=== PATIENT | male | born 1950 | race Two or more races ===

== ENCOUNTER 2020-10-18 09:58 | Outpatient (REF) | payer MEDICARE, MEDICAID, SELFPAY ==
--- NOTE | ~2020-10-18 | US_ITS ---
EXAMINATION: US ABDOMINAL AORTA CLINICAL INFORMATION: This is a 70-year-old male with history of abdominal aortic aneurysm. Nicotine dependence. COMPARISON: Comparison is made to a CT scan dated 06/24/2018 and an aorta ultrasound dated 03/04/2018. The maximum diameter on the previous ultrasound was 3.1 cm. The maximum diameter on the previous CT scan was 2.7 cm. TECHNIQUE: Grayscale, color Doppler and spectral Doppler evaluation of the abdominal aorta. FINDINGS: There is scattered atherosclerotic disease with minimal ectasia but without aneurysm. The measurements of the aorta in maximum AP and transverse dimensions respectively are as follows: PROXIMAL: 3.2 x 3.5 cm. MID: 3.2 x 3.7 cm. DISTAL: 2.6 x 2.7 cm. The measurements of the common iliac arteries in maximum AP dimension are as follows: RIGHT COMMON ILIAC ARTERY: 1.6 x 1.6 cm. LEFT COMMON ILIAC ARTERY: 1.8 x 1.8 cm. US/US abdominal aortic aneurysm IMPRESSION: 1. There is scattered atherosclerotic disease with minimal ectasia but without abdominal aortic aneurysm. The aorta may be minimally increased in diameter, now measuring 3.7 cm. Continued follow-up is recommended.
== END 2020-10-18 09:59 | disposition home or self-care (01) ==
LOC: HO.US 09:58
PROVIDERS: Visit Provider Internal Medicine
DX: Z13.6 Encounter for screening for cardiovascular disorders (principal); Z87.891 Personal history of nicotine dependence
CPT/HCPCS: 76706

== ENCOUNTER → 2020-12-25 13:00 | Outpatient (BNVA) | payer MEDICARE, MEDICAID, SELFPAY | PROVIDERS: PCP Internal Medicine; Visit Provider Surgery Vascular Surgery | DX: I71.4 Abdominal aortic aneurysm, without rupture (principal) | CPT/HCPCS: 99202 ==

== ENCOUNTER 2021-04-16 10:20 | Outpatient (REF) | payer MEDICARE, SELFPAY ==
[2021-04-16 10:34] LABS: MANUAL DIFF FLAG NO
[2021-04-16 10:51] LABS: Basophils Percent Auto 0.7 % (0-2); Eosinophils Absolute Auto 0.3 X10*3/uL (0.0-0.4); Eosinophils Percent Auto 4.8 % (0-4); Hematocrit 42.6 % (42-52); Hemoglobin 13.8 g/dl (14.0-18.0); Imm Gran Abs Auto 0.01 X10*3/uL (0.00-0.03); Imm Gran Pct Auto 0.2 % (0.0-0.4); Lymphocytes Absolute Auto 2.5 X10*3/uL (1.2-4.9); Lymphocytes Percent Auto 41.2 % (20-40); Mean Corpuscular HGB Conc 32.4 g/dl (31.0-36.0); Mean Corpuscular Hemoglobin 29.2 pg (27.0-33.0); Mean Corpuscular Volume 90.3 fL (80-98); Mean Platelet Volume 9.6 fL (9.4-12.4); Monocytes Absolute Auto 0.5 X10*3/uL (0.1-1.2); Monocytes Percent Auto 7.8 % (2-11); Neutrophils Absolute Auto 2.7 X10*3/uL (2.0-8.3); Neutrophils Percent Auto 45.3 % (45-73); Platelet Count 235 X10*3/uL (160-400); Red Blood Count 4.72 X10*6/uL (4.60-5.80); Red Cell Distribution Width 12.6 % (11.0-16.0)
[2021-04-16 11:38] LABS: Alanine Aminotransferase 25 U/L (0-40); Albumin Level 4.3 g/dL (3.5-5.0); Alkaline Phosphatase 52 U/L (39-117); Anion Gap 13 (12-20); Aspartate Amino Transferase 23 U/L (5-37); Bilirubin Total 0.5 mg/dL (0.0-1.0); Blood Urea Nitrogen 21 mg/dL (9-16); Calcium 9.6 mg/dL (8.4-10.2); Carbon Dioxide 30 mmol/L (22-29); Chloride 102 mmol/L (96-108); Cholesterol 169 mg/dL; Estimated Glomerular Filt Rate > 60; Glucose Fasting 101 mg/dL (60-99); HDL Cholesterol 36 mg/dL; LDL Cholesterol Calculated 114 mg/dl; Potassium 4.9 mmol/L (3.3-5.1); Sodium 140 mmol/L (135-145); Total Protein 7.4 g/dL (6.5-8.0); Triglycerides 97 mg/dL
[2021-04-16 12:17] LABS: Prostate Specific Antigen 2.09 ng/mL (<0.05-4.0)
== END 2021-04-16 10:21 | disposition home or self-care (01) ==
LOC: HO.LAB 10:20
PROVIDERS: PCP Internal Medicine; Visit Provider Nurse Practitioner Family
DX: Z12.5 Encounter for screening for malignant neoplasm of prostate (principal); Z13.1 Encounter for screening for diabetes mellitus; D64.9 Anemia, unspecified; L50.9 Urticaria, unspecified; E78.5 Hyperlipidemia, unspecified
CPT/HCPCS: 36415; 80053; 80061; 84153; 85025

== ENCOUNTER 2021-05-21 12:17 | Inpatient (IN) | payer MEDICARE, MEDICAID, SELFPAY ==
[2021-05-21] VITALS (7 sets, daily range): BP systolic 95–136; BP diastolic 46–72; PULSE 102–133; RESP 16–20; TEMP 36.8–38.2; O2SAT 89–100; BMI 29.0
--- NOTE | ~2021-05-21 | XR_ITS ---
EXAMINATION: XR ABDOMEN COMPLETE CLINICAL INDICATION: Abdominal pain. COMPARISON: None TECHNIQUE: 2 views of the abdomen. FINDINGS: There is scattered stool and gas seen in colon without significant distention. The small bowel loops are nonspecific. There is no organomegaly. No bony abnormality seen. XR/XR abdomen min 2V IMPRESSION: Moderate constipation. No acute process seen.
--- NOTE | ~2021-05-21 | CT_ITS ---
EXAMINATION: CT ABDOMEN AND PELVIS WITH CONTRAST CLINICAL INFORMATION: Diffuse abdominal pain. Elevated white blood cell count. COMPARISON: Previous CT of the abdomen and pelvis most recent May 2018 TECHNIQUE: Multidetector volumetric images were obtained from the superior aspect of the liver through the pubic symphysis following administration 85 mL of Omnipaque 350 intravenous contrast. Sagittal and coronal reformatted images were obtained on the technologist's workstation. Oral contrast: Yes This CT examination was performed using dose optimization techniques as appropriate, variously including the following: *Automated exposure control *Adjustment of mA and/or kV according to patient size (this includes techniques or standardized protocols for targeted exams where dose is matched to indication/reason for exam; i.e. extremities or head) *Use of iterative reconstruction technique DLP: 583 mGy-cm FINDINGS: LUNG BASES: The visualized lung bases are unremarkable. LIVER, GALLBLADDER, AND BILIARY TREE: The liver is normal in size, shape, and attenuation. No focal hepatic lesion or biliary ductal dilatation is present. The gallbladder is unremarkable with no evidence of radiopaque gallstones, gallbladder wall thickening, or obvious pericholecystic inflammatory changes. PANCREAS: There is fatty infiltration of the pancreas. The pancreas is otherwise unremarkable. SPLEEN: Unremarkable. ADRENAL GLANDS: Unremarkable. KIDNEYS AND URETERS: The kidneys are normal in size, shape, and attenuation. No hydronephrosis, hydroureter, or calculi seen. No perinephric stranding. BLADDER: There is mild diffuse bladder wall thickening and stranding of the perivesicular fat. GASTROINTESTINAL TRACT: There is mild diverticulosis colon. No evidence of diverticulitis is seen. The small and large bowel are unremarkable. The appendix is upper normal in size and fluid-filled measuring 8 mm in diameter. The periappendiceal fat is normal. The stomach is unremarkable. ABDOMINAL WALL: There is a small umbilical hernia containing fat. LYMPH NODES: Normal. VASCULAR: There is atherosclerotic disease. There is mild dilatation of the lower abdominal aorta measuring 6 x 2.8 cm. There is mild dilatation of the right common iliac artery measuring 1.8 cm. This is similar to 2018 exam. PELVIC VISCERA: The prostate gland is enlarged and measures 4.7 x 5.3 cm. OSSEOUS STRUCTURES: Unremarkable. CT/CT abdomen pelvis w con IMPRESSION: Thickened bladder wall and stranding of the perivesicular fat. Differential would include infection, neoplasm and post radiation change. Enlarged prostate gland. Fluid-filled upper normal-size appendix. The periappendiceal fat is normal. It is difficult to exclude early acute appendicitis and clinical correlation is recommended. Mild diverticulosis. Fatty infiltration of the pancreas. Atherosclerotic disease and mild ectasia of the lower abdominal aorta and right common iliac artery is similar to previous exam. Fleischner guidelines were followed.
--- NOTE | ~2021-05-21 | XR_ITS ---
EXAMINATION: XR CHEST CLINICAL INFORMATION: Elevated white blood cell count and hypoxia COMPARISON: Previous chest CT January 2019 TECHNIQUE: 2 views of the chest were obtained. FINDINGS: The cardiac and mediastinal contours are normal. The lungs are clear. There is no pleural effusion or pneumothorax. There are degenerative changes of the spine. XR/XR chest 2V IMPRESSION: No evidence for acute disease in the chest.
--- NOTE | 2021-05-21 12:48 | ED_ITS ---
HPI - Abdominal Pain General Chief Complaint: Abdominal Pain Stated Complaint: abd pain, fever Time Seen by Provider: 05/21/21 12:48 Source: patient Mode of arrival: ambulatory Limitations: no limitations History of Present Illness HPI narrative: abdominal pain since Thursday night. Patient had foul food on Thursday and started with pain. Patient states he is constipated with pain in the rectum and green urine. No prior history of abdominal surgery. 99.5 at home. Patient states that his abdomen is distended and hard. MD elicited complaint: abdominal pain Pertinent past history: constipation Onset (ago): day(s) Pain Consistency: constant Severity: severe Associated symptoms: denies other symptoms and nausea Related Data Home Medications Medication Instructions Recorded Confirmed simvastatin 10 mg tablet 10 mg PO DAILY 05/21/21 05/21/21 Previous Rx's Medication Instructions Recorded losartan 25 mg tablet 25 mg PO DAILY 90 Days #90 tab 07/27/20 Allergies Allergy/AdvReac Type Severity Reaction Status Date / Time No Known Allergies Allergy Verified 04/09/21 12:17 [No Known Allergies*] Review of Systems Constitutional: Reports no additional constitutional complaints Eyes: Reports no additional eye complaints Denies dizziness Cardiovascular: Reports no additional cardiovascular complaints Respiratory: Reports as per HPI Gastrointestinal: Reports no additional gastrointestinal complaints Musculoskeletal: Reports no additional musculoskeletal complaints Skin/Breast: Denies rash Reports system reviewed and no additional complaints, except as documented, Denies dizziness and Denies Sensory deficit (Neuro) Psychiatric: Denies anxiety Physical Exam Vital Signs: Vital Signs: Last Vital Signs Temp 97.4 F 05/22/21 12:00 Pulse 90 05/22/21 12:00 Resp 18 05/22/21 12:00 BP 119/67 05/22/21 12:00 Pulse Ox 95 05/22/21 12:00 Body Mass Index 29.0 Const: Other: patient in a lot of pain Nutritional Appearance: average body habitus Orientation/consciousness: oriented to person and patient oriented x3 Limitations: no limitations HENMT: Head: Yes normal to inspection Ears: external ears normal General nose exam: Normal external nose present Mouth: Normal oral and palatal mucosa present and oropharynx normal Throat: Yes posterior oropharynx normal Eyes: General: appearance normal, both eyes and all related structures Neck: Other: supple Neck: Yes normal visual inspection Chest: Chest palpation & inspection: normal inspection of the chest Resp: Auscultation: clear to auscultation bilaterally Cardio: Jugular venous distension: no JVD Rate: regular rate Rhythm: regular rhythm Heart sounds: S1 normal heart sound present and S2 normal heart sound present GI: Other: distended slow BS diffusely tender Palpation (GI): Tenderness to palpation present (GI) : General: Yes no CVA tenderness Back/Spine/Pelvis: Back: no CVA tenderness Skin: General skin exam: no rashes or lesions noted Neuro: General: oriented to person and patient oriented x3 Cranial nerves: Yes CN's II-XII intact bilaterally Motor exam (neuro): 5/5 motor strength present throughout Sensory Exam: No Sensory deficit (Neuro) Extrem: General: Yes normal to inspection Psych: Appearance: grossly normal Course Reevaluation(s) Reevaluation #1: discussed with Dr. Raman who feels this is acute prostatis and not bowel perforation will continue zosyn and admit to hospitalist. Also discussed appendix findings with Dr. Morocho Time: 16:50 MDM - Abdominal Pain Lab Data Result diagrams: 05/22/21 06:43 05/22/21 06:43 Labs: Lab Results 05/21/21 05/21/21 05/21/21 Range/Units 13:59 13:59 16:09 WBC 26.7 H (4.8-10.8) X10*3/uL RBC 4.34 L (4.60-5.80) X10*6/uL Hgb 13.1 L (14.0-18.0) g/dl Hct 39.1 L (42.0-52.0) % MCV 90.1 (80.0-98.0) fL MCH 30.2 (27.0-33.0) pg MCHC 33.5 (31.0-36.0) g/dl RDW 12.8 (11.0-16.0) % Plt Count 208 (160-400) X10*3/uL MPV 9.5 (9.4-12.4) fL Immature Gran % (Auto) 1.2 H (0.0-0.4) % Neut % (Auto) 84.4 H (45-73) % Lymph % (Auto) 8.0 L (20-40) % [place] % (Auto) 6.2 (2-11) % Eos % (Auto) 0.0 (0-4) % Baso % (Auto) 0.2 (0-2) % Lymph # (Auto) 2.1 (1.2-4.9) X10*3/uL [place] # (Auto) 1.7 H (0.1-1.2) X10*3/uL Eos # (Auto) 0.0 (0.0-0.4) X10*3/uL Baso # (Auto) 0.1 (0.0-0.2) X10*3/uL Abs Immat Gran (auto) 0.31 H (0.00-0.03) X10*3/uL Absolute Neuts (auto) 22.6 H (2.0-8.3) x10*3/uL Absolute Nucleated RBC 0.000 (0.0-0.012) X10*3/uL Nucleated RBC % (auto) 0.0 (0.0-0.2) /100WBC Smear Tech's Comments VERIFIED Sodium 133 L (135-145) mmol/L Potassium 4.3 (3.3-5.1) mmol/L Chloride 100 (96-108) mmol/L Carbon Dioxide 24 (22-29) mmol/L Anion Gap 13 (12-20) BUN 17 H (9-16) mg/dL Creatinine 1.03 (0.5-1.4) mg/dL Estim Creat Clear Calc 66.9 Estimated GFR > 60 Random Glucose 117 H (60-115) mg/dL Lactic Acid 0.8 (0.5-2.0) mmol/L Calcium 8.5 D (8.4-10.2) mg/dL Total Bilirubin 1.5 H (0.0-1.0) mg/dL Direct Bilirubin 0.5 (0.0-0.5) mg/dL AST 24 (5-37) U/L ALT 21 (0-40) U/L Alkaline Phosphatase 47 (39-117) U/L Total Protein 7.0 (6.5-8.0) g/dL Albumin 3.7 (3.5-5.0) g/dL Lipase 7 L (8-78) U/L Urine Color Urine Appearance Urine pH (5.0-8.0) Ur Specific [place] (1.005-1.025) Urine Protein (NEG-TRACE) MG/DL Urine Glucose (UA) (NEG) MG/DL Urine Ketones (NEG) MG/DL Urine Blood (NEG) Urine Nitrite (NEG) Ur Leukocyte Esterase (NEG) Urine RBC (0) /HPF Urine WBC (0-4) /HPF Urine WBC Clumps Ur Squamous Epith Cells /LPF Urine Bacteria /LPF COVID-19 ([facility]) (Negative) COVID-19 Clin Com 05/21/21 05/21/21 Range/Units 16:09 16:15 WBC (4.8-10.8) X10*3/uL RBC (4.60-5.80) X10*6/uL Hgb (14.0-18.0) g/dl Hct (42.0-52.0) % MCV (80.0-98.0) fL MCH (27.0-33.0) pg MCHC (31.0-36.0) g/dl RDW (11.0-16.0) % Plt Count (160-400) X10*3/uL MPV (9.4-12.4) fL Immature Gran % (Auto) (0.0-0.4) % Neut % (Auto) (45-73) % Lymph % (Auto) (20-40) % [place] % (Auto) (2-11) % Eos % (Auto) (0-4) % Baso % (Auto) (0-2) % Lymph # (Auto) (1.2-4.9) X10*3/uL [place] # (Auto) (0.1-1.2) X10*3/uL Eos # (Auto) (0.0-0.4) X10*3/uL Baso # (Auto) (0.0-0.2) X10*3/uL Abs Immat Gran (auto) (0.00-0.03) X10*3/uL Absolute Neuts (auto) (2.0-8.3) x10*3/uL Absolute Nucleated RBC (0.0-0.012) X10*3/uL Nucleated RBC % (auto) (0.0-0.2) /100WBC Smear Tech's Comments Sodium (135-145) mmol/L Potassium (3.3-5.1) mmol/L Chloride (96-108) mmol/L Carbon Dioxide (22-29) mmol/L Anion Gap (12-20) BUN (9-16) mg/dL Creatinine (0.5-1.4) mg/dL Estim Creat Clear Calc Estimated GFR Random Glucose (60-115) mg/dL Lactic Acid (0.5-2.0) mmol/L Calcium (8.4-10.2) mg/dL Total Bilirubin (0.0-1.0) mg/dL Direct Bilirubin (0.0-0.5) mg/dL AST (5-37) U/L ALT (0-40) U/L Alkaline Phosphatase (39-117) U/L Total Protein (6.5-8.0) g/dL Albumin (3.5-5.0) g/dL Lipase (8-78) U/L Urine Color YELLOW Urine Appearance CLOUDY Urine pH 7.0 (5.0-8.0) Ur Specific [place] <= 1.005 (1.005-1.025) Urine Protein 1+ H (NEG-TRACE) MG/DL Urine Glucose (UA) NEG (NEG) MG/DL Urine Ketones NEG (NEG) MG/DL Urine Blood 3+ H (NEG) Urine Nitrite POS H (NEG) Ur Leukocyte Esterase 3+ H (NEG) Urine RBC 30-49 H (0) /HPF Urine WBC TNTC H (0-4) /HPF Urine WBC Clumps NOTED Ur Squamous Epith Cells TRACE /LPF Urine Bacteria 2+ /LPF COVID-19 ([facility]) Negative (Negative) COVID-19 Clin Com See Note Imaging Data Abdominal x-ray: Radiologist's impression: IMPRESSION: Moderate constipation. No acute process seen. ? CT scan - abdomen: Radiologist's impression: IMPRESSION: Thickened bladder wall and stranding of the perivesicular fat. Differential would include infection, neoplasm and post radiation change. Enlarged prostate gland. ? Fluid-filled upper normal-size appendix. The periappendiceal fat is normal. It is difficult to exclude early acute appendicitis and clinical correlation is recommended. Mild diverticulosis. Fatty infiltration of the pancreas. Atherosclerotic disease and mild ectasia of the lower abdominal aorta and right common iliac artery is similar to previous exam. ? Fleischner guidelines were followed. Discharge Plan Discharge Clinical Impression: Cystitis, Abnormal CT scan Abdominal pain Qualifiers: Abdominal location: generalized Qualified Code(s): R10.84 - Generalized abdominal pain Patient Disposition: Admitted As Inpatient Interventions: Admission Worksheet (ED) Last Done: 05/22/21 10:14 Discharge Date/Time: 05/22/21 10:15 ON LICENSE OF [facility] Past Medical History Medical History Dyslipidemia Enlarged aorta Essential hypertension Former smoker [place] Obese Urticaria Surgical History History of colonoscopy Family History Family History Father No problems noted. Mother Emphysema of lung Social History Social History Household Members: Spouse Housing: House Do you presently have visiting nurse or other home services: No Alcohol intake: never Patient Tobacco Use Status: Former Tobacco user Tobacco use type: Cigarette Smoked in Last 30 Days: No Use of substances other than those prescribed or required for medical reasons: No Currently Displaying Signs/Symptoms of Drug Intoxication Withdrawal: No Any prior treatment program specific to substance use: No Have you been hit, kicked, punched, or otherwise hurt by someone within the past year? If so, by whom?: No Do you feel safe in your current relationship?: No Is there a partner from a previous relationship who is making you feel unsafe now?: No Are you made to feel afraid or neglected: No Advance Directives: No Advance Directives Information Provided: No Advance Directives on File: No Do you have thoughts of harming others: None Recently lost weight without trying: No How much weight loss: Not applicable Eating poorly because of decreased appetite: Yes Nutrition screen score: 1 Nutrition Risks: No Nutritional Risk Poor oral hygiene: No service: No Current occupational status: disabled
[2021-05-21] MEDS: Morphine Sulfate 4 MG/ML CARTRIDGE IVPUSH (14:04)
[2021-05-21] MEDS: 0.9 % Sodium Chloride 1,000 ML 999 ML IVCONT ×3 (14:04→18:59)
[2021-05-21 14:05] LABS: Basophils Absolute Auto 0.1 X10*3/uL (0.0-0.2); Basophils Percent Auto 0.2 % (0-2); Hematocrit 39.1 % (42.0-52.0); Hemoglobin 13.1 g/dl (14.0-18.0); Imm Gran Abs Auto 0.31 X10*3/uL (0.00-0.03); Imm Gran Pct Auto 1.2 % (0.0-0.4); Lymphocytes Absolute Auto 2.1 X10*3/uL (1.2-4.9); MANUAL DIFF FLAG SCAN; Mean Corpuscular HGB Conc 33.5 g/dl (31.0-36.0); Mean Corpuscular Hemoglobin 30.2 pg (27.0-33.0); Mean Corpuscular Volume 90.1 fL (80.0-98.0); Mean Platelet Volume 9.5 fL (9.4-12.4); Monocytes Absolute Auto 1.7 X10*3/uL (0.1-1.2); Monocytes Percent Auto 6.2 % (2-11); Neutrophils Absolute Auto 22.6 x10*3/uL (2.0-8.3); Neutrophils Percent Auto 84.4 % (45-73); Platelet Count 208 X10*3/uL (160-400); Red Blood Count 4.34 X10*6/uL (4.60-5.80); Red Cell Distribution Width 12.8 % (11.0-16.0); SCAN SMEAR FLAG 1; White Blood Count 26.7 X10*3/uL (4.8-10.8)
[2021-05-21 14:24] LABS: Alanine Aminotransferase 21 U/L (0-40); Albumin Level 3.7 g/dL (3.5-5.0); Alkaline Phosphatase 47 U/L (39-117); Anion Gap 13 (12-20); Aspartate Amino Transferase 24 U/L (5-37); Bilirubin Direct 0.5 mg/dL (0.0-0.5); Bilirubin Total 1.5 mg/dL (0.0-1.0); Blood Urea Nitrogen 17 mg/dL (9-16); Calcium 8.5 mg/dL (8.4-10.2); Carbon Dioxide 24 mmol/L (22-29); Chloride 100 mmol/L (96-108); Creatinine Clr Calc Pharmacy 66.9; Estimated Glomerular Filt Rate > 60; Glucose Random 117 mg/dL (60-115); Lipase 7 U/L (8-78); Potassium 4.3 mmol/L (3.3-5.1); Sodium 133 mmol/L (135-145)
[2021-05-21] MEDS: Acetaminophen 325 MG TABLET 650 MG PO (14:35)
[2021-05-21 14:55] LABS: SLIDE REVIEW VERIFIED
[2021-05-21] MEDS: iohexoL 350 MG/ML 100 ML INFUS..BTL IV (15:10)
[2021-05-21 16:17] LABS: Appearance Urine CLOUDY; Color Urine YELLOW; Glucose Urine UA NEG (NEG); Leukocyte Esterase Urine 3+ (NEG); Nitrite Urine POS (NEG); Specific Gravity - Urine <= 1.005 (1.005-1.025); UACC Culture Trigger YES; Urine Blood 3+ (NEG); Urine Ketones NEG (NEG); Urine Protein 1+ MG/DL (NEG-TRACE)
[2021-05-21 16:25] LABS: Lactic Acid 0.8 mmol/L (0.5-2.0)
[2021-05-21 16:38] LABS: COVID-19 Test Negative (Negative); IDNOW Serial# 9DD0AD1C
[2021-05-21] MEDS: Piperacillin Sodium/Tazobactam 3.375 GM in 0.9 % Sodium Chloride 50 ML IV (16:40)
[2021-05-21 16:55] LABS: Bacteria Urine 2+ /LPF; RBC Urine 30-49 /HPF (0); Squamous Epithelial Cell Urine TRACE /LPF; WBC Clumps Urine NOTED; WBC Urine TNTC /HPF (0-4)
--- NOTE | 2021-05-21 17:17 | P.CONGS_ITS ---
History of Present Illness Consult details Consult date: 05/21/21 Reason for consult: abdominal pain Requesting physician: Lorenzo Chavarria Narrative: 70-year-old male patient presenting with complaints of abdominal pain of 3 days duration which began after eating what he thinks was bad food on Thursday. He subsequently developed increased abdominal pain and what he calls screening urine. He also complains of constipation, abdominal distension, nausea, or vomiting. The pain seems to increase in severity a therefore presented to the emergency department for further evaluation. Admitting evaluation noted abdominal distension. Laboratories revealed elevated WBC and urinalysis with blood and wbc's too numerous to count. Subsequent evaluation with a CT abdomen and pelvis revealed a markedly thickened bladder with surrounding inflammatory changes and inflamed enlarge prostate. A fluid-filled appendix was also identified with no secondary evidence of acute appendicitis. Patient now reports his abdominal pain is improved and reports passing normal, clear urine. He denies fever or chills. He denies previous abdominal surgery. Review of Systems Constitutional: Constitutional: Denies chills, Denies fever(s), Denies headache(s) and Reports poor appetite ENT: Denies dizziness and Denies headache(s) Cardiovascular: Cardiovascular: Denies chest pain, Denies rapid heart rate, Denies palpitations and Denies slow heart rate Respiratory: Respiratory: Denies chest congestion, Denies cough, Denies pain on inspiration and Denies wheezing Gastrointestinal: Gastrointestinal: Reports abdominal pain, Denies bloating, Denies change in stool character, Reports constipation, Denies diarrhea, Denies nausea, Denies vomiting and Denies hematemesis Genitourinary: Genitourinary: Reports as per HPI Musculoskeletal: Musculoskeletal: Denies back pain, Denies arthralgias, Denies joint swelling and Denies numbness Integumentary/Breasts: Skin/Breast: Denies change in pigmentation, Denies erythema and Denies rash Neurologic: Denies dizziness, Denies headache(s) and Denies numbness Psychiatric: Psychiatric: Denies anxiety and Denies depression Endocrine: Endocrine: Denies palpitations Hematologic/Lymphatic: Hematologic/Lymphatic: Denies easy bleeding, Denies easy bruising and Denies lymphadenopathy Allergic/Immunologic: Allergic/Immunologic: Denies wheezing PMFSH Past Medical History Medical History Dyslipidemia Enlarged aorta Essential hypertension Former smoker Lipoma Obese Urticaria Family History Family History Father No problems noted. Mother Emphysema of lung Surgical History Surgical History History of colonoscopy Social History Social History Housing: Apartment Alcohol intake: never Patient Tobacco Use Status: Former Tobacco user Tobacco use type: Cigarette Use of substances other than those prescribed or required for medical reasons: No Advance Directives: No Advance Directives Information Provided: No service: No Current occupational status: disabled Meds Allergies Allergy/AdvReac Type Severity Reaction Status Date / Time No Known Allergies Allergy Verified 04/09/21 12:17 [No Known Allergies*] Active Medications: Current Medications Sodium Chloride (Ns) 1,000 mls @ 999 mls/hr IVCONT .Q1H1M CAMPOS Stop: 05/21/21 18:45 Physical Exam Vital Signs: Vital Signs: Last Vital Signs Temp 98.4 F 05/21/21 15:42 Pulse 106 H 05/21/21 15:42 Resp 16 05/21/21 15:42 BP 95/46 L 05/21/21 15:42 Pulse Ox 97 05/21/21 15:42 Body Mass Index 29.0 Const: General: cooperative, no acute distress and well developed Nutritional Appearance: overweight Orientation/consciousness: patient oriented x3 Limitations: no limitations HENMT: Head: Yes normocephalic and Yes atraumatic Ears: hearing grossly normal bilaterally Resp: Effort & Inspection: normal respiratory effort, no audible wheezes, no cough and no respiratory distress GI: Inspection: Yes distended Palpation (GI): Soft to palpation, nontender, no guarding and not rigid Percussion: Yes normal to percussion Auscultation: normal bowel sounds Rectal Exam - Male: Yes deferred Skin: General skin exam: no rashes or lesions noted Neuro: General: patient oriented x3 Extrem: General: Yes no clubbing, cyanosis or edema Results Labs Result diagrams: 05/21/21 13:59 05/21/21 13:59 Labs: Abnormal lab results 05/21/21 05/21/21 05/21/21 Range/Units 13:59 13:59 16:09 WBC 26.7 H (4.8-10.8) X10*3/uL RBC 4.34 L (4.60-5.80) X10*6/uL Hgb 13.1 L (14.0-18.0) g/dl Hct 39.1 L (42.0-52.0) % Immature Gran % (Auto) 1.2 H (0.0-0.4) % Neut % (Auto) 84.4 H (45-73) % Lymph % (Auto) 8.0 L (20-40) % [place] # (Auto) 1.7 H (0.1-1.2) X10*3/uL Abs Immat Gran (auto) 0.31 H (0.00-0.03) X10*3/uL Absolute Neuts (auto) 22.6 H (2.0-8.3) x10*3/uL Sodium 133 L (135-145) mmol/L BUN 17 H (9-16) mg/dL Random Glucose 117 H (60-115) mg/dL Total Bilirubin 1.5 H (0.0-1.0) mg/dL Lipase 7 L (8-78) U/L Urine Protein 1+ H (NEG-TRACE) MG/DL Urine Blood 3+ H (NEG) Urine Nitrite POS H (NEG) Ur Leukocyte Esterase 3+ H (NEG) Urine RBC 30-49 H (0) /HPF Urine WBC TNTC H (0-4) /HPF Short CBC 05/21/21 Range/Units 13:59 WBC 26.7 H (4.8-10.8) X10*3/uL Hgb 13.1 L (14.0-18.0) g/dl Hct 39.1 L (42.0-52.0) % Plt Count 208 (160-400) X10*3/uL BMP 05/21/21 13:59 Sodium 133 L Potassium 4.3 Chloride 100 Carbon Dioxide 24 BUN 17 H Creatinine 1.03 Calcium 8.5 D Liver Function 05/21/21 Range/Units 13:59 Total Bilirubin 1.5 H (0.0-1.0) mg/dL Direct Bilirubin 0.5 (0.0-0.5) mg/dL AST 24 (5-37) U/L ALT 21 (0-40) U/L Alkaline Phosphatase 47 (39-117) U/L Albumin 3.7 (3.5-5.0) g/dL Urine 05/21/21 Range/Units 16:09 Urine Color YELLOW Urine Appearance CLOUDY Urine pH 7.0 (5.0-8.0) Ur Specific [place] <= 1.005 (1.005-1.025) Urine Protein 1+ H (NEG-TRACE) MG/DL Urine Glucose (UA) NEG (NEG) MG/DL All other labs normal. Assessment and Plan (1) Cystitis: Status: Acute 70-year-old male patient presenting with complaints of abdominal pain, distension, constipation, and green urine. Evaluation revealed a markedly elevated WBC and CT changes consistent with cystitis. Urinalysis is markedly abnormal with rbc's and wbc's. I reviewed the CT abdomen and pelvis. The bladder wall is thickened with inflammatory changes surrounding the bladder. Appendix is identified and fluid filled but no evidence of inflammatory changes to indicate Acute appendicitis. Examination reveals abdomen to be soft, with no right lower quadrant or left lower quadrant tenderness. No rebound or guarding. Findings are most consistent with a cystitis. Recommend hospitalist and urology evaluation. No surgical intervention recommended at this time. Discussed with Dr. Chavarria. Procedures Date of Service Date of Service: 05/21/21
--- NOTE | 2021-05-21 19:05 | PC.NURSE ---
REPORT TAKEN FROM MARCELLE RN, FIRST CONTACT WITH PT. RESTING IN BED SKIN PWD RESPIRATIONS EVEN UNLABORED. AWAITING BED ASSIGNMENT FOR ADMISSION. AWARE OF PLAN OF CARE.
--- NOTE | 2021-05-21 19:22 | P.HPHOSP_ITS ---
History of Present Illness Date of Service: 05/21/21 Chief Complaint: Abdominal pain 70-year-old male with a past medical history of hypertension, hyperlipidemia, obesity, history of abdominal aortic aneurysm, ex-smoker presented to the hospital today with a chief complaint of abdominal pain. Patient reported that he had old hold on Thursday and since then he has been having abdominal discomfort as well to nausea and vomiting. Denies any diarrhea. Denies any blood in the vomitus. Reports abdominal pain is diffuse, crampy, intermittent in nature,. Denies any chest pain palpitations lightheadedness or dizziness. Denies any fever chills cough. Patient does complains of urinary frequency and dysuria. Denies any numbness tingling or focal weakness. Review of all other systems is negative except mentioned above ER course: Per ER team on presentation patient noted to be tachycardic; lab showed elevated white count, concern for sepsis; urinalysis was abnormal with microscopic hematuria-discussed with Urology Dr. jin who opined-> is likely prostatitis; also discussed with general surgery Dr. Cage was ago who evaluated the patient and mentioned he does not appear to be an acute abdomen and no concerns for acute appendicitis and mentioned no acute surgery needed. Patient was given IV antibiotics. Admitted to the hospital for further management. [facility] Medical History Dyslipidemia Enlarged aorta Essential hypertension Former smoker Lipoma Obese Urticaria Family History Father No problems noted. Mother Emphysema of lung Pertinent family history: As mentioned above Surgical History History of colonoscopy Social History Housing: Apartment Alcohol intake: never Patient Tobacco Use Status: Former Tobacco user Tobacco use type: Cigarette Use of substances other than those prescribed or required for medical reasons: No Advance Directives: No Advance Directives Information Provided: No service: No Current occupational status: disabled Meds Allergies Allergy/AdvReac Type Severity Reaction Status Date / Time No Known Allergies Allergy Verified 04/09/21 12:17 [No Known Allergies*] Physical Exam Vital Signs and Narrative: Vital Signs: Last Vital Signs Temp 98.4 F 05/21/21 15:42 Pulse 106 H 05/21/21 15:42 Resp 16 05/21/21 15:42 BP 95/46 L 05/21/21 15:42 Pulse Ox 97 05/21/21 15:42 Body Mass Index 29.0 Gen: Appears be in no acute distress HEENT: NCAT, Moist mucosa. Pulmonary: Vesicular breath sounds, fair air entry CVS: Normal S1-S2 Abdomen: BS+, Soft, tender diffusely, no guarding no rigidity Extremities: Warm well perfused Neuro: Alert and awake. Results Labs CBC and Chem 7: 05/21/21 13:59 05/21/21 13:59 Labs: Laboratory Results - last 24 hr 05/21/21 05/21/21 05/21/21 13:59 13:59 16:09 MCV 90.1 MCH 30.2 MCHC 33.5 RDW 12.8 Plt Count 208 MPV 9.5 Immature Gran % (Auto) 1.2 H Neut % (Auto) 84.4 H Lymph % (Auto) 8.0 L [place] % (Auto) 6.2 Eos % (Auto) 0.0 Baso % (Auto) 0.2 Lymph # (Auto) 2.1 [place] # (Auto) 1.7 H Eos # (Auto) 0.0 Baso # (Auto) 0.1 Abs Immat Gran (auto) 0.31 H Absolute Neuts (auto) 22.6 H Absolute Nucleated RBC 0.000 Nucleated RBC % (auto) 0.0 Smear Tech's Comments VERIFIED Anion Gap 13 Estim Creat Clear Calc 66.9 Estimated GFR > 60 Random Glucose 117 H Lactic Acid 0.8 Calcium 8.5 D Total Bilirubin 1.5 H Direct Bilirubin 0.5 AST 24 ALT 21 Alkaline Phosphatase 47 Total Protein 7.0 Albumin 3.7 Lipase 7 L Urine Color Urine Appearance Urine pH Ur Specific [place] Urine Protein Urine Glucose (UA) Urine Ketones Urine Blood Urine Nitrite Ur Leukocyte Esterase Urine RBC Urine WBC Urine WBC Clumps Ur Squamous Epith Cells Urine Bacteria COVID-19 ([facility]) COVID-19 Clin Com 05/21/21 05/21/21 16:09 16:15 MCV MCH MCHC RDW Plt Count MPV Immature Gran % (Auto) Neut % (Auto) Lymph % (Auto) [place] % (Auto) Eos % (Auto) Baso % (Auto) Lymph # (Auto) [place] # (Auto) Eos # (Auto) Baso # (Auto) Abs Immat Gran (auto) Absolute Neuts (auto) Absolute Nucleated RBC Nucleated RBC % (auto) Smear Tech's Comments Anion Gap Estim Creat Clear Calc Estimated GFR Random Glucose Lactic Acid Calcium Total Bilirubin Direct Bilirubin AST ALT Alkaline Phosphatase Total Protein Albumin Lipase Urine Color YELLOW Urine Appearance CLOUDY Urine pH 7.0 Ur Specific [place] <= 1.005 Urine Protein 1+ H Urine Glucose (UA) NEG Urine Ketones NEG Urine Blood 3+ H Urine Nitrite POS H Ur Leukocyte Esterase 3+ H Urine RBC 30-49 H Urine WBC TNTC H Urine WBC Clumps NOTED Ur Squamous Epith Cells TRACE Urine Bacteria 2+ COVID-19 ([facility]) Negative COVID-19 Clin Com See Note Imaging Radiologist's Impressions: Impressions Abdomen X-Ray 05/21/21 12:55 IMPRESSION: Moderate constipation. No acute process seen. Abdomen/Pelvis CT 05/21/21 14:36 IMPRESSION: Thickened bladder wall and stranding of the perivesicular fat. Differential would include infection, neoplasm and post radiation change. Enlarged prostate gland. Fluid-filled upper normal-size appendix. The periappendiceal fat is normal. It is difficult to exclude early acute appendicitis and clinical correlation is recommended. Mild diverticulosis. Fatty infiltration of the pancreas. Atherosclerotic disease and mild ectasia of the lower abdominal aorta and right common iliac artery is similar to previous exam. Fleischner guidelines were followed. Chest X-Ray 05/21/21 14:36 IMPRESSION: No evidence for acute disease in the chest. Assessment and Plan (1) Abdominal pain: Qualifiers: Abdominal location: generalized Qualified Code(s): R10.84 - Generalized abdominal pain Status: Acute (2) Cystitis: Status: Acute (3) Microscopic hematuria: Status: Acute 70-year-old male with a past medical history of hypertension, hyperlipidemia, obesity, history of abdominal aortic aneurysm, ex-smoker presented to the hospital today with a chief complaint of abdominal pain. Noted to have a UTI/prostatitis. Admitted for further management. Sepsis/UTI/prostatitis: Continue ceftriaxone. Follow up cultures. Id consult. BP on soft side; c/w IV fluids. Thickened urinary bladder/microscopic hematuria: Neoplasm in the differential. Urology consulted Hx Abd aortic aneurysm: CT shows: mild ectasia of the lower abdominal aorta and right common iliac artery is similar to previous exam. Spoke to radiology -> no concern acute aortic pathology. hx HTN: Hold home losartan for now given soft BP. DVT ppx: [facility] Code status: Full code Quality Stroke Does the patient have a stroke diagnosis?: No VTE Prior VTE?: No VTE Risk Level:: Medical - moderate - high VTE Device Contraindication: Treatment Not Indicated VTE Drug Contraindication: N/A - Med Ordered
[2021-05-21] MEDS: Dextrose 5 % and 0.9 % NaCl 1,000 ML 80 ML IVCONT (20:02)
[2021-05-21] MEDS: Heparin Sodium,Porcine 5,000 UNIT/ML VIAL 5000 UNIT SUBCUT (22:00)
[2021-05-21] MEDS: cefTRIAXone sodium 1 GM in 0.9 % Sodium Chloride 50 ML IV (22:00)
[2021-05-21] MEDS: 0.9 % Sodium Chloride Flush 3 ML SYRINGE IVFLUSH (23:32)
--- NOTE | 2021-05-21 23:37 | PC.NURSE ---
REPORT TAKEN FROM MARCELLE RN, FIRST CONTACT WITH PT. RESTING IN BED SKIN PWD RESPIRATIONS EVEN UNLABORED. OFFERS NO COMPLAINTS AT THIS TIME. AWAITING BED ASSIGNMENT FOR ADMISSION, AWARE OF PLAN OF CARE.
--- NOTE | 2021-05-21 23:42 | PC.NURSE ---
PT RESTING IN BED D5NS INFUSING WITHOUT DIFFICULTY. OFFERS NO COMPLAINTS AT THIS TIME. VSD. CONTINUES TO AWAIT BED ASSIGNMENT FOR ADMISSION. AWRAE OF PLAN OF CARE.
[2021-05-22] VITALS (8 sets, daily range): BP systolic 97–133; BP diastolic 46–68; PULSE 90–106; RESP 16–19; TEMP 35.7–38.1; O2SAT 94–100
[2021-05-22] MEDS: Heparin Sodium,Porcine 5,000 UNIT/ML VIAL 5000 UNIT SUBCUT ×3 (03:20→19:37)
[2021-05-22 07:08] LABS: MANUAL DIFF FLAG NO
[2021-05-22 07:16] LABS: Basophils Percent Auto 0.2 % (0-2); Eosinophils Percent Auto 0.1 % (0-4); Hematocrit 37.2 % (42.0-52.0); Hemoglobin 11.9 g/dl (14.0-18.0); Imm Gran Abs Auto 0.25 X10*3/uL (0.00-0.03); Imm Gran Pct Auto 1.1 % (0.0-0.4); Lymphocytes Absolute Auto 1.5 X10*3/uL (1.2-4.9); Lymphocytes Percent Auto 6.7 % (20-40); Mean Corpuscular Hemoglobin 29.5 pg (27.0-33.0); Mean Corpuscular Volume 92.1 fL (80.0-98.0); Mean Platelet Volume 9.9 fL (9.4-12.4); Monocytes Absolute Auto 1.1 X10*3/uL (0.1-1.2); Monocytes Percent Auto 4.9 % (2-11); Neutrophils Absolute Auto 19.2 x10*3/uL (2.0-8.3); Platelet Count 200 X10*3/uL (160-400); Red Blood Count 4.04 X10*6/uL (4.60-5.80); Red Cell Distribution Width 13.2 % (11.0-16.0); White Blood Count 22.1 X10*3/uL (4.8-10.8)
[2021-05-22 07:39] LABS: Anion Gap 11 (12-20); Blood Urea Nitrogen 12 mg/dL (9-16); Calcium 7.5 mg/dL (8.4-10.2); Carbon Dioxide 25 mmol/L (22-29); Chloride 105 mmol/L (96-108); Creatinine Clr Calc Pharmacy 84.1; Estimated Glomerular Filt Rate > 60; Glucose Random 126 mg/dL (60-115); Potassium 4.3 mmol/L (3.3-5.1); Sodium 137 mmol/L (135-145)
[2021-05-22 07:56] LABS: Urine Cytology See Pathology rpt
[2021-05-22] MEDS: Dextrose 5 % and 0.9 % NaCl 1,000 ML 80 ML IVCONT ×2 (07:59→13:25)
[2021-05-22] MEDS: Acetaminophen 325 MG TABLET 650 MG PO (08:47)
[2021-05-22] MEDS: 0.9 % Sodium Chloride Flush 3 ML SYRINGE IVFLUSH (08:48)
--- NOTE | 2021-05-22 10:03 | MHC.CM.PN ---
CM met with Patient at bedside and addressed IMM with him (he asked that it be left for his ; he preferred not to sign himself); a copy has also been placed on the chart.Home is the goal for dc and CM has initiated and will follow for dc planning. /Karrie is HCP and PCP is Dr. Marilynn Pandey.
--- NOTE | 2021-05-22 14:51 | W.PM.IDCN ---
History of Present Illness Data of Consult Service Date: 05/22/21 Requesting physician: Moises Plascencia Primary Care Provider: Marilynn Pandey MD [facility] Reason for consult: abdominal pain He presents to hospital with abdominal discomfort 7/10 for 3 days He has occasional fever and no chills He has gram negative rods in urine Review of Systems Review of Systems: Yes all other systems are reviewed and are negative PMFSH Past Medical History Medical History Dyslipidemia Enlarged aorta Essential hypertension Former smoker Lipoma Obese Urticaria Family History Family History Father No problems noted. Mother Emphysema of lung Family history: reviewed and not pertinent Surgical History Surgical History History of colonoscopy Social History Social History Household Members: Spouse Housing: House Do you presently have visiting nurse or other home services: No Alcohol intake: never Patient Tobacco Use Status: Former Tobacco user Tobacco use type: Cigarette Smoked in Last 30 Days: No Use of substances other than those prescribed or required for medical reasons: No Currently Displaying Signs/Symptoms of Drug Intoxication Withdrawal: No Any prior treatment program specific to substance use: No Have you been hit, kicked, punched, or otherwise hurt by someone within the past year? If so, by whom?: No Do you feel safe in your current relationship?: No Is there a partner from a previous relationship who is making you feel unsafe now?: No Are you made to feel afraid or neglected: No Advance Directives: No Advance Directives Information Provided: No Advance Directives on File: No Do you have thoughts of harming others: None Recently lost weight without trying: No How much weight loss: Not applicable Eating poorly because of decreased appetite: Yes Nutrition screen score: 1 Nutrition Risks: No Nutritional Risk Poor oral hygiene: No service: No Current occupational status: disabled Meds Allergies Allergy/AdvReac Type Severity Reaction Status Date / Time No Known Allergies Allergy Verified 04/09/21 12:17 [No Known Allergies*] Active Medications: Current Medications Acetaminophen (Acetaminophen 325 Mg Tablet) 650 mg PO Q4H PRN PRN Reason: Headache Last Admin: 05/22/21 08:47 Dose: 650 mg Documented by: Heparin Sodium (Porcine) (Heparin Sodium,Porcine 5,000 Unit/Ml Vial) 5,000 unit SUBCUT Q8H [facility] Last Admin: 05/22/21 13:26 Dose: 5,000 unit Documented by: Ceftriaxone Sodium 1 gm/ (Sodium Chloride) 50 mls @ 100 mls/hr IV Q24H [facility] Last Infusion: 05/21/21 22:35 Dose: Infused Documented by: Dextrose/Sodium Chloride (D5ns) 1,000 mls @ 80 mls/hr IVCONT .[id number] [facility] Last Admin: 05/22/21 13:25 Dose: 80 mls/hr Documented by: Melatonin (Melatonin 3 Mg Tablet) 6 mg PO BEDTIME PRN PRN Reason: Insomnia Senna (Sennosides 8.6 Mg Tablet) 17.2 mg PO BEDTIME PRN PRN Reason: Constipation Sodium Chloride (0.9 % Sodium Chloride Flush 3 Ml Syringe) 3 ml IVFLUSH QSHIFT [facility] Last Admin: 05/22/21 08:48 Dose: 3 ml Documented by: Home Medications Medication Instructions Recorded Confirmed Last Taken Type simvastatin 10 mg tablet 10 mg PO DAILY 05/21/21 05/21/21 05/20/21 History Physical Exam Vital Signs: Vital Signs: Last Vital Signs Temp 97.4 F 05/22/21 12:00 Pulse 90 05/22/21 12:00 Resp 18 05/22/21 12:00 BP 119/67 05/22/21 12:00 Pulse Ox 95 05/22/21 12:00 Body Mass Index 29.0 Const: General: cooperative Orientation/consciousness: patient oriented x3 Eyes: General: appearance normal, both eyes and all related structures Pupils: Equal, round and reactive pupils present Resp: Effort & Inspection: normal respiratory effort Cardio: Rate: regular rate Rhythm: regular rhythm GI: Palpation (GI): Soft to palpation and not firm Skin: General skin exam: no rashes or lesions noted Neuro: General: patient oriented x3 Cranial nerves: Yes Equal, round and reactive pupils present Results Labs CBC & Chem 7: 05/22/21 06:43 05/22/21 06:43 Labs: Short CBC 05/22/21 Range/Units 06:43 WBC 22.1 H (4.8-10.8) X10*3/uL Hgb 11.9 L (14.0-18.0) g/dl Hct 37.2 L (42.0-52.0) % Plt Count 200 (160-400) X10*3/uL BMP 05/22/21 06:43 Sodium 137 Potassium 4.3 Chloride 105 Carbon Dioxide 25 BUN 12 Creatinine 0.82 Calcium 7.5 L D Urine 05/21/21 Range/Units 16:09 Urine Color YELLOW Urine Appearance CLOUDY Urine pH 7.0 (5.0-8.0) Ur Specific [place] <= 1.005 (1.005-1.025) Urine Protein 1+ H (NEG-TRACE) MG/DL Urine Glucose (UA) NEG (NEG) MG/DL Microbiology Microbiology Results: Microbiology 05/21/21 16:25 Urine clean catch - Urine wolfe top Urine Culture - Preliminary Gram negative elan Assessment and Plan (1) Abdominal pain: Qualifiers: Abdominal location: generalized Qualified Code(s): R10.84 - Generalized abdominal pain Status: Acute He has probable UTI He feels better now (2) Cystitis: Status: Acute Would continue Ceftriaxone Await urine culture Probably 10 days outpatient po
--- NOTE | 2021-05-22 15:06 | P.PNIM_ITS ---
Subjective Subjective Date of Service: 05/22/21 Interval History: No acute issues overnight Review of Systems Denies chest pain Denies shortness of breath Denies nausea vomiting diarrhea Physical Exam Vital Signs: Vital Signs: Last Vital Signs Temp 97.4 F 05/22/21 12:00 Pulse 90 05/22/21 12:00 Resp 18 05/22/21 12:00 BP 119/67 05/22/21 12:00 Pulse Ox 95 05/22/21 12:00 Body Mass Index 29.0 Const: Other: No acute issues overnight Resp: Other: Clear to auscultation bilaterally. No rales rhonchi wheezes Cardio: Other: No S4; positive S1-S2; no S3 murmurs rubs gallops GI: Other: Soft mildly tender lower abdomen with positive bowel sounds. No peritoneal signs Extrem: Other: No edema bilaterally Objective Data Active Medications Acetaminophen (Acetaminophen 325 Mg Tablet) 650 mg PO Q4H PRN PRN Reason: Headache Last Admin: 05/22/21 08:47 Dose: 650 mg Documented by: ZAYNAB Heparin Sodium (Porcine) (Heparin Sodium,Porcine 5,000 Unit/Ml Vial) 5,000 unit SUBCUT Q8H [facility] Last Admin: 05/22/21 13:26 Dose: 5,000 unit Documented by: JEFFREY Ceftriaxone Sodium 1 gm/ (Sodium Chloride) 50 mls @ 100 mls/hr IV Q24H [facility] Last Infusion: 05/21/21 22:35 Dose: 0 mls/hr Documented by: MALCOLM Dextrose/Sodium Chloride (D5ns) 1,000 mls @ 80 mls/hr IVCONT .[id number] [facility] Last Admin: 05/22/21 13:25 Dose: 80 mls/hr Documented by: JEFFREY Melatonin (Melatonin 3 Mg Tablet) 6 mg PO BEDTIME PRN PRN Reason: Insomnia Senna (Sennosides 8.6 Mg Tablet) 17.2 mg PO BEDTIME PRN PRN Reason: Constipation Sodium Chloride (0.9 % Sodium Chloride Flush 3 Ml Syringe) 3 ml IVFLUSH QSHIFT [facility] Last Admin: 05/22/21 08:48 Dose: 3 ml Documented by: ZAYNAB Labs CBC & Chem 7: 05/22/21 06:43 05/22/21 06:43 Labs: Laboratory Results - last 24 hr 05/21/21 05/21/21 05/21/21 16:09 16:09 16:15 MCV MCH MCHC RDW Plt Count MPV Immature Gran % (Auto) Neut % (Auto) Lymph % (Auto) [place] % (Auto) Eos % (Auto) Baso % (Auto) Lymph # (Auto) [place] # (Auto) Eos # (Auto) Baso # (Auto) Abs Immat Gran (auto) Absolute Neuts (auto) Absolute Nucleated RBC Nucleated RBC % (auto) Anion Gap Estim Creat Clear Calc Estimated GFR Random Glucose Lactic Acid 0.8 Calcium Urine Color YELLOW Urine Appearance CLOUDY Urine pH 7.0 Ur Specific [place] <= 1.005 Urine Protein 1+ H Urine Glucose (UA) NEG Urine Ketones NEG Urine Blood 3+ H Urine Nitrite POS H Ur Leukocyte Esterase 3+ H Urine RBC 30-49 H Urine WBC TNTC H Urine WBC Clumps NOTED Ur Squamous Epith Cells TRACE Urine Bacteria 2+ COVID-19 ([facility]) Negative COVID-19 Clin Com See Note 05/22/21 05/22/21 06:43 06:43 MCV 92.1 MCH 29.5 MCHC 32.0 RDW 13.2 Plt Count 200 MPV 9.9 Immature Gran % (Auto) 1.1 H Neut % (Auto) 87.0 H Lymph % (Auto) 6.7 L [place] % (Auto) 4.9 Eos % (Auto) 0.1 Baso % (Auto) 0.2 Lymph # (Auto) 1.5 [place] # (Auto) 1.1 Eos # (Auto) 0.0 Baso # (Auto) 0.0 Abs Immat Gran (auto) 0.25 H Absolute Neuts (auto) 19.2 H Absolute Nucleated RBC 0.000 Nucleated RBC % (auto) 0.0 Anion Gap 11 L Estim Creat Clear Calc 84.1 Estimated GFR > 60 Random Glucose 126 H Lactic Acid Calcium 7.5 L D Urine Color Urine Appearance Urine pH Ur Specific [place] Urine Protein Urine Glucose (UA) Urine Ketones Urine Blood Urine Nitrite Ur Leukocyte Esterase Urine RBC Urine WBC Urine WBC Clumps Ur Squamous Epith Cells Urine Bacteria COVID-19 ([facility]) COVID-19 Clin Com Microbiology Microbiology Results: Microbiology 05/21/21 16:25 Urine Culture - Preliminary Urine clean catch - Urine wolfe top Gram negative elan Assessment and Plan (1) Cystitis: Status: Acute (2) Abdominal pain: Status: Acute Assessment and Plan: 70-year-old male with a past medical history of hypertension, hyperlipidemia, obesity, history of abdominal aortic aneurysm, ex-smoker presented to the hospital today with a chief complaint of abdominal pain. Noted to have a UTI/prostatitis. Admitted for further management. 1.UTI/prostatitis: Will continue ceftriaxone as per ID consult. Preliminary urine culture demonstrating Gram-negative rods .... Await sensitivities in 90 2.HTN Acceptable control off therapies Continue to monitor. . . Add ARB if indicated DVT ppx: [facility] Code status: Full code Quality Stroke Does the patient have a stroke diagnosis?: No VTE Prior VTE?: No VTE Risk Level:: Medical - moderate - high VTE Device Contraindication: Treatment Not Indicated VTE Drug Contraindication: N/A - Med Ordered
--- NOTE | 2021-05-22 16:28 | PM.UROCN ---
History of Present Illness Consult details Consult date: 05/22/21 Narrative: 70-year-old male Accompanied by who was translating Seen for Urology previously with [facility] Urology Admitted to hospital with difficulty urinating and urinary tract infection Microbiology showing Gram-negative elan Responding well to antibiotics Also describes pelvic pressure with urgency and frequency prior to admission Consistent with question of prostatitis Should be on prostate medications. Start alpha-antoine and finasteride. Recommend 14 days of antibiotics and outpatient follow-up Review of Systems Constitutional: Constitutional: Denies chills and Denies fever(s) Cardiovascular: Cardiovascular: Reports no additional cardiovascular complaints and Denies syncope Respiratory: Respiratory: Denies cough Gastrointestinal: Gastrointestinal: Denies abdominal pain and Denies heartburn Genitourinary: Genitourinary: Reports as per HPI and Denies change in libido Neurologic: Denies syncope Psychiatric: Psychiatric: Denies change in libido Endocrine: Endocrine: Denies change in libido PMFSH Past Medical History Medical History Dyslipidemia Enlarged aorta Essential hypertension Former smoker Lipoma Obese Urticaria Family History Family History Father No problems noted. Mother Emphysema of lung Family history: reviewed and not pertinent Surgical History Surgical History History of colonoscopy Social History Social History Household Members: Spouse Housing: House Do you presently have visiting nurse or other home services: No Alcohol intake: never Patient Tobacco Use Status: Former Tobacco user Tobacco use type: Cigarette Smoked in Last 30 Days: No Use of substances other than those prescribed or required for medical reasons: No Currently Displaying Signs/Symptoms of Drug Intoxication Withdrawal: No Any prior treatment program specific to substance use: No Have you been hit, kicked, punched, or otherwise hurt by someone within the past year? If so, by whom?: No Do you feel safe in your current relationship?: No Is there a partner from a previous relationship who is making you feel unsafe now?: No Are you made to feel afraid or neglected: No Advance Directives: No Advance Directives Information Provided: No Advance Directives on File: No Do you have thoughts of harming others: None Recently lost weight without trying: No How much weight loss: Not applicable Eating poorly because of decreased appetite: Yes Nutrition screen score: 1 Nutrition Risks: No Nutritional Risk Poor oral hygiene: No service: No Current occupational status: disabled Meds Allergies Allergy/AdvReac Type Severity Reaction Status Date / Time No Known Allergies Allergy Verified 04/09/21 12:17 [No Known Allergies*] Active Medications: Current Medications Acetaminophen (Acetaminophen 325 Mg Tablet) 650 mg PO Q4H PRN PRN Reason: Headache Last Admin: 05/22/21 08:47 Dose: 650 mg Documented by: Heparin Sodium (Porcine) (Heparin Sodium,Porcine 5,000 Unit/Ml Vial) 5,000 unit SUBCUT Q8H COUNTS INCLUDE 234 BEDS AT THE [facility] Last Admin: 05/22/21 13:26 Dose: 5,000 unit Documented by: Ceftriaxone Sodium 1 gm/ (Sodium Chloride) 50 mls @ 100 mls/hr IV Q24H COUNTS INCLUDE 234 BEDS AT THE [facility] Last Infusion: 05/21/21 22:35 Dose: Infused Documented by: Dextrose/Sodium Chloride (D5ns) 1,000 mls @ 80 mls/hr IVCONT .[id number] COUNTS INCLUDE 234 BEDS AT THE [facility] Last Admin: 05/22/21 13:25 Dose: 80 mls/hr Documented by: Melatonin (Melatonin 3 Mg Tablet) 6 mg PO BEDTIME PRN PRN Reason: Insomnia Senna (Sennosides 8.6 Mg Tablet) 17.2 mg PO BEDTIME PRN PRN Reason: Constipation Sodium Chloride (0.9 % Sodium Chloride Flush 3 Ml Syringe) 3 ml IVFLUSH QSHIFT COUNTS INCLUDE 234 BEDS AT THE [facility] Last Admin: 05/22/21 15:40 Dose: Not Given Documented by: Home Medications Medication Instructions Recorded Confirmed Last Taken Type simvastatin 10 mg tablet 10 mg PO DAILY 05/21/21 05/21/21 05/20/21 History Physical Exam Vital Signs: Vital Signs: Last Vital Signs Temp 97.4 F 05/22/21 12:00 Pulse 90 05/22/21 12:00 Resp 18 05/22/21 12:00 BP 119/67 05/22/21 12:00 Pulse Ox 95 05/22/21 12:00 Body Mass Index 29.0 Const: General: cooperative, healthy appearing, comfortable and no acute distress Orientation/consciousness: patient oriented x3 HENMT: Face and sinus: Yes normal facial exam Mouth: moist mucous membranes Neck: Neck: Yes normal visual inspection, Yes full ROM and Yes trachea midline Chest: Chest palpation & inspection: normal inspection of the chest Resp: Effort & Inspection: normal respiratory effort, able to speak in complete sentences and no respiratory distress GI: Inspection: Yes normal to inspection Back/Spine/Pelvis: Cervical Spine: normal cervical lordosis Thoracic/Lumbar Spine: thoracic and lumbar spine normal to inspection Skin: General skin exam: no rashes or lesions noted Neuro: General: patient oriented x3, gait normal, tone normal and moves all extremities Extrem: General: Yes normal to inspection and Yes capillary refill normal Results Labs Result diagrams: 05/22/21 06:43 05/22/21 06:43 Labs: Abnormal lab results 05/21/21 05/22/21 05/22/21 Range/Units 16:09 06:43 06:43 WBC 22.1 H (4.8-10.8) X10*3/uL RBC 4.04 L (4.60-5.80) X10*6/uL Hgb 11.9 L (14.0-18.0) g/dl Hct 37.2 L (42.0-52.0) % Immature Gran % (Auto) 1.1 H (0.0-0.4) % Neut % (Auto) 87.0 H (45-73) % Lymph % (Auto) 6.7 L (20-40) % Abs Immat Gran (auto) 0.25 H (0.00-0.03) X10*3/uL Absolute Neuts (auto) 19.2 H (2.0-8.3) x10*3/uL Anion Gap 11 L (12-20) Random Glucose 126 H (60-115) mg/dL Calcium 7.5 L D (8.4-10.2) mg/dL Urine RBC 30-49 H (0) /HPF Urine WBC TNTC H (0-4) /HPF Short CBC 05/22/21 Range/Units 06:43 WBC 22.1 H (4.8-10.8) X10*3/uL Hgb 11.9 L (14.0-18.0) g/dl Hct 37.2 L (42.0-52.0) % Plt Count 200 (160-400) X10*3/uL BMP 05/22/21 06:43 Sodium 137 Potassium 4.3 Chloride 105 Carbon Dioxide 25 BUN 12 Creatinine 0.82 Calcium 7.5 L D Urine 05/21/21 Range/Units 16:09 Urine Color YELLOW Urine Appearance CLOUDY Urine pH 7.0 (5.0-8.0) Ur Specific [place] <= 1.005 (1.005-1.025) Urine Protein 1+ H (NEG-TRACE) MG/DL Urine Glucose (UA) NEG (NEG) MG/DL All other labs normal. Assessment and Plan (1) Cystitis: Status: Acute (2) Bladder outlet obstruction: Status: Acute (3) Prostatitis: Status: Acute Initiate alpha-antoine hospital Follow-up as outpatient in 6 weeks. Procedures Date of Service Date of Service: 05/22/21
[2021-05-22] MEDS: Finasteride 5 MG TABLET PO (17:27)
[2021-05-22] MEDS: cefTRIAXone sodium 1 GM in 0.9 % Sodium Chloride 50 ML IV (19:36)
[2021-05-22] MEDS: Doxazosin Mesylate 2 MG TABLET 4 MG PO (19:37)
[2021-05-23] VITALS: BP 122/61; PULSE 96; RESP 16; TEMP 37.8; O2SAT 98
[2021-05-23] MEDS: Dextrose 5 % and 0.9 % NaCl 1,000 ML 80 ML IVCONT (01:25)
[2021-05-23] MEDS: Heparin Sodium,Porcine 5,000 UNIT/ML VIAL 5000 UNIT SUBCUT ×2 (03:38→12:45)
[2021-05-23 04:00] VITALS: BP 125/60; PULSE 72; RESP 16; TEMP 38; O2SAT 94
[2021-05-23 07:01] LABS: MANUAL DIFF FLAG NO
[2021-05-23 07:12] LABS: Basophils Percent Auto 0.2 % (0-2); Eosinophils Absolute Auto 0.1 X10*3/uL (0.0-0.4); Eosinophils Percent Auto 1.1 % (0-4); Hematocrit 36.5 % (42.0-52.0); Hemoglobin 11.7 g/dl (14.0-18.0); Imm Gran Abs Auto 0.06 X10*3/uL (0.00-0.03); Imm Gran Pct Auto 0.5 % (0.0-0.4); Lymphocytes Absolute Auto 1.5 X10*3/uL (1.2-4.9); Lymphocytes Percent Auto 13.2 % (20-40); Mean Corpuscular HGB Conc 32.1 g/dl (31.0-36.0); Mean Corpuscular Volume 90.6 fL (80.0-98.0); Mean Platelet Volume 10.1 fL (9.4-12.4); Monocytes Absolute Auto 0.7 X10*3/uL (0.1-1.2); Monocytes Percent Auto 6.4 % (2-11); Neutrophils Absolute Auto 8.9 x10*3/uL (2.0-8.3); Neutrophils Percent Auto 78.6 % (45-73); Platelet Count 184 X10*3/uL (160-400); Red Blood Count 4.03 X10*6/uL (4.60-5.80); Red Cell Distribution Width 12.9 % (11.0-16.0); White Blood Count 11.3 X10*3/uL (4.8-10.8)
[2021-05-23 07:21] VITALS: BP 142/71; PULSE 98; RESP 18; TEMP 37.4; O2SAT 93
[2021-05-23 07:40] LABS: Alanine Aminotransferase 18 U/L (0-40); Albumin Level 3.2 g/dL (3.5-5.0); Alkaline Phosphatase 46 U/L (39-117); Anion Gap 11 (12-20); Aspartate Amino Transferase 19 U/L (5-37); Bilirubin Total 0.3 mg/dL (0.0-1.0); Blood Urea Nitrogen 10 mg/dL (9-16); Calcium 7.5 mg/dL (8.4-10.2); Carbon Dioxide 27 mmol/L (22-29); Chloride 105 mmol/L (96-108); Creatinine Clr Calc Pharmacy 91.9; Estimated Glomerular Filt Rate > 60; Glucose Fasting 119 mg/dL (60-99); Potassium 3.7 mmol/L (3.3-5.1); Sodium 139 mmol/L (135-145); Total Protein 5.8 g/dL (6.5-8.0)
[2021-05-23] MEDS: Acetaminophen 325 MG TABLET 650 MG PO (07:43)
[2021-05-23] MEDS: Finasteride 5 MG TABLET PO (07:44)
--- NOTE | 2021-05-23 11:22 | PM.DS ---
DS: Providers Provider Date of Service: 05/23/21 Date of admission: 05/21/21 19:20 Date of discharge: 05/23/21 Primary care physician: Marilynn Pandey MD Consults: 05/21/21 19:19 Consult to Urology Routine Consulting Provider: Madhu Raman Reason for consultation: UTI; Abd pain; ?prostatitis 05/21/21 19:31 Consult to Infectious Diseases Routine Consulting Provider: Izzy Brito Reason for consultation: UTI/prostatitis DS: Diagnosis Discharge Diagnosis (1) Cystitis: Status: Acute (2) Bladder outlet obstruction: Status: Acute (3) Prostatitis: Status: Acute DS: Summary Hospital Course Hospital Course: 70-year-old male with past medical history of hypertension hyperlipidemia obesity and history of abdominal aortic aneurysm presents with lower abdominal pain approximately [address] scan evaluation consistent with a large prostate; seen by Urology who felt this was prostatitis. Blood cultures x2 were negative after 24 hours. Urine culture growing out E coli. White count down from [phone] on day of discharge. Patient is markedly improved from a pain standpoint and urinating freely. At this point he will be discharged home to complete a 14 day course of Ceftin and follow-up with Urology. Time Spent with Patient Time attestation: Total time spent providing and/or coordinating discharge services: Discharge coordination time: Greater than 30 minutes Quality: Stroke Does the patient have a stroke diagnosis?: No Physical Exam Vital Signs: Vital Signs: Last Vital Signs Temp 99.4 F 05/23/21 07:21 Pulse 98 05/23/21 07:21 Resp 18 05/23/21 07:21 BP 142/71 H 05/23/21 07:21 Pulse Ox 93 05/23/21 07:21 Body Mass Index 29.0 Const: Other: No acute distress Resp: Other: Clear to auscultation bilaterally; no rales rhonchi or wheezes Cardio: Other: No S4; positive S1-S2; no S3 murmur/rubs or gallop GI: Other: Soft nontender nondistended with normoactive bowel sounds S4 quadrants. No peritoneal signs Extrem: Other: No edema bilateral DS: Data Data Completed and Pending Labs on day of discharge: Laboratory Results - last 24 hr 05/23/21 05/23/21 06:34 06:34 WBC 11.3 H RBC 4.03 L Hgb 11.7 L Hct 36.5 L MCV 90.6 MCH 29.0 MCHC 32.1 RDW 12.9 Plt Count 184 MPV 10.1 Immature Gran % (Auto) 0.5 H Neut % (Auto) 78.6 H Lymph % (Auto) 13.2 L [place] % (Auto) 6.4 Eos % (Auto) 1.1 Baso % (Auto) 0.2 Lymph # (Auto) 1.5 [place] # (Auto) 0.7 Eos # (Auto) 0.1 Baso # (Auto) 0.0 Abs Immat Gran (auto) 0.06 H Absolute Neuts (auto) 8.9 H Absolute Nucleated RBC 0.000 Nucleated RBC % (auto) 0.0 Sodium 139 Potassium 3.7 Chloride 105 Carbon Dioxide 27 Anion Gap 11 L BUN 10 Creatinine 0.75 Estim Creat Clear Calc 91.9 Estimated GFR > 60 Fasting Glucose 119 H Calcium 7.5 L Total Bilirubin 0.3 AST 19 ALT 18 Alkaline Phosphatase 46 Total Protein 5.8 L Albumin 3.2 L Preliminary micro results at discharge 05/21/21 16:25 Urine Culture - Preliminary Urine clean catch - Urine wolfe top Escherichia coli 05/21/21 16:09 Blood Culture - Preliminary Blood - Venous No growth after 24 hours. 05/21/21 16:09 Blood Culture - Preliminary Blood - Venous No growth after 24 hours. Discharge Plan Discharge Patient Disposition: Home, Self-Care Discharge Diagnosis: Prostatitis Referrals: aMdhu Raman MD [Physician] - 6 Weeks (PVR) Marilynn Curtis MD [Primary Care Provider] - 1 Week Discharge Medications: New tamsulosin 0.4 mg capsule 0.4 mg PO BEDTIME 30 Days Qty: 30 RF: 1 finasteride 5 mg tablet 5 mg PO DAILY 30 Days Qty: 30 RF: 1 cefuroxime axetil 500 mg tablet 500 mg PO BID 10 Days Qty: 20 RF: 0 Continued losartan 25 mg tablet 25 mg PO DAILY 90 Days Qty: 90 RF: 3 simvastatin 10 mg tablet 10 mg PO DAILY RF: 0 Discharge Orders: Discharge Order (Routine); Ordered 05/23/21 Ordered By: Moises Plascencia Diet: advance to usual diet Activity on Discharge: As tolerated Stand Alone Forms: Patient Portal Discharge page Care Plan Goals: Complete course of Ceftin. Follow up with Urology Health Concerns: Med compliance Plan of Treatment: Plan is ordered Assessment: Overall improved
[2021-05-23 11:55] VITALS: BP 126/78; PULSE 98; RESP 18; TEMP 37.1; O2SAT 93
--- NOTE | 2021-05-23 12:14 | MHC.CM.PN ---
PT CLEARED TO DC HOME TODAY WITH NO SERVICES FAMILY TO TRANSPORT
== END 2021-05-23 14:00 | disposition home or self-care (01) | DRG 690 ==
LOC: HO.ED 16:41 → HO.EDOVER 19:32 → HO.S3 05-22 09:04
PROVIDERS: Admitting Provider Hospitalist; Emergency Provider Emergency Medicine; PCP Internal Medicine; Visit Provider Hospitalist
DX: N30.01 Acute cystitis with hematuria (principal); E78.5 Hyperlipidemia, unspecified; I10 Essential (primary) hypertension; B96.20 Unspecified Escherichia coli [E. coli] as the cause of diseases classified elsewhere; I71.4 Abdominal aortic aneurysm, without rupture; N41.9 Inflammatory disease of prostate, unspecified; N32.0 Bladder-neck obstruction; Z20.822 Contact with and (suspected) exposure to COVID-19; Z87.891 Personal history of nicotine dependence; Z79.899 Other long term (current) drug therapy
CPT/HCPCS: 36415; 71046; 74019; 74177; 80048; 80053; 80076; 81001; 83605; 83690; 85025; 87040; 87086; 87088; 87186; 87635; 88112; 99285; J0696; J2270; J2543; Q9967

== ENCOUNTER 2021-06-07 11:42 | Outpatient (REF) | payer MEDICARE, SELFPAY ==
[2021-06-07 13:02] LABS: Hematocrit 43.1 % (42.0-52.0); Hemoglobin 13.7 g/dl (14.0-18.0); Mean Corpuscular HGB Conc 31.8 g/dl (31.0-36.0); Mean Corpuscular Hemoglobin 29.6 pg (27.0-33.0); Mean Corpuscular Volume 93.1 fL (80.0-98.0); Mean Platelet Volume 9.9 fL (9.4-12.4); Platelet Count 331 X10*3/uL (160-400); Red Blood Count 4.63 X10*6/uL (4.60-5.80); Red Cell Distribution Width 13.2 % (11.0-16.0); White Blood Count 6.4 X10*3/uL (4.8-10.8)
[2021-06-07 13:25] LABS: Alanine Aminotransferase 31 U/L (0-40); Albumin Level 4.1 g/dL (3.5-5.0); Alkaline Phosphatase 55 U/L (39-117); Anion Gap 15 (12-20); Aspartate Amino Transferase 25 U/L (5-37); Bilirubin Total 0.9 mg/dL (0.0-1.0); Blood Urea Nitrogen 15 mg/dL (9-16); Calcium 9.5 mg/dL (8.4-10.2); Carbon Dioxide 30 mmol/L (22-29); Chloride 100 mmol/L (96-108); Cholesterol 167 mg/dL; Estimated Glomerular Filt Rate > 60; Glucose Fasting 135 mg/dL (60-99); HDL Cholesterol 36 mg/dL; LDL Cholesterol Calculated 108 mg/dl; Potassium 4.5 mmol/L (3.3-5.1); Sodium 140 mmol/L (135-145); Total Protein 7.5 g/dL (6.5-8.0); Triglycerides 115 mg/dL
[2021-06-07 13:54] LABS: Appearance Urine CLEAR; Color Urine YELLOW; Glucose Urine UA NEG (NEG); Leukocyte Esterase Urine NEG (NEG); Nitrite Urine NEG (NEG); PH 6.5 (5.0-8.0); Specific Gravity - Urine 1.015 (1.005-1.025); Urine Blood NEG (NEG); Urine Ketones NEG (NEG); Urine Protein NEG (NEG-TRACE)
[2021-06-07 14:33] LABS: Prostate Specific Antigen Scr 4.35 ng/mL (<0.05-4.0)
== END 2021-06-07 11:43 | disposition home or self-care (01) ==
LOC: HO.LAB 11:42
PROVIDERS: PCP Internal Medicine; Visit Provider Nurse Practitioner Family
DX: D72.829 Elevated white blood cell count, unspecified (principal); I10 Essential (primary) hypertension; N41.9 Inflammatory disease of prostate, unspecified; E78.5 Hyperlipidemia, unspecified; Z12.5 Encounter for screening for malignant neoplasm of prostate
CPT/HCPCS: 36415; 80053; 80061; 81003; 84153; 85027

== ENCOUNTER 2021-06-10 15:11 | Outpatient (REF) | payer MEDICARE, SELFPAY ==
--- NOTE | ~2021-06-10 | CT_ITS ---
EXAMINATION: CT CHEST SCREENING CLINICAL INFORMATION: Current smoker COMPARISON: Previous chest CT scans most recent January 2019 TECHNIQUE: Multidetector volumetric CT imaging of the chest is performed without contrast using low dose technique. Additional 2D coronal and sagittal reformatted images and axial 3D maximum intensity projection (MIP) images are generated on the CT workstation. This CT examination was performed using dose optimization techniques as appropriate, variously including the following: *Automated exposure control *Adjustment of mA and/or kV according to patient size (this includes techniques or standardized protocols for targeted exams where dose is matched to indication/reason for exam; i.e. extremities or head) *Use of iterative reconstruction technique DLP: 50 mGy-cm FINDINGS: LUNGS: There is a 4 mm calcified left lower lobe nodule axial image 292 series 5 that is stable. There is a 3 mm right lower lobe nodule axial image 321 series 5 that is stable. MEDIASTINUM: The mediastinum is normal. PLEURA: There is no pleural effusion. No pleural mass or thickening. AXILLA: No lymphadenopathy. UPPER ABDOMEN: Unremarkable OSSEOUS STRUCTURES: There are degenerative changes of the spine. CT/CT lung screening IMPRESSION: Stable small pulmonary nodules. ASSESSMENT: Lung-RADS category 2: Benign RECOMMENDATION: Annual low-dose chest CT follow-up recommended.
== END 2021-06-10 15:12 | disposition home or self-care (01) ==
LOC: HO.CT 15:11
PROVIDERS: PCP Internal Medicine; Visit Provider Physician Assistant Medical
DX: F17.200 Nicotine dependence, unspecified, uncomplicated (principal)
CPT/HCPCS: 71271

== ENCOUNTER → 2021-07-10 10:02 | Outpatient (BNVA) | payer MEDICARE, SELFPAY | PROVIDERS: PCP Internal Medicine; Visit Provider Urology | DX: N41.9 Inflammatory disease of prostate, unspecified (principal); N40.1 Benign prostatic hyperplasia with lower urinary tract symptoms; N13.8 Other obstructive and reflux uropathy; R39.12 Poor urinary stream | CPT/HCPCS: 51798; 99212 ==

== ENCOUNTER 2021-10-31 11:21 | Outpatient (REF) | payer MEDICARE, MEDICAID, SELFPAY ==
[2021-10-31 11:58] LABS: MANUAL DIFF FLAG NO
[2021-10-31 12:25] LABS: Basophils Absolute Auto 0.1 X10*3/uL (0.0-0.2); Eosinophils Absolute Auto 0.2 X10*3/uL (0.0-0.4); Eosinophils Percent Auto 2.9 % (0-4); Hematocrit 44.9 % (42.0-52.0); Hemoglobin 14.5 g/dl (14.0-18.0); Lymphocytes Absolute Auto 2.1 X10*3/uL (1.2-4.9); Lymphocytes Percent Auto 33.7 % (20-40); Mean Corpuscular HGB Conc 32.3 g/dl (31.0-36.0); Mean Corpuscular Hemoglobin 29.5 pg (27.0-33.0); Mean Corpuscular Volume 91.3 fL (80.0-98.0); Monocytes Absolute Auto 0.5 X10*3/uL (0.1-1.2); Monocytes Percent Auto 7.3 % (2-11); Neutrophils Absolute Auto 3.4 x10*3/uL (2.0-8.3); Neutrophils Percent Auto 55.1 % (45-73); Platelet Count 253 X10*3/uL (160-400); Red Blood Count 4.92 X10*6/uL (4.60-5.80); Red Cell Distribution Width 12.6 % (11.0-16.0); White Blood Count 6.1 X10*3/uL (4.8-10.8)
[2021-10-31 12:53] LABS: Alanine Aminotransferase 16 U/L (0-40); Albumin Level 4.2 g/dL (3.5-5.0); Alkaline Phosphatase 51 U/L (39-117); Anion Gap 12 (12-20); Aspartate Amino Transferase 20 U/L (5-37); Bilirubin Total 0.8 mg/dL (0.0-1.0); Blood Urea Nitrogen 17 mg/dL (9-16); Calcium 9.3 mg/dL (8.4-10.2); Carbon Dioxide 30 mmol/L (22-29); Chloride 102 mmol/L (96-108); Cholesterol 162 mg/dL; Estimated Glomerular Filt Rate > 60; Glucose Fasting 108 mg/dL (60-99); HDL Cholesterol 36 mg/dL; LDL Cholesterol Calculated 111 mg/dl; Potassium 4.1 mmol/L (3.3-5.1); Sodium 140 mmol/L (135-145); Total Protein 7.4 g/dL (6.5-8.0); Triglycerides 79 mg/dL
== END 2021-10-31 11:22 | disposition home or self-care (01) ==
LOC: HO.LAB 11:21
PROVIDERS: PCP Internal Medicine; Visit Provider Internal Medicine
DX: I10 Essential (primary) hypertension (principal); E78.5 Hyperlipidemia, unspecified; D64.9 Anemia, unspecified
CPT/HCPCS: 36415; 80053; 80061; 85025

== ENCOUNTER 2021-11-11 08:49 | Outpatient (REF) | payer MEDICARE, MEDICAID, SELFPAY ==
--- NOTE | ~2021-11-11 | US_ITS ---
EXAMINATION: US RETROPERITONEAL LIMITED (AORTA) CLINICAL INFORMATION: Abdominal aortic aneurysm without rupture. COMPARISON: None TECHNIQUE: Hernandez-scale, color Doppler and spectral Doppler evaluation of the abdominal aorta. FINDINGS: The aorta is normal. The measurements of the aorta in maximum AP and transverse dimensions respectively are as follows: Proximal: 2.9 x 2.5 cm. Mid: 2.6 x 3.2 cm. Distal: 2.2 x 1.8 cm. PSV: 47.5 cm/s. The measurements of the common iliac arteries in maximum AP and TRV dimensions are as follows: Right Common Iliac Artery: 1.7 x 2.2 cm. Left Common Iliac Artery: 2.1 x 2.2 cm. US/US abdominal aortic aneurysm IMPRESSION: Mild aneurysmal dilatation of the mid abdominal aorta measuring 2.6 x 3.2 cm. Normal common iliac arteries.
== END 2021-11-11 08:50 | disposition home or self-care (01) ==
LOC: HO.US 08:49
PROVIDERS: Visit Provider Surgery Vascular Surgery
DX: I71.4 Abdominal aortic aneurysm, without rupture (principal)
CPT/HCPCS: 76706

== ENCOUNTER 2021-12-24 11:21 | Outpatient (REF) | payer MEDICARE, MEDICAID, SELFPAY ==
[2021-12-24 13:24] LABS: Prostate Specific Antigen 2.27 ng/mL (<0.05-4.0)
== END 2021-12-24 11:22 | disposition home or self-care (01) ==
LOC: HO.LAB 11:21
PROVIDERS: PCP Internal Medicine; Visit Provider Urology
DX: Z12.5 Encounter for screening for malignant neoplasm of prostate (principal); N41.9 Inflammatory disease of prostate, unspecified; I71.4 Abdominal aortic aneurysm, without rupture
CPT/HCPCS: 36415; 84153; 99212

== ENCOUNTER → 2022-01-08 12:54 | Outpatient (BNVA) | payer MEDICARE, MEDICAID, SELFPAY | PROVIDERS: PCP Internal Medicine; Visit Provider Urology | DX: N40.1 Benign prostatic hyperplasia with lower urinary tract symptoms (principal); N13.8 Other obstructive and reflux uropathy; N41.9 Inflammatory disease of prostate, unspecified | CPT/HCPCS: 99212 ==

== ENCOUNTER → 2022-10-01 09:45 | Outpatient (REF) | payer MEDICARE, MEDICAID, SELFPAY ==
--- NOTE | ~2022-10-01 | XR_ITS ---
EXAMINATION: XR CHEST 2 VIEWS CLINICAL INFORMATION: Chest pain. COMPARISON: CT chest dated 06/10/2021; chest radiographs dated 05/21/2021. TECHNIQUE: Frontal and lateral views of the chest were obtained. FINDINGS: The heart, great vessels, pulmonary vasculature and mediastinum are normal. A prominent right pericardial fat pad is redemonstrated. The lungs show no focal infiltrate, effusion or pneumothorax. There is no acute osseous abnormality. XR/XR chest 2V IMPRESSION: No active cardiopulmonary disease.
--- NOTE | 2022-10-01 09:57 | ECG_ITS ---
Test Reason : RC7.9 Blood Pressure : / mmHG Vent. Rate : 091 BPM Atrial Rate : 091 BPM P-R Int : 144 ms QRS Dur : 068 ms QT Int : 318 ms P-R-T Axes : 075 032 048 degrees QTc Int : 391 ms Normal sinus rhythm Nonspecific T wave abnormality Abnormal ECG When compared with ECG of 11-OCT-2014 20:31, Nonspecific T wave abnormality now evident in Anterior leads Referred By: Marilynn Pandey Electronically Signed By:Seymour Delacruz
[2022-10-01 10:59] LABS: Alanine Aminotransferase 16 U/L (0-40); Albumin Level 3.7 g/dL (3.5-5.0); Alkaline Phosphatase 54 U/L (39-117); Anion Gap 10 (12-20); Aspartate Amino Transferase 18 U/L (5-37); Bilirubin Total 0.7 mg/dL (0.0-1.0); Blood Urea Nitrogen 22 mg/dL (9-16); Calcium 9.1 mg/dL (8.4-10.2); Carbon Dioxide 34 mmol/L (22-29); Chloride 102 mmol/L (96-108); Cholesterol 163 mg/dL; Estimated Glomerular Filt Rate > 60; Glucose Fasting 127 mg/dL (60-99); HDL Cholesterol 35 mg/dL; LDL Cholesterol Calculated 111 mg/dl; Potassium 4.1 mmol/L (3.3-5.1); Sodium 142 mmol/L (135-145); Total Protein 6.5 g/dL (6.5-8.0); Triglycerides 89 mg/dL
== END ==
LOC: HO.CARD 09:45
PROVIDERS: PCP Internal Medicine; Visit Provider Internal Medicine
DX: Z00.00 Encounter for general adult medical examination without abnormal findings (principal); R07.9 Chest pain, unspecified; E78.5 Hyperlipidemia, unspecified
CPT/HCPCS: 36415; 71046; 80053; 80061; 93005

== ENCOUNTER 2022-11-25 08:38 | Outpatient (REF) | payer MEDICARE, MEDICAID, SELFPAY ==
--- NOTE | ~2022-11-25 | US_ITS ---
EXAMINATION: US RETROPERITONEAL LIMITED (AORTA) CLINICAL INFORMATION: Abdominal aortic aneurysm, without rupture. COMPARISON: Ultrasound aorta 11/11/2021. TECHNIQUE: Hernandez-scale, color Doppler and spectral Doppler evaluation of the abdominal aorta. FINDINGS: Moderate aortic atherosclerosis. The measurements of the aorta in maximum AP and transverse dimensions respectively are as follows: Proximal: 3.0 x 2.7 cm. Mid: 2.8 x 3.0 cm. Previously this measured 3.2 cm. Distal: 2.4 x 2.3 cm. PSV: 55 cm/s. The measurements of the common iliac arteries in maximum AP and TRV dimensions are as follows: Right Common Iliac Artery: 2.2 x 2.5 cm. Previously this measured 1.7 x 2.2 cm. Left Common Iliac Artery: 1.7 x 1.2 cm. US/US abdominal aortic aneurysm IMPRESSION: Stable mid abdominal aortic aneurysm measuring 3.0 cm. Recommend follow-up ultrasound in 3 years. 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 Recommend follow-up ultrasound in 3 years.
== END 2022-11-25 08:39 | disposition home or self-care (01) ==
LOC: HO.HMGCX 08:38
PROVIDERS: PCP Internal Medicine; Visit Provider Surgery Vascular Surgery
DX: I71.40 Abdominal aortic aneurysm, without rupture, unspecified (principal)
CPT/HCPCS: 76706

== ENCOUNTER 2022-12-17 15:00 | Outpatient (REF) | payer MEDICARE, MEDICAID, SELFPAY ==
[2022-12-17 16:27] LABS: Prostate Specific Antigen 1.16 ng/mL (<0.05-4.0)
== END 2022-12-17 15:01 | disposition home or self-care (01) ==
LOC: HO.LAB 15:00
PROVIDERS: PCP Internal Medicine; Visit Provider Urology
DX: N40.1 Benign prostatic hyperplasia with lower urinary tract symptoms (principal); N13.8 Other obstructive and reflux uropathy; Z12.5 Encounter for screening for malignant neoplasm of prostate
CPT/HCPCS: 36415; 84153

== ENCOUNTER 2023-01-06 14:33 | Outpatient (AMB) | payer MEDICARE, MEDICAID, SELFPAY ==
--- NOTE | 2023-01-06 14:36 | A.OFFVIS_ITS ---
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 Recent EKG as reported nonspecific ST-T changes and he has been referred for the same. Patient himself does not have any clear-cut cardiac symptoms. No angina or shortness of breath or in fact anything cardiac sounding symptoms. No known coronary disease myocardial infarction. He carries a diagnosis of hypertension, dyslipidemia, as well as abdominal aortic aneurysm. [facility] Medical History Anemia Bladder outlet obstruction BPH w urinary obs/LUTS Dyslipidemia Enlarged aorta Essential hypertension Former smoker Gross hematuria Lipoma Obese Urticaria Weak urinary stream Surgical History History of colonoscopy History of surgery Family History Father No problems noted. Mother Emphysema of lung Social History Household Members: Spouse Housing: House Do you presently have visiting nurse or other home services: No Alcohol intake: never Patient Tobacco Use Status: Former Tobacco user Quit Date: 2008 Tobacco use type: Cigarette Years Smoked: 52 +/- e-Cigarette/Vaping Use: Never Used Second Hand Smoke Exposure: No service: No Current occupational status: disabled Cognitive needs: No Hearing needs: No Vision needs: Yes (Glasses) Review of Systems Const Denies weakness Eyes Denies loss of vision ENT Denies dizziness Card Denies chest pain, Denies chest pain with activity, Denies syncope, Denies rapid heart rate, Denies pedal edema, Denies edema, Denies leg edema, Denies lightheadedness, Denies palpitations, Denies dyspnea, Denies dyspnea on exertion and Denies orthopnea Resp Denies cough, Denies dyspnea, Denies dyspnea on exertion and Denies wheezing GI Denies hematochezia and Denies change in stool character Denies hematuria, Denies dysuria and Denies urinary frequency Musc Denies abnormal gait, Denies muscle cramps, Denies muscle weakness, Denies numbness, Denies radiating pain into limb and Denies tingling Skin/Breast Denies nail changes and Denies rash Neuro Denies Abnormal speech present, Denies abnormal gait, Denies dizziness, Denies syncope, Denies loss of vision, Denies memory loss, Denies numbness, Denies tingling and Denies weakness Psych Denies depression and Denies memory loss Endo Denies palpitations Aller/Immun Denies wheezing Physical Exam Vital Signs: Last Vital Signs Pulse 91 01/06/23 14:37 BP 120/70 01/06/23 14:37 BMI result Body Mass Index 29.5 Const General: comfortable and no acute distress Orientation/consciousness: patient oriented x3 HEENT Other: Unremarkable Head: Yes normal to inspection Neck Neck: Yes normal visual inspection Chest Chest palpation & inspection: normal inspection of the chest Resp Auscultation: clear to auscultation bilaterally Cardio Palpation: normal PMI Heart sounds: S1 normal heart sound present, S2 normal heart sound present, no gallops, no murmurs and no rubs GI Palpation (GI): Soft to palpation Back/Spine/Pelvis Other: unremarkable Skin General skin exam: no rashes or lesions noted Neuro General: patient oriented x3 Speech: No Abnormal speech present Extrem General: Yes normal to inspection Psych Mental Status: mental status grossly normal Assessment & Plan Assessment & Plan (1) Abnormal EKG: Code(s): R94.31 - Abnormal electrocardiogram [ECG] [EKG] (2) Essential hypertension: Code(s): I10 - Essential (primary) hypertension (3) Dyslipidemia: Code(s): E78.5 - Hyperlipidemia, unspecified Plan Recent EKG shows sinus rhythm. Mild nonspecific changes but nothing profound. Normal NV and corrected QT. Overall he has some risk factors as well as evidence of vascular disease but EKG itself is benign. We can do a baseline echocardiogram due to history of hypertension/abdominal aortic aneurysm. Will also do an exercise stress test. If any abnormalities, then assess further. Orders: Orders CA stress test Today I10 - Essential (primary) hypertension, R94.31 - Abnormal electrocardiogram [ECG] [EKG] CA echo transthoracic complete Today R94.31 - Abnormal electrocardiogram [ECG] [EKG] Coding Level of Care Code New Pt Level 3 (75709) Diagnoses Abnormal EKG R94.31 Essential hypertension I10 Dyslipidemia E78.5
[2023-01-06 14:37] VITALS: BP 120/70; PULSE 91; BMI 29.5
== END 2023-01-06 14:54 | disposition home or self-care (01) ==
PROVIDERS: Visit Provider Internal Medicine
DX: R94.31 Abnormal electrocardiogram [ECG] [EKG] (principal); I10 Essential (primary) hypertension; E78.5 Hyperlipidemia, unspecified
CPT/HCPCS: 99203

== ENCOUNTER → 2023-01-06 14:33 | Outpatient (BNVA) | payer MEDICARE, MEDICAID, SELFPAY | PROVIDERS: Visit Provider Internal Medicine | DX: R94.31 Abnormal electrocardiogram [ECG] [EKG] (principal); I10 Essential (primary) hypertension; E78.5 Hyperlipidemia, unspecified | CPT/HCPCS: 99202 ==

== ENCOUNTER → 2023-01-12 10:19 | Outpatient (REF) | payer MEDICARE, MEDICAID, SELFPAY ==
--- NOTE | 2023-01-12 10:22 | CA_ITS ---
Acquisition Time: 2023-01-12 10:36:15 Total Exercise Time: 00:05:24 Test Indications: Abnormal ECG Medications: FINASTERIDE LOSARTAN SIMXVASTATIN Protocol: KATHY Max HR: 153 BPM 103% of Pred: 148 BPM Max BP: 130/080 mmHG Max Work Load: 7.0 METS Exercise stress test exercise 5 min 24 sec of Kathy protocol achieivng 103% MPHR, with moderate to severe SOB, no chest discomfort, heart rate melly to 116 by 1 min of exercise, without arrhythmias, with normotensive response to exericse, without EKG changes. Breathing returned to normal in recovery. Test reviewed with Dr. Delacruz. Referred By: Shane Davila Overread By:
[2023-01-12 13:27] LABS: Alanine Aminotransferase 16 U/L (0-40); Albumin Level 3.9 g/dL (3.5-5.0); Alkaline Phosphatase 56 U/L (39-117); Anion Gap 15 (12-20); Aspartate Amino Transferase 17 U/L (5-37); Bilirubin Total 0.7 mg/dL (0.0-1.0); Blood Urea Nitrogen 18 mg/dL (9-16); Calcium 9.3 mg/dL (8.4-10.2); Carbon Dioxide 29 mmol/L (22-29); Chloride 100 mmol/L (96-108); Cholesterol 169 mg/dL; Estimated Glomerular Filt Rate > 60; Glucose Fasting 99 mg/dL (60-99); HDL Cholesterol 40 mg/dL; LDL Cholesterol Calculated 104 mg/dl; Sodium 140 mmol/L (135-145); Total Protein 7.4 g/dL (6.5-8.0); Triglycerides 128 mg/dL
== END ==
LOC: HO.CARD 10:19
PROVIDERS: Absent Provider Internal Medicine; PCP Internal Medicine; Visit Provider Internal Medicine
DX: I10 Essential (primary) hypertension (principal); R94.31 Abnormal electrocardiogram [ECG] [EKG]; R73.02 Impaired glucose tolerance (oral); E78.5 Hyperlipidemia, unspecified
CPT/HCPCS: 36415; 80053; 80061; 93017

== ENCOUNTER 2023-01-28 13:34 | Outpatient (AMB) | payer MEDICARE, MEDICAID, SELFPAY ==
--- NOTE | 2023-01-28 13:42 | MHC.OFFVIS ---
Intake Intake Visit Reasons: 1Y PSA/PVR(set) Intake Note: Patient is present for Follow Up PSA/PVR Urology Med: Finasteride, Antibiotic Allergy: None Blood Thinner: None [facility]: [facility] PVR: 0ml Allergies tamsulosin Adverse Reaction (Verified 01/28/23 13:44) headaches, slow movements HPI HPI Comments History of Present Illness Details Octavio is a pleasant male. He is a patient of Dr. Pandey. He is seen for the following urologic conditions - prostatitis - lower urinary tract symptoms Kazakh translation provided in office by qualified medical office specialist Finasteride continue with drop in PSA to 1.2 He brings up secondary conditions including balanitis and erectile dysfunction Will trial daily tadalafil and topical therapy for balanitis Prostatitis Recent admission to hospital with urgency and frequency and weakness of stream Found to have prostatitis which responded to antibiotic therapy Combination therapy started for prostate PSA - 04/18 2.1, 06/18 4.4, 12/18 2.3, 12/19 1.2 PFSH Medical History Anemia Bladder outlet obstruction BPH w urinary obs/LUTS Dyslipidemia Enlarged aorta Essential hypertension Former smoker Gross hematuria Lipoma Obese Urticaria Weak urinary stream Surgical History History of colonoscopy History of surgery Family History Father No problems noted. Mother Emphysema of lung Social History Household Members: Spouse Housing: House Do you presently have visiting nurse or other home services: No Alcohol intake: never Patient Tobacco Use Status: Former Tobacco user Quit Date: 2008 Tobacco use type: Cigarette Years Smoked: 52 +/- e-Cigarette/Vaping Use: Never Used Second Hand Smoke Exposure: No service: No Current occupational status: disabled Cognitive needs: No Hearing needs: No Vision needs: Yes (Glasses) Review of Systems Const Denies chills and Denies fever(s) Card Reports no additional complaints and Denies syncope Resp Denies cough GI Denies abdominal pain and Denies heartburn Reports as per HPI and Denies change in libido Neuro Denies syncope Psych Denies change in libido Endo Denies change in libido Physical Exam Const General: cooperative, healthy appearing, comfortable and no acute distress Orientation/consciousness: patient oriented x3 HEENT Face and sinus: Yes normal facial exam Mouth: moist mucous membranes Neck Neck: Yes normal visual inspection, Yes full ROM and Yes trachea midline Chest Chest palpation & inspection: normal inspection of the chest Resp Effort & Inspection: normal respiratory effort, able to speak in complete sentences and no respiratory distress GI Inspection: Yes normal to inspection Back/Spine/Pelvis Cervical Spine: normal cervical lordosis Thoracic/Lumbar Spine: thoracic and lumbar spine normal to inspection Skin General skin exam: no rashes or lesions noted Neuro General: patient oriented x3, gait normal, tone normal and moves all extremities Extrem General: Yes normal to inspection and Yes capillary refill normal Office Procedures Post Void Residual Post Residual Void Post Void Residual (PVR): 0 [id number] Void Residual by ultrasound Results AMB Urinalysis, Automated UA Leukoctes 0 Bertha/uL Last Edit by Ena Will Indira on 01/28/23 13:52 UA Nitrite Negative Last Edit by Ena Will [facility] on 01/28/23 13:52 UA Urobilinogen 2 mg/dL Last Edit by Ena Will A on 01/28/23 13:52 UA Protein 15 mg/dL Last Edit by Ena Will [facility] on 01/28/23 13:52 UA pH 7.0 Last Edit by Ena Will [facility] on 01/28/23 13:52 UA Blood 0 Adin/uL Last Edit by Ena Will [facility] on 01/28/23 13:52 UA Specific [place] 1.015 Last Edit by Ena Will [facility] on 01/28/23 13:52 UA Ketone Negative Last Edit by Ena Will [facility] on 01/28/23 13:52 UA Bilirubin 0 mg/dL Last Edit by Ena Will [facility] on 01/28/23 13:52 UA Glucose 0 mg/dL Last Edit by Ena Will [facility] on 01/28/23 13:52 Results Reviewed Results Reviewed: Laboratory Last Values Urine pH (Auto) 7.0 01/28/23 13:45 Specific [place] (Auto) 1.015 01/28/23 13:45 Urine Protein (Auto) 15 mg/dL 01/28/23 13:45 Glucose (UA)(Auto) 0 mg/dL 01/28/23 13:45 Urine Ketones (Auto) Negative 01/28/23 13:45 Urine Blood (Auto) 0 Adin/uL 01/28/23 13:45 Urine Nitrite (Auto) Negative 01/28/23 13:45 Urine Bilirubin (Auto) 0 mg/dL 01/28/23 13:45 Urine Urobilinogen (Auto) 2 mg/dL 01/28/23 13:45 Leukocyte Esterase (Auto) 0 Bertha/uL 01/28/23 13:45 Assessment & Plan Assessment & Plan (1) Prostatitis: Code(s): N41.9 - Inflammatory disease of prostate, unspecified (2) BPH w urinary obs/LUTS: Code(s): N40.1 - Benign prostatic hyperplasia with lower urinary tract symptoms; N13.8 - Other obstructive and reflux uropathy (3) Erectile dysfunction: Code(s): N52.9 - Male erectile dysfunction, unspecified (4) Balanitis: Code(s): N48.1 - Balanitis Plan Three month follow-up Orders: Orders AMB Urinalysis Automated Today Z13.9 - Encounter for screening, unspecified AMB Post Void Residual by ultrasound Today N13.8 - Other obstructive and reflux uropathy, N40.1 - Benign prostatic hyperplasia with lower urinary tract symptoms Medications: New betamethasone dipropionate 0.05% Thin coat 2 times per day 1 appl topical BID 15 grams 0RF N48.1 - Balanitis, Q55.69 - Other congenital malformation of penis tadalafil 5 mg PO DAILY 90 days 90 tabs 1RF sexual activity N52.9 - Male erectile dysfunction, unspecified Patient Instructions: Imaging studies, laboratory and physical exam results were discussed and reviewed in detail. No major barriers to patient understanding were identified. An opportunity to ask questions regarding the treatment plan was provided. All questions were answered. The patient expressed understanding and agreement with the above treatment plan. The patient is aware they should contact our office by phone for worsening of their current condition or the appearance of new urologic symptoms. Compliance is encouraged with any medications and followup testing that is ordered. It is a privilege to participate in the urologic care of your patient. If you have any questions or concerns regarding treatment for the above conditions, or other urologic issues, please do not hesitate to contact me. The office telephone contact is [phone]. This note is constructed using voice recognition software. While every effort has been made to ensure accuracy local delivery truck driver errors may have been included. Yours sincerely, Dr Madhu Raman MD, [facility] - Urology Providers of Expert, Compassionate Care for the Genitourinary System Coding Level of Care Code Est Pt Level 4 (22113) Diagnoses Prostatitis N41.9 BPH w urinary obs/LUTS N40.1; N13.8 Erectile dysfunction N52.9 Balanitis N48.1 CPT Codes Post Residual Void - PVR CPT Code: 70034-Qzuz Void Residual by ultrasound ([id number])
== END 2023-01-28 14:29 | disposition home or self-care (01) ==
PROVIDERS: Visit Provider Urology
DX: N41.9 Inflammatory disease of prostate, unspecified (principal); N40.1 Benign prostatic hyperplasia with lower urinary tract symptoms; N13.8 Other obstructive and reflux uropathy; N52.9 Male erectile dysfunction, unspecified; N48.1 Balanitis
CPT/HCPCS: 99214

== ENCOUNTER → 2023-01-28 13:34 | Outpatient (BNVA) | payer MEDICARE, MEDICAID, SELFPAY | PROVIDERS: Visit Provider Urology | DX: N40.1 Benign prostatic hyperplasia with lower urinary tract symptoms (principal); N41.9 Inflammatory disease of prostate, unspecified; N13.8 Other obstructive and reflux uropathy; N48.1 Balanitis; N52.9 Male erectile dysfunction, unspecified | CPT/HCPCS: 51798; 99212 ==

== ENCOUNTER → 2023-02-03 12:06 | Outpatient (REF) | payer MEDICARE, MEDICAID, SELFPAY ==
--- NOTE | 2023-02-03 12:09 | CA_ITS ---
Transthoracic Echocardiogram Patient (Last, First, Middle): Octavio Dyson, Gender: Male Date of : 1950 Age: 72 Procedure Date: 02/03/2023 Procedure Type: Transthoracic Echocardiogram Location: OP Height: 167.64 cm Weight: 77.11 kg BSA: 1.87 m2 Heart Rate: bpm BP: 138 / 80 mmHg Insurance Customer Service Specialist: TO Referring MD: Shane Davila MD Symptoms: R94.31 - Abnormal electrocardiogram [ECG] [EKG] Study Quality: Technically Difficult/contrast ECG Rhythm: Sinus Conclusions: - The left ventricular systolic function is low normal. The visually estimated ejection fraction is between 50-55%. - No obvious valvular pathology seen on this study. Findings Procedure Information Contrast agent, definity, is being given per protocol without apparent complications. Left Ventricle Normal left ventricular cavity size. There is normal left ventricular wall thickness. The left ventricular systolic function is low normal. The visually estimated ejection fraction is between 50-55%. There is no evidence of regional wall motion abnormalities. Diastolic function is normal for age. Right Ventricle Normal right ventricular cavity size and systolic function. Atria Both atria are normal in size. Aortic Valve There is a normal trileaflet aortic valve. There is no aortic valve stenosis. There is no aortic valve regurgitation. Mitral Valve The mitral valve appears normal. There is no mitral valve regurgitation. There is no mitral valve stenosis. Pulmonic Valve The pulmonic valve is likely normal. Tricuspid Valve There is no tricuspid valve regurgitation. Tricuspid regurgitation envelope is inadequate for calculation of right ventricular systolic pressure. Great Vessels The asc aorta is normal in size. Venous The inferior vena cava is normal in size and collapses greater than 50% with inspiration. Pericardium/Pleural There is no evidence of pericardial effusion. Prior Study Comparison No prior study available for comparison. Recommendations, Care & Conclusions No obvious valvular pathology seen on this study. Measurements 2D Linear Measurements IVSd: 0.99 0.6-0.9/0.6-1.0 cm LVIDd: 4.08 3.9-5.3/4.2-5.9 cm LVIDd Index: 2.18 2.4-3.2/2.2-3.1 cm/m2 LVIDs: 2.92 2.0-3.6 cm LVPWd: 0.62 0.7-1.1 cm LA Diam: 2.90 2.7-3.8/3.0-4.0 cm LAIDs Index: 1.55 1.5-2.3 cm/m2 LV Mass: 121.66 67-162/88-224 g LV Mass Index: 65.06 43-95/49-115 g/m2 LVOT Diam: 2.10 3.0+(-)1.3 cm 2D Systolic Function EF 4C: 55.50 >55% EF 2C: 54.80 >55% EF BiP: 56.40 >55% Mitral Valve MV Pk E: 0.72 MV PK A: 0.70 MV Decel Time: 231.00 E/A: 1.00 E'Lateral: 8.81 E'Medial: 7.18 E/E' Med: 10.10 E/E' Lat: 8.20 PHT: 68.00 MVA PHT: 3.24 Decel [place]: 3.14 Aortic Valve AoV Pk Brian: 0.99 AoV Mn Brian: 0.65 AoV VTI: 0.19 AoV Pk Grad: 4.00 Aov Mn Grad: 2.00 KIMMY Cont.VTI: 3.00 LVOT LVOT Pk Brian: 0.86 LVOT Mn Brian: 0.54 LVOT VTI: 0.17 LVOT Pk Grad: 3.00 LVOT Mn Grad: 1.00 LVOT Diam: 2.10 LVOT Area: 3.46 Diastolic Function MV Pk E: 0.72 MV Pk A: 0.70 E/A: 1.00 E'Medial: 7.18 E/E' Med: 10.10 E' Laterial: 8.81 E/E' Lat: 8.20 Right Ventricle TAPSE (mm): 23.50 TVS' Brian: 13.40 Tricuspid Valve RA Press: 8.00 Great Vessels Aorta Sinus of Valsalva: 3.34 2.0-3.5 cm Ao Asc: 2.90 2.1-3.4 cm Updated in Other Vendor System with Status of Final Shane Davila MD electronically signed on 02/04/2023 11:49:50 AM with status of Final
== END ==
LOC: HO.CARD 12:06
PROVIDERS: PCP Internal Medicine; Visit Provider Internal Medicine
DX: R94.31 Abnormal electrocardiogram [ECG] [EKG] (principal)
CPT/HCPCS: 93306; Q9957

== ENCOUNTER → 2023-02-03 12:09 | Outpatient (BNV) | payer MEDICARE, MEDICAID, SELFPAY | PROVIDERS: PCP Internal Medicine; Visit Provider Internal Medicine | DX: R94.31 Abnormal electrocardiogram [ECG] [EKG] (principal) | CPT/HCPCS: 93306 ==

== ENCOUNTER 2023-04-28 14:08 | Outpatient (AMB) | payer MEDICARE, MEDICAID, SELFPAY ==
--- NOTE | 2023-04-28 14:11 | MHC.OFFVIS ---
Intake Intake Visit Reasons: 3m follow up Intake Note: Patient is Present for Follow Up Urology Medication: Finasteride, Tadalafil Antibiotic Allergies: None Blood Thinners: None [facility]: [facility] PVR: 23 Patient states that Finasteride is not working to well, states that with Finasteride it causes him to wake up alot during the night Allergies tamsulosin Adverse Reaction (Verified 04/28/23 14:24) headaches, slow movements Medication List - Last Reconciled 04/28/23 by Madhu Raman MD betamethasone dipropionate 0.05% 1 appl topical BID dorzolamide-timolol 22.3-6.8 mg/mL mL ophthalmic (eye) finasteride 5 mg PO DAILY 90 days ibuprofen 800 mg PO Q8H PRN 30 days latanoprost 0.005% 0 drps ophthalmic (eye) losartan 25 mg PO DAILY 90 days simvastatin 10 mg PO BEDTIME 90 days tadalafil 5 mg PO DAILY 90 days HPI HPI Comments History of Present Illness Details Octavio is a pleasant male. He is a patient of Dr. Pandey. He is seen for the following urologic conditions - prostatitis - lower urinary tract symptoms - erectile dysfunction Estonian translation provided in office by qualified neuropsychology medical consultant PSA 1.2, 12/19 1.2 Improvement in erections with daily tadalafil Two month follow-up PVR Prostatitis Recent admission to hospital with urgency and frequency and weakness of stream Found to have prostatitis which responded to antibiotic therapy Combination therapy started for prostate PSA - 04/18 2.1, 06/18 4.4, 12/18 2.3, 12/19 1.2 PFSH Medical History Anemia BPH w urinary obs/LUTS Bladder outlet obstruction Weak urinary stream Gross hematuria Enlarged aorta Former smoker Lipoma Urticaria Obese Dyslipidemia Essential hypertension Surgical History History of surgery History of colonoscopy Family History Father No problems noted. Mother Emphysema of lung Social History Household Members: Spouse Housing: House Do you presently have visiting nurse or other home services: No Alcohol intake: never Patient Tobacco Use Status: Former Tobacco user Quit Date: 2008 Tobacco use type: Cigarette Years Smoked: 52 +/- e-Cigarette/Vaping Use: Never Used Second Hand Smoke Exposure: No service: No Current occupational status: disabled Cognitive needs: No Hearing needs: No Vision needs: Yes (Glasses) Review of Systems Const Denies chills and Denies fever(s) Card Reports no additional complaints and Denies syncope Resp Denies cough GI Denies abdominal pain and Denies heartburn Reports as per HPI and Denies change in libido Neuro Denies syncope Psych Denies change in libido Endo Denies change in libido Physical Exam Const General: cooperative, healthy appearing, comfortable and no acute distress Orientation/consciousness: patient oriented x3 HEENT Face and sinus: Yes normal facial exam Mouth: moist mucous membranes Neck Neck: Yes normal visual inspection, Yes full ROM and Yes trachea midline Chest Chest palpation & inspection: normal inspection of the chest Resp Effort & Inspection: normal respiratory effort, able to speak in complete sentences and no respiratory distress GI Inspection: Yes normal to inspection Back/Spine/Pelvis Cervical Spine: normal cervical lordosis Thoracic/Lumbar Spine: thoracic and lumbar spine normal to inspection Skin General skin exam: no rashes or lesions noted Neuro General: patient oriented x3, gait normal, tone normal and moves all extremities Extrem General: Yes normal to inspection and Yes capillary refill normal Office Procedures Post Void Residual Post Residual Void Post Void Residual (PVR): 23 [id number] Void Residual by ultrasound Assessment & Plan Assessment & Plan (1) Erectile dysfunction: Code(s): N52.9 - Male erectile dysfunction, unspecified (2) BPH w urinary obs/LUTS: Code(s): N40.1 - Benign prostatic hyperplasia with lower urinary tract symptoms; N13.8 - Other obstructive and reflux uropathy Plan Two month follow-up Orders: Orders AMB Urinalysis Automated 04/28/23 Z13.9 - Encounter for screening, unspecified AMB Post Void Residual by ultrasound 04/28/23 N40.1 - Benign prostatic hyperplasia with lower urinary tract symptoms, N13.8 - Other obstructive and reflux uropathy Medications: New tadalafil On demand medication take 60 minutes before intended activity 20 mg PO ONCE PRN 30 tabs 0RF sexual activity 30 days N52.9 - Male erectile dysfunction, unspecified, E11.69 - Type 2 diabetes mellitus with other specified complication, N52.1 - Erectile dysfunction due to diseases classified elsewhere Patient Instructions: Imaging studies, laboratory and physical exam results were discussed and reviewed in detail. No major barriers to patient understanding were identified. An opportunity to ask questions regarding the treatment plan was provided. All questions were answered. The patient expressed understanding and agreement with the above treatment plan. The patient is aware they should contact our office by phone for worsening of their current condition or the appearance of new urologic symptoms. Compliance is encouraged with any medications and followup testing that is ordered. It is a privilege to participate in the urologic care of your patient. If you have any questions or concerns regarding treatment for the above conditions, or other urologic issues, please do not hesitate to contact me. The office telephone contact is [phone]. This note is constructed using voice recognition software. While every effort has been made to ensure accuracy handy man errors may have been included. Yours sincerely, Dr Madhu Raman MD, [facility] - Urology Providers of Expert, Compassionate Care for the Genitourinary System Coding Level of Care Code Est Pt Level 3 (66668) Diagnoses Erectile dysfunction N52.9 BPH w urinary obs/LUTS N40.1; N13.8 CPT Codes Post Residual Void - PVR CPT Code: 09680-Wixr Void Residual by ultrasound ([id number])
== END 2023-04-28 14:46 | disposition home or self-care (01) ==
PROVIDERS: PCP Internal Medicine; Visit Provider Urology
DX: N52.9 Male erectile dysfunction, unspecified (principal); N40.1 Benign prostatic hyperplasia with lower urinary tract symptoms; N13.8 Other obstructive and reflux uropathy
CPT/HCPCS: 99213

== ENCOUNTER → 2023-04-28 14:08 | Outpatient (BNVA) | payer MEDICARE, MEDICAID, SELFPAY | PROVIDERS: PCP Internal Medicine; Visit Provider Urology | DX: N40.1 Benign prostatic hyperplasia with lower urinary tract symptoms (principal); N13.8 Other obstructive and reflux uropathy; N52.9 Male erectile dysfunction, unspecified | CPT/HCPCS: 51798; 99212 ==

== ENCOUNTER 2023-06-25 11:42 | Outpatient (REF) | payer MEDICARE, MEDICAID, SELFPAY ==
[2023-06-25 14:19] LABS: Prostate Specific Antigen 1.24 ng/mL (<0.05-4.0)
== END 2023-06-25 11:43 | disposition home or self-care (01) ==
LOC: HO.10HDL 11:42
PROVIDERS: Visit Provider Urology
DX: N40.1 Benign prostatic hyperplasia with lower urinary tract symptoms (principal); Z12.5 Encounter for screening for malignant neoplasm of prostate
CPT/HCPCS: 36415; 84153

== ENCOUNTER 2023-07-10 13:54 | Outpatient (AMB) | payer MEDICARE, MEDICAID, SELFPAY ==
--- NOTE | 2023-07-10 14:39 | A.OFFVIS_ITS ---
Intake Intake Visit Reasons: follow up/PSA/PVR(set) Intake Note: Patient is Present for Telephone Follow Up For Urology Med: Tadalafil, Finasteride Antibiotic Allergy: none Blood Thinner: none Allergies tamsulosin Adverse Reaction (Verified 07/29/23 08:05) headaches, slow movements Medication List - Last Reconciled 07/10/23 by Madhu Raman MD amlodipine 2.5 mg PO DAILY 90 days betamethasone dipropionate 0.05% 1 appl topical BID dorzolamide-timolol 22.3-6.8 mg/mL mL ophthalmic (eye) ibuprofen 800 mg PO Q8H PRN 30 days latanoprost 0.005% 0 drps ophthalmic (eye) simvastatin 10 mg PO BEDTIME 90 days tadalafil 5 mg PO DAILY 90 days HPI HPI Comments History of Present Illness Details Octavio is a pleasant male. He is a patient of Dr. Pandey. He is seen for the following urologic conditions - prostatitis - lower urinary tract symptoms - erectile dysfunction Telemedicine Evaluation 15 min Consultation [employer] Benedict Video attempted Turkmen translation provided by qualified center medical and lab director BUN: 07/21--16, 06/20--17, 06/20--19 Creatinine: 07/21--0.75, 06/20--0.77, 06/20--0.68 PSA 1.2, 12/19 1.2, 06/20 1.2 Improvement in erections with daily tadalafil Lowered PVR Six-month follow-up Prostatitis Recent admission to hospital with urgency and frequency and weakness of stream Found to have prostatitis which responded to antibiotic therapy Combination therapy started for prostate PSA - 04/18 2.1, 06/18 4.4, 12/18 2.3, 12/19 1.2 [facility] Medical History Anemia BPH w urinary obs/LUTS Bladder outlet obstruction Weak urinary stream Gross hematuria Enlarged aorta Former smoker Lipoma Urticaria Obese Dyslipidemia Essential hypertension Surgical History History of surgery History of colonoscopy Family History Father No problems noted. Mother Emphysema of lung Social History Household Members: Spouse Housing: House Do you presently have visiting nurse or other home services: No Alcohol intake: never Patient Tobacco Use Status: Former Tobacco user Quit Date: 2008 Tobacco use type: Cigarette Years Smoked: 52 +/- e-Cigarette/Vaping Use: Never Used Second Hand Smoke Exposure: No service: No Current occupational status: disabled Cognitive needs: No Hearing needs: No Vision needs: Yes (Glasses) Review of Systems Const All systems reviewed & are unremarkable except as noted in HPI and below Reports no additional complaints Resp Reports no additional complaints GI Reports no additional complaints Reports as per HPI Musc Reports no additional complaints Physical Exam Telemedicine evaluation Appropriate responses Regular breathing rate and rhythm HEENT Head: Yes normal to inspection Ears: hearing grossly normal bilaterally Eyes General: appearance normal, both eyes and all related structures Neck Neck: Yes normal visual inspection Chest Chest palpation & inspection: normal inspection of the chest Resp Effort & Inspection: normal respiratory effort and able to speak in complete sentences Assessment & Plan Assessment & Plan (1) Erectile dysfunction: Code(s): N52.9 - Male erectile dysfunction, unspecified (2) Balanitis: Code(s): N48.1 - Balanitis (3) BPH w urinary obs/LUTS: Code(s): N40.1 - Benign prostatic hyperplasia with lower urinary tract symptoms; N13.8 - Other obstructive and reflux uropathy Plan Six-month follow-up Medications: Discontinued finasteride Daily tablet Discontinued Reason: Doctor's Order 5 mg PO DAILY 90 days 90 tabs 3RF BPH N41.9 - Inflammatory disease of prostate, unspecified Patient Instructions: Imaging studies, laboratory and physical exam results were discussed and reviewed in detail. No major barriers to patient understanding were identified. An opportunity to ask questions regarding the treatment plan was provided. All questions were answered. The patient expressed understanding and agreement with the above treatment plan. The patient is aware they should contact our office by phone for worsening of their current condition or the appearance of new urologic symptoms. Compliance is encouraged with any medications and followup testing that is ordered. It is a privilege to participate in the urologic care of your patient. If you have any questions or concerns regarding treatment for the above conditions, or other urologic issues, please do not hesitate to contact me. The office telephone contact is [phone]. This note is constructed using voice recognition software. While every effort has been made to ensure accuracy hearth feeder errors may have been included. Yours sincerely, Dr Madhu Raman MD, [facility] - Urology Providers of Expert, Compassionate Care for the Genitourinary System Telehealth Telehealth Location of provider rendering services: practice address Location of patient: address on file Patient Identification confirmed using: Name, : Yes Telehealth method: video Patient verbally consented to treatment: Yes Patient verbally consented to billing insurance company: Yes Patient informed of any privacy concerns related to visit: Yes Coding Level of Care Code Tele Est Pt Level 3 (32881) Diagnoses Erectile dysfunction N52.9 Balanitis N48.1 BPH w urinary obs/LUTS N40.1; N13.8
== END 2023-07-10 15:24 | disposition home or self-care (01) ==
PROVIDERS: PCP Internal Medicine; Visit Provider Urology
DX: N52.9 Male erectile dysfunction, unspecified (principal); N48.1 Balanitis; N40.1 Benign prostatic hyperplasia with lower urinary tract symptoms; N13.8 Other obstructive and reflux uropathy
CPT/HCPCS: 99213

== ENCOUNTER → 2023-07-10 13:54 | Outpatient (BNVA) | payer MEDICARE, MEDICAID, SELFPAY | PROVIDERS: PCP Internal Medicine; Visit Provider Urology ==

== ENCOUNTER 2023-07-29 07:43 | Outpatient (AMB) | payer MEDICARE, MEDICAID, SELFPAY ==
--- NOTE | 2023-07-29 07:50 | A.OFFPC_ITS ---
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 Accompanied by: Spouse Allergies tamsulosin Adverse Reaction (Verified 07/29/23 08:05) headaches, slow movements Medication List - Last Reconciled 07/29/23 by Marilynn Pandey MD amlodipine 2.5 mg PO DAILY 90 days dorzolamide-timolol 22.3-6.8 mg/mL mL ophthalmic (eye) ibuprofen 800 mg PO Q8H PRN 30 days latanoprost 0.005% 0 drps ophthalmic (eye) simvastatin 10 mg PO BEDTIME 90 days tadalafil 5 mg PO DAILY 90 days Tobacco use date assessed: 07/29/23 Fall risk assessment: No Falls in past year Last assessed Fall Risk: 07/29/23 Dental Screening Dental Screen Date: 07/29/23 Did you have a dental visit in the last 12 months?: No Did you have a dental problem in the last 6 months where you did not have access to dental care?: No Was dental information given to patient?: Patient declined HPI HPI Comments History of Present Illness Details This is a 73-year-old male with hypertension and dyslipidemia that complains of moderate major depression and is willing to start medication for it. I will start him on sertraline. He also complains of diffuse abdominal pain associated with foods and I will start him on PPIs as needed. He does have a right leg pain that has been present for about a year aggravated by walking. Right leg pain is also associated with numbness. Has never had a venous duplex and I will order it to rule out DVT. Has positive Homans test. Accompanied by . Blood pressure stable. Compliant with statins. [facility] Medical History (Updated 07/29/23 @ 08:19 by Marilynn Pandey MD) Anemia BPH w urinary obs/LUTS Bladder outlet obstruction Weak urinary stream Gross hematuria Enlarged aorta Former smoker Lipoma Urticaria Obese Dyslipidemia Essential hypertension Surgical History History of surgery History of colonoscopy Family History Father No problems noted. Mother Emphysema of lung Social History Household Members: Spouse Housing: House Do you presently have visiting nurse or other home services: No Alcohol intake: never Patient Tobacco Use Status: Former Tobacco user Quit Date: 2008 Tobacco use type: Cigarette Years Smoked: 52 +/- e-Cigarette/Vaping Use: Never Used Second Hand Smoke Exposure: No service: No Current occupational status: disabled Cognitive needs: No Hearing needs: No Vision needs: Yes (Glasses) Questionnaire PHQ-9 Over the last 2 weeks, how often have you been bothered by any of the following problems? 1. Little interest or pleasure in doing things: nearly every day 2. Feeling down, depressed, or hopeless: nearly every day 3. Trouble falling or staying asleep, or sleeping too much: nearly every day 4. Feeling tired or having little energy: nearly every day 5. Poor appetite or overeating: nearly every day 6. Feeling bad about yourself - or that you are a failure or have let yourself or your family down: more than half the days 7. Trouble concentrating on things, such as reading the newspaper or watching television: not at all 8. Moving or speaking so slowly that other people could have noticed. Or the opposite - being so fidgety or restless that you have been moving around a lot more than usual: not at all 9. Thoughts that you would be better off or of hurting yourself in some way: not at all Total score: 17 Depression Screening Interpretation: Positive (no suicidal thoughts) Depression Screening Follow-up: Existing condition and New Medication prescribed Depression Screening Done: Yes 21084 - PHQ-9 Billing: Yes Source: Developed by Drs. Perry Frazier, Julia Jalloh, Memo Kwan and colleagues, with an educational jose from [email or web address]. Thrive Questionnaire Date Thrive assessed: 07/29/23 I am a: Patient What is your living situation today?: I have a steady place to live Within the past 12 months, did the food you bought not last and you didn't have the money to get more?: Never true Within the past 12 months, did you worry whether your food would run out before you got money to buy more?: Never true Do you have trouble paying for medicines?: No Do you have trouble getting transportation to medical appointments?: No Do you have trouble paying your heating and electricity bill?: No Do you have trouble taking care of your child, family member or friend?: No Do you have trouble with day-to-day activities such as bathing, preparing meals, shopping, managing finances, etc.?: No Are you currently unemployed and looking for a job?: No Are you interested in more education?: No Please select the resources that you would like help with: None Currently or been in a relationship where the following occur: no concerns reported THRIVE Score: 0 AUDIT C Alcohol Use Questionnaire (AUDIT-C) 1. How often do you have a drink containing alcohol?: Never Total Score: 0 Score Reviewed/Action Taken: No ELADIO-7 AMB Questionnaire ELADIO-7 Date ELADIO - 7 assessed: 07/29/23 Feeling nervous, anxious, or on edge: 0 = Not at all Not being able to stop or control worryin = Not at all Worrying too much about different things: 0 = Not at all Trouble relaxin = Not at all Being so restless that it is hard to sit still: 0 = Not at all Becoming easily annoyed or irritable: 0 = Not at all Feeling afraid as if something awful might happen: 0 = Not at all Total ELADIO-7 score (0-4 normal; 5-9 mild; 10-14 moderate; 15-21 severe): 0 Source: Developed by Drs. Perry Frazier, Julia Jalloh, Memo Kwan and colleagues, with an educational jose from [email or web address]. ELADIO-7 Assessment Billing ELADIO-7 Assessment Tool: ELADIO-7 Assessment 86121 Review of Systems Const All systems reviewed & are unremarkable except as noted in HPI and below Eyes Reports no additional complaints, Denies change in vision and Denies other visual disturbances Card Denies chest pain at rest, Denies chest pain with activity, Denies edema, Denies irregular heart rhythm, Denies claudication, Denies dyspnea, Denies dyspnea on exertion, Denies orthopnea, Denies paroxysmal nocturnal dyspnea and Denies slow heart rate Resp Denies cough, Denies dyspnea and Denies dyspnea on exertion GI Denies abdominal pain, Denies change in bowel habits, Denies excessive flatus, Denies nausea and Denies vomiting Denies urinary hesitancy, Denies urinary incontinence and Denies urinary urgency Musc Denies abnormal gait, Denies atrophy, Denies deformity and Denies limited range of motion Skin/Breast Denies bleeding lesions, Denies changing lesions and Denies rash Neuro Denies abnormal gait, Denies behavioral changes and Denies lack of coordination Psych Denies behavioral changes Physical exam (Primary Care) Vital Signs: Last Vital Signs BP 124/78 07/29/23 07:52 BMI result Body Mass Index 29.2 Tobacco/Smoking Status: Tobacco use Status Tobacco use date assessed 07/29/23 07/29/23 07:59 Patient Tobacco Use Status Former Tobacco user 07/29/23 07:59 Tobacco use type Cigarette 07/29/23 07:59 e-Cigarette/Vaping Use Never Used 07/29/23 07:59 PHQ-9: PHQ-9 Score PHQ-9: Total score 17 07/29/23 08:12 Depression Screening Interpretation: Positive (no suicidal thoughts) Depression Screening Follow-up: Existing condition and New Medication prescribed Thrive Assessment: Date of Thrive Assessment Date Thrive assessed 07/29/23 07/29/23 07:59 Currently or been in a relationship where the following occur: no concerns reported Eyes General: appearance normal, both eyes and all related structures Eyelids: Yes eyelids normal Conjunctivae: conjunctivae normal Neck Neck: Yes normal visual inspection and Yes supple Resp Effort & Inspection: normal respiratory effort Auscultation: clear to auscultation bilaterally Cardio Jugular venous distension: no JVD Rate: regular rate Rhythm: regular rhythm Heart sounds: S1 normal heart sound present and S2 normal heart sound present Extrem Other: Positive Homans test General: Yes full ROM Psych Appearance: grossly normal Office Procedures Flu Questionnaire Does the patient have a severe egg allergy?: No Immunizations flu vacc in5224-68 6mos up(PF) 60 mcg(15 mcgx4)/0.5 mL IM syringe Performing Provider: Marilynn Pandey MD [facility] Documented (not given) by: ROSARIO Newell on 07/29/23 08:00 Reason Not Given: Patient Refused Assessment and Plan Assessment & Plan (1) Moderate major depression: Code(s): F32.1 - Major depressive disorder, single episode, moderate Plan: Start sertraline. (2) GERD (gastroesophageal reflux disease): Code(s): K21.9 - Gastro-esophageal reflux disease without esophagitis Plan: Upper GI series ordered. Start PPIs as needed. (3) Essential hypertension: Code(s): I10 - Essential (primary) hypertension Plan: Continue amlodipine. Blood pressure goal is equal or less than 130/80. (4) Dyslipidemia: Code(s): E78.5 - Hyperlipidemia, unspecified Plan: Continue statins. (5) Right leg pain: Code(s): M79.604 - Pain in right leg Plan: Ultrasound venous duplex order to rule out DVT. Orders: Orders Influenza [id number] Immunization Today Z23 - Encounter for immunization FL upper GI series Today K21.9 - Gastro-esophageal reflux disease without esophagitis US venous duplex LE RT Today M79.604 - Pain in right leg Referrals Ear/Nose/Throat Referral H92.09 - Otalgia, unspecified ear Medications: New omeprazole 20 mg PO DAILY 90 days PRN 90 caps 0RF heartburn K21.9 - Gastro- esophageal reflux disease without esophagitis sertraline 25 mg PO DAILY 90 days 90 tabs 1RF F32.1 - Major depressive disorder, single episode, moderate Coding Level of Care Code Est Pt Level 4 (84304) Diagnoses Moderate major depression F32.1 GERD (gastroesophageal reflux disease) K21.9 Essential hypertension I10 Dyslipidemia E78.5 Right leg pain M79.604 Additional Codes ELADIO-7 Assessment Billing - ELADIO-7 Assessment Tool: ELADIO-7 Assessment 13738 ([id number]) Time Spent (min) 23
[2023-07-29 07:52] VITALS: BP 124/78; BMI 29.2
== END 2023-07-29 08:17 | disposition home or self-care (01) ==
PROVIDERS: PCP Internal Medicine; Visit Provider Internal Medicine
DX: F32.1 Major depressive disorder, single episode, moderate (principal); K21.9 Gastro-esophageal reflux disease without esophagitis; I10 Essential (primary) hypertension; E78.5 Hyperlipidemia, unspecified; M79.604 Pain in right leg
CPT/HCPCS: 96127; 99214

== ENCOUNTER 2023-08-04 14:32 | Outpatient (REF) | payer MEDICARE, MEDICAID, SELFPAY ==
--- NOTE | ~2023-08-04 | US_ITS ---
EXAMINATION: US VENOUS ULTRASOUND WITH DOPPLER LOWER EXTREMITY, RIGHT CLINICAL INFORMATION: Pain in right leg COMPARISON: None available. TECHNIQUE: Ultrasound of the deep veins is performed from the hip to the calf with compression sonography and color and pulse Doppler assessment. Spectral analysis with color-flow imaging is performed. FINDINGS: There is normal venous compression and respiratory variation. The visualized common femoral vein, superficial femoral vein, profunda femoral vein, popliteal vein, and the posterior tibial and peroneal veins shows no evidence of deep venous thrombosis. US/US venous duplex LE RT IMPRESSION: No DVT demonstrated in the right lower extremity.
== END 2023-08-04 14:33 | disposition home or self-care (01) ==
LOC: HO.US 14:32
PROVIDERS: PCP Internal Medicine; Visit Provider Internal Medicine
DX: M79.604 Pain in right leg (principal)
CPT/HCPCS: 93971

== ENCOUNTER 2023-09-01 08:55 | Outpatient (REF) | payer MEDICARE, MEDICAID, SELFPAY ==
--- NOTE | ~2023-09-01 | FL_ITS ---
EXAMINATION: XR FLUOROSCOPY UPPER GI WITH AIR CLINICAL INFORMATION: Reflux COMPARISON: None TECHNIQUE: Fluoroscopic air contrast upper GI examination was performed utilizing standard techniques with thin and thick barium and effervescent granules. Numerous spot images were obtained. FINDINGS: No evidence of laryngeal penetration or subglottic aspiration. Dual and single contrast images of the esophagus demonstrate normal caliber, contour, and mucosal pattern. No evidence of stricture, mass, or ulcerations identified. There is to and fro motion of the barium column with nonpropulsive tertiary contractions noted in the mid and distal esophagus. A small type I hiatal hernia is present. No significant gastroesophageal reflux was seen during the course of the examination and on reflux views. Dual contrast and single contrast images of the stomach demonstrated normal contour and mucosal pattern without evidence of mass, ulceration, or other abnormality. Contrast freely passed into the gastric antrum and duodenal bulb without delay. Single and air-contrast images of the duodenal bulb demonstrate no abnormality. The duodenal sweep has a normal appearance, course, and mucosal fold appearance. No malrotation. The imaged proximal jejunum has a normal fold pattern and caliber. FLUOROSCOPY TIME: 3 minutes 41 seconds Number of Spot Images: 16 Number of Cine: 9 DOSE AREA PRODUCT: 2453 uGy-m2 (microgray-meter squared) FL/FL upper GI series IMPRESSION: 1. To and fro motion of the barium column with nonpropulsive tertiary contractions in the mid distal esophagus consistent with esophageal dysmotility. 2. Small type I hiatal hernia. This procedure was performed by Didier Sy PA-C, and supervised by Dr. Maya
== END 2023-09-01 08:56 | disposition home or self-care (01) ==
LOC: HO.XRAY 08:55
PROVIDERS: PCP Internal Medicine; Visit Provider Internal Medicine
DX: K21.9 Gastro-esophageal reflux disease without esophagitis (principal)
CPT/HCPCS: 74240

== ENCOUNTER → 2023-09-01 08:56 | Outpatient (BNV) | payer MEDICARE, MEDICAID, SELFPAY | PROVIDERS: PCP Internal Medicine; Visit Provider Physician Assistant Surgical | DX: K21.9 Gastro-esophageal reflux disease without esophagitis (principal) | CPT/HCPCS: 74246 ==

== ENCOUNTER 2023-10-06 14:59 | Outpatient (AMB) | payer MEDICARE, MEDICAID, SELFPAY ==
[2023-10-06 15:01] VITALS: BP 120/70; BMI 28.1
--- NOTE | 2023-10-06 15:01 | MHC.PC.OV ---
Vital Signs 10/06/23 15:01 Height 5 ft 6 in Weight 174 lb BMI 28.1 BP 120/70 Blood Pressure Location Lt brachial Position Sitting Intake Visit Reasons: 4 mth follow up Intake Note: Patient here for a 4 month follow up, requesting inhaler Search Specialist Required: No Accompanied by: Spouse Allergies tamsulosin Adverse Reaction (Verified 10/06/23 15:16) headaches, slow movements Medication List - Last Reconciled 10/06/23 by Marilynn Pandey MD amlodipine 2.5 mg PO DAILY 90 days dorzolamide-timolol 22.3-6.8 mg/mL mL ophthalmic (eye) ibuprofen 800 mg PO Q8H PRN 30 days latanoprost 0.005% 0 drps ophthalmic (eye) omeprazole 20 mg PO DAILY PRN 90 days sertraline 25 mg PO DAILY 90 days simvastatin 10 mg PO BEDTIME 90 days Tobacco use date assessed: 07/29/23 Fall risk assessment: No Falls in past year Last assessed Fall Risk: 10/06/23 Dental Screening Dental Screen Date: 07/29/23 HPI HPI Comments History of Present Illness Details This is a 73-year-old male with hypertension, dyslipidemia, asthma and esophageal dysmotility that comes today accompanied by for follow-up on his conditions. Blood pressure stable. Lipid panel will be order. He use rescue inhaler less than once a month. Upper GI series showed esophageal dysmotility and hiatal hernia and will be referred to Gastroenterology. Depression has improved and he discontinue sertraline. Also discontinue omeprazole. Denies any chest pain or shortness of breath. [facility] Medical History (Updated 10/06/23 @ 15:28 by Marilynn Pandey MD) Moderate major depression Anemia BPH w urinary obs/LUTS Bladder outlet obstruction Weak urinary stream Gross hematuria Enlarged aorta Former smoker Lipoma Urticaria Obese Dyslipidemia Essential hypertension Surgical History History of surgery History of colonoscopy Family History Father No problems noted. Mother Emphysema of lung Social History Household Members: Spouse Housing: House Do you presently have visiting nurse or other home services: No Alcohol intake: never Patient Tobacco Use Status: Former Tobacco user Quit Date: 2008 Tobacco use type: Cigarette Years Smoked: 52 +/- e-Cigarette/Vaping Use: Never Used Second Hand Smoke Exposure: No service: No Current occupational status: disabled Cognitive needs: No Hearing needs: No Vision needs: Yes (Glasses) Questionnaire Thrive Questionnaire Date Thrive assessed: 07/29/23 ELADIO-7 AMB Questionnaire ELADIO-7 Date ELADIO - 7 assessed: 07/29/23 Source: Developed by Drs. Perry Frazier, Julia Jalloh, Memo Kwan and colleagues, with an educational jose from [employer]. Review of Systems Const All systems reviewed & are unremarkable except as noted in HPI and below Eyes Reports no additional complaints, Denies change in vision and Denies other visual disturbances Card Denies chest pain at rest, Denies chest pain with activity, Denies edema, Denies irregular heart rhythm, Denies claudication, Denies dyspnea, Denies dyspnea on exertion, Denies orthopnea, Denies paroxysmal nocturnal dyspnea and Denies slow heart rate Resp Denies cough, Denies dyspnea and Denies dyspnea on exertion GI Denies abdominal pain, Denies change in bowel habits, Denies excessive flatus, Denies nausea and Denies vomiting Denies urinary hesitancy, Denies urinary incontinence and Denies urinary urgency Musc Denies abnormal gait, Denies atrophy, Denies deformity and Denies limited range of motion Skin/Breast Denies bleeding lesions, Denies changing lesions and Denies rash Neuro Denies abnormal gait and Denies lack of coordination Physical exam (Primary Care) Vital Signs: Last Vital Signs BP 120/70 10/06/23 15:01 BMI result Body Mass Index 28.1 Tobacco/Smoking Status: Tobacco use Status Tobacco use date assessed 07/29/23 10/06/23 15:11 Patient Tobacco Use Status Former Tobacco user 10/06/23 15:11 Tobacco use type Cigarette 10/06/23 15:11 e-Cigarette/Vaping Use Never Used 10/06/23 15:11 Thrive Assessment: Date of Thrive Assessment Date Thrive assessed 07/29/23 10/06/23 15:11 Resp Effort & Inspection: normal respiratory effort Auscultation: clear to auscultation bilaterally Cardio Jugular venous distension: no JVD Rate: regular rate Rhythm: regular rhythm Heart sounds: S1 normal heart sound present and S2 normal heart sound present Extrem General: Yes full ROM Psych Appearance: grossly normal Assessment and Plan Assessment & Plan (1) Essential hypertension: Code(s): I10 - Essential (primary) hypertension Plan: Continue amlodipine. Blood pressure goal is equal or less than 130/80. (2) Dyslipidemia: Code(s): E78.5 - Hyperlipidemia, unspecified Plan: Continue statins. Repeat lipid panel. (3) Asthma: Code(s): J45.909 - Unspecified asthma, uncomplicated Plan: Use rescue inhaler as needed. (4) Esophageal dysmotility: Code(s): K22.4 - Dyskinesia of esophagus Plan: Referred to Gastroenterology. Orders: Referrals Gastroenterology Referral K22.4 - Dyskinesia of esophagus Medications: New Ventolin HFA 90 mcg/actuation (albuterol sulfate) 2 puffs inhalation Q6H 30 days PRN 8 grams 1RF shortness of breath or wheezing NS Refilled amlodipine 2.5 mg PO DAILY 90 days 90 tabs 1RF Discontinued omeprazole Discontinued Reason: Patient Completed Course 20 mg PO DAILY 90 days PRN 90 caps 0RF heartburn K21.9 - Gastro-esophageal reflux disease without esophagitis sertraline Discontinued Reason: Patient Refused 25 mg PO DAILY 90 days 90 tabs 1RF F32.1 - Major depressive disorder, single episode, moderate Coding Level of Care Code Est Pt Level 4 (53575) Diagnoses Essential hypertension I10 Dyslipidemia E78.5 Asthma J45.909 Esophageal dysmotility K22.4 Time Spent (min) 22
== END 2023-10-06 15:35 | disposition home or self-care (01) ==
PROVIDERS: PCP Internal Medicine; Visit Provider Internal Medicine
DX: I10 Essential (primary) hypertension (principal); E78.5 Hyperlipidemia, unspecified; J45.909 Unspecified asthma, uncomplicated; K22.4 Dyskinesia of esophagus
CPT/HCPCS: 99214

== ENCOUNTER 2023-11-16 13:51 | Outpatient (AMB) | payer MEDICARE, MEDICAID, SELFPAY ==
[2023-11-16 13:58] VITALS: BP 130/60; PULSE 91; TEMP 36.8; O2SAT 91; BMI 28.2
--- NOTE | 2023-11-16 13:58 | MHC.OFFWIV ---
Intake Vital Signs 11/16/23 13:58 Height 5 ft 6 in Weight 175 lb BMI 28.2 BP 130/60 Blood Pressure Location Lt brachial Position Sitting Pulse 91 Pulse Source Pulse Oximeter Temp 98.3 F Temp Source Temporal Artery Scan Pulse Oximetry (%) 91 L Oxygen Delivery Method Room Air Intake Visit Reasons: pe/ coughing/ hard time breathing and nausea Intake Note: pt is here today for coughing hard time breathing and nausea started 3 days ago Patient Tobacco Use Status: Former Tobacco user Quit Date: 2008 Allergies tamsulosin Adverse Reaction (Verified 11/16/23 14:03) headaches, slow movements Do you need a note to return to daycare/school/sports/work: No HPI HPI Comments History of Present Illness Details Patient presents to the walk-in today for sick visit Complaining of cough, congestion, fevers, shortness of breath, chills for last 3 days Returns from [place] on Thursday, he was therefore 9 days History of asthma, has albuterol MDI at home but has not been using Endorses cough, productive of brown sputum. Cough induces vomiting Denies history of PE, DVT. Denies edema. [facility] Medical History (Updated 11/16/23 @ 15:03 by Dian Grewal APRN, SOCIAL SERVICES MANAGER) Moderate major depression Anemia BPH w urinary obs/LUTS Bladder outlet obstruction Weak urinary stream Gross hematuria Enlarged aorta Former smoker Lipoma Urticaria Obese Dyslipidemia Essential hypertension Surgical History History of surgery History of colonoscopy Family History Father No problems noted. Mother Emphysema of lung Social History Household Members: Spouse Housing: House Do you presently have visiting nurse or other home services: No Alcohol intake: never Patient Tobacco Use Status: Former Tobacco user Quit Date: 2008 Tobacco use type: Cigarette Years Smoked: 52 +/- e-Cigarette/Vaping Use: Never Used Second Hand Smoke Exposure: No service: No Current occupational status: disabled Cognitive needs: No Hearing needs: No Vision needs: Yes (Glasses) Review of Systems Const All systems reviewed & are unremarkable except as noted in HPI and below Physical Exam Vital Signs: Last Vital Signs Temp 98.3 F 11/16/23 13:58 Pulse 91 11/16/23 13:58 BP 130/60 11/16/23 13:58 Pulse Ox 91 L 11/16/23 13:58 Oxygen Delivery Method Room Air 11/16/23 13:58 BMI result Body Mass Index 28.2 General: awake, alert, oriented. Answers questions appropriately. Fully engaged in examination. Skin: warm, dry, intact HEENT: Normocephalic. Hearing intact. Cardiac: External chest normal in appearance. No peripheral edema noted. Respiratory: Lung sounds diminished throughout, fine crackles at the bases. 02 90% room air at rest. Ambulation trial: 85% room air with ambulating short distance. On return to room-pursed lipped breathing and able to speak very short sentences, oxygen returned to 90% room air. Abdomen: without gross distension. MS: No obvious swelling or deformities. Neurological: Oriented to person, place, time and situation. Thought process intact. Psychiatric: Appropriate mood and affect. Good judgment and insight. Assessment & Plan Assessment & Plan (1) Shortness of breath: Code(s): R06.02 - Shortness of breath Plan Concern for PE versus pneumonia given patient's recent travel to [facility]. Lengthy discussion with patient , recommend evaluation in the emergency room. Patient's oxygen 90%, 85% with ambulating very short distance. Not stable for discharge home. They decline EMS transport to the emergency room, will drive the patient. Expect was called to [facility] emergency room. They were advised to go straight to the ER, do not stop at home or elsewhere. Patient and verbalized understanding and agree with the plan. Coding Level of Care Code Est Pt Level 3 (67488) Diagnoses Shortness of breath R06.02
== END 2023-11-16 16:07 | disposition home or self-care (01) ==
PROVIDERS: PCP Internal Medicine; Visit Provider Registered Nurse Emergency
DX: R06.02 Shortness of breath (principal)
CPT/HCPCS: 99213

== ENCOUNTER 2023-11-16 15:16 | Inpatient (IN) | payer MEDICARE, MEDICAID, SELFPAY ==
[2023-11-16] VITALS (7 sets, daily range): BP systolic 114–157; BP diastolic 60–77; PULSE 85–105; RESP 14–20; TEMP 36.2–37.1; O2SAT 90–97; BMI 28.3
--- NOTE | ~2023-11-16 | CT_ITS ---
EXAMINATION: CT ANGIOGRAM OF THE CHEST WITH AND WITHOUT CONTRAST (CT PULMONARY ANGIOGRAM FOR PE) CLINICAL INFORMATION: Reason for Exam dyspnea, chest pain COMPARISON: CT dated 06/10/2021 and 02/05/2018 TECHNIQUE: Prior to contrast administration, noncontrast localization images were obtained. Subsequently, multidetector volumetric imaging was performed from the thoracic inlet to below the diaphragms following the administration of 65 mL Omnipaque 350 intravenous contrast. No contrast reaction reported Sagittal, coronal, and MIP oblique sagittal reformatted images were obtained on the CT workstation, uploaded to PACS, and reviewed. This CT examination was performed using dose optimization techniques as appropriate, variously including the following: *Automated exposure control *Adjustment of mA and/or kV according to patient size (this includes techniques or standardized protocols for targeted exams where dose is matched to indication/reason for exam; i.e. extremities or head) *Use of iterative reconstruction technique Total exam dose-length product 313 mGy-cm FINDINGS: QUALITY OF STUDY/CONTRAST BOLUS: Satisfactory. PULMONARY ARTERIES: No pulmonary emboli. THORACIC AORTA: Atherosclerotic calcifications are present in the thoracic aorta. No aneurysmal dilatation. LUNG: A calcified granuloma is present in the left lower lobe. There is a 3 mm pulmonary nodule in the right lower lobe posteriorly on image 334 of series 6 which is unchanged since the comparison from 02/05/2018. No consolidation. Central airways are clear. PLEURA: No pleural effusion or pneumothorax. MEDIASTINUM: Normal heart size. No pericardial effusion. No hilar or mediastinal lymphadenopathy. No evidence of septal bowing or right heart strain. CORONARY ARTERY CALCIFICATION: Present CHEST WALL/AXILLA: No axillary or internal mammary lymphadenopathy. OSSEOUS STRUCTURES: Diffuse idiopathic skeletal hyperostosis is noted with osseous bridging across multiple vertebral bodies. No fractures. 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 UPPER ABDOMEN: Mild atrophy of the pancreatic parenchyma. No reflux of contrast into the hepatic veins to suggest elevated right heart pressures. CT/CT angio chest PE protocol IMPRESSION: 1. No acute pulmonary findings. No evidence of pulmonary emboli. 2. Stable 3 mm pulmonary nodule in the right lower lobe greater than 2 years, benign by time criteria. VTE: negative.
--- NOTE | ~2023-11-16 | XR_ITS ---
EXAMINATION: XR CHEST CLINICAL INFORMATION: Chest pain and shortness of breath COMPARISON: 10/01/2022 TECHNIQUE: 2 views of the chest were obtained. FINDINGS: No significant abnormality is noted involving the heart, lungs, mediastinum, bony thorax or soft tissues. XR/XR chest 2V IMPRESSION: Unremarkable examination.
--- NOTE | 2023-11-16 15:37 | ED_ITS ---
HPI - SOB/Dyspnea General Chief Complaint: Dyspnea Stated Complaint: coughing,sob o2 sat low Time Seen by Provider: 11/16/23 16:50 Source: patient Mode of arrival: ambulatory Limitations: no limitations History of Present Illness ED Provider: iLana KEENE HPI Narrative: 73-year-old male history of GERD, asthma, hypertension, hyperlipidemia, dyslipidemia, former smoker, recent travel to [place] on plain presents to the emergency department chest pain, shortness of breath, cough x3 days. Patient reports he has been coughing so much that his back is hurting, he is also reporting some associated nausea. He does report that he recently traveled to [place]. No recent sick contacts around him. Reports shortness of breath and chest pain are worse with ambulation and better at rest. Denies fevers, chills, vomiting, abdominal pain, diarrhea, headache, vision changes, dizziness and weakness. Related Data Home Medications ?Medication ?Instructions ?Recorded ?Confirmed dorzolamide 22.3 mg-timolol 6.8 ml ophthalmic (eye) 01/06/23 10/06/23 mg/mL eye drops latanoprost 0.005 % eye drops 0 drp ophthalmic (eye) 01/06/23 10/06/23 Previous Rx's ?Medication ?Instructions ?Recorded simvastatin 10 mg tablet 10 mg PO BEDTIME 90 days #90 tabs 10/04/23 Ventolin HFA 90 mcg/actuation 2 puff inhalation Q6H PRN 10/06/23 aerosol inhaler (albuterol sulfate) shortness of breath or wheezing 30 days #8 grams amlodipine 2.5 mg tablet 2.5 mg PO DAILY 90 days #90 tabs 10/06/23 ibuprofen 800 mg tablet 800 mg PO Q8H PRN pain 30 days #90 10/22/23 tabs Allergies Allergy/AdvReac Type Severity Reaction Status Date / Time tamsulosin AdvReac headaches, Verified 11/16/23 15:40 slow movements Review of Systems 2 Review of Systems: Yes all other systems are reviewed and are negative PMFSH Past Medical History Attestation statement: The following information was validated with the patient. Source: old records reviewed and nursing notes reviewed Medical History (Updated 11/16/23 @ 18:43 by CHAR Arreola) Moderate major depression Anemia BPH w urinary obs/LUTS Bladder outlet obstruction Weak urinary stream Gross hematuria Enlarged aorta Former smoker Lipoma Urticaria Obese Dyslipidemia Essential hypertension Surgical History History of surgery History of colonoscopy Family History Family History Father No problems noted. Mother Emphysema of lung Social History Social History Household Members: Spouse Housing: House Do you presently have visiting nurse or other home services: No Alcohol intake: never Patient Tobacco Use Status: Former Tobacco user Quit Date: 2008 Tobacco use type: Cigarette Years Smoked: 52 +/- e-Cigarette/Vaping Use: Never Used Second Hand Smoke Exposure: No Advance Directives: Yes Advance Directives on File: Yes Advance Directives Date on File: 08/14/21 service: No Current occupational status: disabled Cognitive needs: No Hearing needs: No Vision needs: Yes (Glasses) Physical Exam 2 Vital Signs: Vital Signs: Last Vital Signs Temp 97.2 F 11/16/23 17:48 Pulse 100 11/16/23 17:48 Resp 20 11/16/23 17:48 BP 128/67 11/16/23 17:48 Pulse Ox 93 11/16/23 17:48 O2 Del Method Nasal Cannula 11/16/23 17:48 O2 Flow Rate 2 11/16/23 17:48 FiO2 28 11/16/23 17:07 BMI result Body Mass Index 28.3 vss 90% placed on 2L Appearance: Alert.? Oriented X3.? Moderate acute cardiopulmonary distress. Head: Normocephalic, atraumatic, no step-offs or deformities Eyes: Pupils equal, round and reactive to light.? ENT: Pharynx normal.? Neck: Normal inspection.? Neck supple.? CVS: Normal heart rate and rhythm.? Pulses normal.? Respiratory: + respiratory distress.? Breath sounds diminished with wheezing bilaterally. Increased work of breathing with labored breathing and intercostal retractions..? Abdomen: Soft and nontender.? Skin: Skin warm and dry.? Normal skin color.? Normal skin turgor.? Extremities: No lower extremity edema.? No calf ttp. 5/5 strength to bilateral upper and lower extremities Neuro: Oriented X 3.? No motor deficit.? No sensory deficit. CN 2-12 intact Course Course Course Narrative: This is an RME: Additional HPI, ROS, PE not included below will be deferred to primary provider. RME assessment and note performed by: Kiya Sultana PA-C This is a 22-qbsb-gep-male, with a hx of MDD, anemia, BPH, HLD, HTN who presents to the ER with a complaint of shortness of breath x 4 days. Patient reports that he has been having chest pain, back pain, and shortness of breath. Patient recently returned back from [place] which was a 5 hour flight. Endorsing sore throat as well as difficulty swallowing for the last 3 days. He is managing saliva however frequent neck contraction, states that this is due to his shortness of breath as well as sore throat. Airway widely patent, lungs are diminished. Oxygen saturation 90 percent on room air. Discussed with charge nurse to bring patient back to a room. Plan: Labs, EKG, chest x-ray Reevaluation(s) Reevaluation #1: CBC with no acute findings requiring intervention patient has a normocytic anemia at baseline. Chemistry with no acute findings requiring intervention. Negative troponin. Flu, COVID, RSV negative. Strep negative. Coags normal. D-dimer pending. Chest x-ray pending Respiratory at bedside for breathing treatment. Time: 16:57 Reevaluation #2: Patient 78% with ambulatory trial. Labored breathing feels like hes going to stop breathing and had to be brought back into room with wheel chair. Plan admission bronchitis and hypoxia. Time: 18:42 Medications Administered Discontinued Medications Generic Name Dose Route Start Last Admin Trade Name Sriramq PRN Reason Stop Dose Admin Albuterol Sulfate 2.5 mg/ 0 mg 11/16/23 16:57 11/16/23 17:01 Albuterol/Ipratropium 3 ml INHALE 11/16/23 16:58 5 dose ONCE ONE Administration Magnesium Sulfate 2 gm in 50 mls @ 25 mls/hr 11/16/23 16:52 11/16/23 17:18 Magnesium Sulfate/H2o IV 11/16/23 18:51 25 mls/hr ONCE ONE Administration Methylprednisolone Sodium Succinate 125 mg 11/16/23 16:52 11/16/23 17:18 Methylprednisolone Sod Succ 125 Mg/2 Ml Vial IVPUSH 11/16/23 16:53 125 mg ONCE ONE Administration Medical Decision Making Medical Decision Making [facility] Narrative: 1653 73 year old male presents w/ sob, cp, back pain, sore throat X 3 days. + recent travel PE dimiished bs and breathing labored w/ wheezing hx and pe concerning for pe vs pna vs viral ilness w/ moderate ARDS. Unlikely dissection, acs. No signs of acute retropharyngeal peritonsillar abscess. No signs of acute threat to airway. Will rule out metabolic derangements and UTI. I do not suspect cauda equina, epidural abscess, cord compression. Back pain maybe secondary to pneumonia and/or pulmonary embolism. No trauma. Or MSK back pain Plan- labs, urine, imaging Differential Diagnosis Differential Diagnoses: The differential diagnosis associated with the presentation includes hx and pe concerning for pe vs pna vs viral ilness w/ moderate ARDS. Unlikely dissection, acs. No signs of acute retropharyngeal peritonsillar abscess. No signs of acute threat to airway. Will rule out metabolic derangements and UTI. I do not suspect cauda equina, epidural abscess, cord compression. Back pain maybe secondary to pneumonia and/or pulmonary embolism. No trauma. Or MSK back pain Admission/Observation Consideration of admission/observation: Escalation of care including admission/observation considered likely Lab Data [facility] Lab Attestation statement: I reviewed the patient's lab results. 11/16/23 15:55 11/16/23 15:55 Labs: Lab Results 11/16/23 11/16/23 11/16/23 Range/Units 15:54 15:55 17:15 WBC 8.5 (4.8-10.8) X10*3/uL RBC 4.48 L (4.60-5.80) X10*6/uL Hgb 13.5 L (14.0-18.0) g/dl Hct 40.8 L (42.0-52.0) % MCV 91.1 (80.0-98.0) fL MCH 30.1 (27.0-33.0) pg MCHC 33.1 (31.0-36.0) g/dl RDW 12.7 (11.0-16.0) % Plt Count 220 (160-400) X10*3/uL MPV 9.9 (9.4-12.4) fL Immature Gran % (Auto) 0.2 (0.0-0.4) % Neut % (Auto) 62.3 (45-73) % Lymph % (Auto) 26.0 (20-40) % Lea % (Auto) 8.0 (2-11) % Eos % (Auto) 3.0 (0-4) % Baso % (Auto) 0.5 (0-2) % Lymph # (Auto) 2.2 (1.2-4.9) X10*3/uL Lea # (Auto) 0.7 (0.1-1.2) X10*3/uL Eos # (Auto) 0.3 (0.0-0.4) X10*3/uL Baso # (Auto) 0.0 (0.0-0.2) X10*3/uL Abs Immat Gran (auto) 0.02 (0.00-0.03) X10*3/uL Absolute Neuts (auto) 5.3 (2.0-8.3) x10*3/uL Absolute Nucleated RBC 0.000 (0.0-0.012) X10*3/uL Nucleated RBC % (auto) 0.0 (0.0-0.2) /100WBC PT 11.7 (11.1-13.3) SEC INR 1.0 (0.9-1.1) APTT 27.7 (26.0-36.8) SEC D-Dimer High Sensitivty 159 NG/ML VBG pH 7.33 (7.32-7.43) VBG pCO2 65 mmHg VBG pO2 59 mmHg VBG HCO3 35 H (22-26) mmol/L VBG O2 Saturation 88.0 % VBG Base Excess 6.8 mmol/L Sodium 140 (135-145) mmol/L Potassium 3.8 (3.3-5.1) mmol/L Chloride 102 (96-108) mmol/L Carbon Dioxide 30 H (22-29) mmol/L Anion Gap 12 (12-20) BUN 11 (9-16) mg/dL Creatinine 0.82 (0.5-1.4) mg/dL Estim Creat Clear Calc 79.5 Estimated GFR > 60 Random Glucose 85 (60-115) mg/dL Calcium 9.1 (8.4-10.2) mg/dL Total Bilirubin 0.6 (0.0-1.0) mg/dL Direct Bilirubin 0.2 (0.0-0.5) mg/dL AST 16 (5-37) U/L ALT 11 (0-40) U/L Alkaline Phosphatase 47 (39-117) U/L Troponin I High Sens < 2.7 (<3.5-35.0) ng/L B-Natriuretic Peptide < 10 (<100) pg/mL Total Protein 7.3 (6.5-8.0) g/dL Albumin 3.8 (3.5-5.0) g/dL Influenza Type A (PCR) NEGATIVE (Negative) Influenza Type B (PCR) NEGATIVE (Negative) RSV RNA Qual (PCR) NEGATIVE (Negative) SARS-CoV-2 RNA (RT-PCR) NEGATIVE (Negative) S. pyogenes GrpA VAZQUZE Negative (Negative) Independent Interpretation I performed an independent interpretation of an: EKG (Vent. Rate : 080 BPM Atrial Rate : 080 BPM P-R Int : 140 ms QRS Dur : 070 ms QT Int : 352 ms P-R-T Axes : 068 034 044 degrees QTc Int : 405 ms Normal sinus rhythm Normal ECG When compared with ECG of 01-OCT-2022 10:00, No significant change was found ) and Plain X-Ray Radiology Impression Discussion of test interpretation with radiology: I have reviewed the radiologist's reading. External Record Review External record reviewed: Inpatient record, Office record, Outpatient record, Prior outpatient labs, Prior outpatient radiology, Primary care record and Outside ED record Chronic Conditions Patient?s care impacted by: Other (Hypertension, hyperlipidemia, dyslipidemia, former smoker, lipoma, obesity, enlarged aorta, BPH) Critical Care Time Critical Care Time Critical Care Time: Yes Total Critical Care Time: 45 Attestation: I attest to this time spent taking care of the patient, obtaining history, physical, reviewing labs, imaging, speaking to my attending, specialist or hospitalist. Discharge Plan Discharge Clinical Impression: Bronchitis, Hypoxia Patient Disposition: Still a Patient Prescriptions: No Action simvastatin 10 mg tablet 10 mg PO BEDTIME 90 Days Qty: 90 3RF ibuprofen 800 mg tablet 800 mg PO Q8H PRN (Reason: pain) 30 Days Qty: 90 1RF amlodipine 2.5 mg tablet 2.5 mg PO DAILY 90 Days Qty: 90 1RF albuterol sulfate [Ventolin HFA] 90 mcg/actuation HFA aerosol inhaler 2 puff inhalation Q6H PRN (Reason: shortness of breath or wheezing) 30 Days Qty: 8 1RF dorzolamide-timolol 22.3-6.8 mg/mL drops ophthalmic (eye) latanoprost 0.005 % drops 0 drp ophthalmic (eye) Print Language: Australian
--- NOTE | 2023-11-16 15:43 | ECG_ITS ---
Test Reason : CHEST PAIN Blood Pressure : / mmHG Vent. Rate : 080 BPM Atrial Rate : 080 BPM P-R Int : 140 ms QRS Dur : 070 ms QT Int : 352 ms P-R-T Axes : 068 034 044 degrees QTc Int : 405 ms Normal sinus rhythm Normal ECG When compared with ECG of 01-OCT-2022 10:00, No significant change was found Referred By: Kiya Sultana Electronically Signed By:Seymour Delacruz
[2023-11-16 16:03] LABS: MANUAL DIFF FLAG NO
[2023-11-16 16:05] LABS: Basophils Percent Auto 0.5 % (0-2); Eosinophils Absolute Auto 0.3 X10*3/uL (0.0-0.4); Hematocrit 40.8 % (42.0-52.0); Hemoglobin 13.5 g/dl (14.0-18.0); Imm Gran Abs Auto 0.02 X10*3/uL (0.00-0.03); Imm Gran Pct Auto 0.2 % (0.0-0.4); Lymphocytes Absolute Auto 2.2 X10*3/uL (1.2-4.9); Mean Corpuscular HGB Conc 33.1 g/dl (31.0-36.0); Mean Corpuscular Hemoglobin 30.1 pg (27.0-33.0); Mean Corpuscular Volume 91.1 fL (80.0-98.0); Mean Platelet Volume 9.9 fL (9.4-12.4); Monocytes Absolute Auto 0.7 X10*3/uL (0.1-1.2); Neutrophils Absolute Auto 5.3 x10*3/uL (2.0-8.3); Neutrophils Percent Auto 62.3 % (45-73); Platelet Count 220 X10*3/uL (160-400); Red Blood Count 4.48 X10*6/uL (4.60-5.80); Red Cell Distribution Width 12.7 % (11.0-16.0); White Blood Count 8.5 X10*3/uL (4.8-10.8)
[2023-11-16 16:10] LABS: Prothrombin Time 11.7 SEC (11.1-13.3)
[2023-11-16 16:13] LABS: Partial Thromboplastin Time 27.7 SEC (26.0-36.8)
[2023-11-16 16:17] LABS: IDNOW Serial# 58CA691E; Strep A Nucleic Acid Negative (Negative)
[2023-11-16 16:22] LABS: Alanine Aminotransferase 11 U/L (0-40); Albumin Level 3.8 g/dL (3.5-5.0); Alkaline Phosphatase 47 U/L (39-117); Anion Gap 12 (12-20); Aspartate Amino Transferase 16 U/L (5-37); Bilirubin Direct 0.2 mg/dL (0.0-0.5); Bilirubin Total 0.6 mg/dL (0.0-1.0); Blood Urea Nitrogen 11 mg/dL (9-16); Calcium 9.1 mg/dL (8.4-10.2); Carbon Dioxide 30 mmol/L (22-29); Chloride 102 mmol/L (96-108); Creatinine Clr Calc Pharmacy 79.5; Estimated Glomerular Filt Rate > 60; Glucose Random 85 mg/dL (60-115); Potassium 3.8 mmol/L (3.3-5.1); Sodium 140 mmol/L (135-145); Total Protein 7.3 g/dL (6.5-8.0)
[2023-11-16 16:35] LABS: Troponin-I High Sensitivity < 2.7 ng/L (<3.5-35.0)
[2023-11-16 16:53] LABS: Influenza A PCR NEGATIVE (Negative); Influenza B PCR NEGATIVE (Negative); Resp Syncy Virus RNA Qual PCR NEGATIVE (Negative); SARS COV2 PCR INHOUSE NEGATIVE (Negative)
[2023-11-16] MEDS: Albuterol Sulfate 2.5 MG, Albuterol/Iprat 2.5/0.5MG 3 ML 3 ML INHALE (17:01)
[2023-11-16 17:18] LABS: B Type Natriuretic Peptide < 10 pg/mL (<100)
[2023-11-16] MEDS: methylPREDNISolone Sod Succ 125 MG/2 ML VIAL IVPUSH (17:18)
[2023-11-16] MEDS: Magnesium Sulfate/H2O 2 GM/50 ML PIGGYBACK IV (17:18)
[2023-11-16 17:22] LABS: Venous Blood Gas Refer to POC result
[2023-11-16 17:22] LABS: VBG Base Excess 6.8 mmol/L; VBG HCO3 35 mmol/L (22-26); VBG pCO2 65 mmHg; VBG pH 7.33 (7.32-7.43); VBG pO2 59 mmHg
[2023-11-16 17:33] LABS: D Dimer High Sensitivity 159 NG/ML
--- NOTE | 2023-11-16 18:56 | MHC.EDTECH ---
Patient went for ambulatory 02 sat check ,while on room air ,Patient 02 sat drop to 78 % ,while taking a few steps ,Provider aware .
[2023-11-16 19:07] LABS: Appearance Urine Clear; Color Urine Yellow; Glucose Urine UA Negative (Negative); Leukocyte Esterase Urine Negative (Negative); Nitrite Urine Negative (Negative); Specific Gravity - Urine <= 1.005 (1.005-1.025); Urine Blood Negative (Negative); Urine Ketones Negative (Negative); Urine Protein Negative (Neg-Trace)
[2023-11-16] MEDS: cefTRIAXone sodium 1 GM in 0.9 % Sodium Chloride 50 ML IV (19:23)
[2023-11-16] MEDS: Azithromycin 500 MG TABLET PO (19:24)
--- NOTE | 2023-11-16 19:39 | PM.IMHP ---
History of Present Illness Date of Service: 11/16/23 Chief Complaint: Dyspnea This is a 73-year-old male with pertinent history of mood disorder, hypertension, former tobacco use disorder, gastroesophageal reflux disease, mixed hyperlipidemia, BPH who presents to the emergency department for evaluation of dyspnea. Patient states that he started having dyspnea, worse with exertion 3 days prior to presentation. Also has been having intermittent productive cough. Has associated wheezing and pleuritic chest discomfort. Admits nausea. Patient states he recently traveled to [place]. Denies history of asthma or COPD and does not use home inhaler. No fever, chills, palpitations, abdominal pain, changes in urinary or bowel habits. In the emergency department, patient found to be hypoxemic and placed on supplemental oxygen. Review of Systems Constitutional: Constitutional: Reports lethargy, Reports poor appetite and Reports weakness Cardiovascular: Cardiovascular: Reports dyspnea on exertion Respiratory: Respiratory: Reports cough, Reports dyspnea on exertion and Reports wheezing Gastrointestinal: Gastrointestinal: Reports no additional gastrointestinal complaints Genitourinary: Genitourinary: Reports no additional male genitourinary complaints Neurologic: Reports weakness Allergic/Immunologic: Allergic/Immunologic: Reports wheezing REPLACED BY [facility] Medical History Moderate major depression Anemia BPH w urinary obs/LUTS Bladder outlet obstruction Weak urinary stream Gross hematuria Enlarged aorta Former smoker Lipoma Urticaria Obese Dyslipidemia Essential hypertension Family History Father No problems noted. Mother Emphysema of lung Surgical History History of surgery History of colonoscopy Social History Household Members: Spouse Housing: House Do you presently have visiting nurse or other home services: No Alcohol intake: never Patient Tobacco Use Status: Former Tobacco user Quit Date: 2008 Tobacco use type: Cigarette Years Smoked: 52 +/- e-Cigarette/Vaping Use: Never Used Second Hand Smoke Exposure: No Advance Directives: Yes Advance Directives on File: Yes Advance Directives Date on File: 08/14/21 service: No Current occupational status: disabled Cognitive needs: No Hearing needs: No Vision needs: Yes (Glasses) Meds Allergies Allergy/AdvReac Type Severity Reaction Status Date / Time tamsulosin AdvReac headaches, Verified 11/16/23 15:40 slow movements Home Medications ?Medication ?Instructions ?Recorded ?Confirmed ?Last Taken ?Type dorzolamide 22.3 mg-timolol 6.8 ml ophthalmic (eye) 01/06/23 10/06/23 Unknown History mg/mL eye drops latanoprost 0.005 % eye drops 0 drp ophthalmic (eye) 01/06/23 10/06/23 Unknown History finasteride 5 mg tablet 5 mg PO DAILY 11/16/23 Unknown History omeprazole 20 mg capsule,delayed 20 mg PO DAILY 11/16/23 Unknown History release sertraline 25 mg tablet 25 mg PO DAILY 11/16/23 Unknown History Physical Exam Vital Signs and Narrative: Vital Signs: Last Vital Signs Temp 97.2 F 11/16/23 17:48 Pulse 100 11/16/23 17:48 Resp 20 11/16/23 17:48 BP 128/67 11/16/23 17:48 Pulse Ox 93 11/16/23 17:48 O2 Del Method Nasal Cannula 11/16/23 17:48 O2 Flow Rate 2 11/16/23 17:48 FiO2 28 11/16/23 17:07 BMI result Body Mass Index 28.3 Middle-aged male lying in bed in mild distress on supplemental oxygen Neck supple, no JVD Regular rate and rhythm, S1-S2 heard Tachypnea with bilateral wheezing Abdomen soft nontender, no guarding, no rigidity Patient is awake, alert and oriented to self, place, time and person ; no focal motor deficit Psych: Normal mood No pedal edema Results Labs 11/16/23 15:55 11/16/23 15:55 Labs: Laboratory Results - last 24 hr 11/16/23 11/16/23 11/16/23 15:54 15:55 17:15 MCV 91.1 MCH 30.1 MCHC 33.1 RDW 12.7 Plt Count 220 MPV 9.9 Immature Gran % (Auto) 0.2 Neut % (Auto) 62.3 Lymph % (Auto) 26.0 Hart % (Auto) 8.0 Eos % (Auto) 3.0 Baso % (Auto) 0.5 Lymph # (Auto) 2.2 Hart # (Auto) 0.7 Eos # (Auto) 0.3 Baso # (Auto) 0.0 Abs Immat Gran (auto) 0.02 Absolute Neuts (auto) 5.3 Absolute Nucleated RBC 0.000 Nucleated RBC % (auto) 0.0 PT 11.7 INR 1.0 APTT 27.7 D-Dimer High Sensitivty 159 VBG pH 7.33 VBG pCO2 65 VBG pO2 59 VBG HCO3 35 H VBG O2 Saturation 88.0 VBG Base Excess 6.8 Anion Gap 12 Estim Creat Clear Calc 79.5 Estimated GFR > 60 Random Glucose 85 Calcium 9.1 Total Bilirubin 0.6 Direct Bilirubin 0.2 AST 16 ALT 11 Alkaline Phosphatase 47 Troponin I High Sens < 2.7 B-Natriuretic Peptide < 10 Total Protein 7.3 Albumin 3.8 Urine Color Urine Appearance Urine pH Ur Specific [place] Urine Protein Urine Glucose (UA) Urine Ketones Urine Blood Urine Nitrite Ur Leukocyte Esterase Influenza Type A (PCR) NEGATIVE Influenza Type B (PCR) NEGATIVE RSV RNA Qual (PCR) NEGATIVE SARS-CoV-2 RNA (RT-PCR) NEGATIVE S. pyogenes GrpA VAZQUEZ Negative 11/16/23 19:01 MCV MCH MCHC RDW Plt Count MPV Immature Gran % (Auto) Neut % (Auto) Lymph % (Auto) Hart % (Auto) Eos % (Auto) Baso % (Auto) Lymph # (Auto) Hart # (Auto) Eos # (Auto) Baso # (Auto) Abs Immat Gran (auto) Absolute Neuts (auto) Absolute Nucleated RBC Nucleated RBC % (auto) PT INR APTT D-Dimer High Sensitivty VBG pH VBG pCO2 VBG pO2 VBG HCO3 VBG O2 Saturation VBG Base Excess Anion Gap Estim Creat Clear Calc Estimated GFR Random Glucose Calcium Total Bilirubin Direct Bilirubin AST ALT Alkaline Phosphatase Troponin I High Sens B-Natriuretic Peptide Total Protein Albumin Urine Color Yellow Urine Appearance Clear Urine pH 6.0 Ur Specific [place] <= 1.005 Urine Protein Negative Urine Glucose (UA) Negative Urine Ketones Negative Urine Blood Negative Urine Nitrite Negative Ur Leukocyte Esterase Negative Influenza Type A (PCR) Influenza Type B (PCR) RSV RNA Qual (PCR) SARS-CoV-2 RNA (RT-PCR) S. pyogenes GrpA VAZQUEZ Imaging Radiologist's Impressions: Impressions Chest X-Ray 11/16/23 16:47 IMPRESSION: Unremarkable examination. Assessment and Plan (1) Hypoxia: Status: Acute Plan This is a 73-year-old male with pertinent history of mood disorder, hypertension, former tobacco use disorder, gastroesophageal reflux disease, mixed hyperlipidemia who presents to the emergency department for evaluation of dyspnea. #. Acute hypoxemic respiratory failure due to acute bronchitis: Will admit patient with supplemental oxygen. May have underlying COPD due to history of tobacco use. Will need outpatient follow-up with pulmonology. Initiating IV steroids, scheduled and p.r.n. DuoNebs. Patient with hypoxemia, dyspnea, tachycardia and pleuritic chest discomfort. Will obtain CTA. Respiratory viral panel pending. No concern for bacterial superinfection, defer antibiotics #. Hypertension: On amlodipine #. Mood disorder: Continue home mood stabilizers #. BPH: On finasteride #. Gastroesophageal reflux disease: On PPI #. Mixed hyperlipidemia: On statin Med rec pending DVT prophylaxis: Lovenox Full code Admit as inpatient and will require two night minimum hospital stay for supplemental oxygen, IV steroids (as above), which is not possible in a lesser acute setting. Quality Stroke Does the patient have a stroke diagnosis?: No VTE Prior VTE?: No VTE Risk Level:: Medical - moderate - high VTE Device Contraindication: Treatment Not Indicated VTE Drug Contraindication: N/A - Med Ordered
[2023-11-16] MEDS: Albuterol/Iprat 2.5/0.5MG 3 ML AMPUL.NEB INHALE (19:53)
[2023-11-16] MEDS: Enoxaparin Sodium 40 MG/0.4 ML SYRINGE SUBCUT (20:07)
--- NOTE | 2023-11-16 21:28 | PC.NURSE ---
Neither nor patient are sure what patient takes for medications. states that she will bring a list of patient's medications tomorrow.
[2023-11-16] MEDS: iohexoL 350 MG/ML 100 ML INFUS..BTL IV (22:11)
--- NOTE | 2023-11-16 23:15 | PC.NURSE ---
Patient given a turkey sandwich with rose and cranberry juice.
[2023-11-17] VITALS (7 sets, daily range): BP systolic 116–136; BP diastolic 56–70; PULSE 85–106; RESP 17–22; TEMP 36.2–37.2; O2SAT 92–98
[2023-11-17] MEDS: 0.9 % Sodium Chloride Flush 3 ML SYRINGE IVFLUSH ×4 (00:25→20:17)
[2023-11-17] MEDS: methylPREDNISolone Sod Succ 40 MG/ML VIAL IVPUSH ×2 (05:45→17:24)
[2023-11-17] MEDS: Acetaminophen 325 MG TABLET 650 MG PO (06:13)
[2023-11-17 06:26] LABS: Basophils Percent Auto 0.2 % (0-2); Hemoglobin 13.7 g/dl (14.0-18.0); Imm Gran Abs Auto 0.04 X10*3/uL (0.00-0.03); Imm Gran Pct Auto 0.4 % (0.0-0.4); Lymphocytes Absolute Auto 0.6 X10*3/uL (1.2-4.9); MANUAL DIFF FLAG SCAN; Mean Corpuscular HGB Conc 32.6 g/dl (31.0-36.0); Mean Corpuscular Hemoglobin 29.8 pg (27.0-33.0); Mean Corpuscular Volume 91.5 fL (80.0-98.0); Mean Platelet Volume 10.3 fL (9.4-12.4); Monocytes Absolute Auto 0.1 X10*3/uL (0.1-1.2); Monocytes Percent Auto 1.1 % (2-11); Neutrophils Absolute Auto 8.9 x10*3/uL (2.0-8.3); Neutrophils Percent Auto 92.3 % (45-73); Platelet Count 248 X10*3/uL (160-400); Red Blood Count 4.59 X10*6/uL (4.60-5.80); Red Cell Distribution Width 12.8 % (11.0-16.0); SCAN SMEAR FLAG 1; White Blood Count 9.7 X10*3/uL (4.8-10.8)
[2023-11-17 06:46] LABS: Anion Gap 13 (12-20); Blood Urea Nitrogen 10 mg/dL (9-16); Calcium 9.2 mg/dL (8.4-10.2); Carbon Dioxide 30 mmol/L (22-29); Chloride 103 mmol/L (96-108); Creatinine Clr Calc Pharmacy 75.8; Estimated Glomerular Filt Rate > 60; Glucose Random 169 mg/dL (60-115); Potassium 3.8 mmol/L (3.3-5.1); Sodium 142 mmol/L (135-145)
[2023-11-17 07:36] LABS: SLIDE REVIEW VERIFIED
[2023-11-17] MEDS: Albuterol/Iprat 2.5/0.5MG 3 ML AMPUL.NEB INHALE ×3 (07:58→19:38)
--- NOTE | 2023-11-17 10:58 | PHA.MEDREC ---
Pharmacy Consult ? Medication Reconciliation Pharmacy has completed the medication reconciliation. Utilized unemployment insurance director services. Patient no longer taking sertraline, omeprazole, latanoprost. Patient attests to taking brominidine and dorzolamide/timolol eye drops (2 gtt OU BID).
--- NOTE | 2023-11-17 11:05 | P.PNIM_ITS ---
Subjective Subjective Date of Service: 11/17/23 Interval History: Feeling better this morning continued to have persistent shortness of breath and cough, chest pain with deep breathing and coughing, denies fever, no chills, no headache no dizziness, no nausea no vomiting no abdominal pain no other acute issues overnight. Review of Systems All other system reviewed and negative Physical Exam 2 Vital Signs: Vital Signs: Last Vital Signs Temp 97.6 F 11/17/23 07:32 Pulse 88 11/17/23 07:59 Resp 20 11/17/23 07:59 BP 124/61 11/17/23 07:32 Pulse Ox 93 11/17/23 07:32 O2 Del Method Nasal Cannula 11/17/23 07:32 O2 Flow Rate 3 11/17/23 07:32 FiO2 28 11/16/23 17:07 BMI result Body Mass Index 28.3 Const: Other: General awake alert x3, resting comfortably in no acute distress. Neck supple no JVD. CVS regular rate rhythm, Respiratory coarse breath sounds with few scattered wheeze Gastrointestinal abdomen soft, non tender, bowel sounds audible, no guarding , no rigidity. Extremities no edema. Neuro non focal Skin no rash Objective Data Active Medications Acetaminophen (Acetaminophen 325 Mg Tablet) 650 mg PO Q6H PRN PRN Reason: Pain, Mild (Pain Scale 1-3) Last Admin: 11/17/23 06:13 Dose: 650 mg Documented By: LUCILA Albuterol/Ipratropium (Albuterol/Iprat 2.5/0.5mg 3 Ml Ampul.Neb) 3 ml INHALE RQ4H WHILE AWAKE [facility] Last Admin: 11/17/23 07:58 Dose: 3 ml Documented By: JANEL Albuterol/Ipratropium (Albuterol/Iprat 2.5/0.5mg 3 Ml Ampul.Neb) 3 ml INHALE Q4H PRN PRN Reason: Wheezing Enoxaparin Sodium (Enoxaparin Sodium 40 Mg/0.4 Ml Syringe) 40 mg SUBCUT Q24H [facility] Last Admin: 11/16/23 20:07 Dose: 40 mg Documented By: FIORDALIZA Melatonin (Melatonin 3 Mg Tablet) 6 mg PO BEDTIME PRN PRN Reason: Insomnia Methylprednisolone Sodium Succinate (Methylprednisolone Sod Succ 40 Mg/Ml Vial) 40 mg IVPUSH Q12H [facility] Last Admin: 11/17/23 05:45 Dose: 40 mg Documented By: NATI Ondansetron HCl (Ondansetron Hcl 4 Mg/2 Ml Vial) 4 mg IVPUSH Q8H PRN PRN Reason: Nausea and Vomiting Sodium Chloride (0.9 % Sodium Chloride Flush 3 Ml Syringe) 3 ml IVFLUSH QSHIFT [facility] Last Admin: 11/17/23 09:09 Dose: 3 ml Documented By: BHANU Labs 11/17/23 05:43 11/17/23 05:43 Labs: Laboratory Results - last 24 hr 11/16/23 11/16/23 11/16/23 15:54 15:55 17:15 MCV 91.1 MCH 30.1 MCHC 33.1 RDW 12.7 Plt Count 220 MPV 9.9 Immature Gran % (Auto) 0.2 Neut % (Auto) 62.3 Lymph % (Auto) 26.0 Clarke % (Auto) 8.0 Eos % (Auto) 3.0 Baso % (Auto) 0.5 Lymph # (Auto) 2.2 Clarke # (Auto) 0.7 Eos # (Auto) 0.3 Baso # (Auto) 0.0 Abs Immat Gran (auto) 0.02 Absolute Neuts (auto) 5.3 Absolute Nucleated RBC 0.000 Nucleated RBC % (auto) 0.0 Smear Tech's Comments PT 11.7 INR 1.0 APTT 27.7 D-Dimer High Sensitivty 159 VBG pH 7.33 VBG pCO2 65 VBG pO2 59 VBG HCO3 35 H VBG O2 Saturation 88.0 VBG Base Excess 6.8 Anion Gap 12 Estim Creat Clear Calc 79.5 Estimated GFR > 60 Random Glucose 85 Calcium 9.1 Total Bilirubin 0.6 Direct Bilirubin 0.2 AST 16 ALT 11 Alkaline Phosphatase 47 Troponin I High Sens < 2.7 B-Natriuretic Peptide < 10 Total Protein 7.3 Albumin 3.8 Urine Color Urine Appearance Urine pH Ur Specific [place] Urine Protein Urine Glucose (UA) Urine Ketones Urine Blood Urine Nitrite Ur Leukocyte Esterase Influenza Type A (PCR) NEGATIVE Influenza Type B (PCR) NEGATIVE RSV RNA Qual (PCR) NEGATIVE SARS-CoV-2 RNA (RT-PCR) NEGATIVE S. pyogenes GrpA VAZQUEZ Negative 11/16/23 11/17/23 19:01 05:43 MCV 91.5 MCH 29.8 MCHC 32.6 RDW 12.8 Plt Count 248 MPV 10.3 Immature Gran % (Auto) 0.4 Neut % (Auto) 92.3 H Lymph % (Auto) 6.0 L Clarke % (Auto) 1.1 L Eos % (Auto) 0.0 Baso % (Auto) 0.2 Lymph # (Auto) 0.6 L Clarke # (Auto) 0.1 Eos # (Auto) 0.0 Baso # (Auto) 0.0 Abs Immat Gran (auto) 0.04 H Absolute Neuts (auto) 8.9 H Absolute Nucleated RBC 0.000 Nucleated RBC % (auto) 0.0 Smear Tech's Comments VERIFIED PT INR APTT D-Dimer High Sensitivty VBG pH VBG pCO2 VBG pO2 VBG HCO3 VBG O2 Saturation VBG Base Excess Anion Gap 13 Estim Creat Clear Calc 75.8 Estimated GFR > 60 Random Glucose 169 H Calcium 9.2 Total Bilirubin Direct Bilirubin AST ALT Alkaline Phosphatase Troponin I High Sens B-Natriuretic Peptide Total Protein Albumin Urine Color Yellow Urine Appearance Clear Urine pH 6.0 Ur Specific [place] <= 1.005 Urine Protein Negative Urine Glucose (UA) Negative Urine Ketones Negative Urine Blood Negative Urine Nitrite Negative Ur Leukocyte Esterase Negative Influenza Type A (PCR) Influenza Type B (PCR) RSV RNA Qual (PCR) SARS-CoV-2 RNA (RT-PCR) S. pyogenes GrpA VAZQUEZ Assessment and Plan (1) Hypoxia: Status: Acute Plan 73-year-old male with pertinent history of mood disorder, hypertension, former tobacco use disorder, gastroesophageal reflux disease, mixed hyperlipidemia who presents to the emergency department for evaluation of dyspnea. #. Acute hypoxemic respiratory failure due to acute bronchitis: Being followed for dyspnea, feeling better, afebrile normal WBC May have underlying COPD due to history of tobacco use. CT angio chest showed no acute pulmonary findings, no PE, stable 3 mm pulmonary nodule in the right lower lobe benign by Triam criteria Continue IV steroids, scheduled and p.r.n. DuoNebs, supportive care. Respiratory viral panel pending. Wean oxygen as tolerated #. Hypertension: Stable BP continue amlodipine 2.5 mg daily. #. BPH: Resume finasteride #. Gastroesophageal reflux disease: On PPI #. Mixed hyperlipidemia: Continue statins DVT prophylaxis: Lovenox Full code Patient will require continued inpatient hospital stay for supplemental oxygen, IV steroids (as above), which is not possible in a lesser acute setting. Quality Stroke Does the patient have a stroke diagnosis?: No VTE Prior VTE?: No VTE Risk Level:: Medical - moderate - high VTE Device Contraindication: Treatment Not Indicated VTE Drug Contraindication: N/A - Med Ordered
[2023-11-17 12:08] LABS: Adenovirus PCR Not Detected (Not Detect.); Bordetella parapertussis PCR Not Detected (Not Detect.); Bordetella pertussis PCR Not Detected (Not Detect.); Chlamydia pneumoniae PCR Not Detected (Not Detect.); Coronavirus 229E PCR Not Detected (Not Detect.); Coronavirus HKU1 PCR Not Detected (Not Detect.); Coronavirus NL63 PCR Not Detected (Not Detect.); Coronavirus OC43 PCR Not Detected (Not Detect.); Human metapneumovirus PCR Not Detected (Not Detect.); Influenza A PCR Not Detected (Not Detect.); Influenza B PCR Not Detected (Not Detect.); Mycoplasma pneumoniae PCR Not Detected (Not Detect.); Parainfluenza 1 PCR Not Detected (Not Detect.); Parainfluenza 2 PCR Not Detected (Not Detect.); Parainfluenza 3 PCR Not Detected (Not Detect.); Parainfluenza 4 PCR Not Detected (Not Detect.); RSV PCR Not Detected (Not Detect.); Rhino/Enterovirus PCR Not Detected (Not Detect.)
[2023-11-17 12:13] LABS: SARS-CoV-2 PCR Not Detected (Not Detect.)
--- NOTE | 2023-11-17 14:23 | MHC.CM.PN ---
POSTIE COMPLETED W/ ASSISTANCE OF PHYSICAL DIRECTOR. PATIENT LIVES AT HOME W/ . FUNCTIONALLY INDEPENDENT. PCP ANETA CHANDLER MD HCP ON FILE AND VERIFIED DP: GOAL IS HOME SELF CARE, TO TRANSPORT. CM WILL CONTINUE TO FOLLOW.
[2023-11-17] MEDS: Atorvastatin Calcium 10 MG TABLET PO (16:00)
[2023-11-17] MEDS: guaiFENesin DM 100/10/5 ML 5 ML SYRUP 10 ML PO ×2 (16:01→20:16)
[2023-11-17] MEDS: Docusate Sodium 100 MG CAPSULE 200 MG PO (17:24)
[2023-11-17] MEDS: Enoxaparin Sodium 40 MG/0.4 ML SYRINGE SUBCUT (20:16)
[2023-11-17] MEDS: Brimonidine Tartrate 0.2% Oph 5 ML BOTTLE 2 DROP EYE-BOTH (20:17)
[2023-11-17] MEDS: Dorzolamide/Timolo 2.23%/0.68% 10 ML DRBTL 2 DROP EYE-BOTH (20:17)
[2023-11-18 03:43] VITALS: BP 134/76; PULSE 89; RESP 16; TEMP 36.1; O2SAT 96
[2023-11-18] MEDS: methylPREDNISolone Sod Succ 40 MG/ML VIAL IVPUSH (06:23)
[2023-11-18] MEDS: Acetaminophen 325 MG TABLET 650 MG PO (06:25)
[2023-11-18 07:10] VITALS: BP 134/64; PULSE 91; RESP 20; TEMP 37; O2SAT 97
[2023-11-18 08:52] VITALS: BP 138/67
[2023-11-18] MEDS: amLODIPine Besylate 2.5 MG TABLET PO (08:52)
[2023-11-18] MEDS: Finasteride 5 MG TABLET PO (08:53)
[2023-11-18] MEDS: Atorvastatin Calcium 10 MG TABLET PO (08:53)
[2023-11-18] MEDS: guaiFENesin DM 100/10/5 ML 5 ML SYRUP 10 ML PO (08:53)
[2023-11-18] MEDS: 0.9 % Sodium Chloride Flush 3 ML SYRINGE IVFLUSH (08:53)
[2023-11-18] MEDS: Dorzolamide/Timolo 2.23%/0.68% 10 ML DRBTL 2 DROP EYE-BOTH (08:54)
[2023-11-18] MEDS: Brimonidine Tartrate 0.2% Oph 5 ML BOTTLE 2 DROP EYE-BOTH (08:54)
[2023-11-18] MEDS: Albuterol/Iprat 2.5/0.5MG 3 ML AMPUL.NEB INHALE ×2 (09:03→11:21)
[2023-11-18 09:05] VITALS: PULSE 89; RESP 16; O2SAT 93
[2023-11-18] MEDS: Lactulose 20 GM/30 ML SOLUTION PO (09:51)
[2023-11-18] MEDS: Throat Lozenge, Medicated LOZENGE 1 LOZENGE MUCOUS MEM (09:52)
--- NOTE | 2023-11-18 10:41 | MHC.CM.PN ---
Addendum entered by Zayra Whelan RN 11/18/23 10:48: Correction - patient on contact precautions, will not go to dc lounge. Original Note: EMR reviewed. Per MD rounds patient is medically cleared for dc home self care. IMM was delivered 11/16. Patient's will provide transportation, he is unsure of time. Patient is appropriate for dc lounge. RN aware.
[2023-11-18 11:23] VITALS: PULSE 71; RESP 18; O2SAT 98
--- NOTE | 2023-11-18 12:59 | PM.DS ---
DS: Providers Provider Date of Service: 11/18/23 Date of admission: 11/16/23 19:38 Primary care physician: Marilynn Pandey MD DS: Diagnosis Discharge Diagnosis (1) Hypoxia: Status: Acute DS: Summary Hospital Course Hospital Course: History of presenting illness: Date of Service: 11/16/23 Chief Complaint: Dyspnea This is a 73-year-old male with pertinent history of mood disorder, hypertension, former tobacco use disorder, gastroesophageal reflux disease, mixed hyperlipidemia, BPH who presents to the emergency department for evaluation of dyspnea. Patient states that he started having dyspnea, worse with exertion 3 days prior to presentation. Also has been having intermittent productive cough. Has associated wheezing and pleuritic chest discomfort. Admits nausea. Patient states he recently traveled to [place]. Denies history of asthma or COPD and does not use home inhaler. No fever, chills, palpitations, abdominal pain, changes in urinary or bowel habits. In the emergency department, patient found to be hypoxemic and placed on supplemental oxygen. Hospital course: Acute hypoxic respiratory failure due to acute bronchitis. 73-year-old male with pertinent history of mood disorder, hypertension, former tobacco use disorder, gastroesophageal reflux disease, mixed hyperlipidemia who presents to the emergency department for evaluation of dyspnea. And noted to be hypoxic therefore admitted to [facility] with a diagnosis of Acute hypoxemic respiratory failure due to acute bronchitis, and possible undiagnosed underlying COPD with history of former tobacco use, CT angio chest showed no acute pulmonary findings, no PE, stable 3 mm pulmonary nodule in the right lower lobe benign by time criteria, patient treated with IV steroids and updraft treatment respiratory viral panel she was negative patient responded well to above treatment, hypoxia resolved, therefore being discharged home to continue cough medication as needed and throat lozenges. The patient also complained of constipation therefore placed on MiraLax recommend high-fiber diet. In regard to hypertension recommend to continue amlodipine 2.5 mg daily since noted to have stable blood pressures, recommend to continue all home medications including finasteride and statins. Time Attestation Discharge Coordination Time (in mins): 36 Quality: Safe Use of Opioids Does Pt have an Active Cancer Diagnosis on the Problem List?: No Quality: Stroke Does the patient have a stroke diagnosis?: No Physical Exam Vital Signs: Vital Signs: Last Vital Signs Temp 98.6 F 11/18/23 07:10 Pulse 71 11/18/23 11:23 Resp 18 11/18/23 11:23 BP 138/67 11/18/23 08:52 Pulse Ox 97 11/18/23 07:10 O2 Del Method Room Air 11/18/23 07:10 O2 Flow Rate 2 11/18/23 03:43 FiO2 28 11/16/23 17:07 BMI result Body Mass Index 28.3 Const: Other: General awake alert x3, resting comfortably in no acute distress. Neck supple no JVD. CVS regular rate rhythm, Respiratory clear to auscultation Gastrointestinal abdomen soft, non tender, bowel sounds audible, no guarding , no rigidity. Extremities no edema. Neuro non focal Skin no rash Discharge Plan Discharge Anticipated Discharge Date/Time: 11/18/23 12:53 Patient Disposition: Home, Self-Care Discharge Diagnosis: Acute hypoxic respiratory failure/bronchitis Referrals: Marilynn Curtis MD [Primary Care Provider] - 1 Week Discharge Medications: New dextromethorphan-guaifenesin 10-100 mg/5 mL Syrup 10 ml PO TID PRN (Reason: cough) Qty: 237 0RF polyethylene glycol 3350 [Miralax] 17 gram powder in packet 17 g PO DAILY Qty: 30 0RF Continued simvastatin 10 mg tablet 10 mg PO BEDTIME 90 Days Qty: 90 3RF ibuprofen 800 mg tablet 800 mg PO Q8H PRN (Reason: pain) 30 Days Qty: 90 1RF finasteride 5 mg tablet 5 mg PO DAILY brimonidine 0.2 % drops 2 drp ophthalmic (eye) BID amlodipine 2.5 mg tablet 2.5 mg PO DAILY 90 Days Qty: 90 1RF albuterol sulfate [Ventolin HFA] 90 mcg/actuation HFA aerosol inhaler 2 puff inhalation Q6H PRN (Reason: shortness of breath or wheezing) 30 Days Qty: 8 1RF dorzolamide-timolol 22.3-6.8 mg/mL drops 2 drp ophthalmic (eye) BID Discharge Orders: Discharge Order (Routine); Ordered 11/18/23 Ordered By: Joseluis Vazquez Diet: Advance to usual diet Activity on Discharge: As tolerated Stand Alone Forms: Patient Portal Discharge page Print Language: Polish Care Plan Goals: Oxygenation improved, in regard to upper respiratory infection take cough medication as needed, throat lozenges for sore throat Take high-fiber diet to avoid constipation, take MiraLax 17 g daily, hold for diarrhea. Minimize use of ibuprofen take only with severe pain. Health Concerns: Hypertension Hyperlipidemia Plan of Treatment: Follow-up with primary care physician call for appointment in 1-2 week Assessment: As above
== END 2023-11-18 14:56 | disposition home or self-care (01) | DRG 202 ==
LOC: HO.ED 18:43 → HO.EDOVER 19:42 → HO.S3 22:15
PROVIDERS: Physician Assistant; Physician Assistant Medical; Admitting Provider Student in an Organized Health Care Education/Training Program; Emergency Provider Internal Medicine; PCP Internal Medicine; Visit Provider Hospitalist
DX: J20.9 Acute bronchitis, unspecified (principal); J96.01 Acute respiratory failure with hypoxia; J44.0 Chronic obstructive pulmonary disease with (acute) lower respiratory infection; F39 Unspecified mood [affective] disorder; I10 Essential (primary) hypertension; K59.00 Constipation, unspecified; K21.9 Gastro-esophageal reflux disease without esophagitis; E78.2 Mixed hyperlipidemia; N40.0 Benign prostatic hyperplasia without lower urinary tract symptoms; Z20.822 Contact with and (suspected) exposure to COVID-19; Z87.891 Personal history of nicotine dependence; Z79.899 Other long term (current) drug therapy
CPT/HCPCS: 0241U; 36415; 71046; 71275; 80048; 80076; 81003; 82803; 83880; 84484; 85025; 85379; 85610; 85730; 87633; 87651; 93005; 94640; 99285; J0696; J1650; J2919; J3475; Q9967

== ENCOUNTER → 2023-11-16 15:43 | Outpatient (BNV) | payer MEDICARE, MEDICAID, SELFPAY | PROVIDERS: Admitting Provider Student in an Organized Health Care Education/Training Program; Emergency Provider Internal Medicine; PCP Internal Medicine; Visit Provider Internal Medicine Cardiovascular Disease | DX: R07.9 Chest pain, unspecified (principal) | CPT/HCPCS: 93010 ==

== ENCOUNTER → 2023-11-16 19:38 | Outpatient (BNV) | payer MEDICARE, MEDICAID, SELFPAY | PROVIDERS: Admitting Provider Student in an Organized Health Care Education/Training Program; Emergency Provider Internal Medicine; PCP Internal Medicine; Visit Provider Student in an Organized Health Care Education/Training Program | DX: J96.01 Acute respiratory failure with hypoxia (principal); J20.9 Acute bronchitis, unspecified | CPT/HCPCS: 99222; 99233; 99239 ==

== ENCOUNTER 2024-01-13 14:26 | Outpatient (AMB) | payer MEDICARE, MEDICAID, SELFPAY ==
--- NOTE | 2024-01-13 14:36 | A.OFFVIS_ITS ---
Intake Visit Reasons: 6m/PVR Intake Note: Patient is Present for PVR/ Urology Med: Finasteride Antibiotic Allergy:None Blood Thinner:None Last PVR: 23 Todays PVR:44 Funeral Home Location Manager Required: Yes Funeral Home Location Manager Language: Azerbaijani Allergies tamsulosin Adverse Reaction (Verified 02/18/24 14:10) headaches, slow movements HPI Comments Details: Octavio is a pleasant male. He is a patient of Dr. Pandey. He is seen for the following urologic conditions - prostatitis - lower urinary tract symptoms - erectile dysfunction Six-month prostatitis follow-up Azerbaijani translation provided by qualified medical dir Stable symptoms Refill medications 12 month follow-up BUN: 07/21--16, 06/20--17, 06/20--19 Creatinine: 07/21--0.75, 06/20--0.77, 06/20--0.68 PSA 1.2, 12/19 1.2, 06/20 1.2 Continues off finasteride plus low-dose tadalafil Erectile dysfunction Improvement in erections with daily tadalafil Lowered PVR Prostatitis Recent admission to hospital with urgency and frequency and weakness of stream Found to have prostatitis which responded to antibiotic therapy Combination therapy started for prostate PSA - 04/18 2.1, 06/18 4.4, 12/18 2.3, 12/19 1.2 PFSH Medical History Urticaria Former smoker Enlarged aorta Screening for prostate cancer Screening for diabetes mellitus Eye exam, routine Otitis media Adult general medical exam Cystitis Prostatitis Physical exam Chest pain Balanitis Right leg pain Ear discomfort Shortness of breath Bronchitis Moderate major depression Anemia BPH w urinary obs/LUTS Bladder outlet obstruction Weak urinary stream Gross hematuria Lipoma Obese Dyslipidemia Essential hypertension Surgical History History of surgery History of colonoscopy Family History Father No problems noted. Mother Emphysema of lung Social History Household Members: Spouse Housing: Apartment Do you presently have visiting nurse or other home services: No Alcohol intake: never Patient Tobacco Use Status: Former Tobacco user Tobacco use type: Cigarette Years Smoked: 52 +/- e-Cigarette/Vaping Use: Never Used Second Hand Smoke Exposure: No Advance Directives Date on File: 08/14/21 service: No Current occupational status: disabled Cognitive needs: No Hearing needs: No Vision needs: Yes (Glasses) Office Procedures Post Void Residual Post Residual Void Post Void Residual (PVR): 44 [id number] Void Residual by ultrasound Assessment & Plan Assessment & Plan (1) Erectile dysfunction: Code(s): N52.9 - Male erectile dysfunction, unspecified Category: Medical (2) BPH w urinary obs/LUTS: Code(s): N40.1 - Benign prostatic hyperplasia with lower urinary tract symptoms; N13.8 - Other obstructive and reflux uropathy Category: Medical Plan Twelve month follow-up Orders: Orders AMB Post Void Residual by ultrasound 01/13/24 N40.1 - Benign prostatic hyperplasia with lower urinary tract symptoms, N13.8 - Other obstructive and reflux uropathy Prostate Specific Antigen 364 Days N40.1 - Benign prostatic hyperplasia with lower urinary tract symptoms, N13.8 - Other obstructive and reflux uropathy Patient Instructions: Imaging studies, laboratory and physical exam results were discussed and re viewed in detail. No major barriers to patient understanding were identified. An opportunity to ask questions regarding the treatment plan was provided. All questions were answered. The patient expressed understanding and agreement with the above treatment plan. The patient is aware they should contact our office by phone for worsening of their current condition or the appearance of new urologic symptoms. Compliance is encouraged with any medications and followup testing that is ordered. It is a privilege to participate in the urologic care of your patient. If you have any questions or concerns regarding treatment for the above conditions, or other urologic issues, please do not hesitate to contact me. The office telephone contact is [phone]. This note is constructed using voice recognition software. While every effort has been made to ensure accuracy fender mechanic apprentice errors may have been included. Yours sincerely, Dr Madhu Raman MD, [facility] - Urology Providers of Expert, Compassionate Care for the Genitourinary System Coding Level of Care Code Est Pt Level 3 (96574) Diagnoses Erectile dysfunction N52.9 BPH w urinary obs/LUTS N40.1; N13.8 CPT Codes Post Residual Void - PVR CPT Code: 66680-[id number] Void Residual by ultrasound ([id number])
== END 2024-01-13 16:04 | disposition home or self-care (01) ==
PROVIDERS: PCP Internal Medicine; Visit Provider Urology
DX: N52.9 Male erectile dysfunction, unspecified (principal); N40.1 Benign prostatic hyperplasia with lower urinary tract symptoms; N13.8 Other obstructive and reflux uropathy
CPT/HCPCS: 99213

== ENCOUNTER → 2024-01-13 14:26 | Outpatient (BNVA) | payer MEDICARE, MEDICAID, SELFPAY | PROVIDERS: PCP Internal Medicine; Visit Provider Urology | DX: N40.1 Benign prostatic hyperplasia with lower urinary tract symptoms (principal); N52.9 Male erectile dysfunction, unspecified; N13.8 Other obstructive and reflux uropathy; Z79.899 Other long term (current) drug therapy | CPT/HCPCS: 51798; 99212 ==

== ENCOUNTER 2024-02-18 13:35 | Outpatient (AMB) | payer MEDICARE, MEDICAID, SELFPAY ==
--- NOTE | 2024-02-18 13:37 | A.OFFVIS_ITS ---
Vital Signs 02/18/24 14:02 Height 5 ft 6 in Weight 170 lb 10.205 oz BMI 27.5 BP 136/69 Blood Pressure Location Lt brachial Position Sitting Pulse 78 Intake Visit Reasons: Dyskinesia of esophagus Intake Note: Octavio presents to in office visit today for dyskinesia of esophagus. CC: Patient c/o constipation, itching from hemorrhoids, nausea sometimes, heartburn, and inflammation of the submandibular gland. He also reports dryness from his nose. Last colonoscopy in [place] in 2008 and another one in 2011 in [place]. 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 He is referred by Marilynn Curtis PMX Obesity Hypertension High cholesterol Aortic aneurysm Glaucoma Prostatitis BPH Erectile dysfunction GERD * SURGICAL HISTORY Neck lumpectomy Colonoscopy * ALLERGIES Flomax * eduplanet [facility] LABS: Laboratory Tests 11/16/23 11/17/23 15:55 05:43 WBC 9.7 RBC 4.59 L Hgb 13.7 L Hct 42.0 MCV 91.5 Plt Count 248 Estimated GFR > 60 Total Bilirubin 0.6 Direct Bilirubin 0.2 AST 16 ALT 11 Alkaline Phosphatase 47 UGI study 09/01/23 FINDINGS: No evidence of laryngeal penetration or subglottic aspiration. Dual and single contrast images of the esophagus demonstrate normal caliber, contour, and mucosal pattern. No evidence of stricture, mass, or ulcerations identified. There is to and fro motion of the barium column with nonpropulsive tertiary contractions noted in the mid and distal esophagus. A small type I hiatal hernia is present. No significant gastroesophageal reflux was seen during the course of the examination and on reflux views. Dual contrast and single contrast images of the stomach demonstrated normal contour and mucosal pattern without evidence of mass, ulceration, or other abnormality. Contrast freely passed into the gastric antrum and duodenal bulb without delay. Single and air-contrast images of the duodenal bulb demonstrate no abnormality. The duodenal sweep has a normal appearance, course, and mucosal fold appearance. No malrotation. The imaged proximal jejunum has a normal fold pattern and caliber. FLUOROSCOPY TIME: 3 minutes 41 seconds Number of Spot Images: 16 Number of Cine: 9 DOSE AREA PRODUCT: 2453 uGy-m2 (microgray-meter squared) FL/FL upper GI series IMPRESSION: 1. To and fro motion of the barium column with nonpropulsive tertiary contractions in the mid distal esophagus consistent with esophageal dysmotility. 2. Small type I hiatal hernia. TODAY'S VISIT Faroese #Mira Waters He is here today with his who is supportive. He denies being here for trouble swallowing. He says I'm here because I'm not going very well. He reports life long CIC. He will go 2-4 days w/o a BM. His stools are very hard. He has used fiber in the past, but had trouble swallowing the capsule so he opens it and puts it in water and then he will move his bowels. BUT he is having pain when he eats that manifests to the right of the umbilicus. This has been for about a year. The pain is mild and will slowly resolve after about 10 seconds. BUT he says that he and his started a salad diet about a year ago to promote wt loss and since they started this he has not had the pain. The only other problem he has is roids, but his has had several negative colonoscopies in the past. I rx hemorrhoid cream, and if this does not resolve he can had Dr. Garcia send him to surgery for consideration. He really is not in need of any GI services at this time. [facility] Medical History (Updated 03/17/24 @ 08:18 by Marilynn Pandey MD) Physical exam Urticaria Former smoker Enlarged aorta Screening for prostate cancer Screening for diabetes mellitus Eye exam, routine Otitis media Adult general medical exam Cystitis Prostatitis Chest pain Balanitis Right leg pain Ear discomfort Shortness of breath Bronchitis Moderate major depression Anemia BPH w urinary obs/LUTS Bladder outlet obstruction Weak urinary stream Gross hematuria Lipoma Obese Dyslipidemia Essential hypertension Surgical History History of surgery History of colonoscopy Family History Father No problems noted. Mother Emphysema of lung Social History Household Members: Spouse Housing: Apartment Do you presently have visiting nurse or other home services: No Alcohol intake: never Patient Tobacco Use Status: Former Tobacco user Tobacco use type: Cigarette Years Smoked: 52 +/- e-Cigarette/Vaping Use: Never Used Second Hand Smoke Exposure: No Advance Directives Date on File: 08/14/21 service: No Current occupational status: disabled Cognitive needs: No Hearing needs: No Vision needs: Yes (Glasses) Review of Systems Const Denies fatigue, Denies fever(s), Denies night sweats, Denies poor appetite and Reports weight loss (intentional dieting) Eyes Details: glasses Reports requires corrective lenses ENT Reports Normal hearing present, Denies dental pain, Denies dysphagia, Denies hearing loss, Denies mouth pain, Denies odynophagia, Denies throat swelling, Denies tongue swelling and Reports other (Dentition adequate) Card Reports no additional complaints Resp Reports no additional complaints GI Details: Denies abdominal pain, Denies melena, Denies bloating, Denies hematochezia, Reports constipation, Denies GI cramping, Denies dysphagia, Denies excessive flatus, Denies early satiety, Denies heartburn, Denies diarrhea, Denies nausea, Denies odynophagia, Denies vomiting and Denies hematemesis Skin/Breast Denies pruritus, Denies lesions, Denies rash and Denies jaundice Neuro Reports Normal hearing present and Denies Abnormal speech present Endo Denies fatigue Aller/Immun Denies throat swelling and Denies tongue swelling Physical Exam Vital Signs: Last Vital Signs Pulse 78 02/18/24 14:02 BP 136/69 02/18/24 14:02 BMI result Body Mass Index 27.5 Const General: cooperative, no acute distress, well developed and well groomed Nutritional Appearance: well nourished and obese morbidly obese Orientation/consciousness: oriented to person, oriented to place and oriented to time Limitations: language barrier HEENT Head: Yes normocephalic and Yes atraumatic Eyes General: appearance normal, both eyes and all related structures Pupils: Equal, round and reactive pupils present Neck Neck: Yes normal visual inspection and Yes no lymphadenopathy Thyroid: Thyroid normal Resp Effort & Inspection: normal respiratory effort and able to speak in complete sentences Auscultation: clear to auscultation bilaterally Cardio Rate: regular rate Rhythm: regular rhythm Heart sounds: Normal, physiologic split S2 sound present Peripheral pulses: radial pulses present and posterior tibial pulses present GI Inspection: No distended, Yes Abdominal panniculus present and Yes obesity Palpation (GI): Soft to palpation, nontender, no guarding, not rigid, No hepatosplenomegaly present and Hernia present umbilical Percussion: Yes normal to percussion Auscultation: normal bowel sounds Rectal Exam - Male: Yes deferred Skin General skin exam: no rashes or lesions noted, turgor normal, skin not dry, no jaundice, No spider nevi and no striae Rashes: no rashes Nails: normal Neuro General: oriented to person, oriented to place and oriented to time Cranial nerves: Yes Equal, round and reactive pupils present and Yes Normal hearing present Speech: No Abnormal speech present Extrem General: Yes normal to inspection, No clubbing, No cyanosis and No edema Psych Appearance: grossly normal and well kempt Mental Status: mental status grossly normal Speech and movement: Normal speech and movement present Affect: normal affect Attitude: cooperative Thought process: Normal thought process present and not confabulating Thought content: Normal thought content present Insight: Limited insight present (Psych) Judgement: Limited judgement present (Psych) Results Reviewed Results Reviewed: Laboratory Tests 11/16/23 11/17/23 15:55 05:43 WBC 9.7 RBC 4.59 L Hgb 13.7 L Hct 42.0 MCV 91.5 Plt Count 248 Estimated GFR > 60 Total Bilirubin 0.6 Direct Bilirubin 0.2 AST 16 ALT 11 Alkaline Phosphatase 47 UGI study 09/01/23 FINDINGS: No evidence of laryngeal penetration or subglottic aspiration. Dual and single contrast images of the esophagus demonstrate normal caliber, contour, and mucosal pattern. No evidence of stricture, mass, or ulcerations identified. There is to and fro motion of the barium column with nonpropulsive tertiary contractions noted in the mid and distal esophagus. A small type I hiatal hernia is present. No significant gastroesophageal reflux was seen during the course of the examination and on reflux views. Dual contrast and single contrast images of the stomach demonstrated normal contour and mucosal pattern without evidence of mass, ulceration, or other abnormality. Contrast freely passed into the gastric antrum and duodenal bulb without delay. Single and air-contrast images of the duodenal bulb demonstrate no abnormality. The duodenal sweep has a normal appearance, course, and mucosal fold appearance. No malrotation. The imaged proximal jejunum has a normal fold pattern and caliber. FLUOROSCOPY TIME: 3 minutes 41 seconds Number of Spot Images: 16 Number of Cine: 9 DOSE AREA PRODUCT: 2453 uGy-m2 (microgray-meter squared) FL/FL upper GI series IMPRESSION: 1. To and fro motion of the barium column with nonpropulsive tertiary contractions in the mid distal esophagus consistent with esophageal dysmotility. 2. Small type I hiatal hernia. Assessment & Plan Assessment & Plan (1) Presbyesophagus: Comment: 08/2023 UGI IMPRESSION: 1. To and fro motion of the barium column with nonpropulsive tertiary contractions in the mid distal esophagus consistent with esophageal dysmotility. 2. Small type I hiatal hernia. Code(s): K22.89 - Other specified disease of esophagus Category: Medical (2) GERD (gastroesophageal reflux disease): Code(s): K21.9 - Gastro-esophageal reflux disease without esophagitis Category: Medical Plan Faroese #Mira Waters He is here today with his who is supportive. He denies being here for trouble swallowing. He says I'm here because I'm not going very well. He reports life long CIC. He will go 2-4 days w/o a BM. His stools are very hard. He has used fiber in the past, but had trouble swallowing the capsule so he opens it and puts it in water and then he will move his bowels. BUT he is having pain when he eats that manifests to the right of the umbilicus. This has been for about a year. The pain is mild and will slowly resolve after about 10 seconds. BUT he says that he and his started a salad diet about a year ago to promote wt loss and since they started this he has not had the pain. The only other problem he has is roids, but his has had several negative colonoscopies in the past. I rx hemorrhoid cream, and if this does not resolve he can had Dr. Garcia send him to surgery for consideration. He really is not in need of any GI services at this time. Orders: Orders EGD - GI Use Only 02/18/24 K22.89 - Other specified disease of esophagus Medications: New hydrocortisone 2.5% (Proctosol HC) BE SURE TO INCLUDE RECTAL APPICATOR!! 1 appl [place] BID 30 grams 6RF hemorrhoids K64.9 - Unspecified hemorrhoids Coding Level of Care Code New Pt Level 3 (01957) Diagnoses Presbyesophagus K22.89 GERD (gastroesophageal reflux disease) K21.9
[2024-02-18 14:02] VITALS: BP 136/69; PULSE 78; BMI 27.5
== END 2024-02-18 14:48 | disposition home or self-care (01) ==
PROVIDERS: PCP Internal Medicine; Visit Provider Nurse Practitioner
DX: K22.89 Other specified disease of esophagus (principal); K21.9 Gastro-esophageal reflux disease without esophagitis
CPT/HCPCS: 99203

== ENCOUNTER → 2024-02-18 13:35 | Outpatient (BNVA) | payer MEDICARE, MEDICAID, SELFPAY | PROVIDERS: PCP Internal Medicine; Visit Provider Nurse Practitioner | DX: K22.4 Dyskinesia of esophagus (principal); K64.9 Unspecified hemorrhoids; K21.9 Gastro-esophageal reflux disease without esophagitis; K59.00 Constipation, unspecified | CPT/HCPCS: 99202 ==

== ENCOUNTER 2024-03-01 09:39 | Outpatient (REF) | payer MEDICARE, SELFPAY ==
[2024-03-01 09:51] LABS: MANUAL DIFF FLAG NO
[2024-03-01 10:27] LABS: Basophils Absolute Auto 0.1 X10*3/uL (0.0-0.2); Basophils Percent Auto 0.9 % (0-2); Eosinophils Absolute Auto 0.2 X10*3/uL (0.0-0.4); Eosinophils Percent Auto 2.8 % (0-4); Hematocrit 44.2 % (42.0-52.0); Hemoglobin 14.5 g/dl (14.0-18.0); Imm Gran Abs Auto 0.01 X10*3/uL (0.00-0.03); Imm Gran Pct Auto 0.1 % (0.0-0.4); Lymphocytes Absolute Auto 2.1 X10*3/uL (1.2-4.9); Lymphocytes Percent Auto 31.5 % (20-40); Mean Corpuscular HGB Conc 32.8 g/dl (31.0-36.0); Mean Corpuscular Hemoglobin 30.3 pg (27.0-33.0); Mean Corpuscular Volume 92.3 fL (80.0-98.0); Mean Platelet Volume 10.3 fL (9.4-12.4); Monocytes Absolute Auto 0.6 X10*3/uL (0.1-1.2); Monocytes Percent Auto 8.2 % (2-11); Neutrophils Absolute Auto 3.8 x10*3/uL (2.0-8.3); Neutrophils Percent Auto 56.5 % (45-73); Platelet Count 228 X10*3/uL (160-400); Red Blood Count 4.79 X10*6/uL (4.60-5.80); Red Cell Distribution Width 13.2 % (11.0-16.0); White Blood Count 6.7 X10*3/uL (4.8-10.8)
[2024-03-01 11:03] LABS: Alanine Aminotransferase 15 U/L (0-40); Albumin Level 3.9 g/dL (3.5-5.0); Alkaline Phosphatase 52 U/L (39-117); Anion Gap 13 (12-20); Aspartate Amino Transferase 19 U/L (5-37); Bilirubin Total 0.6 mg/dL (0.0-1.0); Blood Urea Nitrogen 14 mg/dL (9-16); Carbon Dioxide 29 mmol/L (22-29); Chloride 104 mmol/L (96-108); Cholesterol 153 mg/dL (<200); Estimated Glomerular Filt Rate > 60; Glucose Fasting 107 mg/dL (60-99); HDL Cholesterol 42 mg/dL (>40); Iron 97 mcg/dL (45-160); LDL Cholesterol Calculated 95 mg/dL (<100); Percent Iron Saturation 40 % (15-50); Potassium 3.9 mmol/L (3.3-5.1); Sodium 142 mmol/L (135-145); Total Iron Binding Capacity 241 mcg/dL (228-428); Total Protein 7.1 g/dL (6.5-8.0); Triglycerides 81 mg/dL (<150); Unsaturated Iron Binding 144 ug/dL
[2024-03-01 11:24] LABS: Folate 10.8 ng/mL (> or = 4.0); Vitamin B12 678 pg/mL (200-900)
== END 2024-03-01 09:40 | disposition home or self-care (01) ==
LOC: HO.LAB 09:39
PROVIDERS: PCP Internal Medicine; Visit Provider Internal Medicine
DX: R73.02 Impaired glucose tolerance (oral) (principal); E53.8 Deficiency of other specified B group vitamins; D64.9 Anemia, unspecified; E78.5 Hyperlipidemia, unspecified
CPT/HCPCS: 36415; 80053; 80061; 82607; 82746; 83540; 85025

== ENCOUNTER 2024-03-15 15:39 | Outpatient (AMB) | payer MEDICARE, SELFPAY ==
--- NOTE | 2024-03-15 15:41 | MHC.PC.OV ---
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 Accompanied by: Spouse Allergies tamsulosin Adverse Reaction (Verified 03/15/24 15:57) headaches, slow movements Medication List - Last Reconciled 03/15/24 by Marilynn Pandey MD amlodipine 2.5 mg PO DAILY 90 days brimonidine 0.2% 2 drps ophthalmic (eye) BID dorzolamide-timolol 22.3-6.8 mg/mL 2 drps ophthalmic (eye) BID finasteride 5 mg PO DAILY hydrocortisone 2.5% (Proctosol HC) 1 appl [place] BID ibuprofen 800 mg PO Q8H PRN 30 days simvastatin 10 mg PO BEDTIME 90 days Ventolin HFA 90 mcg/actuation (albuterol sulfate) 2 puffs inhalation Q6H PRN 30 days NS Tobacco use date assessed: 07/29/23 Fall risk assessment: 1 Fall in past year Last assessed Fall Risk: 03/15/24 Dental Screening Dental Screen Date: 03/15/24 Did you have a dental visit in the last 12 months?: Yes Did you have a dental problem in the last 6 months where you did not have access to dental care?: No Was dental information given to patient?: Patient has dentist HPI HPI Comments History of Present Illness Details This is a 73-year-old male that comes for his physical exam. Last colonoscopy was done 2011 and he declines another colonoscopy due to rectal bleeding after procedure. Willing to do Cologuard. Complains of daytime somnolence and severely dozed off while watching TV, lying down in the afternoon, as a passenger in a car for over an hour and sitting and reading with an Franklin score Scale of 12 and sleep study will be ordered. [facility] Medical History (Updated 03/15/24 @ 19:55 by Marilynn Pandey MD) Physical exam Urticaria Former smoker Enlarged aorta Screening for prostate cancer Screening for diabetes mellitus Eye exam, routine Otitis media Adult general medical exam Cystitis Prostatitis Chest pain Balanitis Right leg pain Ear discomfort Shortness of breath Bronchitis Moderate major depression Anemia BPH w urinary obs/LUTS Bladder outlet obstruction Weak urinary stream Gross hematuria Lipoma Obese Dyslipidemia Essential hypertension Surgical History History of surgery History of colonoscopy Family History Father No problems noted. Mother Emphysema of lung Social History Household Members: Spouse Housing: Apartment Do you presently have visiting nurse or other home services: No Alcohol intake: never Patient Tobacco Use Status: Former Tobacco user Tobacco use type: Cigarette Years Smoked: 52 +/- e-Cigarette/Vaping Use: Never Used Second Hand Smoke Exposure: No Advance Directives Date on File: 08/14/21 service: No Current occupational status: disabled Cognitive needs: No Hearing needs: No Vision needs: Yes (Glasses) Questionnaire PHQ-9 Over the last 2 weeks, how often have you been bothered by any of the following problems? 1. Little interest or pleasure in doing things: not at all 2. Feeling down, depressed, or hopeless: not at all 3. Trouble falling or staying asleep, or sleeping too much: several days 4. Feeling tired or having little energy: several days 5. Poor appetite or overeating: not at all 6. Feeling bad about yourself - or that you are a failure or have let yourself or your family down: not at all 7. Trouble concentrating on things, such as reading the newspaper or watching television: not at all 8. Moving or speaking so slowly that other people could have noticed. Or the opposite - being so fidgety or restless that you have been moving around a lot more than usual: not at all 9. Thoughts that you would be better off or of hurting yourself in some way: not at all Total score: 2 Depression Screening Interpretation: Negative Depression Screening Done: Yes 52481 - PHQ-9 Billing: Yes Source: Developed by Drs. Perry Frazier, Julia Jalloh, Memo Kwan and colleagues, with an educational jose from [employer]. Thrive Questionnaire Date Thrive assessed: 03/15/24 I am a: Patient What is your living situation today?: I have a steady place to live Within the past 12 months, did the food you bought not last and you didn't have the money to get more?: I choose not to answer this question Within the past 12 months, did you worry whether your food would run out before you got money to buy more?: I choose not to answer this question Do you have trouble paying for medicines?: No Do you have trouble getting transportation to medical appointments?: No Do you have trouble paying your heating and electricity bill?: No Do you have trouble taking care of your child, family member or friend?: No Do you have trouble with day-to-day activities such as bathing, preparing meals, shopping, managing finances, etc.?: No Are you currently unemployed and looking for a job?: No Are you interested in more education?: No Please select the resources that you would like help with: None Currently or been in a relationship where the following occur: No concerns reported THRIVE Score: 0 AUDIT C Alcohol Use Questionnaire (AUDIT-C) 1. How often do you have a drink containing alcohol?: Never Total Score: 0 Score Reviewed/Action Taken: No ELADIO-7 AMB Questionnaire ELADIO-7 Date ELADIO - 7 assessed: 03/15/24 Feeling nervous, anxious, or on edge: 0 = Not at all Not being able to stop or control worryin = Not at all Worrying too much about different things: 0 = Not at all Trouble relaxin = Not at all Being so restless that it is hard to sit still: 0 = Not at all Becoming easily annoyed or irritable: 0 = Not at all Feeling afraid as if something awful might happen: 0 = Not at all Total ELADIO-7 score (0-4 normal; 5-9 mild; 10-14 moderate; 15-21 severe): 0 Source: Developed by Drs. Perry Frazier, Julia Jalloh, Memo Kwan and colleagues, with an educational jose from [employer]. ELADIO-7 Assessment Billing ELADIO-7 Assessment Tool: ELADIO-7 Assessment 07474 Review of Systems Const All systems reviewed & are unremarkable except as noted in HPI and below Card Denies chest pain at rest, Denies chest pain with activity, Denies edema, Denies irregular heart rhythm, Denies claudication, Denies dyspnea, Denies dyspnea on exertion, Denies orthopnea, Denies paroxysmal nocturnal dyspnea and Denies slow heart rate Resp Denies cough, Denies dyspnea and Denies dyspnea on exertion GI Denies abdominal pain, Denies change in bowel habits, Denies excessive flatus, Denies nausea and Denies vomiting Denies urinary hesitancy, Denies urinary incontinence and Denies urinary urgency Musc Denies abnormal gait, Denies atrophy, Denies deformity and Denies limited range of motion Skin/Breast Denies bleeding lesions, Denies changing lesions and Denies rash Neuro Denies abnormal gait, Denies behavioral changes and Denies lack of coordination Psych Denies behavioral changes Physical exam (Primary Care) Vital Signs: Last Vital Signs BP 132/80 03/15/24 15:42 BMI result Body Mass Index 27.8 Tobacco/Smoking Status: Tobacco use Status Tobacco use date assessed 07/29/23 03/15/24 15:49 Patient Tobacco Use Status Former Tobacco user 03/15/24 15:49 Tobacco use type Cigarette 03/15/24 15:49 e-Cigarette/Vaping Use Never Used 03/15/24 15:49 PHQ-9: PHQ-9 Score PHQ-9: Total score 9 03/15/24 16:01 Depression Screening Interpretation: Negative Thrive Assessment: Date of Thrive Assessment Date Thrive assessed 03/15/24 03/15/24 15:49 Currently or been in a relationship where the following occur: No concerns reported [facility] Head: Yes normal to inspection, Yes normocephalic and Yes atraumatic Ears: external ears normal Eyes General: appearance normal, both eyes and all related structures Eyelids: Yes eyelids normal Conjunctivae: conjunctivae normal Neck Neck: Yes normal visual inspection and Yes supple Resp Effort & Inspection: normal respiratory effort Auscultation: clear to auscultation bilaterally Cardio Jugular venous distension: no JVD Rate: regular rate Rhythm: regular rhythm Heart sounds: S1 normal heart sound present and S2 normal heart sound present GI Inspection: Yes normal to inspection Palpation (GI): Soft to palpation and nontender Auscultation: normal bowel sounds Skin General skin exam: no rashes or lesions noted Neuro General: no focal motor deficits Extrem General: Yes full ROM Psych Appearance: grossly normal Assessment and Plan Assessment & Plan (1) Physical exam: Code(s): Z00.00 - Encounter for general adult medical examination without abnormal findings Plan: Repeat in a year (2) Daytime somnolence: Code(s): R40.0 - Somnolence Plan: Franklin score Scale of 12 and sleep study was ordered. Orders: Orders RT home sleep study Today R40.0 - Somnolence Review Patient declined Colonoscopy: 03/15/24 Coding Level of Care Code Est Pt Level 3 (91452) Est Pt Prev Care >65y(99430) Diagnoses Physical exam Z00.00 Daytime somnolence R40.0 Additional Codes ELADIO-7 Assessment Billing - ELADIO-7 Assessment Tool: ELADIO-7 Assessment 76579 ([id number]) Time Spent (min) 32
[2024-03-15 15:42] VITALS: BP 132/80; BMI 27.8
== END 2024-03-15 16:12 | disposition home or self-care (01) ==
PROVIDERS: PCP Internal Medicine; Visit Provider Internal Medicine
DX: Z00.00 Encounter for general adult medical examination without abnormal findings (principal); R40.0 Somnolence

== ENCOUNTER → 2024-03-15 15:39 | Outpatient (BNVA) | payer MEDICARE, SELFPAY | PROVIDERS: PCP Internal Medicine; Visit Provider Internal Medicine | DX: Z00.01 Encounter for general adult medical examination with abnormal findings (principal); R40.0 Somnolence | CPT/HCPCS: 96127; 99212 ==

== ENCOUNTER 2024-04-18 14:42 | Outpatient (REF) | payer MEDICARE, SELFPAY ==
--- NOTE | ~2024-04-18 | XR_ITS ---
EXAMINATION: XR SINUS 5 VIEWS CLINICAL INFORMATION: Other specified disorders of nose and nasal sinuses J34.89. COMPARISON: XR Mandible complete 10/22/2015 TECHNIQUE: 5 views of the sinuses were obtained. FINDINGS: No acute visible fracture or dislocation. Obliteration versus opacification of the facial sinuses. Remaining facial sinuses are patent. Joint space alignment otherwise maintained. Soft tissues are unremarkable. XR/XR sinus min 3V IMPRESSION: 1. No acute visible fracture or dislocation. 2. Obliteration versus opacification of the facial sinuses. Electronically signed by: Joceline Dyer MD 06/24/2024 03:20 PM JOCE
== END 2024-04-18 14:43 | disposition home or self-care (01) ==
LOC: HO.XRAY 14:42
PROVIDERS: PCP Internal Medicine; Visit Provider Internal Medicine
DX: I10 Essential (primary) hypertension (principal); E78.5 Hyperlipidemia, unspecified; J34.89 Other specified disorders of nose and nasal sinuses; I71.40 Abdominal aortic aneurysm, without rupture, unspecified; Z79.899 Other long term (current) drug therapy; Z23 Encounter for immunization
CPT/HCPCS: 70220; 90471; 90656; 99212

== ENCOUNTER 2024-04-18 14:42 | Outpatient (AMB) | payer MEDICARE, SELFPAY ==
--- NOTE | 2024-04-18 15:03 | MHC.PC.OV ---
Vital Signs 04/18/24 15:04 Height 5 ft 6 in Weight 173 lb BMI 27.9 BP 126/70 Blood Pressure Location Lt brachial Position Sitting Intake Visit Reasons: follow up Crocheter Hand Required: No Accompanied by: Spouse Allergies tamsulosin Adverse Reaction (Verified 04/18/24 15:25) headaches, slow movements Medication List - Last Reconciled 04/18/24 by Marilynn Pandey MD amlodipine 2.5 mg PO DAILY 90 days brimonidine 0.2% 2 drps ophthalmic (eye) BID dorzolamide-timolol 22.3-6.8 mg/mL 2 drps ophthalmic (eye) BID finasteride 5 mg PO DAILY hydrocortisone 2.5% (Proctosol HC) 1 appl AR BID ibuprofen 800 mg PO Q8H PRN 30 days simvastatin 10 mg PO BEDTIME 90 days Ventolin HFA 90 mcg/actuation (albuterol sulfate) 2 puffs inhalation Q6H PRN 30 days NS Tobacco use date assessed: 07/29/23 Fall risk assessment: 1 Fall in past year Last assessed Fall Risk: 04/18/24 Dental Screening Dental Screen Date: 03/15/24 HPI HPI Comments History of Present Illness Details This is a 73-year-old male with hypertension, dyslipidemia and abdominal aortic aneurysm that comes today complaining of nasal obstruction. When he goes to bed he feels that he can not breathe through the nose. He will like an x-ray. Blood pressure stable. On statins for elevated cholesterol. Abdominal aortic aneurysm and ultrasound of the abdomen done 2022 shows a stable aneurysm and an ultrasound will be order in 2025. No chest pain or shortness on breath. [facility] Medical History (Updated 04/18/24 @ 15:29 by Marilynn Pandey MD) Physical exam Urticaria Former smoker Enlarged aorta Screening for prostate cancer Screening for diabetes mellitus Eye exam, routine Otitis media Adult general medical exam Cystitis Prostatitis Chest pain Balanitis Right leg pain Ear discomfort Shortness of breath Bronchitis Moderate major depression Anemia BPH w urinary obs/LUTS Bladder outlet obstruction Weak urinary stream Gross hematuria Lipoma Obese Dyslipidemia Essential hypertension Surgical History History of surgery History of colonoscopy Family History Father No problems noted. Mother Emphysema of lung Social History Household Members: Spouse Housing: Apartment Do you presently have visiting nurse or other home services: No Alcohol intake: never Patient Tobacco Use Status: Former Tobacco user Tobacco use type: Cigarette Years Smoked: 52 +/- e-Cigarette/Vaping Use: Never Used Second Hand Smoke Exposure: No Advance Directives Date on File: 08/14/21 service: No Current occupational status: disabled Cognitive needs: No Hearing needs: No Vision needs: Yes (Glasses) Questionnaire Thrive Questionnaire Date Thrive assessed: 03/15/24 I am a: Patient What is your living situation today?: I have a steady place to live Within the past 12 months, did the food you bought not last and you didn't have the money to get more?: I choose not to answer this question Within the past 12 months, did you worry whether your food would run out before you got money to buy more?: I choose not to answer this question Do you have trouble paying for medicines?: No Do you have trouble getting transportation to medical appointments?: No Do you have trouble paying your heating and electricity bill?: No Do you have trouble taking care of your child, family member or friend?: I choose not to answer this question Do you have trouble with day-to-day activities such as bathing, preparing meals, shopping, managing finances, etc.?: No Are you currently unemployed and looking for a job?: No Are you interested in more education?: I choose not to answer this question Please select the resources that you would like help with: None Currently or been in a relationship where the following occur: No concerns reported THRIVE Score: 0 ELADIO-7 AMB Questionnaire ELADIO-7 Date ELADIO - 7 assessed: 03/15/24 Source: Developed by Drs. Perry Frazier, Julia Jalloh, Memo Kwan and colleagues, with an educational jose from [employer]. Review of Systems Const All systems reviewed & are unremarkable except as noted in HPI and below Card Denies chest pain at rest, Denies chest pain with activity, Denies edema, Denies irregular heart rhythm, Denies claudication, Denies dyspnea, Denies dyspnea on exertion, Denies orthopnea, Denies paroxysmal nocturnal dyspnea and Denies slow heart rate Resp Denies cough, Denies dyspnea and Denies dyspnea on exertion GI Denies abdominal pain, Denies change in bowel habits, Denies excessive flatus, Denies nausea and Denies vomiting Denies urinary hesitancy, Denies urinary incontinence and Denies urinary urgency Musc Denies atrophy, Denies deformity and Denies limited range of motion Skin/Breast Denies bleeding lesions, Denies changing lesions and Denies rash Physical exam (Primary Care) Vital Signs: Last Vital Signs BP 126/70 04/18/24 15:04 BMI result Body Mass Index 27.9 Tobacco/Smoking Status: Tobacco use Status Tobacco use date assessed 07/29/23 04/18/24 15:09 Patient Tobacco Use Status Former Tobacco user 04/18/24 15:09 Tobacco use type Cigarette 04/18/24 15:09 e-Cigarette/Vaping Use Never Used 04/18/24 15:09 Thrive Assessment: Date of Thrive Assessment Date Thrive assessed 03/15/24 04/18/24 15:09 Currently or been in a relationship where the following occur: No concerns reported Resp Effort & Inspection: normal respiratory effort Auscultation: clear to auscultation bilaterally Cardio Jugular venous distension: no JVD Rate: regular rate Rhythm: regular rhythm Heart sounds: S1 normal heart sound present and S2 normal heart sound present Extrem General: Yes full ROM Office Procedures Flu Questionnaire Does the patient have a severe egg allergy?: No Does the patient have severe life threatening allergies?: No Does the patient have a fever or illness today?: No Has the patient ever had Guillain-[place] Syndrome?: No Has the patient ever had any past reaction to a flu shot?: No Immunizations Fluarix Triv [id number] (PF) 45 mcg (15 mcg x 3)/0.5 mL IM syringe Performing Provider: Marilynn Pandey MD [place] [facility] Administered by: ROSARIO Newell on 04/18/24 15:31 Dose Route Admin Location Dispensed Lot Number Expiration Date [facility] Transport Technician 0.5 mL IM Left Deltoid 0.5 mL [id number] 12/26/24 [id number] [employer] VIS Given Date VIS Provided VIS Publication Date 04/18/24 Single Vaccine 21 Eligibility Eligibility Date Funding Source Not [facility] Eligible 04/18/24 Private Coding Level of Care Code Est Pt Level 4 (64358) Complex EM visit Add On G2211 Diagnoses Essential hypertension I10 Dyslipidemia E78.5 Nasal obstruction J34.89 Abdominal aortic aneurysm (AAA) without rupture I71.4 Presence of rupture: without rupture Time Spent (min) 21 Assessment & Plan Assessment & Plan (1) Essential hypertension: Code(s): I10 - Essential (primary) hypertension Category: Medical Plan: Continue amlodipine. Blood pressure goal is equal or less than 130/80. (2) Dyslipidemia: Code(s): E78.5 - Hyperlipidemia, unspecified Category: Medical Plan: Continue statins. (3) Nasal obstruction: Code(s): J34.89 - Other specified disorders of nose and nasal sinuses Category: Medical Plan: X-ray sinus ordered. (4) Abdominal aortic aneurysm: Code(s): I71.4 - Abdominal aortic aneurysm, without rupture Category: Medical Qualifiers: Presence of rupture: without rupture Qualified Code(s): I71.4 - Abdominal aortic aneurysm, without rupture Plan: Repeat ultrasound in 2025. Orders: Orders Influenza [id number] Immunization Today Z23 - Encounter for immunization XR sinus wilhelm view Today J34.89 - Other specified disorders of nose and nasal sinuses
[2024-04-18 15:04] VITALS: BP 126/70; BMI 27.9
== END 2024-04-18 15:35 | disposition home or self-care (01) ==
PROVIDERS: PCP Internal Medicine; Visit Provider Internal Medicine
DX: I10 Essential (primary) hypertension (principal); E78.5 Hyperlipidemia, unspecified; J34.89 Other specified disorders of nose and nasal sinuses; I71.40 Abdominal aortic aneurysm, without rupture, unspecified; Z23 Encounter for immunization

== ENCOUNTER → 2024-04-25 14:50 | Outpatient (REF) | payer MEDICARE, SELFPAY | LOC: HO.SL 14:50 | PROVIDERS: PCP Internal Medicine; Visit Provider Internal Medicine | DX: Z13.89 Encounter for screening for other disorder (principal) ==

== ENCOUNTER → 2024-06-06 13:47 | Outpatient (REF) | payer MEDICARE, SELFPAY | LOC: HO.SL 13:47 | PROVIDERS: PCP Internal Medicine; Visit Provider Internal Medicine | DX: R40.0 Somnolence (principal); G47.33 Obstructive sleep apnea (adult) (pediatric) | CPT/HCPCS: 95806 ==

== ENCOUNTER → 2024-06-06 14:00 | Outpatient (BNV) | payer MEDICARE, SELFPAY | PROVIDERS: PCP Internal Medicine; Visit Provider Psychiatry & Neurology Neurology | DX: G47.33 Obstructive sleep apnea (adult) (pediatric) (principal) | CPT/HCPCS: 95806 ==

== ENCOUNTER 2024-07-12 13:50 | Outpatient (AMB) | payer MEDICARE, MEDICAID, SELFPAY ==
[2024-07-12 13:56] VITALS: BP 122/70; PULSE 85; O2SAT 90; BMI 28.6
--- NOTE | 2024-07-12 13:56 | MHC.OFFVIS ---
Vital Signs 07/12/24 13:56 Height 5 ft 6 in Weight 177 lb 7.554 oz BMI 28.6 BP 122/70 Blood Pressure Location Lt brachial Position Sitting Pulse 85 Pulse Source Pulse Oximeter Pulse Oximetry (%) 90 L Oxygen Delivery Method Room Air Intake Visit Reasons: Hypoxemia Intake Note: pt is here as a new patient to go over sleep study, he does get short of breath with walking and stairs, and night time is very bad, and he states he feels something in his throat. Dr. Garcia ordered cpap. Graduate Student Instructor Required: Yes Graduate Student Instructor Services: Graduate Student Instructor Present Graduate Student Instructor Name: Lynn Allergies tamsulosin Adverse Reaction (Verified 07/12/24 14:38) headaches, slow movements Medication List - Last Reconciled 07/12/24 by Cruzito Echavarria MD amlodipine 2.5 mg PO DAILY 90 days brimonidine 0.2% 2 drps ophthalmic (eye) BID CPAP autoPAP 5-20 cmH2O dorzolamide-timolol 22.3-6.8 mg/mL 2 drps ophthalmic (eye) BID finasteride 5 mg PO DAILY hydrocortisone 2.5% (Proctosol HC) 1 appl DE BID ibuprofen 800 mg PO Q8H PRN 30 days simvastatin 10 mg PO BEDTIME 90 days Ventolin HFA 90 mcg/actuation (albuterol sulfate) 2 puffs inhalation Q6H PRN 30 days NS Do you need a note to return to daycare/school/sports/work: No HPI HPI Hypoxemia: Details: THIS 74 YEARS OLD GENTLEMAN IS LAO SPEAKING, REFERRED FOR PULMONARY AND SLEEP EVALUATION, CAME WITH HIS WHO IS ALSO LAO SPEAKING BUT SPEAKS LITTLE BUT TAMAZIGHT. CONVERSATION WAS DONE THROUGH A VERY GOOD STATION INSTALLER THIS GENTLEMAN IS ORIGINALLY FROM [facility] . HE SMOKED FOR 50 YEARS, 1 PACK A DAY, BUT QUIT IN 2008. HE HAS HAD MILD INTERMITTENT COUGH, AND COMPLAINS OF GETTING SHORT OF BREATH WHEN HE WALKS. HE CLAIMS THAT HE HAD A BREATHING TEST ABOUT 5 YEARS AGO HERE IN THE HOSPITAL BUT I CAN NOT GET. THAT REPORT ANYWAY THE TREATMENT PRESCRIBED WAS ONLY ALBUTEROL TO BE USE P.R.N.. BECAUSE OF HIS HISTORY OF SMOKING HE DID GET LOW-DOSE CT SCAN OF THE CHEST, A FEW YEARS AGO, WITH FINDING OF A 3 MM NODULE CALCIFIED IN LEFT LOWER LOBE ( GRANULOMA) IN 2023 AFTER HE RETURNED FROM [facility] , HE WAS HOSPITALIZED HERE AT [facility] WITH INCREASED SHORTNESS OF BREATH AND COUGH. HE HAD CTA OF THE CHEST WHICH AGAIN SHOWED A SMALL NODULE IN THE RIGHT LOWER LOBE AND THE SAME OLD NODULE IN THE LEFT LOWER LOBE. ON ADMISSION HIS O2 SAT WAS LOW BUT BY THE TIME HE WAS DISCHARGED HE DID NOT HAVE ENOUGH HYPOXEMIA TO WE QUALIFIED FOR O2 AT HOME. PATIENT DESCRIBED HAVING SLEEP PROBLEM FOR A FEW YEARS, HE CAN NOT SLEEP IN SUPINE POSITION, AND EVEN WENT SLEEPING IN THE LATERAL POSITION HE KEEPS ON WAKING UP FREQUENTLY. HE HAD A HOME-BASED SLEEP STUDY ON 06/06/2024. IT DID SHOW SLEEP APNEA BUT MILD, HOWEVER HE HAD HYPOXEMIA THROUGHOUT THE NIGHT WITH AVERAGE O2 SAT 84%. HIS PRIMARY CARE PHYSICIAN HAS ORDERED A CPAP , WHICH HE HAS NOT GOTTEN YET. HE CLAIMS THAT FOR MANY YEARS HE HAS NOT BEEN ABLE TO SLEEP GOOD AND SOMETIME HAS TO USE SLEEP MEDICINE SLEEP. HIS WEIGHT HAS REMAINED RELATIVELY NORMAL AND STABLE. HE DOES HAVE HISTORY OF MILD HYPERTENSION, AND BPH. [facility] Medical History (Updated 07/12/24 @ 14:57 by Cruzito Echavarria MD) History of smoking 30 or more pack years COPD (chronic obstructive pulmonary disease) Physical exam Urticaria Former smoker Enlarged aorta Screening for prostate cancer Screening for diabetes mellitus Eye exam, routine Otitis media Adult general medical exam Cystitis Prostatitis Chest pain Balanitis Right leg pain Ear discomfort Shortness of breath Bronchitis Moderate major depression Anemia BPH w urinary obs/LUTS Bladder outlet obstruction Weak urinary stream Gross hematuria Lipoma Obese Dyslipidemia Essential hypertension Surgical History History of surgery History of colonoscopy Family History Father No problems noted. Mother Emphysema of lung Social History Household Members: Spouse Housing: Apartment Do you presently have visiting nurse or other home services: No Alcohol intake: never Patient Tobacco Use Status: Former Tobacco user Tobacco use type: Cigarette Years Smoked: 52 +/- e-Cigarette/Vaping Use: Never Used Second Hand Smoke Exposure: No Advance Directives Date on File: 08/14/21 service: No Current occupational status: disabled Cognitive needs: No Hearing needs: No Vision needs: Yes (Glasses) Review of Systems Const All systems reviewed & are unremarkable except as noted in HPI and below Eyes Reports blurry vision and Reports dry eyes ENT Reports no additional complaints Card Denies chest pain, Denies irregular heart rhythm and Denies leg edema Resp Reports as per HPI Reports nocturia Musc Reports back pain and Reports numbness (RIGHT FOOT) Skin/Breast Reports dry skin Neuro Reports no additional complaints and Reports numbness (RIGHT FOOT) Psych Reports anxiety Physical Exam Vital Signs: Last Vital Signs Pulse 85 07/12/24 13:56 BP 122/70 07/12/24 13:56 Pulse Ox 90 L 07/12/24 13:56 Oxygen Delivery Method Room Air 07/12/24 13:56 BMI result Body Mass Index 28.6 Const General: healthy appearing, comfortable, no acute distress, alert, awake and anxious Orientation/consciousness: patient oriented x3 HEENT Head: Yes normal to inspection General nose exam: No nasal polyps present and No nasal discharge present Face and sinus: Yes sinuses nontender Mouth: oropharynx normal Teeth and gingiva: other (MISSING LOWER TEETH, DOES HAVE REGRESSION OF THE CHIN ( RETROGNATHIA )) Throat: Yes posterior oropharynx normal Eyes General: appearance normal, both eyes and all related structures Neck Neck: Yes normal visual inspection, Yes no lymphadenopathy, Yes trachea midline and Yes no JVD Thyroid: Thyroid normal Chest Chest palpation & inspection: normal inspection of the chest, normal palpation of entire chest wall and no tenderness Resp Other: PERCUSSION NOTE IS RESONANT, BREATH SOUNDS ARE SOMEWHAT DISTANT WITH PROLONGED EXPIRATORY PHASE. BUT NO WHEEZES OR RHONCHI ARE HEARD. Cardio Palpation: normal PMI Rate: regular rate Rhythm: regular rhythm Heart sounds: no gallops and no murmurs GI Palpation (GI): Soft to palpation, nontender, No hepatosplenomegaly present and no masses Auscultation: normal bowel sounds Back/Spine/Pelvis Thoracic/Lumbar Spine: thoracic and lumbar spine normal to inspection Skin General skin exam: no rashes or lesions noted and dry skin Neuro General: patient oriented x3 and no focal motor deficits Cranial nerves: Yes CN's II-XII intact bilaterally Extrem General: Yes normal to inspection, Yes no clubbing, cyanosis or edema and Yes no calf tenderness Psych Appearance: grossly normal and well kempt Speech and movement: Normal speech and movement present Results Reviewed Results Reviewed: RESULTS OF HOME SLEEP STUDY OF 06/06/2024 REVIEWED AND EXPLAINED TO THE PATIENT AND HIS , THROUGH THE STATION INSTALLER. HE HAS OBSTRUCTIVE SLEEP APNEA WHICH IS MILD WITH TOTAL SLEEP TIME AHI OF 8.1 , AND ALSO THERE WAS PERSISTENT HYPOXEMIA THROUGHOUT THE NIGHT WITH AVERAGE O2 SAT 84%. Assessment & Plan Assessment & Plan (1) Obesity (BMI 30.0-34.9): Comment: HE IS ONLY SLIGHTLY OVERWEIGHT BMI 28.6, THIS AMOUNT OF OBESITY WOULD NOT EXPLAIN HIS SLEEP APNEA. Code(s): E66.9 - Obesity, unspecified Category: Medical Plan: TALKED ABOUT, THE WEIGHT THROUGH THE STATION INSTALLER, ADVISED TO LOSE A FEW LB OF WEIGHT. (2) MARIS (obstructive sleep apnea): Comment: PATIENT DOES HAVE OBSTRUCTIVE SLEEP APNEA WHICH IS ONLY MILD AND MOSTLY IN SUPINE POSITION. HOWEVER IT IS ASSOCIATED WITH NOCTURNAL HYPOXEMIA, THROUGHOUT THE NIGHT. Code(s): G47.33 - Obstructive sleep apnea (adult) (pediatric) Category: Medical Plan: I THINK IT IS BETTER FOR HIM TO HAVE CPAP TITRATION IN THE SLEEP LAB, TO SEE IF THE CPAP CAN ALSO ELIMINATE HIS HYPOXEMIA. IF NOT THEN HE WOULD NEED O2 SUPPLEMENTATION, ALONG WITH THE CPAP. PATIENT IS BEING SCHEDULED FOR CPAP TITRATION STUDY IN THE SLEEP LAB. THIS HAS BEEN EXPLAINED VERY THOROUGHLY THROUGH THE STATION INSTALLER. (3) COPD (chronic obstructive pulmonary disease): Comment: WITH HISTORY OF SMOKING FOR ALMOST 50 YEARS, I THINK HE DOES HAVE SIGNIFICANT OBSTRUCTIVE AIRWAY DISORDER. Code(s): J44.9 - Chronic obstructive pulmonary disease, unspecified Category: Medical Plan: COMPLETE PULMONARY FUNCTION TEST IS ORDERED . (4) Hypoxemia: Comment: PATIENT FOUND TO HAVE NOCTURNAL HYPOXEMIA. WHETHER THIS IS DUE TO SLEEP APNEA ARE DUE TO ASSOCIATED CHRONIC OBSTRUCTIVE PULMONARY DISEASE NEEDS TO BE DETERMINED. Code(s): R09.02 - Hypoxemia Category: Medical Plan: PATIENT TO HAVE CPAP TITRATION STUDY IN THE SLEEP LAB. ALSO PATIENT IS GOING TO HAVE PULMONARY FUNCTION TEST. (5) History of smoking 30 or more pack years: Comment: NOTED ABOVE HE HAS HISTORY OF SMOKING ABOUT 1 PACK A DAY FOR [address] SCAN OF THE CHEST HAS SHOWN A SMALL CALCIFIED GRANULOMA IN LEFT LOWER LOBE AND A SMALL PULMONARY NODULE IN THE RIGHT LOWER LOBE. Code(s): Z87.891 - Personal history of nicotine dependence Category: Social Hx Plan: PATIENT SHOULD HAVE LOW-DOSE CT SCAN ON A YEARLY BASIS AT LEAST FOR A FEW YEARS Orders: Orders RT PSG in-lab sleep titration Today G47.33 - Obstructive sleep apnea (adult) (pediatric), R09.02 - Hypoxemia Coding Level of Care Code New Pt Level 4 (35167) Diagnoses Obesity (BMI 30.0-34.9) E66.9 MARIS (obstructive sleep apnea) G47.33 COPD (chronic obstructive pulmonary disease) J44.9 Hypoxemia R09.02 History of smoking 30 or more pack years Z87.891
== END 2024-07-12 14:37 | disposition home or self-care (01) ==
PROVIDERS: PCP Internal Medicine; Visit Provider Internal Medicine
DX: E66.9 Obesity, unspecified (principal); G47.33 Obstructive sleep apnea (adult) (pediatric); J44.9 Chronic obstructive pulmonary disease, unspecified; R09.02 Hypoxemia; Z87.891 Personal history of nicotine dependence
CPT/HCPCS: 99204

== ENCOUNTER → 2024-07-12 13:50 | Outpatient (BNVA) | payer MEDICARE, SELFPAY | PROVIDERS: PCP Internal Medicine; Visit Provider Internal Medicine | DX: R09.02 Hypoxemia (principal); E66.9 Obesity, unspecified; G47.33 Obstructive sleep apnea (adult) (pediatric); J44.9 Chronic obstructive pulmonary disease, unspecified; Z87.891 Personal history of nicotine dependence; Z68.28 Body mass index [BMI] 28.0-28.9, adult | CPT/HCPCS: 99202 ==

== ENCOUNTER 2024-07-13 12:27 | Outpatient (REF) | payer MEDICARE, MEDICAID, SELFPAY ==
--- NOTE | 2024-07-13 13:00 | PFT_ITS ---
Flows: FEV1: 36 % of predicted at 0.98 L FVC: 50 % of predicted at 1.79 L FEV1/FVC: 55 % Bronchodilator response: Present Volumes: Total lung capacity: 56 % of predicted at 3.50 L Residual volume: 79 % of predicted at 1.84 L Slow vital capacity: 44 % of predicted at 1.66 L Expiratory reserve volume: 35 % of predicted at 0.35 L Diffusion capacity: Mildly decreased, corrects to normal after adjustment for alveolar ventilation. Impression: Combined severe obstructive and restrictive ventilatory defects with positive bronchodilator response. Decreased expiratory reserve volume suggests extrathoracic restriction likely secondary to abdominal obesity. Decreased diffusion capacity suggests emphysema. MTDD
== END 2024-07-13 12:28 | disposition home or self-care (01) ==
LOC: HO.RESP 12:27
PROVIDERS: PCP Internal Medicine; Visit Provider Internal Medicine
DX: J44.9 Chronic obstructive pulmonary disease, unspecified (principal)
CPT/HCPCS: 94010; 94640; 94727; 94729

== ENCOUNTER → 2024-07-13 13:00 | Outpatient (BNV) | payer MEDICARE, MEDICAID, SELFPAY | PROVIDERS: PCP Internal Medicine; Visit Provider Internal Medicine Pulmonary Disease | DX: J44.9 Chronic obstructive pulmonary disease, unspecified (principal) | CPT/HCPCS: 94060; 94727; 94729 ==

== ENCOUNTER → 2024-08-05 19:30 | Outpatient (REF) | payer MEDICARE, SELFPAY | LOC: HO.SL 19:30 | PROVIDERS: PCP Internal Medicine; Visit Provider Internal Medicine | DX: Z13.89 Encounter for screening for other disorder (principal) ==

== ENCOUNTER 2024-08-17 14:24 | Outpatient (AMB) | payer MEDICARE, MEDICAID, SELFPAY ==
[2024-08-17 14:43] VITALS: BP 110/64; PULSE 87; O2SAT 90; BMI 28.6
--- NOTE | 2024-08-17 14:43 | MHC.OFFVIS ---
Vital Signs 08/17/24 14:43 Height 5 ft 6 in Weight 177 lb BMI 28.6 BP 110/64 Blood Pressure Location Rt brachial Position Sitting Pulse 87 Pulse Source Pulse Oximeter Pulse Oximetry (%) 90 L Oxygen Delivery Method Room Air Intake Visit Reasons: COPD Intake Note: pt is here to go over sleep study. Professor Of Social Work Required: Yes Professor Of Social Work Services: Professor Of Social Work Present Professor Of Social Work Name: Mira (OA) Allergies tamsulosin Adverse Reaction (Verified 08/17/24 14:55) headaches, slow movements Medication List - Last Reconciled 08/17/24 by Cruzito Echavarria MD amlodipine 2.5 mg PO DAILY 90 days brimonidine 0.2% 2 drps ophthalmic (eye) BID CPAP autoPAP 5-20 cmH2O dorzolamide-timolol 22.3-6.8 mg/mL 2 drps ophthalmic (eye) BID finasteride 5 mg PO DAILY hydrocortisone 2.5% (Proctosol HC) 1 appl ID BID ibuprofen 800 mg PO Q8H PRN 30 days simvastatin 10 mg PO BEDTIME 90 days Ventolin HFA 90 mcg/actuation (albuterol sulfate) 2 puffs inhalation Q6H PRN 30 days NS Do you need a note to return to daycare/school/sports/work: No HPI HPI COPD: Details: THIS GENTLEMAN WHO IS MALDIVIAN-SPEAKING, COMES FOR FOLLOW-UP AFTER HAVING PULMONARY FUNCTION TEST AND ALSO CPAP TITRATION IN THE SLEEP LAB. HE WAS ABLE TO HAVE PULMONARY FUNCTION TEST WITH GOOD EFFORTS AND IT SHOWS SEVERE OBSTRUCTIVE AIRWAY DISORDER WITH MINIMAL IMPROVEMENT AFTER BRONCHODILATOR THERAPY. HE DOES NOT SMOKE ANYMORE. FOR HIS SLEEP APNEA HE UNDERWENT CPAP TITRATION IN THE SLEEP LAB AND NEEDED BILEVEL PRESSURE OF 12/7 CM, ALONG WITH O2 2 L/MINUTE. HIS WAS WITH HIM IN THE LAB. SHE DESCRIBES, THAT HE SLEPT VERY GOOD ON THAT NIGHT. HE IS ACTUALLY WELL MOTIVATED TO BE STARTED ON CPAP THERAPY. [facility] Medical History History of smoking 30 or more pack years COPD (chronic obstructive pulmonary disease) Physical exam Urticaria Former smoker Enlarged aorta Screening for prostate cancer Screening for diabetes mellitus Eye exam, routine Otitis media Adult general medical exam Cystitis Prostatitis Chest pain Balanitis Right leg pain Ear discomfort Shortness of breath Bronchitis Moderate major depression Anemia BPH w urinary obs/LUTS Bladder outlet obstruction Weak urinary stream Gross hematuria Lipoma Obese Dyslipidemia Essential hypertension Surgical History History of surgery History of colonoscopy Family History Father No problems noted. Mother Emphysema of lung Social History Household Members: Spouse Housing: Apartment Do you presently have visiting nurse or other home services: No Alcohol intake: never Patient Tobacco Use Status: Former Tobacco user Tobacco use type: Cigarette Years Smoked: 52 +/- e-Cigarette/Vaping Use: Never Used Second Hand Smoke Exposure: No Advance Directives Date on File: 08/14/21 service: No Current occupational status: disabled Cognitive needs: No Hearing needs: No Vision needs: Yes (Glasses) Review of Systems Const All systems reviewed & are unremarkable except as noted in HPI and below Eyes Reports blurry vision and Reports dry eyes ENT Reports no additional complaints Card Denies chest pain, Denies irregular heart rhythm and Denies leg edema Resp Reports as per HPI Reports nocturia Musc Reports back pain and Reports numbness (RIGHT FOOT) Skin/Breast Reports dry skin Neuro Reports no additional complaints and Reports numbness (RIGHT FOOT) Psych Reports anxiety Physical Exam Vital Signs: Last Vital Signs Pulse 87 08/17/24 14:43 BP 110/64 08/17/24 14:43 Pulse Ox 90 L 08/17/24 14:43 Oxygen Delivery Method Room Air 08/17/24 14:43 BMI result Body Mass Index 28.6 Const General: healthy appearing, comfortable, no acute distress, alert, awake and anxious Orientation/consciousness: patient oriented x3 HEENT Head: Yes normal to inspection General nose exam: No nasal polyps present and No nasal discharge present Face and sinus: Yes sinuses nontender Mouth: oropharynx normal Teeth and gingiva: other (MISSING LOWER TEETH, DOES HAVE REGRESSION OF THE CHIN ( RETROGNATHIA )) Throat: Yes posterior oropharynx normal Eyes General: appearance normal, both eyes and all related structures Neck Neck: Yes normal visual inspection, Yes no lymphadenopathy, Yes trachea midline and Yes no JVD Thyroid: Thyroid normal Chest Chest palpation & inspection: normal inspection of the chest, normal palpation of entire chest wall and no tenderness Resp Other: PERCUSSION NOTE IS RESONANT, BREATH SOUNDS ARE SOMEWHAT DISTANT WITH PROLONGED EXPIRATORY PHASE. BUT NO WHEEZES OR RHONCHI ARE HEARD. Cardio Palpation: normal PMI Rate: regular rate Rhythm: regular rhythm Heart sounds: no gallops and no murmurs GI Palpation (GI): Soft to palpation, nontender, No hepatosplenomegaly present and no masses Auscultation: normal bowel sounds Back/Spine/Pelvis Thoracic/Lumbar Spine: thoracic and lumbar spine normal to inspection Skin General skin exam: no rashes or lesions noted and dry skin Neuro General: patient oriented x3 and no focal motor deficits Cranial nerves: Yes CN's II-XII intact bilaterally Extrem General: Yes normal to inspection, Yes no clubbing, cyanosis or edema and Yes no calf tenderness Psych Appearance: grossly normal and well kempt Speech and movement: Normal speech and movement present Results Reviewed Results Reviewed: PULMONARY FUNCTION TEST SHOWS SEVERE OBSTRUCTIVE AIRWAY DISORDER WITH SOME IMPROVEMENT AFTER BRONCHODILATOR THERAPY CPAP TITRATION STUDY IN THE SLEEP LAB PERFORMED ON 08/05/2024, SHOWS THAT HE DID VERY WELL WITH THE CPAP ON. HE NEEDED BILEVEL PRESSURE OF 12/7 CM ALONG WITH O2 2 L/MINUTE Assessment & Plan Assessment & Plan (1) COPD (chronic obstructive pulmonary disease): Comment: HE HAS HISTORY OF SMOKING 1 PACK A DAY FOR ALMOST 50 YEARS. PER PULMONARY FUNCTION TEST HE DOES HAVE SEVERE OBSTRUCTIVE AIRWAY DISORDER WITH MINIMAL IMPROVEMENT AFTER BRONCHODILATOR THERAPY. Code(s): J44.9 - Chronic obstructive pulmonary disease, unspecified Category: Medical Plan: I THINK HE WILL DO BETTER ON A LONG-ACTING BRONCHODILATOR WITH INHALED STEROID. WILL START HIM ON ADVAIR 500-51 INHALATION B.I.D. TO START WITH AND THE DOSE WILL BE TAPERED DOWN LATER ON. ALBUTEROL HFA 2 PUFFS Q 6 HOURS P.R.N.. FOR ACUTE COUGH FOR WHEEZING (2) MARIS (obstructive sleep apnea): Comment: PATIENT DOES HAVE OBSTRUCTIVE SLEEP APNEA WHICH IS ONLY MILD AND MOSTLY IN SUPINE POSITION. HOWEVER IT IS ASSOCIATED WITH NOCTURNAL HYPOXEMIA, . HAD CPAP TITRATION IN THE SLEEP LAB AND REQUIRED BILEVEL BILEVEL PRESSURE OF 12/7 CM, WITH O2 2 L/MINUTE TO OVERCOME HYPOXEMIA. Code(s): G47.33 - Obstructive sleep apnea (adult) (pediatric) Category: Medical Plan: EXPLAINED THE RESULTS TO THE PATIENT VIA SENIOR APPLICATION SOFTWARE ENGINEER AND ALSO TO THE WHO UNDERSTANDS [place]VI[place] WELL. PATIENT IS ANXIOUS TO GET THE CPAP AND OXYGEN. ALL POSSIBLE INSTRUCTIONS ARE GIVEN AND EXPLAINED IN MALDIVIAN WITH THE HELP OF AN SENIOR APPLICATION SOFTWARE ENGINEER. (3) Hypoxemia: Comment: PATIENT FOUND TO HAVE NOCTURNAL HYPOXEMIA. I THINK NOCTURNAL HYPOXEMIA IS MORE DUE TO HIS SEVERE COPD, AND ALSO CONTRIBUTED BY SLEEP APNEA. Code(s): R09.02 - Hypoxemia Category: Medical Plan: WE HAVE ORDERED O2 2 L/MINUTE TO BE USED ALONG WITH THE BIPAP AT NIGHTTIME. Coding Level of Care Code Est Pt Level 4 (96719) Diagnoses COPD (chronic obstructive pulmonary disease) J44.9 MARIS (obstructive sleep apnea) G47.33 Hypoxemia R09.02
== END 2024-08-17 15:07 | disposition home or self-care (01) ==
PROVIDERS: PCP Internal Medicine; Visit Provider Internal Medicine
DX: J44.9 Chronic obstructive pulmonary disease, unspecified (principal); G47.33 Obstructive sleep apnea (adult) (pediatric); R09.02 Hypoxemia
CPT/HCPCS: 99214

== ENCOUNTER → 2024-08-17 14:24 | Outpatient (BNVA) | payer MEDICARE, SELFPAY | PROVIDERS: PCP Internal Medicine; Visit Provider Internal Medicine | DX: G47.33 Obstructive sleep apnea (adult) (pediatric) (principal); J44.9 Chronic obstructive pulmonary disease, unspecified; R09.02 Hypoxemia; Z99.89 Dependence on other enabling machines and devices | CPT/HCPCS: 99212 ==

== ENCOUNTER 2024-09-12 14:17 | Outpatient (AMB) | payer MEDICARE, SELFPAY ==
--- NOTE | 2024-09-12 15:04 | MHC.PC.OV ---
Vital Signs 09/12/24 15:07 Height 5 ft 6 in Weight 175 lb BMI 28.2 BP 110/72 Blood Pressure Location Lt brachial Position Sitting Intake Visit Reasons: depression,lipids Intake Note: Patient here for a follow up Depression, Lipids, requesting xray Explosive Ordnance Disposal Specialist Required: Yes Explosive Ordnance Disposal Specialist Language: Electromedical Equipment Repairer Name: Marilynn Pandey MD Information Interpreted: non-clinical & clinical Accompanied by: Spouse Allergies tamsulosin Adverse Reaction (Verified 09/12/24 15:28) headaches, slow movements Medication List - Last Reconciled 09/12/24 by Marilynn Pandey MD amlodipine 2.5 mg PO DAILY 90 days brimonidine 0.2% 2 drps ophthalmic (eye) BID CPAP autoPAP 5-20 cmH2O dorzolamide-timolol 22.3-6.8 mg/mL 2 drps ophthalmic (eye) BID finasteride 5 mg PO DAILY fluticasone propion-salmeterol 500-50 mcg/dose (Advair Diskus) 1 inh inhalation BID 30 days hydrocortisone 2.5% (Proctosol HC) [address] BID ibuprofen 800 mg PO Q8H PRN 30 days simvastatin 10 mg PO BEDTIME 90 days Ventolin HFA 90 mcg/actuation (albuterol sulfate) 2 puffs inhalation Q6H PRN 30 days NS Tobacco use date assessed: 09/12/24 Fall risk assessment: 1 Fall in past year Last assessed Fall Risk: 09/12/24 Dental Screening Dental Screen Date: 09/12/24 Did you have a dental visit in the last 12 months?: No Did you have a dental problem in the last 6 months where you did not have access to dental care?: No Was dental information given to patient?: Patient has dentist HPI HPI Comments History of Present Illness Details The patient is a 74-year-old male presenting with issues concerning chronic sinusitis and COPD. Chronic sinusitis has been diagnosed due to persistent nasal obstruction and opacification seen on imaging. A previous otolaryngologic referral was done but the patient did not answer the phone. COPD is being managed currently, with additional complications due to a pinched nerve affecting back and leg integrity. Hypertension is controlled through current medication, and an allergy to tamsulosin is recorded, causing adverse reactions in the past. Also has dyslipidemia on statins. Complains of low back pain radiating to the right leg and associated with right leg numbness and will be referred to pain management. [facility] Medical History (Updated 09/12/24 @ 19:25 by Marilynn Pandey MD) Abdominal aortic aneurysm History of smoking 30 or more pack years COPD (chronic obstructive pulmonary disease) Physical exam Urticaria Former smoker Enlarged aorta Screening for prostate cancer Screening for diabetes mellitus Eye exam, routine Otitis media Adult general medical exam Cystitis Prostatitis Chest pain Balanitis Right leg pain Ear discomfort Shortness of breath Bronchitis Moderate major depression Anemia BPH w urinary obs/LUTS Bladder outlet obstruction Weak urinary stream Gross hematuria Lipoma Obese Dyslipidemia Essential hypertension Surgical History History of surgery History of colonoscopy Family History Father No problems noted. Mother Emphysema of lung Social History Household Members: Spouse Housing: Apartment Do you presently have visiting nurse or other home services: No Alcohol intake: never Patient Tobacco Use Status: Former Tobacco user Tobacco use type: Cigarette Years Smoked: 52 +/- e-Cigarette/Vaping Use: Never Used Second Hand Smoke Exposure: No Advance Directives Date on File: 08/14/21 service: No Current occupational status: disabled Cognitive needs: No Hearing needs: No Vision needs: Yes (Glasses) Questionnaire PHQ-9 Over the last 2 weeks, how often have you been bothered by any of the following problems? 1. Little interest or pleasure in doing things: not at all 2. Feeling down, depressed, or hopeless: not at all 3. Trouble falling or staying asleep, or sleeping too much: not at all 4. Feeling tired or having little energy: not at all 5. Poor appetite or overeating: not at all 6. Feeling bad about yourself - or that you are a failure or have let yourself or your family down: not at all 7. Trouble concentrating on things, such as reading the newspaper or watching television: not at all 8. Moving or speaking so slowly that other people could have noticed. Or the opposite - being so fidgety or restless that you have been moving around a lot more than usual: not at all 9. Thoughts that you would be better off or of hurting yourself in some way: not at all Total score: 0 Depression Screening Interpretation: Negative Depression Screening Done: Yes 94478 - PHQ-9 Billing: Yes Source: Developed by Drs. Perry Frazier, Julia Jalloh, Memo Kwan and colleagues, with an educational jose from [employer]. Thrive Questionnaire Date Thrive assessed: 09/12/24 I am a: Patient What is your living situation today?: I have a steady place to live Within the past 12 months, did the food you bought not last and you didn't have the money to get more?: Never true Within the past 12 months, did you worry whether your food would run out before you got money to buy more?: Never true Do you have trouble paying for medicines?: No Do you have trouble getting transportation to medical appointments?: No Do you have trouble paying your heating and electricity bill?: No Do you have trouble taking care of your child, family member or friend?: No Do you have trouble with day-to-day activities such as bathing, preparing meals, shopping, managing finances, etc.?: No Are you currently unemployed and looking for a job?: No Are you interested in more education?: No Please select the resources that you would like help with: None Currently or been in a relationship where the following occur: No concerns reported THRIVE Score: 0 AUDIT C Alcohol Use Questionnaire (AUDIT-C) 1. How often do you have a drink containing alcohol?: Never Total Score: 0 Score Reviewed/Action Taken: No ELADIO-7 AMB Questionnaire ELADIO-7 Date ELADIO - 7 assessed: 09/12/24 Feeling nervous, anxious, or on edge: 0 = Not at all Not being able to stop or control worryin = Not at all Worrying too much about different things: 0 = Not at all Trouble relaxin = Not at all Being so restless that it is hard to sit still: 0 = Not at all Becoming easily annoyed or irritable: 0 = Not at all Feeling afraid as if something awful might happen: 0 = Not at all Total ELADIO-7 score (0-4 normal; 5-9 mild; 10-14 moderate; 15-21 severe): 0 Source: Developed by Drs. Perry Frazier, Julia Jalloh, Memo Kwan and colleagues, with an educational jose from [employer]. ELADIO-7 Assessment Billing ELADIO-7 Assessment Tool: ELADIO-7 Assessment 94832 Review of Systems Const All systems reviewed & are unremarkable except as noted in HPI and below Card Denies chest pain at rest, Denies chest pain with activity, Denies edema, Denies irregular heart rhythm, Denies claudication, Denies dyspnea, Denies dyspnea on exertion, Denies orthopnea, Denies paroxysmal nocturnal dyspnea and Denies slow heart rate Resp Denies cough, Denies dyspnea and Denies dyspnea on exertion GI Denies abdominal pain, Denies change in bowel habits, Denies excessive flatus, Denies nausea and Denies vomiting Physical exam (Primary Care) Vital Signs: Last Vital Signs BP 110/72 09/12/24 15:07 BMI result Body Mass Index 28.2 Tobacco/Smoking Status: Tobacco use Status Tobacco use date assessed 09/12/24 09/12/24 15:10 Patient Tobacco Use Status Former Tobacco user 09/12/24 15:10 Tobacco use type Cigarette 09/12/24 15:10 e-Cigarette/Vaping Use Never Used 09/12/24 15:10 PHQ-9: PHQ-9 Score PHQ-9: Total score 0 09/12/24 15:32 Depression Screening Interpretation: Negative Thrive Assessment: Date of Thrive Assessment Date Thrive assessed 09/12/24 09/12/24 15:10 Currently or been in a relationship where the following occur: No concerns reported Resp Effort & Inspection: normal respiratory effort Auscultation: clear to auscultation bilaterally Cardio Jugular venous distension: no JVD Rate: regular rate Rhythm: regular rhythm Heart sounds: S1 normal heart sound present and S2 normal heart sound present Extrem General: Yes full ROM Coding Level of Care Code Est Pt Level 4 (19880) Complex EM visit Add On G2211 Diagnoses Right sciatic nerve pain M54.31 Chronic sinusitis J32.9 COPD (chronic obstructive pulmonary disease) J44.9 Essential hypertension I10 Dyslipidemia E78.5 Additional Codes ELADIO-7 Assessment Billing - ELDAIO-7 Assessment Tool: ELADIO-7 Assessment 39556 ([id number]) PHQ-9 - 15615 - PHQ-9 Billing: Yes ([id number]) Time Spent (min) 22 Assessment & Plan Assessment & Plan (1) Right sciatic nerve pain: Code(s): M54.31 - Sciatica, right side Category: Medical (2) Chronic sinusitis: Code(s): J32.9 - Chronic sinusitis, unspecified Category: Medical (3) COPD (chronic obstructive pulmonary disease): Comment: HE HAS HISTORY OF SMOKING 1 PACK A DAY FOR ALMOST 50 YEARS. PER PULMONARY FUNCTION TEST HE DOES HAVE SEVERE OBSTRUCTIVE AIRWAY DISORDER WITH MINIMAL IMPROVEMENT AFTER BRONCHODILATOR THERAPY. Code(s): J44.9 - Chronic obstructive pulmonary disease, unspecified Category: Medical (4) Essential hypertension: Code(s): I10 - Essential (primary) hypertension Category: Medical (5) Dyslipidemia: Code(s): E78.5 - Hyperlipidemia, unspecified Category: Medical Plan Management of chronic sinusitis includes considering advancing imaging or specialist referral to determine functional airway obstruction causes. Chronic obstructive pulmonary disease will continue to be managed with attention to oxygenation needs, ensuring devices like CPAP are used effectively. Discussion of any pinched nerve involvement should involve potential specialist evaluations to address neuropathic discomfort adequately. Adjusting pharmacotherapy relative to past allergies such as to tamsulosin will help avoid adverse reactions. Patient was informed and verbally consented to the use of an ambient scribe for clinic note documentation during this visit. I informed the patient about the ongoing management of sinusitis, COPD, and hypertension. We discussed the importance of a possible reevaluation for sinus and potential procedures with an second ride fare collector. Coordination with pulmonary specialists for COPD is necessary, emphasizing using breathing apparatus efficiently. Additionally, we talked about getting a suitable management plan for a pinched nerve, potentially involving targeted neurology assessment. The continuation of amlodipine therapy was agreed upon for hypertension control. I stressed the importance of avoiding tamsulosin due to past allergic reactions, opting for alternative management approaches as needed. Orders: Orders Comprehensive [place]. Panel Fast Today J32.9 - Chronic sinusitis, unspecified Lipid Panel Today E78.5 - Hyperlipidemia, unspecified Referrals Ear/Nose/Throat Referral J32.9 - Chronic sinusitis, unspecified Pain Management Referral M54.31 - Sciatica, right side Patient Instructions: - Continue amlodipine 2.5 mg for hypertension, monitoring blood pressure regularly. - Avoid tamsulosin due to allergy. - Use CPAP device as instructed for COPD. - Follow up with neurologist or sales product specialist regarding nerve compression symptoms. - Stay aware of any changes in symptoms and report them immediately.
[2024-09-12 15:07] VITALS: BP 110/72; BMI 28.2
== END 2024-09-12 15:43 | disposition home or self-care (01) ==
LOC: HO.HMCH 14:18
PROVIDERS: PCP Internal Medicine; Visit Provider Internal Medicine
DX: M54.31 Sciatica, right side (principal); J32.9 Chronic sinusitis, unspecified; J44.9 Chronic obstructive pulmonary disease, unspecified; I10 Essential (primary) hypertension; E78.5 Hyperlipidemia, unspecified

== ENCOUNTER → 2024-09-12 14:17 | Outpatient (BNVA) | payer MEDICARE, SELFPAY | PROVIDERS: PCP Internal Medicine; Visit Provider Internal Medicine | DX: M54.31 Sciatica, right side (principal); J32.9 Chronic sinusitis, unspecified; J44.9 Chronic obstructive pulmonary disease, unspecified; E78.5 Hyperlipidemia, unspecified; I10 Essential (primary) hypertension | CPT/HCPCS: 96127; 99212 ==

== ENCOUNTER 2024-09-29 13:52 | Inpatient (IN) | payer MEDICARE, SELFPAY ==
[2024-09-29] VITALS (7 sets, daily range): BP systolic 112–152; BP diastolic 68–81; PULSE 79–94; RESP 18–21; TEMP 36.7–36.9; O2SAT 86–98; BMI 28.1; BMI 28.6
--- NOTE | ~2024-09-29 | XR_ITS ---
EXAMINATION: XR CHEST 2 VIEWS HISTORY: productive cough COMPARISON: Comparison is made with the prior examination dated 11/16/2023. FINDINGS: PA and lateral views of the chest are submitted. The lungs are expanded and clear. There is no pleural effusion, pneumothorax, or pulmonary vascular congestion. The heart is normal in size. There is mild degenerative disc disease of the spine. XR/XR chest 2V IMPRESSION: No acute cardiopulmonary abnormality. Electronically signed by: Perry White MD 09/29/2024 02:22 PM EDT
--- NOTE | 2024-09-29 14:03 | ED.GENADULT ---
HPI - General Adult General Chief complaint: Upper Respiratory Symptoms Stated complaint: cough sore throat Time Seen by Provider: 09/29/24 14:31 Source: patient Mode of arrival: ambulatory Limitations: no limitations History of Present Illness ED Provider: PJ POP PA-C HPI narrative: 74-year-old male with past medical history significant for COPD not dependent on home O2, 30+ pack-year smoking history, MARIS not on CPAP, asthma, GERD, anemia, BPH, hypertension presents to the ED today for evaluation of cough productive of yellow sputum x1 week. Reports associated subjective fevers and nasal congestion. No known sick contacts. He has not been using his CPAP at home due to his congestion. Using his rescue inhaler more often. He was not dependent on oxygen at home. Denies headache, chest pain, palpitations, N/V/D. Related Data Home Medications ?Medication ?Instructions ?Recorded ?Confirmed dorzolamide 22.3 mg-timolol 6.8 2 drp ophthalmic (eye) BID 01/06/23 09/12/24 mg/mL eye drops finasteride 5 mg tablet 5 mg PO DAILY 11/16/23 09/12/24 brimonidine 0.2 % eye drops 2 drp ophthalmic (eye) BID 11/17/23 09/12/24 Previous Rx's ?Medication ?Instructions ?Recorded simvastatin 10 mg tablet 10 mg PO BEDTIME 90 days #90 tabs 10/04/23 Ventolin HFA 90 mcg/actuation 2 puff inhalation Q6H PRN 10/06/23 aerosol inhaler (albuterol sulfate) shortness of breath or wheezing 30 days #8 grams ibuprofen 800 mg tablet 800 mg PO Q8H PRN pain 30 days #90 12/14/23 tabs hydrocortisone 2.5 % topical cream 1 appl [place] BID hemorrhoids #30 grams 02/18/24 with perineal applicator (Proctosol HC) amlodipine 2.5 mg tablet 2.5 mg PO DAILY 90 days #90 tabs 06/16/24 CPAP #1 ea 06/29/24 fluticasone 500 mcg-salmeterol 50 1 inh inhalation BID 30 days #60 ea 08/17/24 mcg/dose blistr powdr for inhalation (Advair Diskus) Allergies Allergy/AdvReac Type Severity Reaction Status Date / Time tamsulosin AdvReac headaches, Verified 09/29/24 14:33 slow movements Review of Systems Review of Systems: Yes all other systems are reviewed and are negative [facility] Past Medical History Attestation statement: The following information was validated with the patient. Source: old records reviewed, obtained from family and nursing notes reviewed Medical History Abdominal aortic aneurysm History of smoking 30 or more pack years COPD (chronic obstructive pulmonary disease) Physical exam Urticaria Former smoker Enlarged aorta Screening for prostate cancer Screening for diabetes mellitus Eye exam, routine Otitis media Adult general medical exam Cystitis Prostatitis Chest pain Balanitis Right leg pain Ear discomfort Shortness of breath Bronchitis Moderate major depression Anemia BPH w urinary obs/LUTS Bladder outlet obstruction Weak urinary stream Gross hematuria Lipoma Obese Dyslipidemia Essential hypertension Surgical History History of surgery History of colonoscopy Family History Family History Father No problems noted. Mother Emphysema of lung Social History Social History Household Members: Spouse Housing: Apartment Do you presently have visiting nurse or other home services: No Alcohol intake: never Patient Tobacco Use Status: Former Tobacco user Tobacco use type: Cigarette Years Smoked: 52 +/- Smoked in Last 30 Days: No e-Cigarette/Vaping Use: Never Used Second Hand Smoke Exposure: No Advance Directives: Yes Advance Directives on File: Yes Advance Directives Date on File: 08/14/21 service: No Current occupational status: disabled Cognitive needs: No Hearing needs: No Vision needs: Yes (Glasses) Physical Exam ED Vital Signs: Vital Signs - 24 hr 09/29/24 14:03 09/29/24 14:30 09/29/24 15:16 Temperature 98.1 F 98.4 F Pulse Rate 94 79 86 Respiratory Rate 18 20 21 H Blood Pressure 152/81 H 125/68 Pulse Oximetry 86 L 97 Oxygen Delivery Method Room Air Room Air Oxygen Flow Rate 09/29/24 16:32 Temperature Pulse Rate 86 Respiratory Rate 20 Blood Pressure 123/68 Pulse Oximetry 98 Oxygen Delivery Method Nasal Cannula Oxygen Flow Rate 2 BMI result Body Mass Index 28.6 Hypoxic to 86% on room air on arrival. Satting 97 on 2 L nasal cannula General: Well appearing, in no acute distress. Skin: Warm, dry, intact. No rashes or lesions. Head: Normocephalic, atraumatic. EENT: Hearing is intact b/l. Conjunctiva clear. PERRLA. EOM intact. Moist mucous membranes.? Neck: Supple without LAD Cardiac: Chest wall symmetric. RRR. No JVD. Lungs: congested cough. Normal respiratory effort without accessory muscle use. no tripoding. Diminished breath sounds, slight wheeze to right lung base. Abdomen: Soft, non-tender, non-distended. No rebound tenderness or guarding. Positive BS x4. Back: No midline spinous or paraspinal tenderness. No step off deformity. Ext: Upper and lower extremities atraumatic, without tenderness, deformity, swelling or erythema. No pitting edema or calf tenderness. Neuro: AOx3. Normal speech. Ambulating with steady gait. Course Course Course Narrative: This is a rapid medical exam performed by Roge Armenta NP: Additional HPI, ROS, PE not included below will be deferred to primary provider. 09/29/24 14:04 Patient is a 74-year-old male with history of COPD, 30+ pack year smoking, MARIS, has not been using CPAP due to congestion, asthma, GERD, anemia, BPH, HTN presenting with cough x 1 week, congestion, yellow sputum. Subjective fevers. Hypoxic in triage, O2 applied. Plan: viral panel, EKG, labs, cxr Reevaluation(s) Reevaluation #1: 3509 -- CBC without leukocytosis or left shift. Normocytic anemia, H&H stable. Chemistry without acute electrolyte abnormality requiring intervention. CO2 elevated to 33 consistent with COPD. No BALTA. Liver function at baseline. Lactic WNL at 1. BNP WNL at 19. Negative COVID, flu, RSV. Chest x-ray does not demonstrate pulmonary congestion or infiltrate/ consolidation to suggest pneumonia. EKG showing normal sinus rhythm, rate of 75 beats per minute, QT 356, QTC 397, no acute ischemic changes or ST elevations. > treated with magnesium, Solu-Medrol and albuterol > ceftriaxone and azithromycin given for suspected COPD exacerbation. no concern for sepsis at this time. > noted to be hypoxic on arrival. Placed on 2 L nasal cannula with improvement to 97% at rest. patient dropped to 80% on room air during ambulatory O2 trial. Given continued hypoxia, plan to admit to Medicine. patient/ agreeable. Medications Administered Discontinued Medications Generic Name Dose Route Start Last Admin Trade Name Vianca PRN Reason Stop Dose Admin Ceftriaxone Sodium 1 gm 09/29/24 14:51 09/29/24 15:25 Ceftriaxone Sodium 1 Gm Vial IVPUSH 09/29/24 14:52 1 gm ONCE ONE Administration Albuterol Sulfate 2.5 mg/ 0 mg 09/29/24 15:15 09/29/24 15:23 Albuterol/Ipratropium 3 ml INHALE 09/29/24 15:16 5 dose ONCE ONE Administration Azithromycin 500 mg/ Sodium 250 mls @ 125 mls/hr 09/29/24 14:51 09/29/24 15:25 Chloride IV 09/29/24 16:50 125 mls/hr ONCE ONE Administration Methylprednisolone Sodium Succinate 125 mg 09/29/24 14:50 09/29/24 15:25 Methylprednisolone Sod Succ 125 Mg/2 Ml Vial IVPUSH 09/29/24 14:51 125 mg ONCE ONE Administration Medical Decision Making Medical Decision Making MDM Narrative: 74-year-old male with past medical history significant for COPD not dependent on home O2, 30+ pack-year smoking history, MARIS not on CPAP, asthma, GERD, anemia, BPH, hypertension presents to the ED today for evaluation of cough productive of yellow sputum x1 week. Patient hypoxic to 86% on room air on arrival. Placed on 2 L nasal cannula with improvement to 97%. He is nontoxic appearing in no acute distress. congested cough. No noted respiratory distress or tripoding. no accessory muscle use. no tripoding. Diminished breath sounds, slight wheeze to right lung base. no pitting edema, no JVD. no calf tenderness. Differential diagnosis includes anemia, electrolyte abnormality, asthma, COPD, COPD exacerbation, viral syndrome, bronchitis, CHF. Unlikely ACS, arrhythmia, pulmonary embolism, pleural effusion. Plan for labs, ekg, cxr, viral swabs, breathing tx, solumedrol/ mag, and re-evaluation. Differential Diagnosis Differential Diagnoses: The differential diagnosis associated with the presentation includes as above. Admission/Observation Consideration of admission/observation: Escalation of care including admission/observation considered Patient will be admitted to medicine for hypoxic respiratory failure secondary to COPD exacerbation Consult Healthcare Provider Management of the patient was discussed with: Hospitalist Hospitalist dr. frazier Lab Data MDM Lab Attestation statement: I reviewed the patient's lab results. As above 09/29/24 14:57 09/29/24 14:57 Labs: Lab Results 09/29/24 09/29/24 09/29/24 Range/Units 14:57 15:04 15:14 WBC 9.4 (4.8-10.8) X10*3/uL RBC 4.61 (4.60-5.80) X10*6/uL Hgb 13.9 L (14.0-18.0) g/dl Hct 41.6 L (42.0-52.0) % MCV 90.2 (80.0-98.0) fL MCH 30.2 (27.0-33.0) pg MCHC 33.4 (31.0-36.0) g/dl RDW 12.4 (11.0-16.0) % Plt Count 218 (160-400) X10*3/uL MPV 9.9 (9.4-12.4) fL Immature Gran % (Auto) 0.2 (0.0-0.4) % Neut % (Auto) 68.0 (45-73) % Lymph % (Auto) 22.6 (20-40) % Garfield % (Auto) 7.1 (2-11) % Eos % (Auto) 1.7 (0-4) % Baso % (Auto) 0.4 (0-2) % Lymph # (Auto) 2.1 (1.2-4.9) X10*3/uL Garfield # (Auto) 0.7 (0.1-1.2) X10*3/uL Eos # (Auto) 0.2 (0.0-0.4) X10*3/uL Baso # (Auto) 0.0 (0.0-0.2) X10*3/uL Abs Immat Gran (auto) 0.02 (0.00-0.03) X10*3/uL Absolute Neuts (auto) 6.4 (2.0-8.3) x10*3/uL Absolute Nucleated RBC 0.000 (0.0-0.012) X10*3/uL Nucleated RBC % (auto) 0.0 (0.0-0.2) /100WBC VBG pH 7.38 (7.32-7.43) VBG pCO2 57 mmHg VBG pO2 63 mmHg VBG HCO3 34 H (22-26) mmol/L VBG O2 Saturation 93.0 % VBG Base Excess 7.3 mmol/L Sodium 141 (135-145) mmol/L Potassium 4.0 (3.3-5.1) mmol/L Chloride 102 (96-108) mmol/L Carbon Dioxide 33 H (22-29) mmol/L Anion Gap 10 L (12-20) BUN 14 (9-16) mg/dL Creatinine 0.75 (0.5-1.4) mg/dL Estim Creat Clear Calc 86.0 Estimated GFR > 60 Random Glucose 107 (60-115) mg/dL Lactic Acid 1.0 (0.5-2.0) mmol/L Calcium 9.2 (8.4-10.2) mg/dL Total Bilirubin 0.4 (0.0-1.0) mg/dL AST 30 (5-37) U/L ALT 17 (0-40) U/L Alkaline Phosphatase 55 (39-117) U/L B-Natriuretic Peptide (<100) pg/mL Total Protein 7.5 (6.5-8.0) g/dL Albumin 3.9 (3.5-5.0) g/dL Influenza Type A (PCR) NEGATIVE (Negative) Influenza Type B (PCR) NEGATIVE (Negative) RSV RNA Qual (PCR) NEGATIVE (Negative) SARS-CoV-2 RNA (RT-PCR) NEGATIVE (Negative) 09/29/24 Range/Units 15:15 WBC (4.8-10.8) X10*3/uL RBC (4.60-5.80) X10*6/uL Hgb (14.0-18.0) g/dl Hct (42.0-52.0) % MCV (80.0-98.0) fL MCH (27.0-33.0) pg MCHC (31.0-36.0) g/dl RDW (11.0-16.0) % Plt Count (160-400) X10*3/uL MPV (9.4-12.4) fL Immature Gran % (Auto) (0.0-0.4) % Neut % (Auto) (45-73) % Lymph % (Auto) (20-40) % Garfield % (Auto) (2-11) % Eos % (Auto) (0-4) % Baso % (Auto) (0-2) % Lymph # (Auto) (1.2-4.9) X10*3/uL Garfield # (Auto) (0.1-1.2) X10*3/uL Eos # (Auto) (0.0-0.4) X10*3/uL Baso # (Auto) (0.0-0.2) X10*3/uL Abs Immat Gran (auto) (0.00-0.03) X10*3/uL Absolute Neuts (auto) (2.0-8.3) x10*3/uL Absolute Nucleated RBC (0.0-0.012) X10*3/uL Nucleated RBC % (auto) (0.0-0.2) /100WBC VBG pH (7.32-7.43) VBG pCO2 mmHg VBG pO2 mmHg VBG HCO3 (22-26) mmol/L VBG O2 Saturation % VBG Base Excess mmol/L Sodium (135-145) mmol/L Potassium (3.3-5.1) mmol/L Chloride (96-108) mmol/L Carbon Dioxide (22-29) mmol/L Anion Gap (12-20) BUN (9-16) mg/dL Creatinine (0.5-1.4) mg/dL Estim Creat Clear Calc Estimated GFR Random Glucose (60-115) mg/dL Lactic Acid (0.5-2.0) mmol/L Calcium (8.4-10.2) mg/dL Total Bilirubin (0.0-1.0) mg/dL AST (5-37) U/L ALT (0-40) U/L Alkaline Phosphatase (39-117) U/L B-Natriuretic Peptide 19 (<100) pg/mL Total Protein (6.5-8.0) g/dL Albumin (3.5-5.0) g/dL Influenza Type A (PCR) (Negative) Influenza Type B (PCR) (Negative) RSV RNA Qual (PCR) (Negative) SARS-CoV-2 RNA (RT-PCR) (Negative) Independent Interpretation I performed an independent interpretation of an: EKG and Plain X-Ray Interpretation: EKG showing normal sinus rhythm, rate of 75 beats per minute, QT of 346, QTC 397, no acute ischemic changes or ST elevations. CXR without infiltrate or consolidation Radiology Impression Discussion of test interpretation with radiology: I have reviewed the radiologist's reading. Radiologist Impression: Procedure(s): XR chest 2V Accession Number(s): [id number] cc: Marilynn Curtis MD; Zayra Armenta NP~ EXAMINATION: XR CHEST 2 VIEWS HISTORY: productive cough COMPARISON: Comparison is made with the prior examination dated 11/16/2023. FINDINGS: PA and lateral views of the chest are submitted. The lungs are expanded and clear. There is no pleural effusion, pneumothorax, or pulmonary vascular congestion. The heart is normal in size. There is mild degenerative disc disease of the spine. XR/XR chest 2V IMPRESSION: No acute cardiopulmonary abnormality. Electronically signed by: Perry White MD 09/29/2024 02:22 PM EDT Independent Historian Clinical information obtained from an independent historian. History obtained from or confirmed by: Spouse () External Record Review External record reviewed: Inpatient record, Office record, Outpatient record, Prior outpatient labs, Prior outpatient radiology, Primary care record and Outside ED record Prescription Management I considered prescription management with: Pain Medication and Antibiotic Chronic Conditions Patient?s care impacted by: Other (COPD) Social Determinants Patient?s care significantly limited by Social Determinants of Health including: Other Social Determinant of Health Critical Care Time Critical Care Time Critical Care Time: Yes Total Critical Care Time: 31 Attestation: Critical care time in the amount of 31 minutes has been provided to the patient in terms of direct patient care, frequent reevaluation on IV mag, consultation with hospitalist, review and interpretation of medical data and results, and management of potentially life-threatening conditions. This is all outside of any medical procedures. Discharge Plan Discharge Clinical Impression: Asthma exacerbation in COPD, Acute hypoxic respiratory failure Patient Disposition: Admitted As Inpatient Print Language: Nepali
--- NOTE | 2024-09-29 14:07 | ECG_ITS ---
Test Reason : SOB Blood Pressure : */* mmHG Vent. Rate : 75 BPM Atrial Rate : 75 BPM P-R Int : 134 ms QRS Dur : 68 ms QT Int : 356 ms P-R-T Axes : 52 34 21 degrees QTcB Int : 397 ms Normal sinus rhythm Normal ECG When compared with ECG of 16-Nov-2023 15:44, No significant change was found Referred By: Zayra Armenta Electronically Signed By: FERCHO PRESLEY
[2024-09-29 15:05] LABS: MANUAL DIFF FLAG NO
[2024-09-29 15:10] LABS: VBG Base Excess 7.3 mmol/L; VBG HCO3 34 mmol/L (22-26); VBG pCO2 57 mmHg; VBG pH 7.38 (7.32-7.43); VBG pO2 63 mmHg
[2024-09-29 15:11] LABS: Basophils Percent Auto 0.4 % (0-2); Eosinophils Absolute Auto 0.2 X10*3/uL (0.0-0.4); Eosinophils Percent Auto 1.7 % (0-4); Hematocrit 41.6 % (42.0-52.0); Hemoglobin 13.9 g/dl (14.0-18.0); Imm Gran Abs Auto 0.02 X10*3/uL (0.00-0.03); Imm Gran Pct Auto 0.2 % (0.0-0.4); Lymphocytes Absolute Auto 2.1 X10*3/uL (1.2-4.9); Lymphocytes Percent Auto 22.6 % (20-40); Mean Corpuscular HGB Conc 33.4 g/dl (31.0-36.0); Mean Corpuscular Hemoglobin 30.2 pg (27.0-33.0); Mean Corpuscular Volume 90.2 fL (80.0-98.0); Mean Platelet Volume 9.9 fL (9.4-12.4); Monocytes Absolute Auto 0.7 X10*3/uL (0.1-1.2); Monocytes Percent Auto 7.1 % (2-11); Neutrophils Absolute Auto 6.4 x10*3/uL (2.0-8.3); Platelet Count 218 X10*3/uL (160-400); Red Blood Count 4.61 X10*6/uL (4.60-5.80); Red Cell Distribution Width 12.4 % (11.0-16.0); White Blood Count 9.4 X10*3/uL (4.8-10.8)
[2024-09-29] MEDS: Albuterol Sulfate 2.5 MG, Albuterol/Iprat 2.5/0.5MG 3 ML 3 ML INHALE (15:23)
[2024-09-29] MEDS: methylPREDNISolone Sod Succ 125 MG/2 ML VIAL IVPUSH (15:25)
[2024-09-29] MEDS: cefTRIAXone sodium 1 GM VIAL IVPUSH (15:25)
[2024-09-29] MEDS: Azithromycin 500 MG in 0.9 % Sodium Chloride 250 ML 125 MG IV (15:25)
[2024-09-29 15:30] LABS: Alanine Aminotransferase 17 U/L (0-40); Albumin Level 3.9 g/dL (3.5-5.0); Anion Gap 10 (12-20); Aspartate Amino Transferase 30 U/L (5-37); Bilirubin Total 0.4 mg/dL (0.0-1.0); Blood Urea Nitrogen 14 mg/dL (9-16); Calcium 9.2 mg/dL (8.4-10.2); Carbon Dioxide 33 mmol/L (22-29); Chloride 102 mmol/L (96-108); Estimated Glomerular Filt Rate > 60; Glucose Random 107 mg/dL (60-115); Sodium 141 mmol/L (135-145); Total Protein 7.5 g/dL (6.5-8.0)
[2024-09-29 15:31] LABS: Alkaline Phosphatase 55 U/L (39-117)
[2024-09-29 15:46] LABS: Influenza A PCR NEGATIVE (Negative); Influenza B PCR NEGATIVE (Negative); Resp Syncy Virus RNA Qual PCR NEGATIVE (Negative); SARS COV2 PCR INHOUSE NEGATIVE (Negative)
[2024-09-29 16:00] LABS: Venous Blood Gas Refer to POC result
[2024-09-29 16:01] LABS: B Type Natriuretic Peptide 19 pg/mL (<100)
[2024-09-29] MEDS: Magnesium Sulfate/H2O 2 GM/50 ML PIGGYBACK IV (18:17)
--- NOTE | 2024-09-29 19:07 | P.HPHOSP_ITS ---
History of Present Illness Date of Service: 09/29/24 Chief Complaint: Shortness of breath 74-year-old gentleman with past medical history significant for hypertension, mood disorder, former tobacco use disorder, GERD, mixed hyperlipidemia, BPH , recently diagnosed to have mild obstructive sleep apnea nocturnal hypoxia was seen by enrollment counselor and BiPAP and 2 L of oxygen was recommended in June however patient not using it at home, presented to emergency room due to shortness of breath associated with dry cough, fever and dizziness of 1 week duration, patient vomited 2 days ago denies abdominal pain, no diarrhea, no active tobacco use, denies history of travel, no sick contacts due to persistent symptoms came to emergency room and noted to be hypoxic with finger oximetry of 86% on room air chest x-ray showed no acute infiltrate, COVID, RSV and influenza negative. Treated in the emergency room with IV ceftriaxone, azithromycin, updraft treatment, magnesium and IV steroid since hypoxia persisted patient will be admitted to [facility] for acute hypoxic respiratory failure. Review of Systems 2 Review of Systems: General no headache, no dizziness ,no fever chills. CVS no chest pain, no palpitation. Respiratory shortness of breaths/cough Gastrointestinal no nausea no vomiting, no abdominal pain no urgency, no frequency Musculoskeletal no pain All other system reviewed and are negative [facility] Medical History Abdominal aortic aneurysm History of smoking 30 or more pack years COPD (chronic obstructive pulmonary disease) Physical exam Urticaria Former smoker Enlarged aorta Screening for prostate cancer Screening for diabetes mellitus Eye exam, routine Otitis media Adult general medical exam Cystitis Prostatitis Chest pain Balanitis Right leg pain Ear discomfort Shortness of breath Bronchitis Moderate major depression Anemia BPH w urinary obs/LUTS Bladder outlet obstruction Weak urinary stream Gross hematuria Lipoma Obese Dyslipidemia Essential hypertension Family History Father No problems noted. Mother Emphysema of lung Surgical History History of surgery History of colonoscopy Social History Household Members: Spouse Housing: Apartment Do you presently have visiting nurse or other home services: No Alcohol intake: never Patient Tobacco Use Status: Former Tobacco user Tobacco use type: Cigarette Years Smoked: 52 +/- e-Cigarette/Vaping Use: Never Used Second Hand Smoke Exposure: No Advance Directives Date on File: 08/14/21 service: No Current occupational status: disabled Cognitive needs: No Hearing needs: No Vision needs: Yes (Glasses) Meds Allergies Allergy/AdvReac Type Severity Reaction Status Date / Time tamsulosin AdvReac headaches, Verified 09/29/24 14:33 slow movements Active Medications: Current Medications Acetaminophen (Acetaminophen 325 Mg Tablet) 650 mg PO Q6H PRN PRN Reason: Pain, Mild 1-3,fever,headache Albuterol/Ipratropium (Albuterol/Iprat 2.5/0.5mg 3 Ml Ampul.Neb) 3 ml INHALE RQ4H WHILE AWAKE CAMPOS Calcium Carbonate (Calcium Carbonate 750 Mg Tab.Chew) 750 mg PO Q4H PRN PRN Reason: Heartburn Enoxaparin Sodium (Enoxaparin Sodium 40 Mg/0.4 Ml Syringe) 40 mg SUBCUT Q24H CAMOPS Magnesium Hydroxide (Milk Of Magnesia 30 Ml Oral.Susp) 30 ml PO DAILY PRN PRN Reason: Constipation Melatonin (Melatonin 3 Mg Tablet) 6 mg PO BEDTIME PRN PRN Reason: Insomnia Methylprednisolone Sodium Succinate (Methylprednisolone Sod Succ 40 Mg/Ml Vial) 40 mg IVPUSH Q12H CAMPOS Ondansetron HCl (Ondansetron Hcl 4 Mg/2 Ml Vial) 4 mg IVPUSH Q8H PRN PRN Reason: Nausea and Vomiting Sodium Chloride (0.9 % Sodium Chloride Flush 3 Ml Syringe) 3 [facility] Home Medications ?Medication ?Instructions ?Recorded ?Confirmed ?Last Taken ?Type dorzolamide 22.3 mg-timolol 6.8 2 drp ophthalmic (eye) BID 01/06/23 09/29/24 09/29/24 History mg/mL eye drops brimonidine 0.2 % eye drops 2 drp ophthalmic (eye) BID 11/17/23 09/29/24 09/29/24 History netarsudil 0.02 %-latanoprost 1 drp ophthalmic (eye) BEDTIME 09/29/24 09/29/24 09/28/24 History 0.005 % eye drops (Rocklatan) netarsudil 0.02 %-latanoprost 2 drp ophthalmic (eye) DAILY 09/29/24 09/29/24 09/29/24 History 0.005 % eye drops (Rocklatan) Physical Exam 2 Vital Signs and Narrative: Vital Signs: Last Vital Signs Temp 98.4 F 09/29/24 14:30 Pulse 86 09/29/24 16:32 Resp 20 09/29/24 16:32 BP 123/68 09/29/24 16:32 Pulse Ox 98 09/29/24 16:32 O2 Del Method Nasal Cannula 09/29/24 16:32 O2 Flow Rate 2 09/29/24 16:32 BMI result Body Mass Index 28.6 Const: Other: General awake alert x3, resting comfortably in no acute distress. Neck supple no JVD. CVS regular rate rhythm, Respiratory coarse breath sounds with few scattered wheeze Gastrointestinal abdomen soft, non tender, bowel sounds audible, no guarding , no rigidity. Extremities no edema. Neuro non focal Skin no rash Appropriate affect Results Labs 09/29/24 14:57 09/29/24 14:57 Labs: Laboratory Results - last 24 hr 09/29/24 09/29/24 09/29/24 14:57 15:04 15:14 MCV 90.2 MCH 30.2 MCHC 33.4 RDW 12.4 Plt Count 218 MPV 9.9 Immature Gran % (Auto) 0.2 Neut % (Auto) 68.0 Lymph % (Auto) 22.6 Wheeler % (Auto) 7.1 Eos % (Auto) 1.7 Baso % (Auto) 0.4 Lymph # (Auto) 2.1 Wheeler # (Auto) 0.7 Eos # (Auto) 0.2 Baso # (Auto) 0.0 Abs Immat Gran (auto) 0.02 Absolute Neuts (auto) 6.4 Absolute Nucleated RBC 0.000 Nucleated RBC % (auto) 0.0 VBG pH 7.38 VBG pCO2 57 VBG pO2 63 VBG HCO3 34 H VBG O2 Saturation 93.0 VBG Base Excess 7.3 Anion Gap 10 L Estim Creat Clear Calc 86.0 Estimated GFR > 60 Random Glucose 107 Lactic Acid 1.0 Calcium 9.2 Total Bilirubin 0.4 AST 30 ALT 17 Alkaline Phosphatase 55 B-Natriuretic Peptide Total Protein 7.5 Albumin 3.9 Influenza Type A (PCR) NEGATIVE Influenza Type B (PCR) NEGATIVE RSV RNA Qual (PCR) NEGATIVE SARS-CoV-2 RNA (RT-PCR) NEGATIVE 09/29/24 15:15 MCV MCH MCHC RDW Plt Count MPV Immature Gran % (Auto) Neut % (Auto) Lymph % (Auto) Wheeler % (Auto) Eos % (Auto) Baso % (Auto) Lymph # (Auto) Wheeler # (Auto) Eos # (Auto) Baso # (Auto) Abs Immat Gran (auto) Absolute Neuts (auto) Absolute Nucleated RBC Nucleated RBC % (auto) VBG pH VBG pCO2 VBG pO2 VBG HCO3 VBG O2 Saturation VBG Base Excess Anion Gap Estim Creat Clear Calc Estimated GFR Random Glucose Lactic Acid Calcium Total Bilirubin AST ALT Alkaline Phosphatase B-Natriuretic Peptide 19 Total Protein Albumin Influenza Type A (PCR) Influenza Type B (PCR) RSV RNA Qual (PCR) SARS-CoV-2 RNA (RT-PCR) Imaging Radiologist's Impressions: Impressions Chest X-Ray 09/29/24 14:07 IMPRESSION: No acute cardiopulmonary abnormality. Electronically signed by: Perry White MD 09/29/2024 02:22 PM EDT RP Assessment and Plan (1) Acute hypoxic respiratory failure: Status: Acute (2) Asthma exacerbation in COPD: Status: Acute Plan 73-year-old male with pertinent history of mood disorder, hypertension, former tobacco use disorder, gastroesophageal reflux disease, mixed hyperlipidemia who presents to the emergency department for evaluation of dyspnea. #. Acute hypoxemic respiratory failure due to acute COPD exacerbation likely due to acute bronchitis: Chest x-ray unremarkable, RSV COVID and influenza negative IV steroids, scheduled and p.r.n. DuoNebs, IV azithromycin Supportive care with cough medication/analgesics home o2 eval prior to dc # obstructive sleep apnea with nocturnal hypoxia was recently evaluated by pulmonology and was placed on 2 L of oxygen with BiPAP at nighttime, but as per he is not using it at home she is requesting for 2 L of oxygen at night without bipap. #. Hypertension: Stable BP continue amlodipine 2.5 mg daily. #. Mixed hyperlipidemia: Continue statins DVT prophylaxis: Lovenox Full code Patient will require 2 night inpatient hospitalization for management of acute hypoxic respiratory failure due to COPD exacerbation requiring IV antibiotics IV steroids and updraft treatment Quality Stroke Does the patient have a stroke diagnosis?: No VTE Prior VTE?: No VTE Risk Level:: Medical - moderate - high VTE Device Contraindication: Treatment Not Indicated VTE Drug Contraindication: N/A - Med Ordered
--- NOTE | 2024-09-29 19:10 | MHC.EDTECH ---
PATIENT WAS AMBULATED FOR O2 TRIAL.PATIENTS O2 PRIOR TO AMBULATION WAS 92 ON ROOM AIR AND OR 81.PATIENTS O2 DROPPED TO 80 WITH A PULSE RATE OF 93.
[2024-09-29] MEDS: Albuterol/Iprat 2.5/0.5MG 3 ML AMPUL.NEB INHALE (19:37)
[2024-09-29] MEDS: Enoxaparin Sodium 40 MG/0.4 ML SYRINGE SUBCUT (19:37)
[2024-09-29] MEDS: methylPREDNISolone Sod Succ 40 MG/ML VIAL IVPUSH (19:37)
[2024-09-29] MEDS: ondansetron HCL 4 MG/2 ML VIAL IVPUSH (19:37)
--- NOTE | 2024-09-29 20:57 | PHA.MEDREC ---
Addendum entered by Marion Meza RPh 09/29/24 21:10: Reviewed by [facility] Original Note: Pharmacy Consult ? Medication Reconciliation Pharmacy has completed the medication reconciliation. Spoke with patients at bedside who was able to confirm patients medications. The confirmed all the eye drops (Brimonidine 0.2%, dorzolamide 22.3 mg-timolol 6.8 mg/mL and Rocklatan 0.02-0.005 %) and confirmed the patient instills the Brimonidine and Dorzolamide 2 drps in each eye twice a day and the Rocklatan the patient instills 2 drops in each eye in the morning and 1 drop at bedtime. She confirmed the patient took his morning medications today and nothing else.
[2024-09-30] VITALS (14 sets, daily range): BP systolic 101–119; BP diastolic 53–69; PULSE 80–110; RESP 14–18; TEMP 36.4–36.8; O2SAT 75–98; BMI 28.6
--- NOTE | 2024-09-30 00:20 | PC.NURSE ---
Took over care from Aisha Parikh, pt reposition for comfort, urinal emptied. call donald at the bedside. no sign of distress at this time.
--- NOTE | 2024-09-30 03:51 | PC.NURSE ---
Pt sleeping at this time.
[2024-09-30] MEDS: 0.9 % Sodium Chloride Flush 3 ML SYRINGE IVFLUSH ×4 (04:19→22:08)
--- NOTE | 2024-09-30 04:24 | PC.NURSE ---
Assisted pt in bed, provided pt with ice water per request.
[2024-09-30] MEDS: methylPREDNISolone Sod Succ 40 MG/ML VIAL IVPUSH ×2 (07:05→19:32)
[2024-09-30] MEDS: Albuterol/Iprat 2.5/0.5MG 3 ML AMPUL.NEB INHALE ×4 (07:48→19:31)
[2024-09-30] MEDS: amLODIPine Besylate 2.5 MG TABLET PO (09:02)
--- NOTE | 2024-09-30 09:02 | MHC.EDTECH ---
pt arrived to overflow, clean linens provided, oriented to room and controls, resting comfortably at this time
[2024-09-30] MEDS: Brimonidine Tartrate 0.2% Oph 5 ML BOTTLE 2 DROP EYE-BOTH (09:03)
[2024-09-30] MEDS: Dorzolamide/Timolo 2.23%/0.68% 10 ML DRBTL 2 DROP EYE-BOTH (09:05)
--- NOTE | 2024-09-30 11:19 | PC.NURSE ---
Called and left voicemail requesting that she bring in Rocklatan eye drops to [facility]. This medication is not available at [facility].
[2024-09-30] MEDS: Acetaminophen 325 MG TABLET 650 MG PO (11:30)
--- NOTE | 2024-09-30 13:22 | PC.NURSE ---
Contacted Dr. Vazquez regarding medication reconciliation. Patient asking if he can take his own medications from home. Patient is aware that his medications are being given from [facility] stock, and not from his own supply. However, Simvastatin has not been ordered. Patient takes this Simvastatin 10mg daily at bedtime. Awaiting response.
--- NOTE | 2024-09-30 13:28 | MHC.CM.PN ---
pt lives alone has no servicesand has own ride home dc plan home n/s
--- NOTE | 2024-09-30 14:01 | HO.PM.IMPN ---
Subjective Subjective Date of Service: 09/30/24 Interval History: History obtained through patient is Zimbabwean-speaking only Complaining of persistent shortness of breath, and back pain Denies fever, no chills, no other acute issues overnight remains on 2 L of oxygen by nasal cannula Review of Systems All other system reviewed and are negative. Physical Exam Vital Signs: Vital Signs: Last Vital Signs Temp 97.8 F 09/30/24 12:00 Pulse 89 09/30/24 12:00 Resp 18 09/30/24 12:00 BP 101/53 L 09/30/24 12:00 Pulse Ox 96 09/30/24 12:00 O2 Del Method Nasal Cannula 09/30/24 12:00 O2 Flow Rate 3 09/30/24 12:00 Oxygen Flow Rate 2 09/30/24 03:55 BMI result Body Mass Index 28.6 Const: Other: General awake aler t x3, resting comf ortably in no acut e distress. Neck supple no JVD. CV S regular rate rh ythm, Respiratory b/l coarse breath sounds with few sc attered wheeze Gas trointestinal abdo men soft, non tend er, bowel sounds a udible, no guardin g , no rigidity. E xtremities no hi a. Neuro non focal Skin no rash Benedict ropriate affect Objective Data Active Medications Acetaminophen (Acetaminophen 325 Mg Tablet) 650 mg PO Q6H PRN PRN Reason: Pain, Mild 1-3,fever,headache Last Admin: 09/30/24 11:30 Dose: 650 mg Documented By: TIO Albuterol Sulfate (Albuterol Sulfate 90 Mcg 8 Gm Inhaler) 2 puff INHALE Q6H PRN PRN Reason: shortness of breath or wheezing Albuterol/Ipratropium (Albuterol/Iprat 2.5/0.5mg 3 Ml Ampul.Neb) 3 ml INHALE RQ4H WHILE AWAKE [facility] Last Admin: 09/30/24 11:11 Dose: 3 ml Documented By: SELINA Amlodipine Besylate (Amlodipine Besylate 2.5 Mg Tablet) 2.5 mg PO DAILY [facility]; Protocol Last Admin: 09/30/24 09:02 Dose: 2.5 mg Documented By: GILLES Brimonidine Tartrate (Brimonidine Tartrate 0.2% Oph 5 Ml Bottle) 2 drop EYE-BOTH BID [facility] Last Admin: 09/30/24 09:03 Dose: 2 drop Documented By: GILLES Calcium Carbonate (Calcium Carbonate 750 Mg Tab.Chew) 750 mg PO Q4H PRN PRN Reason: Heartburn Dorzolamide/Timolol (Dorzolamide/Timolo 2.23%/0.68% 10 Ml Drbtl) 2 drop EYE-BOTH BID [facility] Last Admin: 09/30/24 09:05 Dose: 2 drop Documented By: GILLES Enoxaparin Sodium (Enoxaparin Sodium 40 Mg/0.4 Ml Syringe) 40 mg SUBCUT Q24H [facility] Last Admin: 09/29/24 19:37 Dose: 40 mg Documented By: MADDY Guaifenesin/Dextromethorphan (Guaifenesin Dm 200/20/10 Ml 10 Ml Syrup) 10 ml PO Q6H PRN PRN Reason: Cough Azithromycin 500 mg/ Sodium (Chloride) 250 mls @ 125 mls/hr IV Q24H [facility] Magnesium Hydroxide (Milk Of Magnesia 30 Ml Oral.Susp) 30 ml PO DAILY PRN PRN Reason: Constipation Melatonin (Melatonin 3 Mg Tablet) 6 mg PO BEDTIME PRN PRN Reason: Insomnia Methylprednisolone Sodium Succinate (Methylprednisolone Sod Succ 40 Mg/Ml Vial) 40 mg IVPUSH Q12H [facility] Last Admin: 09/30/24 07:05 Dose: 40 mg Documented By: ZAYNAB Non-Formulary Medication (Netarsudil-Latanoprost [Rocklatan]) 1 drop EYE-BOTH BEDTIME [facility] Non-Formulary Medication (Netarsudil-Latanoprost [Rocklatan]) 2 drop EYE-BOTH DAILY [facility] Ondansetron HCl (Ondansetron Hcl 4 Mg/2 Ml Vial) 4 mg IVPUSH Q8H PRN PRN Reason: Nausea and Vomiting Last Admin: 09/29/24 19:37 Dose: 4 mg Documented By: MADDY Sodium Chloride (0.9 % Sodium Chloride Flush 3 Ml Syringe) 3 ml IVFLUSH QSHIFT [facility] Last Admin: 09/30/24 07:06 Dose: 3 ml Documented By: ZAYNAB Labs 09/29/24 14:57 09/29/24 14:57 Labs: Laboratory Results - last 24 hr 09/29/24 09/29/24 09/29/24 14:57 15:04 15:14 MCV 90.2 MCH 30.2 MCHC 33.4 RDW 12.4 Plt Count 218 MPV 9.9 Immature Gran % (Auto) 0.2 Neut % (Auto) 68.0 Lymph % (Auto) 22.6 [place] % (Auto) 7.1 Eos % (Auto) 1.7 Baso % (Auto) 0.4 Lymph # (Auto) 2.1 [place] # (Auto) 0.7 Eos # (Auto) 0.2 Baso # (Auto) 0.0 Abs Immat Gran (auto) 0.02 Absolute Neuts (auto) 6.4 Absolute Nucleated RBC 0.000 Nucleated RBC % (auto) 0.0 VBG pH 7.38 VBG pCO2 57 VBG pO2 63 VBG HCO3 34 H VBG O2 Saturation 93.0 VBG Base Excess 7.3 Anion Gap 10 L Estim Creat Clear Calc 86.0 Estimated GFR > 60 Random Glucose 107 Lactic Acid 1.0 Calcium 9.2 Total Bilirubin 0.4 AST 30 ALT 17 Alkaline Phosphatase 55 B-Natriuretic Peptide Total Protein 7.5 Albumin 3.9 Influenza Type A (PCR) NEGATIVE Influenza Type B (PCR) NEGATIVE RSV RNA Qual (PCR) NEGATIVE SARS-CoV-2 RNA (RT-PCR) NEGATIVE 09/29/24 15:15 MCV MCH MCHC RDW Plt Count MPV Immature Gran % (Auto) Neut % (Auto) Lymph % (Auto) [place] % (Auto) Eos % (Auto) Baso % (Auto) Lymph # (Auto) [place] # (Auto) Eos # (Auto) Baso # (Auto) Abs Immat Gran (auto) Absolute Neuts (auto) Absolute Nucleated RBC Nucleated RBC % (auto) VBG pH VBG pCO2 VBG pO2 VBG HCO3 VBG O2 Saturation VBG Base Excess Anion Gap Estim Creat Clear Calc Estimated GFR Random Glucose Lactic Acid Calcium Total Bilirubin AST ALT Alkaline Phosphatase B-Natriuretic Peptide 19 Total Protein Albumin Influenza Type A (PCR) Influenza Type B (PCR) RSV RNA Qual (PCR) SARS-CoV-2 RNA (RT-PCR) Assessment and Plan (1) Acute hypoxic respiratory failure: Status: Acute (2) Acute exacerbation of chronic obstructive pulmonary disease (COPD): Status: Acute Plan 73-year-old male with pertinent history of mood disorder, hypertension, former tobacco use disorder, gastroesophageal reflux disease, mixed hyperlipidemia who presents to the emergency department for evaluation of dyspnea. #. Acute hypoxemic respiratory failure due to acute COPD exacerbation likely due to acute bronchitis: Chest x-ray unremarkable, RSV COVID and influenza negative cont. IV steroids 40mg bid , scheduled and p.r.n. DuoNebs, IV azithromycin D2/5 Supportive care with cough medication/analgesics home o2 eval ordered If clinically improved will discharge on tapering dose of steroids/po azithro and home inhalers # obstructive sleep apnea with nocturnal hypoxia was recently evaluated by pulmonology and was placed on 2 L of oxygen with BiPAP at nighttime, but as per he is not using it at home she is requesting for 2 L of oxygen at night without bipap. Will discharge home on 2 L of oxygen at night. #. Hypertension: Stable BP continue amlodipine 2.5 mg daily. #. Mixed hyperlipidemia: Continue statins # Musculoskeletal back pain salon pas/tylenol /oob to chair DVT prophylaxis: Lovenox Full code Patient will require 2 night inpatient hospitalization for management of acute hypoxic respiratory failure due to COPD exacerbation requiring IV antibiotics IV steroids and updraft treatment Quality Stroke Does the patient have a stroke diagnosis?: No VTE Prior VTE?: No VTE Risk Level:: Medical - moderate - high VTE Device Contraindication: Treatment Not Indicated VTE Drug Contraindication: N/A - Med Ordered
--- NOTE | 2024-09-30 15:21 | PC.RT ---
Discussed w/ Hospitalist and University Tutor . Pulmonology signed order for pt to have 2L O2 at night based on overnight oximetry previously done at pulmonary office. Daytime home O2 eval will be completed on the day of discharge. O2 set up through [facility] [employer] rep aware of new orders.
[2024-09-30] MEDS: Azithromycin 500 MG in 0.9 % Sodium Chloride 250 ML 125 MG IV (15:39)
[2024-09-30] MEDS: Enoxaparin Sodium 40 MG/0.4 ML SYRINGE SUBCUT (19:34)
[2024-10-01 03:22] VITALS: BP 127/70; PULSE 96; RESP 18; TEMP 36.5; O2SAT 95
[2024-10-01 07:40] VITALS: BP 123/58; PULSE 96; RESP 16; TEMP 36.3; O2SAT 92
[2024-10-01] MEDS: Albuterol/Iprat 2.5/0.5MG 3 ML AMPUL.NEB INHALE ×2 (07:58→11:48)
[2024-10-01 08:00] VITALS: PULSE 89; RESP 16; O2SAT 93
[2024-10-01] MEDS: methylPREDNISolone Sod Succ 40 MG/ML VIAL IVPUSH (08:21)
[2024-10-01] MEDS: amLODIPine Besylate 2.5 MG TABLET PO (08:22)
[2024-10-01] MEDS: Acetaminophen 325 MG TABLET 650 MG PO (08:26)
[2024-10-01] MEDS: 0.9 % Sodium Chloride Flush 3 ML SYRINGE IVFLUSH (08:29)
--- NOTE | 2024-10-01 09:59 | PM.DS ---
DS: Providers Provider Date of Service: 10/01/24 Date of admission: 09/29/24 18:56 Date of discharge: 10/01/24 Primary care physician: Marilynn Pandey MD DS: Diagnosis Discharge Diagnosis (1) Acute hypoxic respiratory failure: Status: Acute (2) Acute exacerbation of chronic obstructive pulmonary disease (COPD): Status: Acute DS: Summary Hospital Course Hospital Course: admission hpi Chief Complaint: Shortness of breath 74-year-old gentleman with past medical history significant for hypertension, mood disorder, former tobacco use disorder, GERD, mixed hyperlipidemia, BPH , recently diagnosed to have mild obstructive sleep apnea nocturnal hypoxia was seen by lathe hand and BiPAP and 2 L of oxygen was recommended in June however patient not using it at home, presented to emergency room due to shortness of breath associated with dry cough, fever and dizziness of 1 week duration, patient vomited 2 days ago denies abdominal pain, no diarrhea, no active tobacco use, denies history of travel, no sick contacts due to persistent symptoms came to emergency room and noted to be hypoxic with finger oximetry of 86% on room air chest x-ray showed no acute infiltrate, COVID, RSV and influenza negative. Treated in the emergency room with IV ceftriaxone, azithromycin, updraft treatment, magnesium and IV steroid since hypoxia persisted patient will be admitted to [facility] for acute hypoxic respiratory failure. hospital course: 73-year-old male with a pertinent history of mood disorder, hypertension, former tobacco use disorder, gastroesophageal reflux disease, and mixed hyperlipidemia who presents to the emergency department with dyspnea and is admitted for acute hypoxic respiratory failure secondary to COPD exacerbation with acute bronchitis. Chest X-ray showed no evidence of pneumonia. Influenza, RSV, and COVID-19 tests were negative. He was treated with IV Solu-Medrol, scheduled and PRN bronchodilators, Azithromycin for bronchitis, and supplemental oxygen. He has shown overall clinical improvement; however, he continues to require oxygen. An exercise test was performed off oxygen, and he qualifies for home oxygen therapy at 2 liters via nasal cannula. He will be discharged with a 3-day course of Prednisone to complete a total of 5 days, continuation of bronchodilators at home, and 2 more days of Azithromycin to complete treatment for bronchitis. Obstructive sleep apnea with nocturnal hypoxia was recently evaluated by pulmonology and was placed on 1 L of oxygen with BiPAP at nighttime, but as per he is not using it and prefers using 2 lit of O2 at night, but BiPAP use is still encourage Hypertension: Stable BP continue amlodipine 2.5 mg daily. Mixed hyperlipidemia: Continue statins Musculoskeletal back pain salon pas/tylenol /oob to chair Time Attestation Discharge Coordination Time (in mins): 40 Quality: Safe Use of Opioids Does Pt have an Active Cancer Diagnosis on the Problem List?: No Quality: Stroke Does the patient have a stroke diagnosis?: No Physical Exam Vital Signs: Vital Signs: Last Vital Signs Temp 97.3 F 10/01/24 07:40 Pulse 89 10/01/24 08:00 Resp 16 10/01/24 08:00 BP 123/58 L 10/01/24 07:40 Pulse Ox 92 10/01/24 07:40 O2 Del Method Nasal Cannula 10/01/24 07:40 O2 Flow Rate 2 10/01/24 07:40 Oxygen Flow Rate 2 09/30/24 03:55 BMI result Body Mass Index 28.6 General: AO X 3, no acute distress Resp: CTA bilateral CVS: S1,S2,RRR GI: +BS, NT, no distention Skin: No rash Neuro: motor grossly intact Psych: appropriate affect DS: Data Data Completed and Pending Labs on day of discharge: Preliminary micro results at discharge 09/29/24 15:23 Blood Culture - Preliminary Blood - Venous No growth after 24 hours. 09/29/24 15:15 Blood Culture - Preliminary Blood - Venous No growth after 24 hours. Discharge Plan Discharge Anticipated Discharge Date/Time: 10/01/24 10:00 Patient Disposition: Home, Self-Care Discharge Diagnosis: Acute hypoxic respiratory failure due to copd exacerbation and bronchitis Referrals: Marilynn Curtis MD [Primary Care Provider] - 1 Week Discharge Medications: New azithromycin 250 mg tablet 250 mg PO DAILY 3 Days Qty: 3 0RF Rx Instructions: start on day 2 of therapy prednisone 20 mg tablet 20 mg PO DAILY Qty: 4 0RF Continued simvastatin 10 mg tablet 10 mg PO BEDTIME 90 Days Qty: 90 3RF ibuprofen 800 mg tablet 800 mg PO Q8H PRN (Reason: pain) 30 Days Qty: 90 1RF amlodipine 2.5 mg tablet 2.5 mg PO DAILY 90 Days Qty: 90 1RF (DME) CPAP Device See Rx Instructions .Route Qty: 1 0RF Rx Instructions: autoPAP 5-20 cmH2O brimonidine 0.2 % drops 2 drp ophthalmic (eye) BID Rocklatan 0.02-0.005 % drops 2 drp ophthalmic (eye) DAILY Rocklatan 0.02-0.005 % drops 1 drp ophthalmic (eye) BEDTIME albuterol sulfate [Ventolin HFA] 90 mcg/actuation HFA aerosol inhaler 2 puff inhalation Q6H PRN (Reason: shortness of breath or wheezing) 30 Days Qty: 8 1RF dorzolamide-timolol 22.3-6.8 mg/mL drops 2 drp ophthalmic (eye) BID fluticasone propion-salmeterol [Advair Diskus] 500-50 mcg/dose blister with device 1 inh inhalation BID 30 Days Qty: 60 3RF Discharge Orders: Discharge Order (Routine); Ordered 10/01/24 Ordered By: Lencho Odom Diet: Advance to usual diet Activity on Discharge: As tolerated Stand Alone Forms: Patient Portal Discharge page Print Language: Swedish Care Plan Goals: recovery from copd exacerbation with hypoxa and acute bronchitis Health Concerns: copd exacerbation with hypoxia and bronchitis Plan of Treatment: take prednisone as directed next dose tomorrow take azithromycin as directed for bronchitis, next dose this evening follow up with your doctor in a week call for appointment use oxygen as directed Assessment: see above
--- NOTE | 2024-10-01 11:49 | MHC.CM.PN ---
IMM 09/30/24 Patient is discharged to home self care. Patient has arranged for transportation home.
[2024-10-01 11:51] VITALS: PULSE 88; RESP 16
== END 2024-10-01 13:00 | disposition home or self-care (01) | DRG 190 ==
LOC: HO.ED 18:04 → HO.EDOVER 19:55 → HO.S3 09-30 12:07
PROVIDERS: Physician Assistant Medical; Registered Nurse Emergency; Admitting Provider Hospitalist; Emergency Provider Emergency Medicine; PCP Internal Medicine; Visit Provider Internal Medicine
DX: J44.0 Chronic obstructive pulmonary disease with (acute) lower respiratory infection (principal); J96.01 Acute respiratory failure with hypoxia; J45.901 Unspecified asthma with (acute) exacerbation; M54.9 Dorsalgia, unspecified; J44.1 Chronic obstructive pulmonary disease with (acute) exacerbation; J20.9 Acute bronchitis, unspecified; I10 Essential (primary) hypertension; E78.2 Mixed hyperlipidemia; G47.33 Obstructive sleep apnea (adult) (pediatric); Z20.822 Contact with and (suspected) exposure to COVID-19; Z87.891 Personal history of nicotine dependence; Z79.51 Long term (current) use of inhaled steroids; Z79.899 Other long term (current) drug therapy
CPT/HCPCS: 0241U; 36415; 71046; 80053; 82803; 83605; 83880; 85025; 87040; 93005; 94640; 99285; J0456; J0696; J1650; J2405; J2919; J3475

== ENCOUNTER → 2024-09-29 14:07 | Outpatient (BNV) | payer MEDICARE, SELFPAY | PROVIDERS: Emergency Provider Emergency Medicine; PCP Internal Medicine; Visit Provider Radiology Diagnostic Radiology | DX: R05.9 Cough, unspecified (principal) | CPT/HCPCS: 71046 ==

== ENCOUNTER → 2024-09-29 14:07 | Outpatient (BNV) | payer MEDICARE, SELFPAY | PROVIDERS: Admitting Provider Hospitalist; Emergency Provider Emergency Medicine; PCP Internal Medicine; Visit Provider Internal Medicine | DX: R06.02 Shortness of breath (principal) | CPT/HCPCS: 93010 ==

== ENCOUNTER → 2024-09-29 18:56 | Outpatient (BNV) | payer MEDICARE, SELFPAY | PROVIDERS: Admitting Provider Hospitalist; Emergency Provider Emergency Medicine; PCP Internal Medicine; Visit Provider Hospitalist | DX: J96.01 Acute respiratory failure with hypoxia (principal); J44.1 Chronic obstructive pulmonary disease with (acute) exacerbation | CPT/HCPCS: 99239 ==

== ENCOUNTER → 2024-10-04 13:53 | Outpatient (BNVA) | payer MEDICARE, SELFPAY | PROVIDERS: PCP Internal Medicine; Visit Provider Internal Medicine | DX: J44.9 Chronic obstructive pulmonary disease, unspecified (principal); R09.02 Hypoxemia; G47.33 Obstructive sleep apnea (adult) (pediatric); Z87.891 Personal history of nicotine dependence | CPT/HCPCS: 94618; 99212 ==

== ENCOUNTER 2024-10-04 14:26 | Outpatient (AMB) | payer MEDICARE, SELFPAY ==
--- NOTE | 2024-10-04 14:31 | MHC.OFFVIS ---
Vital Signs 10/04/24 14:32 Height 5 ft 6 in BP 122/70 Blood Pressure Location Rt brachial Position Sitting Pulse 96 Pulse Source Pulse Oximeter Pulse Oximetry (%) 93 Oxygen Delivery Method Nasal Cannula Oxygen Flow Rate 2 Intake Visit Reasons: Hypoxia Intake Note: pt is here for follow up of ER and testing for portable oxygen. Pt has bi-pap at home that he is suppose to use is at 1 liters with bi-pap., but pt eneded up in ER and was told he needed oxygen and came in today to confirm the need and see MD Mirror Department Supervisor Required: No Allergies tamsulosin Adverse Reaction (Verified 10/04/24 17:06) headaches, slow movements Medication List - Last Reconciled 10/04/24 by Cruzito Echavarria MD amlodipine 2.5 mg PO DAILY 90 days azithromycin 250 mg PO DAILY 3 days brimonidine 0.2% 2 drps ophthalmic (eye) BID CPAP autoPAP 5-20 cmH2O dorzolamide-timolol 22.3-6.8 mg/mL 2 drps ophthalmic (eye) BID fluticasone propion-salmeterol 500-50 mcg/dose (Advair Diskus) 1 inh inhalation BID 30 days ibuprofen 800 mg PO Q8H PRN 30 days netarsudil-latanoprost 0.02-0.005 % (Rocklatan) 2 drps ophthalmic (eye) DAILY netarsudil-latanoprost 0.02-0.005 % (Rocklatan) 1 drp ophthalmic (eye) BEDTIME prednisone 20 mg PO DAILY simvastatin 10 mg PO BEDTIME 90 days Ventolin HFA 90 mcg/actuation (albuterol sulfate) 2 puffs inhalation Q6H PRN 30 days NS Do you need a note to return to daycare/school/sports/work: No HPI HPI Hypoxia: Details: THIS 74 YEARS OLD GENTLEMAN, FAROESE-SPEAKING, IS HERE FOR POST HOSPITALIZATION FOLLOW-UP. HE WAS ADMITTED TO THE HOSPITAL AFTER A FEW ER VISITS, WITH INCREASED COUGH AND SHORTNESS OF BREATH. TREATED FOR ACUTE EXACERBATION DUE TO ACUTE BRONCHITIS. HE ALSO HAD TESTING FOR HYPOXEMIA, AND HE DID HAVE EXERCISE INDUCED HYPOXEMIA. HE WAS DISCHARGED TO USE O2 AT NIGHT WELL DURING THE DAYTIME. HOWEVER HE HAS HAD POOR UNDERSTANDING, AND HIS ALSO DID NOT KNOW EXACTLY HOW MUCH OXYGEN TO USE. PREVIOUSLY HE IS KNOWN TO HAVE CHRONIC OBSTRUCTIVE PULMONARY. DISEASE BEING TREATED WITH MEDS HE IS ALSO KNOWN CASE OF OBSTRUCTIVE SLEEP APNEA AND RECENTLY HAD TITRATION IN THE SLEEP LAB HE REQUIRED BILEVEL CPAP WITH SETTING OF 12/7 CM AND O2 2 L/MINUTE. PATIENT HAS STOPPED USING THE BIPAP, HE AND HE ALSO STOPPED USING O2 EVEN THOUGH HE DOES HAVE THE O2 CONCENTRATOR AT HOME. TODAY HE IS RELATIVELY STABLE BUT COMPLAINED OF GETTING SHORT OF BREATH ON MINIMAL WALKING. [facility] Medical History Abdominal aortic aneurysm History of smoking 30 or more pack years COPD (chronic obstructive pulmonary disease) Physical exam Urticaria Former smoker Enlarged aorta Screening for prostate cancer Screening for diabetes mellitus Eye exam, routine Otitis media Adult general medical exam Cystitis Prostatitis Chest pain Balanitis Right leg pain Ear discomfort Shortness of breath Bronchitis Moderate major depression Anemia BPH w urinary obs/LUTS Bladder outlet obstruction Weak urinary stream Gross hematuria Lipoma Obese Dyslipidemia Essential hypertension Surgical History History of surgery History of colonoscopy Family History Father No problems noted. Mother Emphysema of lung Social History Household Members: Spouse Housing: Apartment Do you presently have visiting nurse or other home services: No Alcohol intake: never Patient Tobacco Use Status: Former Tobacco user Tobacco use type: Cigarette Years Smoked: 52 +/- e-Cigarette/Vaping Use: Never Used Second Hand Smoke Exposure: No Advance Directives Date on File: 08/14/21 service: No Current occupational status: disabled Cognitive needs: No Hearing needs: No Vision needs: Yes (Glasses) Review of Systems Const All systems reviewed & are unremarkable except as noted in HPI and below Eyes Reports blurry vision and Reports dry eyes ENT Reports no additional complaints Card Denies chest pain, Denies irregular heart rhythm and Denies leg edema Resp Reports as per HPI Reports nocturia Musc Reports back pain and Reports numbness (RIGHT FOOT) Skin/Breast Reports dry skin Neuro Reports no additional complaints and Reports numbness (RIGHT FOOT) Psych Reports anxiety Physical Exam Vital Signs: Last Vital Signs Pulse 96 10/04/24 14:32 BP 122/70 10/04/24 14:32 Pulse Ox 93 10/04/24 14:32 Oxygen Delivery Method Nasal Cannula 10/04/24 14:32 Oxygen Flow Rate 2 10/04/24 14:32 Const General: healthy appearing, comfortable, no acute distress, alert, awake and anxious Orientation/consciousness: patient oriented x3 HEENT Head: Yes normal to inspection General nose exam: No nasal polyps present and No nasal discharge present Face and sinus: Yes sinuses nontender Mouth: oropharynx normal Teeth and gingiva: other (MISSING LOWER TEETH, DOES HAVE REGRESSION OF THE CHIN ( RETROGNATHIA )) Throat: Yes posterior oropharynx normal Eyes General: appearance normal, both eyes and all related structures Neck Neck: Yes normal visual inspection, Yes no lymphadenopathy, Yes trachea midline and Yes no JVD Thyroid: Thyroid normal Chest Chest palpation & inspection: normal inspection of the chest, normal palpation of entire chest wall and no tenderness Resp Other: PERCUSSION NOTE IS RESONANT, BREATH SOUNDS ARE SOMEWHAT DISTANT WITH PROLONGED EXPIRATORY PHASE. BUT NO WHEEZES OR RHONCHI ARE HEARD. Cardio Palpation: normal PMI Rate: regular rate Rhythm: regular rhythm Heart sounds: no gallops and no murmurs GI Palpation (GI): Soft to palpation, nontender, No hepatosplenomegaly present and no masses Auscultation: normal bowel sounds Back/Spine/Pelvis Thoracic/Lumbar Spine: thoracic and lumbar spine normal to inspection Skin General skin exam: no rashes or lesions noted and dry skin Neuro General: patient oriented x3 and no focal motor deficits Cranial nerves: Yes CN's II-XII intact bilaterally Extrem General: Yes normal to inspection, Yes no clubbing, cyanosis or edema and Yes no calf tenderness Psych Appearance: grossly normal and well kempt Speech and movement: Normal speech and movement present Office Procedures 6 Minute Walk Time:: 14:00 SPO2 % at rest: 87 (O2 applied at 2lpm cont flow ) Pulse at rest: 102 SPO2 % during excercise: 93 Pulse during excercise: 106 SPO2 % after excercise: 93 Pulse after excercise: 94 Distance in yards walked: 75 Marichuy Score: 9 Supplemental Oxygen: Patient ambulated on level ground with the assist of a walker, O2 @ 2lpm, pt ambulated very slowly O2 sats stable @ 93% recommend O2 @ 2lpm cont flow Pt is currently a patient with [facility], they will be notified after patient is seen by the provider [phone] Minute Walk Results Reviewed Results Reviewed: PATIENT HAD 6 MINUTES WALK TEST. HE DID DESATURATE QUICKLY ON WALKING, AND IT WAS CORRECTED BY USE OF O2 2 L/MINUTE. Assessment & Plan Assessment & Plan (1) COPD (chronic obstructive pulmonary disease): Comment: HE HAS HISTORY OF SMOKING 1 PACK A DAY FOR ALMOST 50 YEARS. PER PULMONARY FUNCTION TEST HE DOES HAVE SEVERE OBSTRUCTIVE AIRWAY DISORDER WITH MINIMAL IMPROVEMENT AFTER BRONCHODILATOR THERAPY. Code(s): J44.9 - Chronic obstructive pulmonary disease, unspecified Category: Medical Plan: CONTINUE USING ADVAIR DISKUS 500-51 INHALATION B.I.D. ALBUTEROL HFA 2 PUFFS Q 6 HOURS P.R.N.. HE HAS COMPLETED THE COURSE OF PREDNISONE WHICH WAS STARTED DURING HIS HOSPITALIZATION. (2) History of smoking 30 or more pack years: Comment: NOTED ABOVE HE HAS HISTORY OF SMOKING ABOUT 1 PACK A DAY FOR [address] SCAN OF THE CHEST HAS SHOWN A SMALL CALCIFIED GRANULOMA IN LEFT LOWER LOBE AND A SMALL PULMONARY NODULE IN THE RIGHT LOWER LOBE. Code(s): Z87.891 - Personal history of nicotine dependence Category: Social Hx Plan: LUCKILY PATIENT HAS QUIT SMOKING. WILL CONTINUE TO HAVE ANNUAL LUNG SCREENING WITH LDCT (3) Hypoxemia: Comment: PATIENT FOUND TO HAVE NOCTURNAL HYPOXEMIA. I THINK NOCTURNAL HYPOXEMIA IS MORE DUE TO HIS SEVERE COPD, AND ALSO CONTRIBUTED BY SLEEP APNEA. PER CPAP TITRATION HE WAS STARTED ON BILEVEL CPAP 12/7 ALONG WITH O2 2 L/MINUTE. PATIENT HAD STOPPED USING THE BIPAP, AND EVEN THOUGH HE DOES HAVE O2 CONCENTRATOR AT HOME HE WAS NOT USING THE O2 AT NIGHT. Code(s): R09.02 - Hypoxemia Category: Medical Plan: NOW HE IS INSTRUCTED TO USE O2 2 L/MINUTE AT NIGHT. HE STILL WOULD NOT BE ABLE TO USE THESE BIPAP. (4) MARIS (obstructive sleep apnea): Comment: PATIENT DOES HAVE OBSTRUCTIVE SLEEP APNEA WHICH IS ONLY MILD AND MOSTLY IN SUPINE POSITION. HOWEVER IT IS ASSOCIATED WITH NOCTURNAL HYPOXEMIA, . HAD CPAP TITRATION IN THE SLEEP LAB AND REQUIRED BILEVEL BILEVEL PRESSURE OF 12/7 CM, WITH O2 2 L/MINUTE TO OVERCOME HYPOXEMIA. BUT NOTED ABOVE HE HAS STOPPED USING THE BIPAP . Code(s): G47.33 - Obstructive sleep apnea (adult) (pediatric) Category: Medical Plan: ADVISED TO USE O2 2 L/MINUTE AT NIGHT Coding Level of Care Code Est Pt Level 3 (20615) Diagnoses COPD (chronic obstructive pulmonary disease) J44.9 History of smoking 30 or more pack years Z87.891 Hypoxemia R09.02 MARIS (obstructive sleep apnea) G47.33 CPT Codes Coding ([id number])
[2024-10-04 14:32] VITALS: BP 122/70; PULSE 96; O2SAT 93
[2024-10-04 14:45] VITALS: PULSE 102; O2SAT 87
== END 2024-10-04 14:59 | disposition home or self-care (01) ==
LOC: HO.HPS 14:27
PROVIDERS: PCP Internal Medicine; Visit Provider Internal Medicine
DX: J44.9 Chronic obstructive pulmonary disease, unspecified (principal); Z87.891 Personal history of nicotine dependence; R09.02 Hypoxemia; G47.33 Obstructive sleep apnea (adult) (pediatric)
CPT/HCPCS: 94618; 99213

== ENCOUNTER 2024-10-07 13:12 | Outpatient (AMB) | payer MEDICARE, SELFPAY ==
--- NOTE | 2024-10-07 13:17 | A.OFFPC_ITS ---
Vital Signs 10/07/24 13:18 Height 5 ft 6 in Weight 176 lb 9.6 oz BMI 28.5 BP 126/82 Blood Pressure Location Lt brachial Position Sitting Respiration 20 Pulse 95 Pulse Source Pulse Oximeter Temp 97.3 F Temp Source Temporal Artery Scan Pulse Oximetry (%) 96 Oxygen Delivery Method Room Air Intake Visit Reasons: TCM [facility] [place] [facility] 10/01 SOB Intake Note: Patient is here for hospital discharge follow up. Patient was discharged from [facility] in [facility] on 10/01/2024. Movement Assembly Final Inspector Required: Yes Movement Assembly Final Inspector Language: Shaping Machine Tender Name: Used tablet- Pawel [id number] Accompanied by: Spouse Allergies tamsulosin Adverse Reaction (Verified 10/07/24 13:24) headaches, slow movements Tobacco use date assessed: 10/07/24 Fall risk assessment: 1 Fall in past year Last assessed Fall Risk: 10/07/24 Dental Screening Dental Screen Date: 10/07/24 Did you have a dental visit in the last 12 months?: No Did you have a dental problem in the last 6 months where you did not have access to dental care?: No Was dental information given to patient?: No HPI HPI Comments History of Present Illness Details 74 y/o Male patient who presents to the clinic for TCM. Pt was admitted at [facility] [facility] on 09/29 - 10/01 due to Acute Exacerbation COPD. He was treated with IV Abx in the hospital. Today Pt reports Back Neck Pain. [facility] Medical History (Updated 10/07/24 @ 13:52 by Shelley Bustos NP) Cervicalgia Abdominal aortic aneurysm History of smoking 30 or more pack years COPD (chronic obstructive pulmonary disease) Physical exam Urticaria Former smoker Enlarged aorta Screening for prostate cancer Screening for diabetes mellitus Eye exam, routine Otitis media Adult general medical exam Cystitis Prostatitis Chest pain Balanitis Right leg pain Ear discomfort Shortness of breath Bronchitis Moderate major depression Anemia BPH w urinary obs/LUTS Bladder outlet obstruction Weak urinary stream Gross hematuria Lipoma Obese Dyslipidemia Essential hypertension Surgical History History of surgery History of colonoscopy Family History Father No problems noted. Mother Emphysema of lung Social History Household Members: Spouse Housing: Apartment Do you presently have visiting nurse or other home services: No Alcohol intake: never Patient Tobacco Use Status: Former Tobacco user Tobacco use type: Cigarette Years Smoked: 52 +/- e-Cigarette/Vaping Use: Never Used Second Hand Smoke Exposure: No Advance Directives Date on File: 08/14/21 service: No Current occupational status: disabled Cognitive needs: No Hearing needs: No Vision needs: Yes (Glasses) Questionnaire Thrive Questionnaire Date Thrive assessed: 10/07/24 I am a: Patient What is your living situation today?: I have a steady place to live Within the past 12 months, did the food you bought not last and you didn't have the money to get more?: Never true Within the past 12 months, did you worry whether your food would run out before you got money to buy more?: Never true Do you have trouble paying for medicines?: No Do you have trouble getting transportation to medical appointments?: No Do you have trouble paying your heating and electricity bill?: No Do you have trouble taking care of your child, family member or friend?: No Do you have trouble with day-to-day activities such as bathing, preparing meals, shopping, managing finances, etc.?: No Are you currently unemployed and looking for a job?: No Are you interested in more education?: No Please select the resources that you would like help with: None Currently or been in a relationship where the following occur: No concerns reported THRIVE Score: 0 AUDIT C Alcohol Use Questionnaire (AUDIT-C) 1. How often do you have a drink containing alcohol?: Never 3. How often do you have six or more drinks on one occasion?: Never Total Score: 0 Score Reviewed/Action Taken: No ELADIO-7 AMB Questionnaire ELADIO-7 Date ELADIO - 7 assessed: 09/12/24 Source: Developed by Drs. Perry Frazier, Julia Jalloh, Memo Kwan and colleagues, with an educational jose from [employer]. Review of Systems Const All systems reviewed & are unremarkable except as noted in HPI and below Physical exam (Primary Care) Vital Signs: Last Vital Signs Temp 97.3 F 10/07/24 13:18 Pulse 95 10/07/24 13:18 Resp 20 10/07/24 13:18 BP 126/82 10/07/24 13:18 Pulse Ox 96 10/07/24 13:18 Oxygen Delivery Method Room Air 10/07/24 13:18 BMI result Body Mass Index 28.5 Tobacco/Smoking Status: Tobacco use Status Tobacco use date assessed 10/07/24 10/07/24 13:33 Patient Tobacco Use Status Former Tobacco user 10/07/24 13:33 Tobacco use type Cigarette 10/07/24 13:33 e-Cigarette/Vaping Use Never Used 10/07/24 13:33 Thrive Assessment: Date of Thrive Assessment Date Thrive assessed 10/07/24 10/07/24 13:33 Currently or been in a relationship where the following occur: No concerns reported Const General: no acute distress Nutritional Appearance: overweight Orientation/consciousness: patient oriented x3 Neck Neck: Yes no lymphadenopathy and Yes supple Resp Effort & Inspection: normal respiratory effort and able to speak in complete sentences Auscultation: clear to auscultation bilaterally, no crackles, no rales, no rhonchi and no wheezes Cardio Rate: regular rate Heart sounds: S1 normal heart sound present and S2 normal heart sound present Back/Spine/Pelvis Cervical Spine: cervical muscular tenderness, pain with cervical ROM, cervical spasm and Cervical spine tenderness Neuro General: patient oriented x3, gait normal and moves all extremities Psych Speech and movement: Normal speech and movement present Coding Level of Care Code TCM Mod MDM <= 7 Days Diagnoses Acute exacerbation of chronic obstructive pulmonary disease (COPD) J44.1 Cervicalgia M54.2 Time Spent (min) 20 Assessment & Plan Assessment & Plan (1) Acute exacerbation of chronic obstructive pulmonary disease (COPD): Code(s): J44.1 - Chronic obstructive pulmonary disease with (acute) exacerbation Category: Medical Plan: Stable, completed Abx. Managed by Pulmonology. (2) Cervicalgia: Code(s): M54.2 - Cervicalgia Category: Medical Plan: NSAIDs or Acetaminophen for pain relief. Heat/Ice Rest
[2024-10-07 13:18] VITALS: BP 126/82; PULSE 95; RESP 20; TEMP 36.3; O2SAT 96; BMI 28.5
== END 2024-10-07 13:49 | disposition home or self-care (01) ==
LOC: HO.HMCH 13:12
PROVIDERS: PCP Internal Medicine; Visit Provider Nurse Practitioner Family
DX: J44.1 Chronic obstructive pulmonary disease with (acute) exacerbation (principal); M54.2 Cervicalgia

== ENCOUNTER → 2024-10-07 13:12 | Outpatient (BNVA) | payer MEDICARE, SELFPAY | PROVIDERS: PCP Internal Medicine; Visit Provider Nurse Practitioner Family | DX: J44.1 Chronic obstructive pulmonary disease with (acute) exacerbation (principal); M54.2 Cervicalgia | CPT/HCPCS: 99212 ==

== ENCOUNTER 2024-10-11 13:51 | Outpatient (AMB) | payer MEDICARE, SELFPAY ==
--- NOTE | 2024-10-11 13:54 | A.OFFVIS_ITS ---
Vital Signs 10/11/24 13:59 Height 5 ft 6 in Weight 177 lb 2 oz BMI 28.6 BP 155/83 H Blood Pressure Location Lt brachial Position Sitting Pulse 95 Pulse Source Pulse Oximeter Pulse Oximetry (%) 93 Oxygen Delivery Method Nasal Cannula Oxygen Flow Rate 2 Intake Visit Reasons: Sciatica, right side Intake Note: Pain today 10/10 Barrel Lathe Operator Outside Required: Yes Barrel Lathe Operator Outside Language: Outpatient Phlebotomist Services: Barrel Lathe Operator Outside Present Barrel Lathe Operator Outside Name: Nelly Reyes Information Interpreted: non-clinical & clinical Accompanied by: Self / Same As Patient Allergies tamsulosin Adverse Reaction (Verified 10/11/24 13:58) headaches, slow movements HPI HPI Sciatica, right side: Location: right leg Duration: 1+ years Characteristics of symptom or complaint: lump , numbness, spasm Aggravating or associated factors: laying, Relieving factors: Motrin Treatment: Motrin HPI Comments Details: The patient is a 74-year-old Mohawk speaking male presenting with chronic low back pain and right leg radiculopathy. The pain, persisting for approximately two years, reportedly started after a traumatic incident in [place] and has been exacerbated over time. The patient experiences a radiating sensation from the lumbar region down to the right calf, described as an oven sensation, rated as severe at 10/10. Relief partly occurs when the leg is positioned at a specific angle, though the pain is noted to be constant. Movement-related pain is predominantly associated with turning while in bed, walking, bending or climbing stairs. His medical history includes significant conditions such as COPD, for which he is oxygen dependent and admitted recently for exacerbation, as well as a known abdominal aortic aneurysm managed under Vascular care with last follow up in 2021. He is also dealing with glaucoma, monitored regularly per patient considering steroid influence on intraocular pressure. Previous diagnostic evaluations, including a venous doppler study to rule out deep vein thrombosis, were reportedly negative. He expresses concerns regarding a perceived ball sensation in the right calf with associated tenderness. Despite the use of NSAIDs such as Motrin, he achieves limited analgesic benefit, prompting the need for further diagnostic evaluations, particularly MRI to assess potential nerve compression contributing to his symptoms. Given significant low back and right leg pain, he is not able to pursue formal physical therapy at this time. - Chronic back pain onset approximately two years ago - Pain quality: oven sensation, feeling of a ball in right leg, radiating, stabbing, shooting, burning, numbness, tingling, sore - Primary location: Lumbar region - Radiation: Right calf and foot, reaching toes - Severity: 04/07 - Exacerbating Factors: Turning in bed, walking, bending, climbing stairs, movements - Relieving Factors: Specific leg positioning, Motrin - Interference: Affects sleep positioning, reported unsteadiness occasionally - Affect: Pain impacts sleep and potentially mood - Analgesia: NSAIDs like Motrin; reports extreme pain of 04/07 - Adverse Effects: No side effects of medications mentioned - Activities of Daily Living: Pain limits mobility, affects positioning in bed - Aberrant Drug Related Behaviors: None reported PFSH Medical History Cervicalgia Abdominal aortic aneurysm History of smoking 30 or more pack years COPD (chronic obstructive pulmonary disease) Physical exam Urticaria Former smoker Enlarged aorta Screening for prostate cancer Screening for diabetes mellitus Eye exam, routine Otitis media Adult general medical exam Cystitis Prostatitis Chest pain Balanitis Right leg pain Ear discomfort Shortness of breath Bronchitis Moderate major depression Anemia BPH w urinary obs/LUTS Bladder outlet obstruction Weak urinary stream Gross hematuria Lipoma Obese Dyslipidemia Essential hypertension Surgical History History of surgery History of colonoscopy Family History Father No problems noted. Mother Emphysema of lung Social History Household Members: Spouse Housing: Apartment Do you presently have visiting nurse or other home services: No Alcohol intake: never Patient Tobacco Use Status: Former Tobacco user Tobacco use type: Cigarette Years Smoked: 52 +/- e-Cigarette/Vaping Use: Never Used Second Hand Smoke Exposure: No Advance Directives Date on File: 08/14/21 service: No Current occupational status: disabled Cognitive needs: No Hearing needs: No Vision needs: Yes (Glasses) Review of Systems Const Details: - Musculoskeletal: Reports low back pain, right leg pain, denies left leg pain - Neurological: Reports right leg numbness, denies other neurological symptoms including bladder or bowel dysfunction or saddle anesthesia. - Respiratory: Reports oxygen dependency, recent hospitalization for COPD exacerbation - Visual: Aware of glaucoma and effects of steroids on eye pressure All systems reviewed & are unremarkable except as noted in HPI and below Physical Exam Vital Signs: Last Vital Signs Pulse 95 10/11/24 13:59 BP 155/83 H 10/11/24 13:59 Pulse Ox 93 10/11/24 13:59 Oxygen Delivery Method Nasal Cannula 10/11/24 13:59 Oxygen Flow Rate 2 10/11/24 13:59 BMI result Body Mass Index 28.6 General: Appears afebrile. Alert and oriented. Mood and affect appropriate. Follows and participates in conversation appropriately. Respiratory effort is unlabored. No cough. Mild dyspnea. O2 depedant. Able to transition from sit to stand unassisted. Ambulates with bilaterally normal heel strike and toe off, increase in RLE and right sided low back pain with standing on heel/toes on the right. General: Yes no CVA tenderness Back/Spine/Pelvis Other: Limited lumbar ROM due to pain. Lumbar flexion and axial rotation with extension reproduces moderate to severe pain, worse with bending. Demonstrates 5/5 left and 4/5 right strength of quadriceps bilaterally as well as flexion/dorsiflexion of bilateral feet against resistance. 2+ pedal pulses bilaterally. Straight leg rise with dorsiflexion positive on the right. Diminished patellar and achilles reflexes bilaterally. Facet loading test positive bilaterally. Unable to proceed with back exam due to significant pain exacerbation. Valsalva maneuver is positive. Back: no CVA tenderness Cervical Spine: cervical ROM normal, cervical muscular tenderness and No Cervical spine tenderness Thoracic/Lumbar Spine: thoracic and lumbar spine normal to inspection, No Thoracic/lumbar spine scar(s), Lasegue's sign positive on the right and localized, pain with thoraco-lumbar ROM, paraspinal muscle tenderness on the right greater than left, thoraco-lumbar ROM limited, No thoracic spinal tenderness and lumbar spinal tenderness (L4-S1) Pelvis: buttock tenderness on the right and sciatic notch tenderness on the right Sacroiliac joints: bilaterally (limited Landon's reproduces lateral hip pain but not LBP) tender to palpation Extrem General: Yes no clubbing, cyanosis or edema and Yes calf tenderness (right) Right lower extremity: lower leg Details: normal to inspection, tenderness Location: of the posterior calf and no edema; no localized swelling, no ecchymosis and no unusual warmth Results Reviewed Results Reviewed: XR LUMBOSACRAL SPINE 07/30/2015 CLINICAL INFORMATION: Low back pain FINDINGS: The vertebral body heights are maintained. Mild disc space narrowing is noted at L5/S1. There is no fracture or subluxation. Minimal endplate osteophytes are noted spanning the lumbar spine. Facet sclerosis at L5 is noted. The SI joints are unremarkable. IMPRESSION: Mild disc space narrowing at L5/S1. US VENOUS ULTRASOUND WITH DOPPLER LOWER EXTREMITY, RIGHT 08/04/23 CLINICAL INFORMATION: Pain in right leg TECHNIQUE: Ultrasound of the deep veins is performed from the hip to the calf with compression sonography and color and pulse Doppler assessment. Spectral analysis with color-flow imaging is performed. FINDINGS: There is normal venous compression and respiratory variation. The visualized common femoral vein, superficial femoral vein, profunda femoral vein, popliteal vein, and the posterior tibial and peroneal veins shows no evidence of deep venous thrombosis. IMPRESSION: No DVT demonstrated in the right lower extremity. Assessment & Plan Assessment & Plan (1) Right sciatic nerve pain: Code(s): M54.31 - Sciatica, right side Category: Medical (2) Lumbar degenerative disc disease: Code(s): M51.369 - Other intervertebral disc degeneration, lumbar region without mention of lumbar back pain or lower extremity pain Category: Medical (3) Lumbosacral spondylosis: Code(s): M47.817 - Spondylosis without myelopathy or radiculopathy, lumbosacral region Category: Medical (4) Right calf pain: Code(s): M79.661 - Pain in right lower leg Category: Medical (5) Lumbar back pain with radiculopathy affecting right lower extremity: Code(s): M54.16 - Radiculopathy, lumbar region Category: Medical Plan For the chronic low back pain with associated right leg radiculopathy, an MRI and xray has been planned to explore possible nerve compression contributing to these symptoms. An ultrasound is also ordered to rule out DVT, given the patient's complaint of a 'ball' sensation and calf tenderness in his right leg. Patient will return to the clinic to discuss results of the MRI and xray findings when it is done and consider interventional therapy as indicated. Patient is aware to call if pain worsens or if he develops any red flag symptoms to seek emergency care. Patient denies any cauda equina syndrome symptoms at this time. All questions and concerns have been answered and patient agreed with the plan. Follow up for MRI/xray results and sooner as needed. Patient was informed and verbally consented to the use of an ambient scribe for clinic note documentation during this visit. Orders: Orders XR lumbar spine 6V w bending Today M47.817 - Spondylosis without myelopathy or radiculopathy, lumbosacral region, M51.369 - Other intervertebral disc degeneration, lumbar region without mention of lumbar back pain or lower extremity pain, M54.31 - Sciatica, right side US venous duplex LE RT Today M79.661 - Pain in right lower leg MR lumbar spine wo con Today M47.817 - Spondylosis without myelopathy or radiculopathy, lumbosacral region, M51.369 - Other intervertebral disc degeneration, lumbar region without mention of lumbar back pain or lower extremity pain, M54.16 - Radiculopathy, lumbar region, M54.31 - Sciatica, right side Coding Level of Care Code New Pt Level 4 (17029) Diagnoses Right sciatic nerve pain M54.31 Lumbar degenerative disc disease M51.369 Lumbosacral spondylosis M47.817 Right calf pain M79.661 Lumbar back pain with radiculopathy affecting right lower extremity M54.16
[2024-10-11 13:59] VITALS: BP 155/83; PULSE 95; O2SAT 93; BMI 28.6
== END 2024-10-11 14:24 | disposition home or self-care (01) ==
LOC: HO.PMC 13:51
PROVIDERS: PCP Internal Medicine; Referring Provider Internal Medicine; Visit Provider Nurse Practitioner Family
DX: M54.31 Sciatica, right side (principal); M51.369 Other intervertebral disc degeneration, lumbar region without mention of lumbar back pain or lower extremity pain; M47.817 Spondylosis without myelopathy or radiculopathy, lumbosacral region; M79.661 Pain in right lower leg; M54.16 Radiculopathy, lumbar region
CPT/HCPCS: 99204

== ENCOUNTER → 2024-10-11 13:51 | Outpatient (BNVA) | payer MEDICARE, SELFPAY | PROVIDERS: PCP Internal Medicine; Referring Provider Internal Medicine; Visit Provider Nurse Practitioner Family | DX: M54.31 Sciatica, right side (principal); M51.369 Other intervertebral disc degeneration, lumbar region without mention of lumbar back pain or lower extremity pain; M47.817 Spondylosis without myelopathy or radiculopathy, lumbosacral region; M79.661 Pain in right lower leg; M54.16 Radiculopathy, lumbar region | CPT/HCPCS: 99202 ==

== ENCOUNTER 2024-10-12 13:36 | Outpatient (REF) | payer MEDICARE, SELFPAY ==
--- NOTE | ~2024-10-12 | XR_ITS ---
CLINICAL HISTORY: M54.31 - Sciatica, right side 7 views lumbar spine Comparison: None Findings: Normal vertebral body alignment. No acute fractures or dislocation. There are degenerative changes of the L5-S1 disc space and left L5-S1 facet joint. There is aortic calcification. IMPRESSION: No acute findings. This document has been electronically signed by: Lion Ríos MD on 10/14/2024 08:32:55
== END 2024-10-12 13:37 | disposition home or self-care (01) ==
LOC: HO.XRAY 13:36
PROVIDERS: PCP Internal Medicine; Visit Provider Nurse Practitioner Family
DX: M51.369 Other intervertebral disc degeneration, lumbar region without mention of lumbar back pain or lower extremity pain (principal); M47.817 Spondylosis without myelopathy or radiculopathy, lumbosacral region; M54.31 Sciatica, right side
CPT/HCPCS: 72114

== ENCOUNTER → 2024-10-12 13:45 | Outpatient (BNV) | payer MEDICARE, SELFPAY | PROVIDERS: PCP Internal Medicine; Visit Provider Specialist | DX: M54.31 Sciatica, right side (principal) | CPT/HCPCS: 72114 ==

== ENCOUNTER 2024-10-18 14:43 | Outpatient (REF) | payer MEDICARE, SELFPAY ==
--- NOTE | ~2024-10-18 | US_ITS ---
EXAMINATION: US TRIPLEX LOWER EXTREMITY, RIGHT CLINICAL INFORMATION: Pain, right lower extremity COMPARISON: August 04, 2023 reported negative. TECHNIQUE: Color-flow triplex imaging with spectral analysis and compression Doppler were performed on the right lower extremity. FINDINGS: Respiratory variation, normal compression and augmented flow are noted throughout the interrogated common femoral vein, superficial femoral vein, profunda femoral vein, popliteal vein and midcalf peroneal and posterior tibial venous segments . There is no Dominguez's cyst. US/US venous duplex LE RT IMPRESSION: No acute deep venous thrombosis involving the right lower extremity. Negative for DVT. Electronically signed by: Ney Mae MD 10/18/2024 03:42 PM EDT
== END 2024-10-18 14:44 | disposition home or self-care (01) ==
LOC: HO.HMGCX 14:43
PROVIDERS: PCP Internal Medicine; Visit Provider Nurse Practitioner Family
DX: M79.661 Pain in right lower leg (principal)
CPT/HCPCS: 93971

== ENCOUNTER → 2024-10-18 14:51 | Outpatient (BNV) | payer MEDICARE, SELFPAY | PROVIDERS: PCP Internal Medicine; Visit Provider Radiology Diagnostic Radiology | DX: M79.661 Pain in right lower leg (principal) | CPT/HCPCS: 93971 ==

== ENCOUNTER → 2024-10-24 16:08 | Outpatient (BNV) | payer MEDICARE, SELFPAY | PROVIDERS: PCP Internal Medicine; Visit Provider Radiology Diagnostic Radiology | DX: M51.27 Other intervertebral disc displacement, lumbosacral region (principal); M99.63 Osseous and subluxation stenosis of intervertebral foramina of lumbar region | CPT/HCPCS: 72148 ==

== ENCOUNTER 2024-10-24 16:20 | Outpatient (REF) | payer MEDICARE, SELFPAY ==
--- NOTE | ~2024-10-24 | MR_ITS ---
CLINICAL HISTORY: M54.31 - Sciatica, right side MRI lumbar without contrast: Comparison: Plain films 10/12/2024 Findings: The vertebral bodies are normal in height. No compression fractures. Bone marrow cellularity is normal. The paravertebral soft tissues are unremarkable. No intrathecal or extra thecal nodules or masses. The conus medullaris is located at T12-L1. There is mild narrowing of the L5-S1 disc space with posterior 4.2 mm broad-based disc protrusion with mild bilateral foraminal stenosis. The remaining disc spaces are unremarkable. No significant facet hypertrophy or posterior ligament invagination. No canal stenosis. Nerve root distribution is normal without signs of arachnoiditis. Impression: 4.2 mm posterior broad-based disc protrusion at L5 S1 and mild bilateral foraminal stenosis. This document has been electronically signed by: Jesus Sainz MD on 10/24/2024 17:40:00
== END 2024-10-24 16:21 | disposition home or self-care (01) ==
LOC: HO.MRI 16:20
PROVIDERS: PCP Internal Medicine; Visit Provider Nurse Practitioner Family
DX: M51.369 Other intervertebral disc degeneration, lumbar region without mention of lumbar back pain or lower extremity pain (principal); M47.817 Spondylosis without myelopathy or radiculopathy, lumbosacral region; M54.16 Radiculopathy, lumbar region; M54.31 Sciatica, right side
CPT/HCPCS: 72148

== ENCOUNTER 2024-11-01 13:16 | Outpatient (AMB) | payer MEDICARE, MEDICAID, SELFPAY ==
--- NOTE | 2024-11-01 13:36 | A.OFFVIS_ITS ---
Vital Signs 11/01/24 13:37 Height 5 ft 6 in Weight 177 lb BMI 28.6 BP 130/70 Blood Pressure Location Lt brachial Position Sitting Pulse 92 Pulse Source Pulse Oximeter Pulse Oximetry (%) 91 L Oxygen Delivery Method Room Air Intake Visit Reasons: justyna Intake Note: pt is here for justyna follow up and start of oxygen for portability and night time use, Crime Scene Technician Required: Yes Crime Scene Technician Services: Crime Scene Technician Present Crime Scene Technician Name: Dalton Allergies tamsulosin Adverse Reaction (Verified 11/01/24 13:43) headaches, slow movements Medication List - Last Reconciled 11/01/24 by Cruzito Echavarria MD amlodipine 2.5 mg PO DAILY 90 days brimonidine 0.2% 2 drps ophthalmic (eye) BID CPAP autoPAP 5-20 cmH2O dorzolamide-timolol 22.3-6.8 mg/mL 2 drps ophthalmic (eye) BID fluticasone propion-salmeterol 500-50 mcg/dose (Advair Diskus) 1 inh inhalation BID 30 days ibuprofen 800 mg PO Q8H PRN 30 days netarsudil-latanoprost 0.02-0.005 % (Rocklatan) 2 drps ophthalmic (eye) DAILY simvastatin 10 mg PO BEDTIME 90 days Ventolin HFA 90 mcg/actuation (albuterol sulfate) 2 puffs inhalation Q6H PRN 30 days NS Do you need a note to return to daycare/school/sports/work: No HPI HPI justyna: Details: 74 years old gentleman who speaks only Citizen Of [place], his also speaks Citizen [place]. He comes for a follow-up. On his last visit 1 month ago he qualified for portable oxygen. Prior to that he had a polysomnogram study in the sleep lab and qualified for BiPAP. During his hospitalization he was also found to have nocturnal hypoxemia and was advised to use oxygen at night. He is doing fairly good but confused about the oxygen. He say is when he puts the BiPAP mask on he gets short of breath and feels suffocated. He is trying to use oxygen 2 L/minute at night. Today he walked in and did not appear. To be short of breath His resting O2 sat on room air was 95%. He did bring his portable unit with, but as noted above he and his not understanding about how to use the oxygen. [facility] Medical History Cervicalgia Abdominal aortic aneurysm History of smoking 30 or more pack years COPD (chronic obstructive pulmonary disease) Physical exam Urticaria Former smoker Enlarged aorta Screening for prostate cancer Screening for diabetes mellitus Eye exam, routine Otitis media Adult general medical exam Cystitis Prostatitis Chest pain Balanitis Right leg pain Ear discomfort Shortness of breath Bronchitis Moderate major depression Anemia BPH w urinary obs/LUTS Bladder outlet obstruction Weak urinary stream Gross hematuria Lipoma Obese Dyslipidemia Essential hypertension Surgical History History of surgery History of colonoscopy Family History Father No problems noted. Mother Emphysema of lung Social History Household Members: Spouse Housing: Apartment Do you presently have visiting nurse or other home services: No Alcohol intake: never Patient Tobacco Use Status: Former Tobacco user Tobacco use type: Cigarette Years Smoked: 52 +/- e-Cigarette/Vaping Use: Never Used Second Hand Smoke Exposure: No Advance Directives Date on File: 08/14/21 service: No Current occupational status: disabled Cognitive needs: No Hearing needs: No Vision needs: Yes (Glasses) Review of Systems Const All systems reviewed & are unremarkable except as noted in HPI and below Eyes Reports blurry vision and Reports dry eyes ENT Reports no additional complaints Card Denies chest pain, Denies irregular heart rhythm and Denies leg edema Resp Reports as per HPI Reports nocturia Musc Reports back pain and Reports numbness (RIGHT FOOT) Skin/Breast Reports dry skin Neuro Reports no additional complaints and Reports numbness (RIGHT FOOT) Psych Reports anxiety Physical Exam Vital Signs: Last Vital Signs Pulse 92 11/01/24 13:37 BP 130/70 11/01/24 13:37 Pulse Ox 91 L 11/01/24 13:37 Oxygen Delivery Method Room Air 11/01/24 13:37 BMI result Body Mass Index 28.6 Const General: healthy appearing, comfortable, no acute distress, alert, awake and anxious Orientation/consciousness: patient oriented x3 HEENT Head: Yes normal to inspection General nose exam: No nasal polyps present and No nasal discharge present Face and sinus: Yes sinuses nontender Mouth: oropharynx normal Teeth and gingiva: other (MISSING LOWER TEETH, DOES HAVE REGRESSION OF THE CHIN ( RETROGNATHIA )) Throat: Yes posterior oropharynx normal Eyes General: appearance normal, both eyes and all related structures Neck Neck: Yes normal visual inspection, Yes no lymphadenopathy, Yes trachea midline and Yes no JVD Thyroid: Thyroid normal Chest Chest palpation & inspection: normal inspection of the chest, normal palpation of entire chest wall and no tenderness Resp Other: PERCUSSION NOTE IS RESONANT, BREATH SOUNDS ARE SOMEWHAT DISTANT WITH PROLONGED EXPIRATORY PHASE. BUT NO WHEEZES OR RHONCHI ARE HEARD. Cardio Palpation: normal PMI Rate: regular rate Rhythm: regular rhythm Heart sounds: no gallops and no murmurs GI Palpation (GI): Soft to palpation, nontender, No hepatosplenomegaly present and no masses Auscultation: normal bowel sounds Back/Spine/Pelvis Thoracic/Lumbar Spine: thoracic and lumbar spine normal to inspection Skin General skin exam: no rashes or lesions noted and dry skin Neuro General: patient oriented x3 and no focal motor deficits Cranial nerves: Yes CN's II-XII intact bilaterally Extrem General: Yes normal to inspection, Yes no clubbing, cyanosis or edema and Yes no calf tenderness Psych Appearance: grossly normal and well kempt Speech and movement: Normal speech and movement present Assessment & Plan Assessment & Plan (1) COPD (chronic obstructive pulmonary disease): Comment: HE HAS HISTORY OF SMOKING 1 PACK A DAY FOR ALMOST 50 YEARS. PER PULMONARY FUNCTION TEST HE DOES HAVE SEVERE OBSTRUCTIVE AIRWAY DISORDER WITH MINIMAL IMPROVEMENT AFTER BRONCHODILATOR THERAPY. HE IS DOING FAIRLY WELL WITH HIS CURRENT REGIMEN AT THIS TIME . Code(s): J44.9 - Chronic obstructive pulmonary disease, unspecified Category: Medical Plan: ADVISED TO CONTINUE USING ADVAIR 500-51 INHALATION B.I.D.. AND USE VENTOLIN 2 PUFFS Q 4-6 HOURS P.R.N.. (2) History of smoking 30 or more pack years: Comment: NOTED ABOVE HE HAS HISTORY OF SMOKING ABOUT 1 PACK A DAY FOR [address] SCAN OF THE CHEST HAS SHOWN A SMALL CALCIFIED GRANULOMA IN LEFT LOWER LOBE AND A SMALL PULMONARY NODULE IN THE RIGHT LOWER LOBE. Code(s): Z87.891 - Personal history of nicotine dependence Category: Social Hx Plan: ADVISED TO CONTINUE GOING FOR ANNUAL LDCT OF THE CHEST (3) Hypoxemia: Comment: PATIENT FOUND TO HAVE NOCTURNAL HYPOXEMIA. I THINK NOCTURNAL HYPOXEMIA IS MORE DUE TO HIS SEVERE COPD, AND ALSO CONTRIBUTED BY SLEEP APNEA. PER CPAP TITRATION HE WAS STARTED ON BILEVEL CPAP 12/7 ALONG WITH O2 2 L/MINUTE. HE HAS STOPPED USING THE BIPAP BUT CONTINUES TO USE O2 2 L/MINUTE AT NIGHT Code(s): R09.02 - Hypoxemia Category: Medical Plan: ADVISED DO USE O2 2 L/MINUTE WITH NASAL CANNULA, AT NIGHTTIME. HIS IS EXPRESSING THAT SHE ON HER DO NOT KNOW HOW TO USE THE C ONCENTRATOR AND NASAL CANNULA AT NIGHT. THEY WOULD LIKE TO HAVE THE OXYGEN COMPANY COME AND EXPLAIN IT TO THEM. WE WILL REACH OUT TO [facility] AND HAVE THEM SENT SOMEONE TO THE HOUSE TO TEACH THEM HOW TO USE THE OXYGEN. (4) JUSTYNA (obstructive sleep apnea): Comment: PATIENT DOES HAVE OBSTRUCTIVE SLEEP APNEA WHICH IS ONLY MILD AND MOSTLY IN SUPINE POSITION. HOWEVER IT IS ASSOCIATED WITH NOCTURNAL HYPOXEMIA, . HAD CPAP TITRATION IN THE SLEEP LAB AND REQUIRED BILEVEL BILEVEL PRESSURE OF 12/7 CM, WITH O2 2 L/MINUTE TO OVERCOME HYPOXEMIA. BUT NOTED ABOVE HE HAS STOPPED USING THE BIPAP. HE AGAIN SAY IS THAT HE JUST DOES NOT FEEL COMFORTABLE WITH THE BIPAP, . SO CAN NOT USE IT Code(s): G47.33 - Obstructive sleep apnea (adult) (pediatric) Category: Medical Plan: TOLD THAT HE WILL HAVE TO RETURN HIS BIPAP DEVICE. HE SHOULD CONTINUE TO USE O2 2 L/MINUTE AT NIGHT. Coding Level of Care Code Est Pt Level 3 (80145) Diagnoses COPD (chronic obstructive pulmonary disease) J44.9 History of smoking 30 or more pack years Z87.891 Hypoxemia R09.02 JUSTYNA (obstructive sleep apnea) G47.33
[2024-11-01 13:37] VITALS: BP 130/70; PULSE 92; O2SAT 91; BMI 28.6
== END 2024-11-01 13:59 | disposition home or self-care (01) ==
LOC: HO.HPS 13:17
PROVIDERS: PCP Internal Medicine; Visit Provider Internal Medicine
DX: J44.9 Chronic obstructive pulmonary disease, unspecified (principal); Z87.891 Personal history of nicotine dependence; R09.02 Hypoxemia; G47.33 Obstructive sleep apnea (adult) (pediatric)
CPT/HCPCS: 99213

== ENCOUNTER → 2024-11-01 13:16 | Outpatient (BNVA) | payer MEDICARE, MEDICAID, SELFPAY | PROVIDERS: PCP Internal Medicine; Visit Provider Internal Medicine | DX: G47.33 Obstructive sleep apnea (adult) (pediatric) (principal); J44.9 Chronic obstructive pulmonary disease, unspecified; R09.02 Hypoxemia; Z87.891 Personal history of nicotine dependence | CPT/HCPCS: 99212 ==

== ENCOUNTER 2024-11-03 13:43 | Outpatient (AMB) | payer MEDICARE, SELFPAY ==
--- NOTE | 2024-11-03 13:51 | A.OFFVIS_ITS ---
Vital Signs 11/03/24 13:55 Height 5 ft 6 in Weight 180 lb BMI 29.0 BP 132/67 Blood Pressure Location Lt brachial Position Sitting Pulse 94 Pulse Source Pulse Oximeter Pulse Oximetry (%) 97 Oxygen Delivery Method Room Air Intake Visit Reasons: MRI follow up Lacquer Machine Feeder Required: Yes Lacquer Machine Feeder Language: Cash Applications Representative Name: Jocelyn Accompanied by: Self / Same As Patient Allergies tamsulosin Adverse Reaction (Verified 11/03/24 14:00) headaches, slow movements HPI Comments Details: Patient presents today for follow up to discuss recent lumbar MRI. Denies any recent cough, cold, infection, fever or any significant changes in medical history since last office visit except right knee and left hand pain following a fall on the stairs today. He currently does not engage in physical therapy but plans to initiate it along with using a massage device at home. Patient is hesitant about injection therapy and wants to pursue physical therapy as primary management for his leg pain. PRIOR: The patient is a 74-year-old Ivorian speaking male presenting with chronic low back pain and right leg radiculopathy. The pain, persisting for approximately two years, reportedly started after a traumatic incident in [place] and has been exacerbated over time. The patient experiences a radiating sensation from the lumbar region down to the right calf, described as an oven sensation, rated as severe at 10/10. Relief partly occurs when the leg is positioned at a specific angle, though the pain is noted to be constant. Movement-related pain is predominantly associated with turning while in bed, walking, bending or climbing stairs. His medical history includes significant conditions such as COPD, for which he is oxygen dependent and admitted recently for exacerbation, as well as a known abdominal aortic aneurysm managed under Vascular care with last follow up in 2021. He is also dealing with glaucoma, monitored regularly per patient considering steroid influence on intraocular pressure. Previous diagnostic evaluations, including a venous doppler study to rule out deep vein thrombosis, were reportedly negative. He expresses concerns regarding a perceived ball sensation in the right calf with associated tenderness. Despite the use of NSAIDs such as Motrin, he achieves limited analgesic benefit, prompting the need for further diagnostic evaluations, particularly MRI to assess potential nerve compression contributing to his symptoms. Given significant low back and right leg pain, he is not able to pursue formal physical therapy at this time. - Chronic back pain onset approximately two years ago - Pain quality: oven sensation, feeling of a ball in right leg, radiating, stabbing, shooting, burning, numbness, tingling, sore - Primary location: Lumbar region - Radiation: Right calf and foot, reaching toes - Severity: 04/07 - Exacerbating Factors: Turning in bed, walking, bending, climbing stairs, movements - Relieving Factors: Specific leg positioning, Motrin - Interference: Affects sleep positioning, reported unsteadiness occasionally - Affect: Pain impacts sleep and potentially mood - Analgesia: NSAIDs like Motrin; reports extreme pain of 04/07 - Adverse Effects: No side effects of medications mentioned - Activities of Daily Living: Pain limits mobility, affects positioning in bed - Aberrant Drug Related Behaviors: None reported [facility] Medical History Cervicalgia Abdominal aortic aneurysm History of smoking 30 or more pack years COPD (chronic obstructive pulmonary disease) Physical exam Urticaria Former smoker Enlarged aorta Screening for prostate cancer Screening for diabetes mellitus Eye exam, routine Otitis media Adult general medical exam Cystitis Prostatitis Chest pain Balanitis Right leg pain Ear discomfort Shortness of breath Bronchitis Moderate major depression Anemia BPH w urinary obs/LUTS Bladder outlet obstruction Weak urinary stream Gross hematuria Lipoma Obese Dyslipidemia Essential hypertension Surgical History History of surgery History of colonoscopy Family History Father No problems noted. Mother Emphysema of lung Social History Household Members: Spouse Housing: Apartment Do you presently have visiting nurse or other home services: No Alcohol intake: never Patient Tobacco Use Status: Former Tobacco user Tobacco use type: Cigarette Years Smoked: 52 +/- e-Cigarette/Vaping Use: Never Used Second Hand Smoke Exposure: No Advance Directives Date on File: 08/14/21 service: No Current occupational status: disabled Cognitive needs: No Hearing needs: No Vision needs: Yes (Glasses) Review of Systems Const All systems reviewed & are unremarkable except as noted in HPI and below Physical Exam General: Appears afebrile. Alert and oriented. Mood and affect appropriate. Follows and participates in conversation appropriately. Respiratory effort is unlabored. No cough. Mild dyspnea. O2 depedant. Able to transition from sit to stand unassisted. Ambulates with bilaterally normal heel strike and toe off, increase in RLE and right sided low back pain with standing on heel/toes on the right. General: Yes no CVA tenderness Back/Spine/Pelvis Other: Limited lumbar ROM due to pain. Lumbar flexion and axial rotation with extension reproduces moderate to severe pain, worse with bending. Demonstrates 5/5 left and 4/5 right strength of quadriceps bilaterally as well as flexion/dorsiflexion of bilateral feet against resistance. 2+ pedal pulses bilaterally. Straight leg rise with dorsiflexion positive on the right. Diminished patellar and achilles reflexes bilaterally. Facet loading test positive bilaterally. Unable to proceed with back exam due to significant pain exacerbation. Valsalva maneuver is positive. Back: no CVA tenderness Cervical Spine: cervical ROM normal, cervical muscular tenderness and No Cervical spine tenderness Thoracic/Lumbar Spine: thoracic and lumbar spine normal to inspection, No Thoracic/lumbar spine scar(s), Lasegue's sign positive on the right and localized, pain with thoraco-lumbar ROM, paraspinal muscle tenderness on the right greater than left, thoraco-lumbar ROM limited, No thoracic spinal tenderness and lumbar spinal tenderness (L4-S1) Pelvis: buttock tenderness on the right and sciatic notch tenderness on the right Sacroiliac joints: bilaterally (limited Landon's reproduces lateral hip pain but not LBP) tender to palpation Extrem General: Yes no clubbing, cyanosis or edema and Yes calf tenderness (right) Left upper extremity: hand Details: normal capillary refill, neuromotor exam normal, neurosensory exam normal, tenderness Location: of the palm, of the thumb Location: on the palmar aspect, on the lateral aspect and on the medial aspect and of the 2nd digit Location: on the palmar aspect, normal ROM of fingers and swelling Location: of the palm and of the thumb; no ecchymosis Right lower extremity: knee Details: normal to inspection, tenderness Location: of the patella, of the medial joint line and of the pre-patellar area, swelling (with small abrasion s/p recent fall) Location: of the patella, abrasion (patella) and crepitus; no ecchymosis Results Reviewed Results Reviewed: XR LUMBOSACRAL SPINE 07/30/2015 CLINICAL INFORMATION: Low back pain FINDINGS: The vertebral body heights are maintained. Mild disc space narrowing is noted at L5/S1. There is no fracture or subluxation. Minimal endplate osteophytes are noted spanning the lumbar spine. Facet sclerosis at L5 is noted. The SI joints are unremarkable. IMPRESSION: Mild disc space narrowing at L5/S1. US VENOUS ULTRASOUND WITH DOPPLER LOWER EXTREMITY, RIGHT 08/04/23 CLINICAL INFORMATION: Pain in right leg TECHNIQUE: Ultrasound of the deep veins is performed from the hip to the calf with compression sonography and color and pulse Doppler assessment. Spectral analysis with color-flow imaging is performed. FINDINGS: There is normal venous compression and respiratory variation. The visualized common femoral vein, superficial femoral vein, profunda femoral vein, popliteal vein, and the posterior tibial and peroneal veins shows no evidence of deep venous thrombosis. IMPRESSION: No DVT demonstrated in the right lower extremity. MRI lumbar without contrast 10/24/24 Comparison: Plain films 10/12/2024 Findings: The vertebral bodies are normal in height. No compression fractures. Bone marrow cellularity is normal. The paravertebral soft tissues are unremarkable. No intrathecal or extra thecal nodules or masses. The conus medullaris is located at T12-L1. There is mild narrowing of the L5-S1 disc space with posterior 4.2 mm broad-based disc protrusion with mild bilateral foraminal stenosis. The remaining disc spaces are unremarkable. No significant facet hypertrophy or posterior ligament invagination. No canal stenosis. Nerve root distribution is normal without signs of arachnoiditis. Impression: 4.2 mm posterior broad-based disc protrusion at L5 S1 and mild bilateral foraminal stenosis. Assessment & Plan Assessment & Plan (1) Hand pain, left: Code(s): M79.642 - Pain in left hand Category: Medical (2) Status post fall: Code(s): Z91.81 - History of falling Category: Medical (3) Right knee pain: Code(s): M25.561 - Pain in right knee Category: Medical (4) Status post fall: Code(s): Z91.81 - History of falling Category: Medical (5) Right sciatic nerve pain: Code(s): M54.31 - Sciatica, right side Category: Medical (6) Lumbar degenerative disc disease: Code(s): M51.369 - Other intervertebral disc degeneration, lumbar region without mention of lumbar back pain or lower extremity pain Category: Medical (7) Lumbosacral spondylosis: Code(s): M47.817 - Spondylosis without myelopathy or radiculopathy, lumbosacral region Category: Medical (8) Lumbar back pain with radiculopathy affecting right lower extremity: Code(s): M54.16 - Radiculopathy, lumbar region Category: Medical Plan I will proceed with X-rays for the right knee and left hand to investigate potential fractures following his fall today. Patient encouraged to follow up with PCP and seek evaluation at ER if worsening knee and hand pain. The patient plans to engage in physical therapy, which may alleviate his back and knee pain, and will explore using a home massage device. He opts for physical therapy over injection therapy for his L5-S1 disc herniation-related back pain. Physical Therapy progress will be assessed in follow-up visits. Patient was informed and verbally consented to the use of an ambient scribe for clinic note documentation during this visit. Orders: Orders XR knee RT 3V Today M25.561 - Pain in right knee, Z91.81 - History of falling XR hand LT min 3V Today M79.642 - Pain in left hand, Z91.81 - History of falling PT Evaluation and Treatment Today M47.817 - Spondylosis without myelopathy or radiculopathy, lumbosacral region, M51.369 - Other intervertebral disc degeneration, lumbar region without mention of lumbar back pain or lower extremity pain, M54.16 - Radiculopathy, lumbar region, M54.31 - Sciatica, right side Patient Instructions: - Undergo X-ray imaging of the left knee and hand as scheduled. - Begin physical therapy as discussed for pain management. - Use a home massage device to assist with back pain relief. - Contact the office if symptoms worsen or if there is a change in condition. - Return to the clinic for follow-up after completing therapy or if interested in future injection therapy. Coding Level of Care Code Est Pt Level 4 (05522) Complex EM visit Add On G2211 Diagnoses Hand pain, left M79.642 Status post fall Z91.81 Right knee pain M25.561 Right sciatic nerve pain M54.31 Lumbar degenerative disc disease M51.369 Lumbosacral spondylosis M47.817 Lumbar back pain with radiculopathy affecting right lower extremity M54.16
[2024-11-03 13:55] VITALS: BP 132/67; PULSE 94; O2SAT 97; BMI 29.0
== END 2024-11-03 14:14 | disposition home or self-care (01) ==
LOC: HO.PMC 13:44
PROVIDERS: PCP Internal Medicine; Visit Provider Nurse Practitioner Family
DX: M79.642 Pain in left hand (principal); Z91.81 History of falling; M25.561 Pain in right knee; M54.31 Sciatica, right side; M51.369 Other intervertebral disc degeneration, lumbar region without mention of lumbar back pain or lower extremity pain; M47.817 Spondylosis without myelopathy or radiculopathy, lumbosacral region; M54.16 Radiculopathy, lumbar region
CPT/HCPCS: 99214; G2211

== ENCOUNTER → 2024-11-03 13:43 | Outpatient (BNVA) | payer MEDICARE, SELFPAY | PROVIDERS: PCP Internal Medicine; Visit Provider Nurse Practitioner Family | DX: M79.642 Pain in left hand (principal); M25.561 Pain in right knee; M54.31 Sciatica, right side; M51.369 Other intervertebral disc degeneration, lumbar region without mention of lumbar back pain or lower extremity pain; M47.817 Spondylosis without myelopathy or radiculopathy, lumbosacral region; M54.16 Radiculopathy, lumbar region; Z91.81 History of falling | CPT/HCPCS: 99212 ==

== ENCOUNTER 2024-11-07 14:53 | Outpatient (REF) | payer MEDICARE, MEDICAID, SELFPAY ==
--- NOTE | ~2024-11-07 | XR_ITS ---
EXAMINATION: XR HAND, LEFT CLINICAL INFORMATION: M79.642 - Pain in left hand COMPARISON: September 17, 2018. TECHNIQUE: PA, lateral, and oblique views of the left hand. FINDINGS: The metacarpal bones are intact. The carpal bones are intact with normal alignment. The phalanges are intact with normal alignment. There is preservation of the joint spaces. No lytic or blastic lesions. No subcutaneous edema. No metallic or radiopaque foreign body. XR/XR hand LT min 3V IMPRESSION: No acute fracture or dislocation. Negative x-ray. Electronically signed by: Ney Mae MD 11/07/2024 03:36 PM EDT
--- NOTE | ~2024-11-07 | XR_ITS ---
EXAMINATION: XR KNEE, RIGHT CLINICAL INFORMATION: M25.561 - Pain in right knee COMPARISON: October 20, 2017. TECHNIQUE: AP lateral and sunrise views of the right knee. FINDINGS: No acute cortical disruption or malalignment. No lytic or blastic lesions. No suprapatellar bursa joint effusion. Vascular calcifications. XR/XR knee RT 3V IMPRESSION: No acute fracture or dislocation. No gross change. Electronically signed by: Ney Mae MD 11/07/2024 03:35 PM EDT
== END 2024-11-07 14:54 | disposition home or self-care (01) ==
LOC: HO.XRAY 14:53
PROVIDERS: PCP Internal Medicine; Visit Provider Nurse Practitioner Family
DX: M79.642 Pain in left hand (principal); M25.561 Pain in right knee; Z91.81 History of falling
CPT/HCPCS: 73130; 73562

== ENCOUNTER → 2024-11-07 15:06 | Outpatient (BNV) | payer MEDICARE, MEDICAID, SELFPAY | PROVIDERS: PCP Internal Medicine; Visit Provider Radiology Diagnostic Radiology | DX: M25.561 Pain in right knee (principal); M79.642 Pain in left hand | CPT/HCPCS: 73130; 73562 ==

== ENCOUNTER 2025-01-02 16:35 | Outpatient (AMB) | payer MEDICARE, SELFPAY ==
[2025-01-02 17:02] VITALS: BP 118/74; PULSE 86; O2SAT 93; BMI 28.6
--- NOTE | 2025-01-02 17:02 | A.OFFPC_ITS ---
Vital Signs 01/02/25 17:02 Height 5 ft 6 in Weight 177 lb BMI 28.6 BP 118/74 Blood Pressure Location Lt brachial Position Sitting Pulse 86 Pulse Source Pulse Oximeter Pulse Oximetry (%) 93 Oxygen Delivery Method Room Air Intake Visit Reasons: 4 Month F/U Intake Note: Patient here for a 4 month follow up Mill Tender Required: No Accompanied by: Self / Same As Patient Allergies tamsulosin Adverse Reaction (Verified 01/02/25 17:13) headaches, slow movements Medication List - Last Reconciled 01/02/25 by Marilynn Pandey MD amlodipine 2.5 mg PO DAILY 90 days brimonidine 0.2% 2 drps ophthalmic (eye) BID CPAP autoPAP 5-20 cmH2O dorzolamide-timolol 22.3-6.8 mg/mL 2 drps ophthalmic (eye) BID fluticasone propion-salmeterol 500-50 mcg/dose (Advair Diskus) 1 inh inhalation BID 30 days ibuprofen 800 mg PO Q8H PRN 30 days netarsudil-latanoprost 0.02-0.005 % (Rocklatan) 2 drps ophthalmic (eye) DAILY simvastatin 10 mg PO BEDTIME 90 days Ventolin HFA 90 mcg/actuation (albuterol sulfate) 2 puffs inhalation Q6H PRN 30 days NS Tobacco use date assessed: 10/07/24 Fall risk assessment: No Falls in past year Last assessed Fall Risk: 01/02/25 Dental Screening Dental Screen Date: 10/07/24 HPI HPI Comments History of Present Illness Details This is a 74-year-old male with hypertension, dyslipidemia, impaired glucose tolerance and asthma that comes today for follow-up on his conditions. Blood pressure stable. Last cholesterol was well controlled. Fasting blood glucose was mildly elevated and this will be repeated. He denies any polyuria, polydipsia or unintentional weight loss. On long-acting inhalers for his asthma that is follow by pulmonology. No chest pain or shortness on breath. [facility] Medical History Cervicalgia Abdominal aortic aneurysm History of smoking 30 or more pack years COPD (chronic obstructive pulmonary disease) Physical exam Urticaria Former smoker Enlarged aorta Screening for prostate cancer Screening for diabetes mellitus Eye exam, routine Otitis media Adult general medical exam Cystitis Prostatitis Chest pain Balanitis Right leg pain Ear discomfort Shortness of breath Bronchitis Moderate major depression Anemia BPH w urinary obs/LUTS Bladder outlet obstruction Weak urinary stream Gross hematuria Lipoma Obese Dyslipidemia Essential hypertension Surgical History History of surgery History of colonoscopy Family History Father No problems noted. Mother Emphysema of lung Social History Household Members: Spouse Housing: Apartment Do you presently have visiting nurse or other home services: No Alcohol intake: never Patient Tobacco Use Status: Former Tobacco user Tobacco use type: Cigarette Years Smoked: 52 +/- e-Cigarette/Vaping Use: Never Used Second Hand Smoke Exposure: No Advance Directives Date on File: 08/14/21 service: No Current occupational status: disabled Cognitive needs: No Hearing needs: No Vision needs: Yes (Glasses) Questionnaire Thrive Questionnaire Date Thrive assessed: 09/12/24 ELADIO-7 AMB Questionnaire ELADIO-7 Date ELADIO - 7 assessed: 09/12/24 Source: Developed by Drs. Perry Frazier, Julia Jalloh, Memo Kwan and colleagues, with an educational jose from [employer]. Review of Systems Const All systems reviewed & are unremarkable except as noted in HPI and below Card Denies chest pain at rest, Denies chest pain with activity, Denies edema, Denies irregular heart rhythm, Denies claudication, Denies dyspnea, Denies dyspnea on exertion, Denies orthopnea, Denies paroxysmal nocturnal dyspnea and Denies slow heart rate Resp Denies cough, Denies dyspnea and Denies dyspnea on exertion GI Denies abdominal pain, Denies change in bowel habits, Denies excessive flatus, Denies nausea and Denies vomiting Denies urinary hesitancy, Denies urinary incontinence and Denies urinary urgency Musc Denies atrophy, Denies deformity and Denies limited range of motion Skin/Breast Denies bleeding lesions, Denies changing lesions and Denies rash Physical exam (Primary Care) Vital Signs: Last Vital Signs Pulse 86 01/02/25 17:02 BP 118/74 01/02/25 17:02 Pulse Ox 93 01/02/25 17:02 Oxygen Delivery Method Room Air 01/02/25 17:02 BMI result Body Mass Index 28.6 Tobacco/Smoking Status: Tobacco use Status Tobacco use date assessed 10/07/24 01/02/25 17:07 Patient Tobacco Use Status Former Tobacco user 01/02/25 17:07 Tobacco use type Cigarette 01/02/25 17:07 e-Cigarette/Vaping Use Never Used 01/02/25 17:07 Thrive Assessment: Date of Thrive Assessment Date Thrive assessed 09/12/24 01/02/25 17:07 Resp Effort & Inspection: normal respiratory effort Auscultation: clear to auscultation bilaterally Cardio Jugular venous distension: no JVD Rate: regular rate Rhythm: regular rhythm Heart sounds: S1 normal heart sound present and S2 normal heart sound present Extrem General: Yes full ROM Coding Level of Care Code Est Pt Level 4 (02108) Complex EM visit Add On G2211 Diagnoses Essential hypertension I10 Dyslipidemia E78.5 Impaired glucose tolerance R73.02 Asthma J45.909 Time Spent (min) 22 Assessment & Plan Assessment & Plan (1) Essential hypertension: Code(s): I10 - Essential (primary) hypertension Category: Medical (2) Dyslipidemia: Code(s): E78.5 - Hyperlipidemia, unspecified Category: Medical (3) Impaired glucose tolerance: Code(s): R73.02 - Impaired glucose tolerance (oral) Category: Medical (4) Asthma: Code(s): J45.909 - Unspecified asthma, uncomplicated Category: Medical Plan Continue current meds. Repeat fasting blood glucose and other labs for the next office visit. Orders: Orders Lipid Panel Today E78.5 - Hyperlipidemia, unspecified Comprehensive [place]. Panel Fast Today I10 - Essential (primary) hypertension
== END 2025-01-02 17:22 | disposition home or self-care (01) ==
LOC: HO.HMCH 16:35
PROVIDERS: PCP Internal Medicine; Visit Provider Internal Medicine
DX: I10 Essential (primary) hypertension (principal); E78.5 Hyperlipidemia, unspecified; R73.02 Impaired glucose tolerance (oral); J45.909 Unspecified asthma, uncomplicated

== ENCOUNTER → 2025-01-02 16:35 | Outpatient (BNVA) | payer MEDICARE, SELFPAY | PROVIDERS: PCP Internal Medicine; Visit Provider Internal Medicine | DX: I10 Essential (primary) hypertension (principal); E78.5 Hyperlipidemia, unspecified; J45.909 Unspecified asthma, uncomplicated; R73.02 Impaired glucose tolerance (oral) | CPT/HCPCS: 99212 ==

== ENCOUNTER 2025-01-04 13:55 | Outpatient (AMB) | payer MEDICARE, MEDICAID, SELFPAY ==
--- NOTE | 2025-01-04 14:07 | A.OFFVIS_ITS ---
Vital Signs 01/04/25 14:08 Height 5 ft 6 in Weight 178 lb BMI 28.7 BP 102/64 Blood Pressure Location Lt brachial Position Sitting Pulse 86 Pulse Source Pulse Oximeter Pulse Oximetry (%) 97 Oxygen Delivery Method Room Air Intake Visit Reasons: Obstructive sleep apnea Intake Note: pt is here for follow up and maris and oxygen use. Team Manager Required: No Allergies tamsulosin Adverse Reaction (Verified 01/04/25 14:23) headaches, slow movements Medication List - Last Reconciled 01/04/25 by Cruzito Echavarria MD amlodipine 2.5 mg PO DAILY 90 days brimonidine 0.2% 2 drps ophthalmic (eye) BID dorzolamide-timolol 22.3-6.8 mg/mL 2 drps ophthalmic (eye) BID fluticasone propion-salmeterol 500-50 mcg/dose (Advair Diskus) 1 inh inhalation BID 30 days ibuprofen 800 mg PO Q8H PRN 30 days netarsudil-latanoprost 0.02-0.005 % (Rocklatan) 2 drps ophthalmic (eye) DAILY simvastatin 10 mg PO BEDTIME 90 days Ventolin HFA 90 mcg/actuation (albuterol sulfate) 2 puffs inhalation Q6H PRN 30 days NS HPI HPI Obstructive sleep apnea: Details: RAHEEM , 74 YEARS OLD CROATIAN-SPEAKING VERY PLEASANT GENTLEMAN, COMES FOR. FOLLOW-UP AFTER 2 MONTHS SINCE HIS LAST VISIT HE HAS NOT USE THE CPAP AND HAS RETURNED THE DEVICE. HE CLAIMS THAT HE SLEEPS GOOD AND HAS NO DAYTIME SLEEPINESS. HE WAS ALSO SUPPOSED TO USE O2 2 L/MINUTE AT NIGHT BUT SINCE HIS LAST VISIT HE HAS GIVEN UP USING THE OXYGEN, AGAIN SAYING THAT HE DOES NOT NEEDED. HE DOES HAVE PORTABLE CYLINDERS BUT HE IS NOT BRINGING IT OUT WITH HIM. HE IS VERY HAPPY AND CLAIMS THAT HE CAN WALK AROUND WITHOUT GETTING SHORT OF BREATH. [facility] Medical History Cervicalgia Abdominal aortic aneurysm History of smoking 30 or more pack years COPD (chronic obstructive pulmonary disease) Physical exam Urticaria Former smoker Enlarged aorta Screening for prostate cancer Screening for diabetes mellitus Eye exam, routine Otitis media Adult general medical exam Cystitis Prostatitis Chest pain Balanitis Right leg pain Ear discomfort Shortness of breath Bronchitis Moderate major depression Anemia BPH w urinary obs/LUTS Bladder outlet obstruction Weak urinary stream Gross hematuria Lipoma Obese Dyslipidemia Essential hypertension Surgical History History of surgery History of colonoscopy Family History Father No problems noted. Mother Emphysema of lung Social History Household Members: Spouse Housing: Apartment Do you presently have visiting nurse or other home services: No Alcohol intake: never Patient Tobacco Use Status: Former Tobacco user Tobacco use type: Cigarette Years Smoked: 52 +/- e-Cigarette/Vaping Use: Never Used Second Hand Smoke Exposure: No Advance Directives Date on File: 08/14/21 service: No Current occupational status: disabled Cognitive needs: No Hearing needs: No Vision needs: Yes (Glasses) Review of Systems Const All systems reviewed & are unremarkable except as noted in HPI and below Eyes Reports blurry vision and Reports dry eyes ENT Reports no additional complaints Card Denies chest pain, Denies irregular heart rhythm and Denies leg edema Resp Reports as per HPI Reports nocturia Musc Reports back pain and Reports numbness (RIGHT FOOT) Skin/Breast Reports dry skin Neuro Reports no additional complaints and Reports numbness (RIGHT FOOT) Psych Reports anxiety Physical Exam Vital Signs: Last Vital Signs Pulse 86 01/04/25 14:08 BP 102/64 01/04/25 14:08 Pulse Ox 97 01/04/25 14:08 Oxygen Delivery Method Room Air 01/04/25 14:08 BMI result Body Mass Index 28.7 Const General: healthy appearing, comfortable, no acute distress, alert, awake and anxious Orientation/consciousness: patient oriented x3 HEENT Head: Yes normal to inspection General nose exam: No nasal polyps present and No nasal discharge present Face and sinus: Yes sinuses nontender Mouth: oropharynx normal Teeth and gingiva: other (MISSING LOWER TEETH, DOES HAVE REGRESSION OF THE CHIN ( RETROGNATHIA )) Throat: Yes posterior oropharynx normal Eyes General: appearance normal, both eyes and all related structures Neck Neck: Yes normal visual inspection, Yes no lymphadenopathy, Yes trachea midline and Yes no JVD Thyroid: Thyroid normal Chest Chest palpation & inspection: normal inspection of the chest, normal palpation of entire chest wall and no tenderness Resp Other: PERCUSSION NOTE IS RESONANT, BREATH SOUNDS ARE SOMEWHAT DISTANT WITH PROLONGED EXPIRATORY PHASE. BUT NO WHEEZES OR RHONCHI ARE HEARD. Cardio Palpation: normal PMI Rate: regular rate Rhythm: regular rhythm Heart sounds: no gallops and no murmurs GI Palpation (GI): Soft to palpation, nontender, No hepatosplenomegaly present and no masses Auscultation: normal bowel sounds Back/Spine/Pelvis Thoracic/Lumbar Spine: thoracic and lumbar spine normal to inspection Skin General skin exam: no rashes or lesions noted and dry skin Neuro General: patient oriented x3 and no focal motor deficits Cranial nerves: Yes CN's II-XII intact bilaterally Extrem General: Yes normal to inspection, Yes no clubbing, cyanosis or edema and Yes no calf tenderness Psych Appearance: grossly normal and well kempt Speech and movement: Normal speech and movement present Assessment & Plan Assessment & Plan (1) MARIS (obstructive sleep apnea): Comment: PATIENT DOES HAVE OBSTRUCTIVE SLEEP APNEA WHICH IS ONLY MILD AND MOSTLY IN SUPINE POSITION. HOWEVER IT IS ASSOCIATED WITH NOCTURNAL HYPOXEMIA, . HAD CPAP TITRATION IN THE SLEEP LAB AND REQUIRED BILEVEL BILEVEL PRESSURE OF 12 /7 CM, WITH O2 2 L/MINUTE TO OVERCOME HYPOXEMIA. HE HAS LOST SIGNIFICANT AMOUNT OF WEIGHT CURRENT BMI 28.7 HE HAS STOPPED USING THE BIPAP. AND RETURNED THE DEVICE TO DME PROVIDER HE IS VERY EXCITED TO REPORT THAT HE SLEEPS GOOD AT NIGHT WITHOUT WAKING UP AND FEELS GOOD Code(s): G47.33 - Obstructive sleep apnea (adult) (pediatric) Category: Medical Plan: ADVISE THAT HE SHOULD KEEP HIS WEIGHT DOWN. TRY TO SLEEP IN LATERAL POSITIONS. WILL BE MONITORED FOR ANY SYMPTOMS OF SLEEP APNEA (2) COPD (chronic obstructive pulmonary disease): Comment: HE HAS HISTORY OF SMOKING 1 PACK A DAY FOR ALMOST 50 YEARS. PER PULMONARY FUNCTION TEST HE DOES HAVE SEVERE OBSTRUCTIVE AIRWAY DISORDER WITH MINIMAL IMPROVEMENT AFTER BRONCHODILATOR THERAPY. HE IS DOING FAIRLY WELL WITH HIS CURRENT REGIMEN AT THIS TIME . Code(s): J44.9 - Chronic obstructive pulmonary disease, unspecified Category: Medical Plan: CONTINUE TO USE ADVAIR 500-51 INHALATION B.I.D. AND ALBUTEROL HFA 2 PUFFS Q 4-6 HOURS P.R.N. (3) History of smoking 30 or more pack years: Comment: NOTED ABOVE HE HAS HISTORY OF SMOKING ABOUT 1 PACK A DAY FOR [address] SCAN OF THE CHEST HAS SHOWN A SMALL CALCIFIED GRANULOMA IN LEFT LOWER LOBE AND A SMALL PULMONARY NODULE IN THE RIGHT LOWER LOBE. Code(s): Z87.891 - Personal history of nicotine dependence Category: Social Hx Plan: CONTINUE TO MONITOR, WITH AN WILL LUNG SCAN. COUNSELED TO QUIT SMOKING COMPLETELY. Coding Level of Care Code Est Pt Level 3 (69054) Diagnoses MARIS (obstructive sleep apnea) G47.33 COPD (chronic obstructive pulmonary disease) J44.9 History of smoking 30 or more pack years Z87.891
[2025-01-04 14:08] VITALS: BP 102/64; PULSE 86; O2SAT 97; BMI 28.7
== END 2025-01-04 14:22 | disposition home or self-care (01) ==
LOC: HO.HPS 13:56
PROVIDERS: PCP Internal Medicine; Visit Provider Internal Medicine
DX: G47.33 Obstructive sleep apnea (adult) (pediatric) (principal); J44.9 Chronic obstructive pulmonary disease, unspecified; Z87.891 Personal history of nicotine dependence
CPT/HCPCS: 99213

== ENCOUNTER → 2025-01-04 13:55 | Outpatient (BNVA) | payer MEDICARE, MEDICAID, SELFPAY | PROVIDERS: PCP Internal Medicine; Visit Provider Internal Medicine | DX: G47.33 Obstructive sleep apnea (adult) (pediatric) (principal); J44.9 Chronic obstructive pulmonary disease, unspecified; Z87.891 Personal history of nicotine dependence | CPT/HCPCS: 99212 ==

== ENCOUNTER 2025-01-13 11:16 | Outpatient (REF) | payer MEDICARE, MEDICAID, SELFPAY ==
[2025-01-13 12:35] LABS: Prostate Specific Antigen 1.22 ng/mL (<0.05-4.0)
== END 2025-01-13 11:17 | disposition home or self-care (01) ==
LOC: HO.LAB 11:16
PROVIDERS: PCP Internal Medicine; Visit Provider Urology
DX: N40.1 Benign prostatic hyperplasia with lower urinary tract symptoms (principal); N13.8 Other obstructive and reflux uropathy
CPT/HCPCS: 36415; 84153

== ENCOUNTER 2025-01-19 11:00 | Outpatient (RCR) | payer MEDICARE, MEDICAID, SELFPAY ==
--- NOTE | 2024-12-05 11:58 | MHC.PT.EP ---
[facility] [place] [facility] [place] [facility] [place] [facility] [address] Hazel Thomas [address] [phone] F: [phone] F: [phone] F: [phone] F: [phone] Physical Therapy Plan of Care Date of Evaluation: 12/05/24 Date of Surgery: Diagnosis: lumbar deg. disc disease back pain w/radiculopathy Assessment: Patient is a 74 year old R handed male who presents with s/s consistent with lumbar deg disc disease, back pain with radiculopathy. He does not work and is fairly sedentary at this time. Patient past medical history includes portable O2, COPD, AAA, SOB, BAPTISTE. Current impairments include pain, posture, flexibility, ROM, strength, activity tolerance and functional mobility. Functional limitations include decreased ability to walk, stand, transfer, sit, negotiate stairs and be active. Patient is motivated with good rehab potential. Skilled PT will address impairments and functional limitations in order to achieve goals. Frequency and Duration: The patient will be seen 2x/week for 5 weeks Short Term Goals: I with HEP - 2 weeks AROM 75% rotation pain free - 3 weeks Max pain with daily routine 5/10 - 3 weeks Usp Goals: 90/90 lacking 30 or less - 5 weeks Oswestry 20% or less - 5 weeks Max pain with daily routine 2/10 - 5 weeks Treatment Plan: Modalities to reduce pain, spasms and effusion. Manual therapy to restore motion and function. Therapeutic exercise to improve strength and flexibility. Neuromuscular re-education for posture and balance. Therapeutic activities to return to functional activities of daily living. Electronically signed by: Griffin Damico, PT Please sign and return to therapist. Thank you for your referral.
--- NOTE | 2025-04-27 12:41 | MHC.PT.DC ---
[facility] [place] Office [place] Office [place] Office [address] Hazel Thomas [address] [phone] F: [phone] F: [phone] F: [phone] F: [phone] Physical Therapy Discharge Report Diagnosis: lumbar deg. disc disease back pain w/radiculopathy Date of Surgery: Date of Evaluation: 12/05/24 Date of Discharge: 02/08/25 Treatments to Date: 3 Cancellations to Date: No Shows to Date: Discharge Status: Independent with HEP Patient Elected to Stop Discharge Summary: 01/19; Pt rested after stepper. Pt needed v/c and demostrations to perform hip abd correctly. Pt c/o fatigue with strengthening exs. 12/27/24: pt progressing well with skilled PT. compliant with HEP. we will attempt to progress hip and core strength NV. Patient is a 74 year old R handed male who presents with s/s consistent with lumbar deg disc disease, back pain with radiculopathy. He does not work and is fairly sedentary at this time. Patient past medical history includes portable O2, COPD, AAA, SOB, BAPTISTE. Current impairments include pain, posture, flexibility, ROM, strength, activity tolerance and functional mobility. Functional limitations include decreased ability to walk, stand, transfer, sit, negotiate stairs and be active. Patient is motivated with good rehab potential. Skilled PT will address impairments and functional limitations in order to achieve goals. Electronically signed by: Griffin Damico, PT Please sign and return to therapist. Thank you for your referral.
== END 2025-04-27 12:41 | disposition home or self-care (01) ==
LOC: HO.PTCHIC 11:00
PROVIDERS: PCP Internal Medicine; Visit Provider Nurse Practitioner Family
DX: M51.369 Other intervertebral disc degeneration, lumbar region without mention of lumbar back pain or lower extremity pain (principal); M47.817 Spondylosis without myelopathy or radiculopathy, lumbosacral region; M54.16 Radiculopathy, lumbar region
CPT/HCPCS: 97110; 97163

== ENCOUNTER 2025-03-07 11:05 | Outpatient (AMB) | payer MEDICARE, MEDICAID, SELFPAY ==
[2025-03-07 11:09] VITALS: BP 130/62; PULSE 95; O2SAT 94; BMI 28.6
--- NOTE | 2025-03-07 11:09 | A.OFFVIS_ITS ---
Vital Signs 03/07/25 11:09 Height 5 ft 6 in Weight 177 lb BMI 28.6 BP 130/62 Blood Pressure Location Lt brachial Position Sitting Pulse 95 Pulse Source Pulse Oximeter Pulse Oximetry (%) 94 Oxygen Delivery Method Room Air Intake Visit Reasons: COPD follow-up Intake Note: Patient is here for follow up on COPD. Patient stated he is in need of a small O2 cylinder. Field Technical Assistant Required: Yes Field Technical Assistant Name: Ena Norris Courtney Allergies tamsulosin Adverse Reaction (Verified 03/07/25 11:34) headaches, slow movements Medication List - Last Reconciled 03/07/25 by Cruzito Echavarria MD amlodipine 2.5 mg PO DAILY 90 days brimonidine 0.2% 2 drps ophthalmic (eye) BID dorzolamide-timolol 22.3-6.8 mg/mL 2 drps ophthalmic (eye) BID fluticasone propion-salmeterol 500-50 mcg/dose (Advair Diskus) 1 inh inhalation BID 30 days ibuprofen 800 mg PO Q8H PRN 30 days netarsudil-latanoprost 0.02-0.005 % (Rocklatan) 2 drps ophthalmic (eye) DAILY simvastatin 10 mg PO BEDTIME 90 days Ventolin HFA 90 mcg/actuation (albuterol sulfate) 2 puffs inhalation Q6H PRN 30 days NS Do you need a note to return to daycare/school/sports/work: No HPI HPI COPD follow-up: Details: This 74 years old Pakistani-speaking gentleman is here for follow-up of his COPD and obstructive sleep apnea. He did have CPAP equipment but he was not able to use the CPAP and returned . To the company He also needed O2 2 L/minute along with the CPAP, but he does not want to use the oxygen at night. He still has stationary concentrator at home, and the O2 company wants to take a back . His portable cylinder was taken away and he wants to get it back so that he can use it when he goes outdoors . He has chronic obstructive pulmonary disease moderately severe which remains controlled with use of fluticasone-salmeterol 500-50 . 1 inhalation b.i.d. However he is concerned that the carpeting in his apartment is affecting his breathing and also 1 neighbor who is up stairs is a smoker . He can smell the smoke and his breathing gets worse. [facility] Medical History Cervicalgia Abdominal aortic aneurysm History of smoking 30 or more pack years COPD (chronic obstructive pulmonary disease) Physical exam Urticaria Former smoker Enlarged aorta Screening for prostate cancer Screening for diabetes mellitus Eye exam, routine Otitis media Adult general medical exam Cystitis Prostatitis Chest pain Balanitis Right leg pain Ear discomfort Shortness of breath Bronchitis Moderate major depression Anemia BPH w urinary obs/LUTS Bladder outlet obstruction Weak urinary stream Gross hematuria Lipoma Obese Dyslipidemia Essential hypertension Surgical History History of surgery History of colonoscopy Family History Father No problems noted. Mother Emphysema of lung Social History Household Members: Spouse Housing: Apartment Do you presently have visiting nurse or other home services: No Alcohol intake: never Patient Tobacco Use Status: Former Tobacco user Tobacco use type: Cigarette Years Smoked: 52 +/- e-Cigarette/Vaping Use: Never Used Second Hand Smoke Exposure: No Advance Directives Date on File: 08/14/21 service: No Current occupational status: disabled Cognitive needs: No Hearing needs: No Vision needs: Yes (Glasses) Review of Systems Const All systems reviewed & are unremarkable except as noted in HPI and below Eyes Reports blurry vision and Reports dry eyes ENT Reports no additional complaints Card Denies chest pain, Denies irregular heart rhythm and Denies leg edema Resp Reports as per HPI Reports nocturia Musc Reports back pain and Reports numbness (RIGHT FOOT) Skin/Breast Reports dry skin Neuro Reports no additional complaints and Reports numbness (RIGHT FOOT) Psych Reports anxiety Physical Exam Vital Signs: Last Vital Signs Pulse 95 03/07/25 11:09 BP 130/62 03/07/25 11:09 Pulse Ox 94 03/07/25 11:09 Oxygen Delivery Method Room Air 03/07/25 11:09 BMI result Body Mass Index 28.6 Const General: healthy appearing, comfortable, no acute distress, alert, awake and anxious Orientation/consciousness: patient oriented x3 HEENT Head: Yes normal to inspection General nose exam: No nasal polyps present and No nasal discharge present Face and sinus: Yes sinuses nontender Mouth: oropharynx normal Teeth and gingiva: other (MISSING LOWER TEETH, DOES HAVE REGRESSION OF THE CHIN ( RETROGNATHIA )) Throat: Yes posterior oropharynx normal Eyes General: appearance normal, both eyes and all related structures Neck Neck: Yes normal visual inspection, Yes no lymphadenopathy, Yes trachea midline and Yes no JVD Thyroid: Thyroid normal Chest Chest palpation & inspection: normal inspection of the chest, normal palpation of entire chest wall and no tenderness Resp Other: PERCUSSION NOTE IS RESONANT, BREATH SOUNDS ARE SOMEWHAT DISTANT WITH PROLONGED EXPIRATORY PHASE. BUT NO WHEEZES OR RHONCHI ARE HEARD. Cardio Palpation: normal PMI Rate: regular rate Rhythm: regular rhythm Heart sounds: no gallops and no murmurs GI Palpation (GI): Soft to palpation, nontender, No hepatosplenomegaly present and no masses Auscultation: normal bowel sounds Back/Spine/Pelvis Thoracic/Lumbar Spine: thoracic and lumbar spine normal to inspection Skin General skin exam: no rashes or lesions noted and dry skin Neuro General: patient oriented x3 and no focal motor deficits Cranial nerves: Yes CN's II-XII intact bilaterally Extrem General: Yes normal to inspection, Yes no clubbing, cyanosis or edema and Yes no calf tenderness Psych Appearance: grossly normal and well kempt Speech and movement: Normal speech and movement present Assessment & Plan Assessment & Plan (1) MARIS (obstructive sleep apnea): Comment: PATIENT DOES HAVE OBSTRUCTIVE SLEEP APNEA WHICH IS ONLY MILD AND MOSTLY IN SUPINE POSITION. HOWEVER IT IS ASSOCIATED WITH NOCTURNAL HYPOXEMIA, . HAD CPAP TITRATION IN THE SLEEP LAB AND REQUIRED BILEVEL BILEVEL PRESSURE OF 12/7 CM, WITH O2 2 L/MINUTE TO OVERCOME HYPOXEMIA. HE HAS LOST SIGNIFICANT AMOUNT OF WEIGHT CURRENT BMI 28.6 HE HAS STOPPED USING THE BIPAP. AND RETURNED THE DEVICE TO DME PROVIDER HE IS VERY EXCITED TO REPORT THAT HE SLEEPS GOOD AT NIGHT WITHOUT WAKING UP AND FEELS GOOD Code(s): G47.33 - Obstructive sleep apnea (adult) (pediatric) Category: Medical Plan: DISCUSSED WITH HIM THROUGH THE [employer], REINFORCED THAT HE SHOULD TRY TO SLEEP IN LATERAL POSITION. (2) Hypoxemia: Comment: PATIENT FOUND TO HAVE NOCTURNAL HYPOXEMIA. I THINK NOCTURNAL HYPOXEMIA IS MORE DUE TO HIS COPD, AND ALSO CONTRIBUTED BY SLEEP APNEA. PER CPAP TITRATION HE WAS STARTED ON BILEVEL CPAP 12/7 ALONG WITH O2 2 L/MINUTE. HE HAS STOPPED USING THE BIPAP AND ALSO STOPPED USING THE O2 AT NIGHT . Code(s): R09.02 - Hypoxemia Category: Medical Plan: DME SUPPLIER WANTS TO TAKE BACK THE CONCENTRATOR, AND LONG HE IS NOT USING AT NIGHT I TOLD HIM THAT HE CAN LET THE COMPANY TAKE IT OUT. HOWEVER TODAY HE IS EXPRESSING HIS WISH TO USE THE PORTABLE OXYGEN WHEN HE GOES OUTDOORS OR DOES ANY PHYSICAL WORK. I TOLD HIM THAT HE WOULD NEED 6 MINUTES WALK TEST, TO SEE IF HE QUALIFIES FOR PORTABLE O2 UNIT. (3) COPD (chronic obstructive pulmonary disease): Comment: HE HAS HISTORY OF SMOKING 1 PACK A DAY FOR ALMOST 50 YEARS. PER PULMONARY FUNCTION TEST HE DOES HAVE SEVERE OBSTRUCTIVE AIRWAY DISORDER WITH MINIMAL IMPROVEMENT AFTER BRONCHODILATOR THERAPY. HE IS DOING FAIRLY WELL WITH HIS CURRENT REGIMEN AT THIS TIME . HE FEELS THAT THE CARPET IN HIS APARTMENT IS AFFECTING HIS BREATHING, AND ALSO HIS NEIGHBOR WHO LIVES UPSTAIRS IS A SMOKER. HE NEEDS A LETTER FOR HOUSING AUTHORITY TO SEE IF HE CAN MOVE TO A DIFFERENT APARTMENT WITHOUT CARPETING . Code(s): J44.9 - Chronic obstructive pulmonary disease, unspecified Category: Medical Plan: CONTINUE USING ADVAIR 500-51 INHALATION B.I.D. AND ALBUTEROL HFA 2 PUFFS Q 4-6 HOURS P.R.N. DURING THE DAYTIME. HE IS SCHEDULED TO HAVE 6 MINUTES WALK TEST TO SEE IF HE QUALIFIES FOR A PORTABLE O2 CYLINDER, AND ALSO SEE IF HE QUALIFIES TO HAVE A O2 CONSERVING UNIT (4) History of smoking 30 or more pack years: Comment: NOTED ABOVE HE HAS HISTORY OF SMOKING ABOUT 1 PACK A DAY FOR [address] SCAN OF THE CHEST HAS SHOWN A SMALL CALCIFIED GRANULOMA IN LEFT LOWER LOBE AND A SMALL PULMONARY NODULE IN THE RIGHT LOWER LOBE. Code(s): Z87.891 - Personal history of nicotine dependence Category: Social Hx Plan: AGAIN COUNSELED TO QUIT SMOKING. ALSO CONTINUE TO HAVE ANNUAL LUNG SCREENING WITH LDCT. Coding Level of Care Code Est Pt Level 4 (58679) Diagnoses MARIS (obstructive sleep apnea) G47.33 Hypoxemia R09.02 COPD (chronic obstructive pulmonary disease) J44.9 History of smoking 30 or more pack years Z87.891
== END 2025-03-07 11:33 | disposition home or self-care (01) ==
LOC: HO.HPS 11:06
PROVIDERS: PCP Internal Medicine; Visit Provider Internal Medicine
DX: G47.33 Obstructive sleep apnea (adult) (pediatric) (principal); R09.02 Hypoxemia; J44.9 Chronic obstructive pulmonary disease, unspecified; Z87.891 Personal history of nicotine dependence
CPT/HCPCS: 99214

== ENCOUNTER → 2025-03-07 11:05 | Outpatient (BNVA) | payer MEDICARE, MEDICAID, SELFPAY | PROVIDERS: PCP Internal Medicine; Visit Provider Internal Medicine | DX: N40.1 Benign prostatic hyperplasia with lower urinary tract symptoms (principal); N13.8 Other obstructive and reflux uropathy; G47.33 Obstructive sleep apnea (adult) (pediatric); R09.02 Hypoxemia; J44.9 Chronic obstructive pulmonary disease, unspecified; Z87.891 Personal history of nicotine dependence | CPT/HCPCS: 51798; 81003; 99212 ==

== ENCOUNTER 2025-03-07 11:43 | Outpatient (AMB) | payer MEDICARE, MEDICAID, SELFPAY ==
--- NOTE | 2025-03-07 12:42 | A.OFFVIS_ITS ---
Intake Visit Reasons: 1y/PSA Intake Note: Patient is Present for 1 yr follow up Urology Med:none Antibiotic Allergy:None Labs done 01/13/25: PSA 1.22 Todays PVR: 0mls Asbestos Siding Installer Required: Yes Asbestos Siding Installer Language: Setswana Accompanied by: Self / Same As Patient Allergies tamsulosin Adverse Reaction (Verified 03/07/25 12:45) headaches, slow movements HPI Comments Details: Octavio is a pleasant male. He is a patient of Dr. Pandey. He is seen for the following urologic conditions - prostatitis - lower urinary tract symptoms - erectile dysfunction Twelve month follow-up prostatitis Setswana translation provided by qualified medical center manager Stable symptoms P.r.n. follow-up BUN: 07/21--16, 06/20--17, 06/20--19 Creatinine: 07/21--0.75, 06/20--0.77, 06/20--0.68 PSA 1.2, 12/19 1.2, 06/20 1.2, 01/20 1.2 Only urology medication he is on is finasteride Follow p.r.n. Erectile dysfunction Improvement in erections with daily tadalafil Lowered PVR Prostatitis Recent admission to hospital with urgency and frequency and weakness of stream Found to have prostatitis which responded to antibiotic therapy Combination therapy started for prostate PSA - 04/18 2.1, 06/18 4.4, 12/18 2.3, 12/19 1.2 [facility] Medical History Cervicalgia Abdominal aortic aneurysm History of smoking 30 or more pack years COPD (chronic obstructive pulmonary disease) Physical exam Urticaria Former smoker Enlarged aorta Screening for prostate cancer Screening for diabetes mellitus Eye exam, routine Otitis media Adult general medical exam Cystitis Prostatitis Chest pain Balanitis Right leg pain Ear discomfort Shortness of breath Bronchitis Moderate major depression Anemia BPH w urinary obs/LUTS Bladder outlet obstruction Weak urinary stream Gross hematuria Lipoma Obese Dyslipidemia Essential hypertension Surgical History History of surgery History of colonoscopy Family History Father No problems noted. Mother Emphysema of lung Social History Household Members: Spouse Housing: Apartment Do you presently have visiting nurse or other home services: No Alcohol intake: never Patient Tobacco Use Status: Former Tobacco user Tobacco use type: Cigarette Years Smoked: 52 +/- e-Cigarette/Vaping Use: Never Used Second Hand Smoke Exposure: No Advance Directives Date on File: 08/14/21 service: No Current occupational status: disabled Cognitive needs: No Hearing needs: No Vision needs: Yes (Glasses) Review of Systems Const Denies chills and Denies fever(s) Card Reports no additional complaints and Denies syncope Resp Denies cough GI Denies abdominal pain and Denies heartburn Reports as per HPI and Denies change in libido Neuro Denies syncope Psych Denies change in libido Endo Denies change in libido Physical Exam Const General: cooperative, healthy appearing, comfortable and no acute distress Orientation/consciousness: patient oriented x3 HEENT Face and sinus: Yes normal facial exam Mouth: moist mucous membranes Neck Neck: Yes normal visual inspection, Yes full ROM and Yes trachea midline Chest Chest palpation & inspection: normal inspection of the chest Resp Effort & Inspection: normal respiratory effort, able to speak in complete sentences and no respiratory distress GI Inspection: Yes normal to inspection Back/Spine/Pelvis Cervical Spine: normal cervical lordosis Thoracic/Lumbar Spine: thoracic and lumbar spine normal to inspection Skin General skin exam: no rashes or lesions noted Neuro General: patient oriented x3, gait normal, tone normal and moves all extremities Extrem General: Yes normal to inspection and Yes capillary refill normal Assessment & Plan Assessment & Plan (1) BPH w urinary obs/LUTS: Code(s): N40.1 - Benign prostatic hyperplasia with lower urinary tract symptoms; N13.8 - Other obstructive and reflux uropathy Category: Medical Plan P.r.n. follow-up Patient Instructions: This note is constructed using voice recognition software. While every effort has been made to ensure accuracy perforator loader errors may have been included. Imaging studies, laboratory and physical exam results were discussed and reviewed in detail. No major barriers to patient understanding were identified. An opportunity to ask questions regarding the treatment plan was provided. All questions were answered. The patient expressed understanding and agreement with the above treatment plan. The patient is aware they should contact our office by phone for worsening of their current condition or the appearance of new urologic symptoms. Compliance is encouraged with any medications and followup testing that is ordered. It is a privilege to participate in the urologic care of your patient. If you have any questions or concerns regarding treatment for the above conditions, or other urologic issues, please do not hesitate to contact me. The office telephone contact is [phone]. Sincerely, Dr Madhu Raman MD, [facility] - Urology Compassionate Specialist Care for the Genitourinary System Coding Level of Care Code Est Pt Level 4 (06207) Diagnoses BPH w urinary obs/LUTS N40.1; N13.8
== END 2025-03-07 13:35 | disposition home or self-care (01) ==
LOC: HO.HUSH 11:44
PROVIDERS: PCP Internal Medicine; Visit Provider Urology
DX: N40.1 Benign prostatic hyperplasia with lower urinary tract symptoms (principal); N13.8 Other obstructive and reflux uropathy; Z13.9 Encounter for screening, unspecified
CPT/HCPCS: 99214

== ENCOUNTER → 2025-03-15 13:08 | Outpatient (BNVA) | payer MEDICARE, MEDICAID, SELFPAY | PROVIDERS: PCP Internal Medicine; Visit Provider Internal Medicine | DX: J44.9 Chronic obstructive pulmonary disease, unspecified (principal) | CPT/HCPCS: 94618 ==

== ENCOUNTER 2025-04-17 15:45 | Outpatient (AMB) | payer MEDICARE, SELFPAY ==
--- NOTE | 2025-04-17 16:06 | MHC.PC.OV ---
Vital Signs 04/17/25 16:32 Height 5 ft 6 in Weight 176 lb 4 oz BMI 28.4 BP 130/80 Blood Pressure Location Lt brachial Position Sitting Pulse 76 Pulse Source Pulse Oximeter Temp 97.3 F Temp Source Temporal Artery Scan Pulse Oximetry (%) 93 Oxygen Delivery Method Room Air Intake Visit Reasons: Annual Exam Accompanied by: Spouse Allergies tamsulosin Adverse Reaction (Verified 04/17/25 16:40) headaches, slow movements Medication List - Last Reconciled 04/17/25 by Marilynn Pandey MD amlodipine 2.5 mg PO DAILY 90 days brimonidine 0.2% 2 drps ophthalmic (eye) BID dorzolamide-timolol 22.3-6.8 mg/mL 2 drps ophthalmic (eye) BID finasteride 5 mg PO DAILY 90 days fluticasone propion-salmeterol 500-50 mcg/dose (Advair Diskus) 1 inh inhalation BID 30 days ibuprofen 800 mg PO Q8H PRN 30 days netarsudil-latanoprost 0.02-0.005 % (Rocklatan) 2 drps ophthalmic (eye) DAILY simvastatin 10 mg PO BEDTIME 90 days Ventolin HFA 90 mcg/actuation (albuterol sulfate) 2 puffs inhalation Q6H PRN 30 days NS Tobacco use date assessed: 04/17/25 Fall risk assessment: 1 Fall in past year Last assessed Fall Risk: 04/17/25 Dental Screening Dental Screen Date: 04/17/25 Did you have a dental visit in the last 12 months?: No Did you have a dental problem in the last 6 months where you did not have access to dental care?: No Was dental information given to patient?: No HPI HPI Comments History of Present Illness Details The patient is a 74-year-old male presenting for a routine physical examination and preventative care. He is currently on medication for hyperlipidemia and hypertension, and uses eye drops for visual impairment. He reports having undergone a prostate health evaluation recently, which was normal. The patient has not undergone any surgeries and has not had a colonoscopy for colon cancer screening. He is considering whether to undergo stool-based screening tests for colon cancer. Vaccinations discussed include tetanus, pneumonia, and influenza, which are recommended for his age group. [facility] Medical History Cervicalgia Abdominal aortic aneurysm History of smoking 30 or more pack years COPD (chronic obstructive pulmonary disease) Physical exam Urticaria Former smoker Enlarged aorta Screening for prostate cancer Screening for diabetes mellitus Eye exam, routine Otitis media Adult general medical exam Cystitis Prostatitis Chest pain Balanitis Right leg pain Ear discomfort Shortness of breath Bronchitis Moderate major depression Anemia BPH w urinary obs/LUTS Bladder outlet obstruction Weak urinary stream Gross hematuria Lipoma Obese Dyslipidemia Essential hypertension Surgical History History of surgery History of colonoscopy Family History Father No problems noted. Mother Emphysema of lung Social History Household Members: Spouse Housing: Apartment Do you presently have visiting nurse or other home services: No Alcohol intake: never Patient Tobacco Use Status: Former Tobacco user Tobacco use type: Cigarette Years Smoked: 52 +/- e-Cigarette/Vaping Use: Never Used Second Hand Smoke Exposure: No Advance Directives Date on File: 08/14/21 service: No Current occupational status: disabled Cognitive needs: No Hearing needs: No Vision needs: Yes (Glasses) Questionnaire PHQ-9 Over the last 2 weeks, how often have you been bothered by any of the following problems? 1. Little interest or pleasure in doing things: not at all 2. Feeling down, depressed, or hopeless: not at all 3. Trouble falling or staying asleep, or sleeping too much: more than half the days 4. Feeling tired or having little energy: nearly every day 5. Poor appetite or overeating: not at all 6. Feeling bad about yourself - or that you are a failure or have let yourself or your family down: not at all 7. Trouble concentrating on things, such as reading the newspaper or watching television: not at all 8. Moving or speaking so slowly that other people could have noticed. Or the opposite - being so fidgety or restless that you have been moving around a lot more than usual: not at all 9. Thoughts that you would be better off or of hurting yourself in some way: not at all Total score: 5 Source: Developed by Drs. Perry Frazier, Julia Memo Eden and colleagues, with an educational jose from [employer]. Thrive Questionnaire Date Thrive assessed: 04/17/25 I am a: Patient What is your living situation today?: I have a steady place to live Within the past 12 months, did the food you bought not last and you didn't have the money to get more?: I choose not to answer this question Within the past 12 months, did you worry whether your food would run out before you got money to buy more?: I choose not to answer this question Do you have trouble paying for medicines?: No Do you have trouble getting transportation to medical appointments?: I choose not to answer this question Do you have trouble paying your heating and electricity bill?: I choose not to answer this question Do you have trouble taking care of your child, family member or friend?: No Do you have trouble with day-to-day activities such as bathing, preparing meals, shopping, managing finances, etc.?: Yes Are you currently unemployed and looking for a job?: No Are you interested in more education?: No THRIVE Score: 0 AUDIT C Alcohol Use Questionnaire (AUDIT-C) 1. How often do you have a drink containing alcohol?: Never 3. How often do you have six or more drinks on one occasion?: Never Total Score: 0 Score Reviewed/Action Taken: No ELADIO-7 AMB Questionnaire ELADIO-7 Date ELADIO - 7 assessed: 09/12/24 Feeling nervous, anxious, or on edge: 0 = Not at all Not being able to stop or control worryin = Not at all Worrying too much about different things: 0 = Not at all Trouble relaxin = Not at all Being so restless that it is hard to sit still: 0 = Not at all Becoming easily annoyed or irritable: 0 = Not at all Feeling afraid as if something awful might happen: 0 = Not at all Total ELADIO-7 score (0-4 normal; 5-9 mild; 10-14 moderate; 15-21 severe): 0 Source: Developed by Drs. Perry Frazier, Memo Yepez and colleagues, with an educational jose from [employer]. ELADIO-7 Assessment Billing ELADIO-7 Assessment Tool: ELADIO-7 Assessment 20915 Physical exam (Primary Care) Vital Signs: Last Vital Signs Temp 97.3 F 04/17/25 16:32 Pulse 76 04/17/25 16:32 BP 130/80 04/17/25 16:32 Pulse Ox 93 04/17/25 16:32 Oxygen Delivery Method Room Air 04/17/25 16:32 BMI result Body Mass Index 28.4 Tobacco/Smoking Status: Tobacco use Status Tobacco use date assessed 04/17/25 04/17/25 16:36 Patient Tobacco Use Status Former Tobacco user 04/17/25 16:06 Tobacco use type Cigarette 04/17/25 16:06 e-Cigarette/Vaping Use Never Used 04/17/25 16:06 PHQ-9: PHQ-9 Score PHQ-9: Total score 5 04/17/25 16:54 Thrive Assessment: Date of Thrive Assessment Date Thrive assessed 04/17/25 04/17/25 16:06 Office Procedures Flu Questionnaire Does the patient have a severe egg allergy?: No Does the patient have severe life threatening allergies?: No Does the patient have a fever or illness today?: No Has the patient ever had Guillain-[place] Syndrome?: No Has the patient ever had any past reaction to a flu shot?: No Immunizations Fluarix [id number] (PF) 45 mcg (15 mcg x 3)/0.5 mL IM syringe Performing Provider: Marilynn Pandey MD Performing Location: [facility] [place] [facility] Administered by: Karrie Hurtado CMA on 04/17/25 16:54 Dose Route Admin Location Dispensed Lot Number Expiration Date [facility] Pole Inspector 0.5 mL IM Left Deltoid 0.5 mL [id number] 12/26/25 [id number] [facility] Given Date VIS Provided VIS Publication Date 04/17/25 Single Vaccine 24 Eligibility Eligibility Date Funding Source Not [facility] Eligible 04/17/25 Private Boostrix Tdap 2.5 Lf unit-8 mcg-5 Lf/0.5 mL intramuscular syringe Performing Provider: Marilynn Pandey MD Performing Location: [facility] [place] [facility] Administered by: Karrie Hurtado CMA on 04/17/25 16:54 Dose Route Admin Location Dispensed Lot Number Expiration Date [facility] Pole Inspector 0.5 mL IM Left Deltoid 0.5 mL [id number] 04/21/27 [id number] [employer] Total Dispensed Waste 0.5 mL 0 % VIS Given Date VIS Provided VIS Publication Date 04/17/25 Single Vaccine 21 Eligibility Eligibility Date Funding Source Not [facility] Eligible 04/17/25 Private Coding Level of Care Code Est Pt Prev Care >65y(99937) Diagnoses Physical exam Z00.00 Additional Codes ELADIO-7 Assessment Billing - ELADIO-7 Assessment Tool: ELADIO-7 Assessment 76018 ([id number]) Time Spent (min) 30 Assessment & Plan Assessment & Plan (1) Physical exam: Code(s): Z00.00 - Encounter for general adult medical examination without abnormal findings Category: Medical Plan Plan 1. Encounter for general adult medical examination without abnormal findings Z00.00 Vaccinations for tetanus, pneumonia, and influenza were discussed and recommended. The patient is considering stool-based screening tests for colon cancer. Orders: Orders Influenza [id number] Immunization Today Z23 - Encounter for immunization TDaP Immunization Today Z23 - Encounter for immunization
[2025-04-17 16:32] VITALS: BP 130/80; PULSE 76; TEMP 36.3; O2SAT 93; BMI 28.4
== END 2025-04-17 16:57 | disposition home or self-care (01) ==
LOC: HO.HMCH 15:45
PROVIDERS: PCP Internal Medicine; Visit Provider Internal Medicine
DX: Z23 Encounter for immunization (principal); Z00.00 Encounter for general adult medical examination without abnormal findings

== ENCOUNTER → 2025-04-17 15:45 | Outpatient (BNVA) | payer MEDICARE, SELFPAY | PROVIDERS: PCP Internal Medicine; Visit Provider Internal Medicine | DX: Z00.00 Encounter for general adult medical examination without abnormal findings (principal); Z23 Encounter for immunization; E78.5 Hyperlipidemia, unspecified; I10 Essential (primary) hypertension; Z79.899 Other long term (current) drug therapy; Z13.30 Encounter for screening examination for mental health and behavioral disorders, unspecified | CPT/HCPCS: 90471; 90472; 90656; 90715; 96127; 99397 ==

== ENCOUNTER 2025-05-10 13:24 | Outpatient (AMB) | payer OTHER, SELFPAY ==
--- NOTE | 2025-05-10 13:34 | MHC.OFFVIS ---
Vital Signs 05/10/25 13:35 Height 5 ft 6 in Weight 180 lb BMI 29.0 BP 120/60 Blood Pressure Location Lt brachial Position Sitting Pulse 80 Pulse Source Pulse Oximeter Pulse Oximetry (%) 92 Oxygen Delivery Method Room Air Intake Visit Reasons: Obstructive sleep apnea Intake Note: pt is here for follow up and states he is feeling good, breathing is tight mostly when sitting but walking is fine, using a nebulizer at home, but happening a lot Circuit Breaker Mechanic Required: Yes Circuit Breaker Mechanic Services: Circuit Breaker Mechanic Present Circuit Breaker Mechanic Name: Ena Whitfield ROSARIO Network Systems Integrator: Network Systems Integrator offered & declined Allergies tamsulosin Adverse Reaction (Verified 05/10/25 13:54) headaches, slow movements Medication List - Last Reconciled 05/10/25 by Cruzito Echavarria MD amlodipine 2.5 mg PO DAILY 90 days brimonidine 0.2% 2 drps ophthalmic (eye) BID dorzolamide-timolol 22.3-6.8 mg/mL 2 drps ophthalmic (eye) BID finasteride 5 mg PO DAILY 90 days fluticasone propion-salmeterol 500-50 mcg/dose (Advair Diskus) 1 inh inhalation BID 30 days ibuprofen 800 mg PO Q8H PRN 30 days netarsudil-latanoprost 0.02-0.005 % (Rocklatan) 2 drps ophthalmic (eye) DAILY simvastatin 10 mg PO BEDTIME 90 days Ventolin HFA 90 mcg/actuation (albuterol sulfate) 2 puffs inhalation Q6H PRN 30 days NS Do you need a note to return to daycare/school/sports/work: No HPI HPI Obstructive sleep apnea: Details: THIS 74 YEARS OLD PERSIAN-SPEAKING GENTLEMAN, COMES FOR HIS ROUTINE FOLLOW-UP. HE WAS DIAGNOSED TO HAVE OBSTRUCTIVE SLEEP APNEA WITH NOCTURNAL HYPOXEMIA. HE WAS NOT COMPLIANT WITH USE OF CPAP AND SO HIS CPAP DEVICE WAS TAKEN AWAY. HE WAS ALSO NOT USING OXYGEN AT NIGHT AND THE [employer] WANTED TO TAKE AWAY THE OXYGEN CONCENTRATOR WELL, BUT FOR THE TIME BEING THEY HAVE LEFT AT HOME. DURING THE DAYTIME HE GETS SLIGHT FEELING OF TIGHTNESS IN THE CHEST AND SHORTNESS OF BREATH ONLY WHEN HE IS SITTING,, HE STARTS USING THE OXYGEN AND ALSO USES THE NEBULIZER, AND FEELS BETTER HE ALSO STATES THAT HE FEELS BETTER WHEN HE GETS UP AND WALKS AROUND. HE HAS WELL COUGH OR ANY ATTACKS OF WHEEZING. [facility] Medical History Cervicalgia Abdominal aortic aneurysm History of smoking 30 or more pack years COPD (chronic obstructive pulmonary disease) Physical exam Urticaria Former smoker Enlarged aorta Screening for prostate cancer Screening for diabetes mellitus Eye exam, routine Otitis media Adult general medical exam Cystitis Prostatitis Chest pain Balanitis Right leg pain Ear discomfort Shortness of breath Bronchitis Moderate major depression Anemia BPH w urinary obs/LUTS Bladder outlet obstruction Weak urinary stream Gross hematuria Lipoma Obese Dyslipidemia Essential hypertension Surgical History History of surgery History of colonoscopy Family History Father No problems noted. Mother Emphysema of lung Social History Household Members: Spouse Housing: Apartment Do you presently have visiting nurse or other home services: No Alcohol intake: never Patient Tobacco Use Status: Former Tobacco user Tobacco use type: Cigarette Years Smoked: 52 +/- e-Cigarette/Vaping Use: Never Used Second Hand Smoke Exposure: No Advance Directives Date on File: 08/14/21 service: No Current occupational status: disabled Cognitive needs: No Hearing needs: No Vision needs: Yes (Glasses) Review of Systems Const All systems reviewed & are unremarkable except as noted in HPI and below Eyes Reports blurry vision and Reports dry eyes ENT Reports no additional complaints Card Denies chest pain, Denies irregular heart rhythm and Denies leg edema Resp Reports as per HPI Reports nocturia Musc Reports back pain and Reports numbness (RIGHT FOOT) Skin/Breast Reports dry skin Neuro Reports no additional complaints and Reports numbness (RIGHT FOOT) Psych Reports anxiety Physical Exam Vital Signs: Last Vital Signs Pulse 80 05/10/25 13:35 BP 120/60 05/10/25 13:35 Pulse Ox 92 05/10/25 13:35 Oxygen Delivery Method Room Air 05/10/25 13:35 BMI result Body Mass Index 29.0 Const General: healthy appearing, comfortable, no acute distress, alert, awake and anxious Orientation/consciousness: patient oriented x3 HEENT Head: Yes normal to inspection General nose exam: No nasal polyps present and No nasal discharge present Face and sinus: Yes sinuses nontender Mouth: oropharynx normal Teeth and gingiva: other (MISSING LOWER TEETH, DOES HAVE REGRESSION OF THE CHIN ( RETROGNATHIA )) Throat: Yes posterior oropharynx normal Eyes General: appearance normal, both eyes and all related structures Neck Neck: Yes normal visual inspection, Yes no lymphadenopathy, Yes trachea midline and Yes no JVD Thyroid: Thyroid normal Chest Chest palpation & inspection: normal inspection of the chest, normal palpation of entire chest wall and no tenderness Resp Other: PERCUSSION NOTE IS RESONANT, BREATH SOUNDS ARE SOMEWHAT DISTANT WITH PROLONGED EXPIRATORY PHASE. BUT NO WHEEZES OR RHONCHI ARE HEARD. Cardio Palpation: normal PMI Rate: regular rate Rhythm: regular rhythm Heart sounds: no gallops and no murmurs GI Palpation (GI): Soft to palpation, nontender, No hepatosplenomegaly present and no masses Auscultation: normal bowel sounds Back/Spine/Pelvis Thoracic/Lumbar Spine: thoracic and lumbar spine normal to inspection Skin General skin exam: no rashes or lesions noted and dry skin Neuro General: patient oriented x3 and no focal motor deficits Cranial nerves: Yes CN's II-XII intact bilaterally Extrem General: Yes normal to inspection, Yes no clubbing, cyanosis or edema and Yes no calf tenderness Psych Appearance: grossly normal and well kempt Speech and movement: Normal speech and movement present Assessment & Plan Assessment & Plan (1) MARIS (obstructive sleep apnea): Comment: PATIENT DOES HAVE OBSTRUCTIVE SLEEP APNEA WHICH IS ONLY MILD AND MOSTLY IN SUPINE POSITION. HOWEVER IT IS ASSOCIATED WITH NOCTURNAL HYPOXEMIA, . HAD CPAP TITRATION IN THE SLEEP LAB AND REQUIRED BILEVEL BILEVEL PRESSURE OF 12/7 CM, WITH O2 2 L/MINUTE TO OVERCOME HYPOXEMIA. HE HAS LOST SIGNIFICANT AMOUNT OF WEIGHT CURRENT BMI 29.1 HE HAS STOPPED USING THE BIPAP. AND RETURNED THE DEVICE TO DME PROVIDER HE IS VERY EXCITED TO REPORT THAT HE SLEEPS GOOD AT NIGHT WITHOUT WAKING UP AND FEELS GOOD Code(s): G47.33 - Obstructive sleep apnea (adult) (pediatric) Category: Medical Plan: I CAUTIONED HIM AND TOLD HIM THAT HE HAS TO WATCH HIS WEIGHT AND DO NOT LET IT GO UP AGAIN. (2) Hypoxemia: Comment: PATIENT FOUND TO HAVE NOCTURNAL HYPOXEMIA. I THINK NOCTURNAL HYPOXEMIA IS MORE DUE TO HIS COPD, AND ALSO CONTRIBUTED BY SLEEP APNEA. PER CPAP TITRATION HE WAS STARTED ON BILEVEL CPAP 12/7 ALONG WITH O2 2 L/MINUTE. HE HAS STOPPED USING THE BIPAP AND ALSO STOPPED USING THE O2 AT NIGHT . HE STILL HAS THE STATIONARY CONCENTRATOR AT HOME Code(s): R09.02 - Hypoxemia Category: Medical Plan: INSTEAD OF USING THE O2 AT NIGHT HE USES IT P.R.N. DURING THE DAYTIME WHEN HE HAS TIGHT FEELING IN THE CHEST AND BECOMES SHORT OF BREATH. (3) COPD (chronic obstructive pulmonary disease): Comment: DUE TO HIS PREVIOUS SMOKING HE DOES HAVE CHRONIC OBSTRUCTIVE PULMONARY DISEASE. IT IS WELL CONTROLLED WITH THE USE OF WIXELA 500-51 INHALATION B.I.D.. NOTED ABOVE HE DEVELOPED SOME RESPIRATORY DISTRESS OFF AND ON USUALLY WHEN SITTING AND WHEN HE STARTS WALKING AROUND HE FEELS BETTER. Code(s): J44.9 - Chronic obstructive pulmonary disease, unspecified Category: Medical Plan: ADVISED TO CONTINUE USING WIXELA 500-51 INHALATION B.I.D. USE VENTOLIN HFA 2 PUFFS Q.6 HOURS PRN. OK TO USE O2 FOR SHORT PERIOD PRN FOR ANY TIGHT FEELING IN THE CHEST OR RESPIRATORY DISTRESS. (4) History of smoking 30 or more pack years: Comment: NOTED ABOVE HE HAS HISTORY OF SMOKING ABOUT 1 PACK A DAY FOR [address] SCAN OF THE CHEST HAS SHOWN A SMALL CALCIFIED GRANULOMA IN LEFT LOWER LOBE AND A SMALL PULMONARY NODULE IN THE RIGHT LOWER LOBE. Code(s): Z87.891 - Personal history of nicotine dependence Category: Social Hx Plan: PATIENT NEEDS ONGOING SURVEILLANCE, WITH LDCT ONCE A YEAR Coding Level of Care Code Est Pt Level 3 (72766) Diagnoses MARIS (obstructive sleep apnea) G47.33 Hypoxemia R09.02 COPD (chronic obstructive pulmonary disease) J44.9 History of smoking 30 or more pack years Z87.891
[2025-05-10 13:35] VITALS: BP 120/60; PULSE 80; O2SAT 92; BMI 29.0
== END 2025-05-10 13:56 | disposition home or self-care (01) ==
LOC: HO.HPS 13:25
PROVIDERS: PCP Internal Medicine; Visit Provider Internal Medicine
DX: G47.33 Obstructive sleep apnea (adult) (pediatric) (principal); R09.02 Hypoxemia; J44.9 Chronic obstructive pulmonary disease, unspecified; Z87.891 Personal history of nicotine dependence
CPT/HCPCS: 99213

== ENCOUNTER → 2025-05-10 13:24 | Outpatient (BNVA) | payer OTHER, SELFPAY | PROVIDERS: PCP Internal Medicine; Visit Provider Internal Medicine | DX: G47.33 Obstructive sleep apnea (adult) (pediatric) (principal); J44.9 Chronic obstructive pulmonary disease, unspecified; R09.02 Hypoxemia; Z87.891 Personal history of nicotine dependence; Z99.81 Dependence on supplemental oxygen; Z99.89 Dependence on other enabling machines and devices; Z91.199 Patient's noncompliance with other medical treatment and regimen due to unspecified reason | CPT/HCPCS: 99212 ==